=== PATIENT | female | born 1955 | race Caucasian/White ===

== ENCOUNTER 2022-06-07 23:48 | Inpatient (IN) | payer MEDICARE ==
[2022-06-07] MEDS ORDERED: SODIUM CHLORIDE 0.9% 1,000 ML IV STA ×2 (23:50)
[2022-06-07] MEDS ORDERED: METOPROLOL TARTRATE 5 MG/5 ML VIAL IVP STA (23:50)
--- NOTE | 2022-06-07 23:51 | ED ---
Recheck HPI - General Stated Complaint: AFib Time Seen by Provider: 06/07/22 23:50 Source: RN notes reviewed, old records reviewed Limitations: no limitations - History of Present Illness Initial Comments: This is a 66-year-old female DF for evaluation of chest pain palpitations physical heart racing. History of H a fibrillation did check her wristwatch which did show elevated heart rate. Patient has again known history of atrial fibrillation had no chest pain prior to arrival. Mild chest pain with elevated heart rate. Positive palpitations feels lightheaded and dizzy not near syncopal. No shortness of breath currently MD Complaint: medication refill request -: days(s) Returns Today for: Called Because of Abnormal Lab/Test, persistent/worsening pain related to initial visit Symptoms Since Prior Visit: worsening pain Associated Symptoms: none Treatments Prior to Arrival: Given Pain Meds on - Related Data Home Medications Medication Instructions Recorded Confirmed Albuterol Inhaler [Ventolin Hfa 1 - 2 puff INHALATION RT-Q4H PRN 06/08/22 06/08/22 Inhaler] Apixaban [Eliquis] 5 mg PO BID 06/08/22 06/08/22 Cholecalciferol [Vitamin D3 (125 125 mcg PO DAILY 06/08/22 06/08/22 Mcg = 5000 Iu)] Fluticasone Propionate 110 Mcg 1 puff INHALATION RT-BID 06/08/22 06/08/22 [Flovent 110 Mcg Inhaler] Ipratropium-Albuterol Nebulize 3 ml INHALATION RT-QID PRN 06/08/22 06/08/22 [Duoneb 0.5 mg-3 mg/3 ml Soln] Magnesium Oxide [Thao] 500 mg PO DAILY 06/08/22 06/08/22 Montelukast Sodium [Singulair] 10 mg PO HS 06/08/22 06/08/22 Multivit with Calcium,Iron,Min 1 tab PO DAILY 06/08/22 06/08/22 [Women's Multivitamin] Rosuvastatin [Crestor] 10 mg PO DAILY 06/08/22 06/08/22 Previous Rx's Medication Instructions Recorded Diltiazem Oral [Cardizem*] 30 mg PO TID #90 tab 06/09/22 Pantoprazole [Protonix] 40 mg PO AC-BRKFST #15 tab 06/09/22 Allergies Allergy/AdvReac Type Severity Reaction Status Date / Time banana Allergy Anaphylaxis Verified 06/08/22 18:33 cantaloupe Allergy Anaphylaxis Verified 06/08/22 18:33 latex Allergy Rash/Hives Verified 06/08/22 07:46 melon Allergy Anaphylaxis Verified 06/08/22 18:33 perflutren [From Definity] Allergy Unknown Verified 06/08/22 07:46 diclofenac [From Voltaren] AdvReac Chest Pain Verified 06/08/22 07:46 metoprolol [From Lopressor] AdvReac Chest Pain Verified 06/08/22 07:46 naproxen [From Naprosyn] AdvReac Chest Pain Verified 06/08/22 07:46 honeydew melon Allergy Anaphylaxis Uncoded 06/08/22 18:33 Review of Systems ROS Statement: Those systems with pertinent positive or pertinent negative responses have been documented in the HPI. ROS Other: All systems not noted in ROS Statement are negative. Past Medical History - Past Family History Mother History Unknown: Yes Additional Family Medical History / Comment(s): stroe, afib, pacemaker, DM, OA, Brother(s) History Unknown: Yes Additional Family Medical History / Comment(s): colon ca Father History Unknown: Yes Additional Family Medical History / Comment(s): cirrhosis, emphysema General Exam General appearance: alert, in no apparent distress Head exam: Present: atraumatic, normocephalic, normal inspection Eye exam: Present: normal appearance, PERRL, EOMI. Absent: scleral icterus, conjunctival injection, periorbital swelling ENT exam: Present: normal exam, mucous membranes moist Neck exam: Present: normal inspection. Absent: tenderness, meningismus, lymphadenopathy Respiratory exam: Present: normal lung sounds bilaterally. Absent: respiratory distress, wheezes, rales, rhonchi, stridor Cardiovascular Exam: Present: regular rate, normal rhythm, normal heart sounds. Absent: systolic murmur, diastolic murmur, rubs, gallop, clicks GI/Abdominal exam: Present: soft, normal bowel sounds. Absent: distended, tenderness, guarding, rebound, rigid Extremities exam: Present: normal inspection, full ROM, normal capillary refill. Absent: tenderness, pedal edema, joint swelling, calf tenderness Back exam: Present: normal inspection Neurological exam: Present: alert, oriented X3, CN II-XII intact Psychiatric exam: Present: normal affect, normal mood Skin exam: Present: warm, dry, intact, normal color. Absent: rash Course Vital Signs 06/07/22 06/07/22 06/08/22 23:50 23:56 00:14 Temperature 97.7 F 97.8 F Pulse Rate 128 H 120 H 120 H Respiratory 16 16 16 Rate Blood Pressure 136/100 136/110 128/73 O2 Sat by Pulse 99 98 99 Oximetry 06/08/22 06/08/22 06/08/22 00:25 00:33 01:25 Temperature Pulse Rate 100 98 92 Respiratory 16 16 16 Rate Blood Pressure 118/87 134/104 O2 Sat by Pulse 98 Oximetry 06/08/22 06/08/22 06/08/22 03:12 04:00 05:00 Temperature 98.6 F Pulse Rate 62 64 61 Respiratory 16 16 16 Rate Blood Pressure 110/64 O2 Sat by Pulse 99 98 Oximetry 06/08/22 06/08/22 06/08/22 06:30 07:30 10:35 Temperature Pulse Rate 62 63 67 Respiratory 16 18 18 Rate Blood Pressure 110/66 119/73 O2 Sat by Pulse 98 98 98 Oximetry 06/08/22 06/08/22 06/08/22 13:00 14:00 16:12 Temperature 98 F 98 F Pulse Rate 60 78 67 Respiratory 20 20 16 Rate Blood Pressure 127/85 146/86 135/66 O2 Sat by Pulse 95 98 98 Oximetry 06/08/22 06/08/22 17:00 19:00 Temperature Pulse Rate 70 75 Respiratory 16 20 Rate Blood Pressure 160/68 135/58 O2 Sat by Pulse 98 98 Oximetry - Reevaluation(s) Reevaluation #1: 06/07/22 Medical record is reviewed Patient symptoms improved here in the ER Patient informed of results and questions answered - Consultations Consultation #1: Spoke with admitting physician agrees to admit this patient Medical Decision Making - Medical Decision Making 66 female to be admitted for atrial fibrillation with RVR not feeling well palpitations and chest pain. - Lab Data Result diagrams: 06/07/22 23:56 06/09/22 10:02 Lab Results 06/07/22 06/07/22 06/07/22 Range/Units 23:56 23:56 23:56 WBC 8.2 (3.8-10.6) k/uL RBC 3.90 (3.80-5.40) m/uL Hgb 12.0 (11.4-16.0) gm/dL Hct 35.1 (34.0-46.0) % MCV 90.0 (80.0-100.0) fL MCH 30.7 (25.0-35.0) pg MCHC 34.1 (31.0-37.0) g/dL RDW 13.2 (11.5-15.5) % Plt Count 202 (150-450) k/uL MPV 8.8 Neutrophils % 59 % Lymphocytes % 27 % Monocytes % 7 % Eosinophils % 3 % Basophils % 1 % Neutrophils # 4.9 (1.3-7.7) k/uL Lymphocytes # 2.2 (1.0-4.8) k/uL Monocytes # 0.6 (0-1.0) k/uL Eosinophils # 0.3 (0-0.7) k/uL Basophils # 0.1 (0-0.2) k/uL PT 10.2 (9.0-12.0) sec INR 1.0 (<1.2) APTT 27.3 (22.0-30.0) sec Sodium 138 (137-145) mmol/L Potassium 3.8 (3.5-5.1) mmol/L Chloride 104 (98-107) mmol/L Carbon Dioxide 29 (22-30) mmol/L Anion Gap 5 mmol/L BUN 23 H (7-17) mg/dL Creatinine 1.60 H (0.52-1.04) mg/dL Est GFR (CKD-EPI)AfAm 39 (>60 ml/min/1.73 sqM) Est GFR (CKD-EPI)NonAf 34 (>60 ml/min/1.73 sqM) Glucose 110 H (74-99) mg/dL Calcium 9.6 (8.4-10.2) mg/dL Magnesium 1.8 (1.6-2.3) mg/dL Total Bilirubin 0.2 (0.2-1.3) mg/dL AST 27 (14-36) U/L ALT 19 (4-34) U/L Alkaline Phosphatase 114 (38-126) U/L Troponin I (0.000-0.034) ng/mL Total Protein 6.9 (6.3-8.2) g/dL Albumin 4.1 (3.5-5.0) g/dL TSH 2.240 (0.465-4.680) mIU/L Urine Color Urine Appearance (Clear) Urine pH (5.0-8.0) Ur Specific Iron (1.001-1.035) Urine Protein (Negative) Urine Glucose (UA) (Negative) Urine Ketones (Negative) Urine Blood (Negative) Urine Nitrite (Negative) Urine Bilirubin (Negative) Urine Urobilinogen (<2.0) mg/dL Ur Leukocyte Esterase (Negative) Urine RBC (0-5) /hpf Urine WBC (0-5) /hpf Ur Squamous Epith Cells (0-4) /hpf Ur Transition Epith Cell (0-1) /hpf Ur Renal Epithelial Cell (0) /hpf Urine Bacteria (None) /hpf Hyaline Casts (0-2) /lpf Urine Mucus (None) /hpf 06/07/22 06/08/22 06/08/22 Range/Units 23:56 02:17 03:28 WBC (3.8-10.6) k/uL RBC (3.80-5.40) m/uL Hgb (11.4-16.0) gm/dL Hct (34.0-46.0) % MCV (80.0-100.0) fL MCH (25.0-35.0) pg MCHC (31.0-37.0) g/dL RDW (11.5-15.5) % Plt Count (150-450) k/uL MPV Neutrophils % % Lymphocytes % % Monocytes % % Eosinophils % % Basophils % % Neutrophils # (1.3-7.7) k/uL Lymphocytes # (1.0-4.8) k/uL Monocytes # (0-1.0) k/uL Eosinophils # (0-0.7) k/uL Basophils # (0-0.2) k/uL PT (9.0-12.0) sec INR (<1.2) APTT (22.0-30.0) sec Sodium (137-145) mmol/L Potassium (3.5-5.1) mmol/L Chloride (98-107) mmol/L Carbon Dioxide (22-30) mmol/L Anion Gap mmol/L BUN (7-17) mg/dL Creatinine (0.52-1.04) mg/dL Est GFR (CKD-EPI)AfAm (>60 ml/min/1.73 sqM) Est GFR (CKD-EPI)NonAf (>60 ml/min/1.73 sqM) Glucose (74-99) mg/dL Calcium (8.4-10.2) mg/dL Magnesium (1.6-2.3) mg/dL Total Bilirubin (0.2-1.3) mg/dL AST (14-36) U/L ALT (4-34) U/L Alkaline Phosphatase (38-126) U/L Troponin I <0.012 0.025 (0.000-0.034) ng/mL Total Protein (6.3-8.2) g/dL Albumin (3.5-5.0) g/dL TSH (0.465-4.680) mIU/L Urine Color Light Yellow Urine Appearance Cloudy H (Clear) Urine pH 7.0 (5.0-8.0) Ur Specific Iron 1.009 (1.001-1.035) Urine Protein Negative (Negative) Urine Glucose (UA) Negative (Negative) Urine Ketones Negative (Negative) Urine Blood Trace H (Negative) Urine Nitrite Negative (Negative) Urine Bilirubin Negative (Negative) Urine Urobilinogen <2.0 (<2.0) mg/dL Ur Leukocyte Esterase Large H (Negative) Urine RBC 13 H (0-5) /hpf Urine WBC 84 H (0-5) /hpf Ur Squamous Epith Cells 1 (0-4) /hpf Ur Transition Epith Cell <1 (0-1) /hpf Ur Renal Epithelial Cell <1 (0) /hpf Urine Bacteria Rare H (None) /hpf Hyaline Casts 1 (0-2) /lpf Urine Mucus Rare H (None) /hpf 06/08/22 06/08/22 Range/Units 05:29 05:29 WBC (3.8-10.6) k/uL RBC (3.80-5.40) m/uL Hgb (11.4-16.0) gm/dL Hct (34.0-46.0) % MCV (80.0-100.0) fL MCH (25.0-35.0) pg MCHC (31.0-37.0) g/dL RDW (11.5-15.5) % Plt Count (150-450) k/uL MPV Neutrophils % % Lymphocytes % % Monocytes % % Eosinophils % % Basophils % % Neutrophils # (1.3-7.7) k/uL Lymphocytes # (1.0-4.8) k/uL Monocytes # (0-1.0) k/uL Eosinophils # (0-0.7) k/uL Basophils # (0-0.2) k/uL PT (9.0-12.0) sec INR (<1.2) APTT (22.0-30.0) sec Sodium 138 (137-145) mmol/L Potassium 3.9 (3.5-5.1) mmol/L Chloride 106 (98-107) mmol/L Carbon Dioxide 27 (22-30) mmol/L Anion Gap 5 mmol/L BUN 18 H (7-17) mg/dL Creatinine 1.35 H (0.52-1.04) mg/dL Est GFR (CKD-EPI)AfAm 48 (>60 ml/min/1.73 sqM) Est GFR (CKD-EPI)NonAf 41 (>60 ml/min/1.73 sqM) Glucose 101 H (74-99) mg/dL Calcium 8.5 (8.4-10.2) mg/dL Magnesium (1.6-2.3) mg/dL Total Bilirubin (0.2-1.3) mg/dL AST (14-36) U/L ALT (4-34) U/L Alkaline Phosphatase (38-126) U/L Troponin I 0.030 (0.000-0.034) ng/mL Total Protein (6.3-8.2) g/dL Albumin (3.5-5.0) g/dL TSH (0.465-4.680) mIU/L Urine Color Urine Appearance (Clear) Urine pH (5.0-8.0) Ur Specific Iron (1.001-1.035) Urine Protein (Negative) Urine Glucose (UA) (Negative) Urine Ketones (Negative) Urine Blood (Negative) Urine Nitrite (Negative) Urine Bilirubin (Negative) Urine Urobilinogen (<2.0) mg/dL Ur Leukocyte Esterase (Negative) Urine RBC (0-5) /hpf Urine WBC (0-5) /hpf Ur Squamous Epith Cells (0-4) /hpf Ur Transition Epith Cell (0-1) /hpf Ur Renal Epithelial Cell (0) /hpf Urine Bacteria (None) /hpf Hyaline Casts (0-2) /lpf Urine Mucus (None) /hpf - EKG Data -: EKG Interpreted by Me (EKG is A. fib 131 QRS 102 QTC 372) Disposition Clinical Impression: Tachycardia, Palpitations, Atrial fibrillation, Atrial fibrillation with rapid ventricular response Disposition: ADMITTED IP TO THIS HOSP Condition: Stable Is patient prescribed a controlled substance at d/c from ED?: No Time of Disposition: 01:25
[2022-06-08] MEDS ORDERED: DILTIAZEM DRIP BOLUS FROM BAG 1 MG SOLN IV ONE (00:09)
[2022-06-08] MEDS ORDERED: DILTIAZEM 125 MG in SODIUM CHLORIDE 0.9% 100 ML IV SCH (00:15)
[2022-06-08 00:24] LABS: Basophils # (A) 0.1 k/uL (0-0.2); Basophils % (A) 1 %; Eosinophils # (A) 0.3 k/uL (0-0.7); Eosinophils % (A) 3 %; HCT 35.1 % (34.0-46.0); Lymphocytes # (A) 2.2 k/uL (1.0-4.8); Lymphocytes % (A) 27 %; MCH 30.7 pg (25.0-35.0); MCHC 34.1 g/dL (31.0-37.0); Mean Platelet Volume 8.8; Monocytes # (A) 0.6 k/uL (0-1.0); Monocytes % (A) 7 %; Neutrophils # (A) 4.9 k/uL (1.3-7.7); Neutrophils % (A) 59 %; Platelet Count 202 k/uL (150-450); RDW 13.2 % (11.5-15.5); WBC 8.2 k/uL (3.8-10.6)
[2022-06-08 00:35] LABS: Albumin 4.1 g/dL (3.5-5.0); Calcium 9.6 mg/dL (8.4-10.2); Magnesium 1.8 mg/dL (1.6-2.3); Potassium 3.8 mmol/L (3.5-5.1); Total Bilirubin 0.2 mg/dL (0.2-1.3); Total Protein 6.9 g/dL (6.3-8.2)
[2022-06-08 00:37] LABS: Partial Thromboplastin Time 27.3 sec (22.0-30.0); Prothrombin Time 10.2 sec (9.0-12.0)
[2022-06-08] MEDS ORDERED: ONDANSETRON 4 MG/2 ML VIAL IVP PRN (01:24)
[2022-06-08] MEDS ORDERED: NALOXONE 0.4 MG/ML 1 ML VIAL IV PRN (01:24)
[2022-06-08] MEDS ORDERED: MORPHINE SULFATE 4 MG/ML SYRINGE IV PRN (01:24)
[2022-06-08] MEDS: SODIUM CHLORIDE 0.9% 1,000 ML IV SCH ×2 (01:57→20:42)
[2022-06-08 02:42] LABS: Appearance,Urine Cloudy (Clear); Bacteria,Urine Rare /hpf; Bilirubin,Urine Negative (Negative); Blood,Urine Trace (Negative); Color,Urine Light Yellow; Glucose,Urine (UA) Negative (Negative); Hyaline Casts,Urine 1 /lpf (0-2); Ketones,Urine Negative (Negative); Leukocyte Esterase,Urine Large (Negative); Mucus,Urine Rare /hpf; Nitrite,Urine Negative (Negative); Protein,Urine Negative (Negative); RBC,Urine 13 /hpf (0-5); Renal Epithelial Cells,Urine <1 /hpf (0); Specific Gravity,Urine 1.009 (1.001-1.035); Squamous Epithelial Cell,Urine 1 /hpf (0-4); Transitional Epi Cells,Urine <1 /hpf (0-1); Urobilinogen,Urine <2.0 mg/dL (<2.0); WBC,Urine 84 /hpf (0-5)
[2022-06-08] MEDS ORDERED: NON FORMULARY DRUG (Albuterol Inhaler 90 MCG Puff) INHALATION PRN (09:55)
[2022-06-08] MEDS ORDERED: IPRATROPIUM-ALBUTEROL 3 ML NEB INHALATION PRN (09:55)
[2022-06-08 10:31] LABS: Calcium 8.5 mg/dL (8.4-10.2); Potassium 3.9 mmol/L (3.5-5.1)
[2022-06-08] MEDS: APIXABAN 5 MG TAB PO SCH ×2 (10:35→20:07)
[2022-06-08] MEDS: PANTOPRAZOLE 40 MG/10 ML VIAL IV SCH (10:35)
--- NOTE | 2022-06-08 11:35 | P.CRDCN ---
History of Present Illness Consult date: 06/08/22 History of present illness: History of Present Illness: The patient is a 66-year-old female with a known history of paroxysmal atrial fibrillation, followed by Dr. Gomez who moved recently from [place]. She had atrial fibrillation for a while, underwent to cardioversion and subsequent ablation in November, she has been anticoagulated and has been doing well until when she noted a rapid irregular heartbeat on her Smart watch associated with dyspnea and dizziness. Came into the emergency room was noted to be in atrial fibrillation with rapid ventricular response, she subsequently converted back to sinus mechanism. She's feeling better today. She denies any chest discomfort, peripheral edema, PND or orthopnea. She is reasonably active physically without difficulty. She recently underwent an MPI, the results are not available to me. She has no other cardiac issue according to her. She denies any prior history of ischemic heart disease or heart failure. Medications: Crestor 10 mg daily, Flovent, Singulair, Eliquis 5 mg twice a day, at home it appears that she was on lisinopril and chlorthalidone. Apparently she had severe bronchospasm from metoprolol and some bradycardia from diltiazem Review of Systems: Respiratory: She has a history of bronchial asthma but no recent wheezing or significant cough. GI: No nausea or vomiting . No history of peptic ulcer disease. No recent GI bleed. : No hematuria or dysuria. Nervous System: No stroke or seizure. Physical Examination: 66-year-old female, alert and oriented no apparent distress,Blood pressure 119/70, Heart rate 67 Head: Normocephalic. Eyes: Sclerae nonicteric. Neck: Good carotid upstroke, no bruit, no jugular venous distention. Lungs: Clear to auscultation. Heart: Regular rate and rhythm, S1-S2, no S3, no rub. No murmur. Abdomen: Soft nontender, positive bowel sounds no organomegaly. Extremities: No edema, intact distal pulses. Labs: BUN 23, creatinine 1.6, this morning creatinine 1.35. Potassium 3.9. Hemoglobin 12. Troponin less than 0.012, 1025, 0.030. TSH 2.2 EKG: Initial EKG atrial fibrillation with rapid ventricular response and nonspecific ST-T wave changes, subsequently sinus mechanism with no significant ST changes Impression: 1. Paroxysmal atrial fibrillation, back in sinus mechanism, post cardioversion and partial ablation according to the patient done in [place] 2. History of hypertension 3. History of bronchial asthma 4. Hyperlipidemia 5. Abnormal renal functions, improving Plan: 1. Start low dose Cardizem and follow heart rate 2. Obtain an echocardiogram with Doppler 3. Follow her renal functions 4. The patient may benefit from repeat ablation 5. Depending on her progress and if she remains stable probable discharge home tomorrow and follow-up as an outpatient Past Medical History Past Medical History: Atrial Fibrillation, Asthma, Hypertension, Sleep Apnea/CPAP/BIPAP History of Any Multi-Drug Resistant Organisms: None Reported Past Surgical History: Ablation Past Psychological History: No Psychological Hx Reported Smoking Status: Former smoker Past Alcohol Use History: None Reported Past Drug Use History: None Reported Medications and Allergies Home Medications Medication Instructions Recorded Confirmed Type Albuterol Inhaler [Ventolin Hfa 1 - 2 puff INHALATION RT-Q4H PRN 06/08/22 06/08/22 History Inhaler] Apixaban [Eliquis] 5 mg PO BID 06/08/22 06/08/22 History Cholecalciferol [Vitamin D3 (125 125 mcg PO DAILY 06/08/22 06/08/22 History Mcg = 5000 Iu)] Fluticasone Propionate 110 Mcg 1 puff INHALATION RT-BID 06/08/22 06/08/22 History [Flovent 110 Mcg Inhaler] Ipratropium-Albuterol Nebulize 3 ml INHALATION RT-QID PRN 06/08/22 06/08/22 History [Duoneb 0.5 mg-3 mg/3 ml Soln] Magnesium Oxide [Thao] 500 mg PO DAILY 06/08/22 06/08/22 History Montelukast Sodium [Singulair] 10 mg PO HS 06/08/22 06/08/22 History Multivit with Calcium,Iron,Min 1 tab PO DAILY 06/08/22 06/08/22 History [Women's Multivitamin] Rosuvastatin [Crestor] 10 mg PO DAILY 06/08/22 06/08/22 History Allergies Allergy/AdvReac Type Severity Reaction Status Date / Time latex Allergy Rash/Hives Verified 06/08/22 07:46 perflutren [From Definity] Allergy Unknown Verified 06/08/22 07:46 diclofenac [From Voltaren] AdvReac Chest Pain Verified 06/08/22 07:46 metoprolol [From Lopressor] AdvReac Chest Pain Verified 06/08/22 07:46 naproxen [From Naprosyn] AdvReac Chest Pain Verified 06/08/22 07:46 Physical Exam Vitals: Vital Signs Temp Pulse Resp BP Pulse Ox 06/08/22 10:35 67 18 119/73 98 06/08/22 07:30 63 18 110/66 98 06/08/22 06:30 62 16 98 06/08/22 05:00 61 16 98 06/08/22 04:00 98.6 F 64 16 110/64 99 06/08/22 03:12 62 16 06/08/22 01:25 92 16 134/104 06/08/22 00:33 98 16 06/08/22 00:25 100 16 118/87 98 06/08/22 00:14 120 H 16 128/73 99 06/07/22 23:56 97.8 F 120 H 16 136/110 98 06/07/22 23:50 97.7 F 128 H 16 136/100 99 Intake and Output 06/07/22 06/08/22 06/08/22 22:59 06:59 14:59 Other: Weight 77.111 kg Results 06/07/22 23:56 06/08/22 05:29 Cardiac Enzymes 06/07/22 06/07/22 06/08/22 Range/Units 23:56 23:56 03:28 AST 27 (14-36) U/L Troponin I <0.012 0.025 (0.000-0.034) ng/mL 06/08/22 Range/Units 05:29 AST (14-36) U/L Troponin I 0.030 (0.000-0.034) ng/mL Coagulation 06/07/22 Range/Units 23:56 PT 10.2 (9.0-12.0) sec APTT 27.3 (22.0-30.0) sec CBC 06/07/22 Range/Units 23:56 WBC 8.2 (3.8-10.6) k/uL RBC 3.90 (3.80-5.40) m/uL Hgb 12.0 (11.4-16.0) gm/dL Hct 35.1 (34.0-46.0) % Plt Count 202 (150-450) k/uL Comprehensive Metabolic Panel 06/07/22 06/08/22 Range/Units 23:56 05:29 Sodium 138 138 (137-145) mmol/L Potassium 3.8 3.9 (3.5-5.1) mmol/L Chloride 104 106 (98-107) mmol/L Carbon Dioxide 29 27 (22-30) mmol/L BUN 23 H 18 H (7-17) mg/dL Creatinine 1.60 H 1.35 H (0.52-1.04) mg/dL Glucose 110 H 101 H (74-99) mg/dL Calcium 9.6 8.5 (8.4-10.2) mg/dL AST 27 (14-36) U/L ALT 19 (4-34) U/L Alkaline Phosphatase 114 (38-126) U/L Total Protein 6.9 (6.3-8.2) g/dL Albumin 4.1 (3.5-5.0) g/dL Current Medications Generic Name Dose Route Start Last Admin Trade Name Freq PRN Reason Stop Dose Admin Albuterol/Ipratropium 3 ml 06/08/22 09:55 Ipratropium-Albuterol 3 Ml Neb INHALATION RT-QID PRN Shortness Of Breath Apixaban 5 mg 06/08/22 10:30 06/08/22 10:35 Apixaban 5 Mg Tab PO 5 mg BID PATTIE Administration Protocol Atorvastatin Calcium 20 mg 06/09/22 09:00 Atorvastatin 20 Mg Tab PO DAILY PATTIE Cholecalciferol 125 mcg 06/09/22 09:00 Cholecalciferol 125 Mcg (5000 Iu) Tablet PO DAILY PATTIE Fluticasone Propionate 1 puff 06/08/22 20:00 Fluticasone 110 Mcg Inhaler INHALATION RT-BID PATTIE Sodium Chloride 1,000 mls @ 75 mls/hr 06/08/22 01:30 06/08/22 01:57 Saline 0.9% IV 75 mls/hr .[id number] PATTIE Administration Montelukast Sodium 10 mg 06/08/22 21:00 Montelukast 10 Mg Tab PO HS PATTIE Morphine Sulfate 4 mg 06/08/22 01:24 Morphine Sulfate 4 Mg/Ml Syringe IV Q4HR PRN Severe Pain (Scale 7 to 10) Multivitamins 1 each 06/09/22 09:00 Multivitamins, Thera 1 Each Tab PO DAILY PATTIE Naloxone HCl 0.2 mg 06/08/22 01:24 Naloxone 0.4 Mg/Ml 1 Ml Vial IV Q2M PRN Opioid Reversal Ondansetron HCl 4 mg 06/08/22 01:24 Ondansetron 4 Mg/2 Ml Vial IVP Q8HR PRN Nausea And Vomiting Pantoprazole Sodium 40 mg 06/08/22 09:00 06/08/22 10:35 Pantoprazole 40 Mg/10 Ml Vial IV 40 mg DAILY PATTIE Administration Intake and Output 06/07/22 06/08/22 06/08/22 22:59 06:59 14:59 Other: Weight 77.111 kg 06/07/22 23:56 06/08/22 05:29
[2022-06-08] MEDS: DILTIAZEM ORAL 30 MG TAB PO SCH ×3 (13:05→20:08)
--- NOTE | 2022-06-08 16:04 | P.HPIM ---
History of Present Illness H&P Date: 06/08/22 This is a 66 year old female who presents to the emergency room yesterday around 11 pm, she was found to be in atrial fibrillation with rapid ventricular rate. EKG on presentation shows atrial fibrillation with heart rate of 131. She was given a 1 liter normal saline fluid bolus and received a 15 mg IV fluid bolus which resulted in sinus bradycardia heart rate of 28 with a 4 second pause. She is currently maintaining heart rate of 61 normal sinus rhythm. She does have past medical history significant for atrial fibrillation, also asthma, hypertension, and sleep apnea. She has most of her cardiac care done in [place] and has undergone 2 previous cardioversions, 1 ablation. She has not tolerated cardizem in the past and states metoprolol illicits bronchospasm. She is anticoagulated with eliquis which will be resumed. Former tobacco use. She follows with Dr. Juve Gomez and recently underwent stress test outpatient. Unsure when her last echocardiogram was. Currently does not have family doctor. She has a CPAP which she is not currently using, would like to follow up with pulmonary here . She does report recent issues with incomplete bladder emptying and fullness. Hematology panel is unremarkable, kidney function is elevated BUN 23, creatinine 1.60. Troponin level is negative x 3 at <0.012, 0.025 and 0.030. Urine is cloudy, trace blood, large leukocyte esterase, 84 WBC, 13 RBC, rare bacteria. No white count. Her blood pressure on admission was 136/100 and has since improved down to 110/66. Patient does take chlorthalidone and also lisinopril outpatient which will be placed on hold secondary to renal dysfunction. Creatinine will be rechecked. REVIEW OF SYSTEMS: CONSTITUTIONAL: No fever, no malaise, no fatigue. HEENT: No recent visual problems or hearing problems. Denied any sore throat. CARDIOVASCULAR: No chest pain, orthopnea, PND, Reports palpitations no syncope. PULMONARY: No shortness of breath, no cough, no hemoptysis. GASTROINTESTINAL: No diarrhea, no nausea, no vomiting, no abdominal pain. NEUROLOGICAL: No headaches, no weakness, no numbness. HEMATOLOGICAL: Denies any bleeding or petechiae. GENITOURINARY: Denies any burning micturition, frequency, or urgency. Reports retention. MUSCULOSKELETAL/RHEUMATOLOGICAL: Denies any joint pain, swelling, or any muscle pain. ENDOCRINE: Denies any polyuria or polydipsia. The rest of the 14-point review of systems is negative. PHYSICAL EXAMINATION: GENERAL: The patient is alert and oriented x3, not in any acute distress. Well developed, well nourished. HEENT: Pupils are round and equally reacting to light. EOMI. No scleral icterus. No conjunctival pallor. Normocephalic, atraumatic. No pharyngeal erythema. No thyromegaly. CARDIOVASCULAR: S1 and S2 present. No murmurs, rubs, or gallops. PULMONARY: Chest is clear to auscultation, no wheezing or crackles. ABDOMEN: Soft, nontender, nondistended, normoactive bowel sounds. No palpable organomegaly. Suprapubic abdominal distention. MUSCULOSKELETAL: No joint swelling or deformity. EXTREMITIES: No cyanosis, clubbing, or pedal edema. NEUROLOGICAL: Gross neurological examination did not reveal any focal deficits. SKIN: No rashes. Assessment and Plan Assessment Atrial fibrillation with rapid ventricular rate currently converted to normal sinus rhythm Acute kidney injury, unsure what baseline creatinine is patient does have some urinary retention. Recent upper respiratory infection treated with amoxicillin about 3 weeks ago History atrial fibrillation anticoagulated with eliquis Hypertension History asthma maintained on flovent, singulair History sleep apnea wears CPAP History of cardiac ablation/cardioversion x 2 Former tobacco use GI Prophylaxis DVT Prophylaxis Full Code Plan Cardiology consultation Echocardiogram pending Check bladder scan and follow urinary retention protocol Outpatient follow up urology Outpatient follow up pulmonary Possible D/C in the next 24 hours The impression and plan of care has been dictated by Sarah Thao Nurse Practitioner as directed. Dr. Nicholas MD I have performed a history and physical examination and medical decision making of this patient, discussed the same with the dictator, and agree with the dictators assessment and plan as written, documented as a scribe. Based on total visit time, I have performed more than 50% of this visit. Past Medical History Past Medical History: Atrial Fibrillation, Asthma, Hypertension, Sleep Apnea/CPAP/BIPAP History of Any Multi-Drug Resistant Organisms: None Reported Past Surgical History: Ablation Past Psychological History: No Psychological Hx Reported Smoking Status: Former smoker Past Alcohol Use History: None Reported Past Drug Use History: None Reported Medications and Allergies Home Medications Medication Instructions Recorded Confirmed Type Albuterol Inhaler [Ventolin Hfa 1 - 2 puff INHALATION RT-Q4H PRN 06/08/22/12/13 History Inhaler] Apixaban [Eliquis] 5 mg PO BID 06/08/22 06/08/22 History Cholecalciferol [Vitamin D3 (125 125 mcg PO DAILY 06/08/22 06/08/22 History Mcg = 5000 Iu)] Fluticasone Propionate 110 Mcg 1 puff INHALATION RT-BID 06/08/22 06/08/22 History [Flovent 110 Mcg Inhaler] Ipratropium-Albuterol Nebulize 3 ml INHALATION RT-QID PRN 06/08/22 06/08/22 History [Duoneb 0.5 mg-3 mg/3 ml Soln] Magnesium Oxide [Thao] 500 mg PO DAILY 06/08/22 06/08/22 History Montelukast Sodium [Singulair] 10 mg PO HS 06/08/22 06/08/22 History Multivit with Calcium,Iron,Min 1 tab PO DAILY 06/08/22 06/08/22 History [Women's Multivitamin] Rosuvastatin [Crestor] 10 mg PO DAILY 06/08/22 06/08/22 History Allergies Allergy/AdvReac Type Severity Reaction Status Date / Time latex Allergy Rash/Hives Verified 06/08/22 07:46 perflutren [From Definity] Allergy Unknown Verified 06/08/22 07:46 diclofenac [From Voltaren] AdvReac Chest Pain Verified 06/08/22 07:46 metoprolol [From Lopressor] AdvReac Chest Pain Verified 06/08/22 07:46 naproxen [From Naprosyn] AdvReac Chest Pain Verified 06/08/22 07:46 Physical Exam Vitals: Vital Signs Temp Pulse Resp BP Pulse Ox 06/08/22 07:30 63 18 110/66 98 06/08/22 06:30 62 16 98 06/08/22 05:00 61 16 98 06/08/22 04:00 98.6 F 64 16 110/64 99 06/08/22 03:12 62 16 06/08/22 01:25 92 16 134/104 06/08/22 00:33 98 16 06/08/22 00:25 100 16 118/87 98 06/08/22 00:14 120 H 16 128/73 99 06/07/22 23:56 97.8 F 120 H 16 136/110 98 06/07/22 23:50 97.7 F 128 H 16 136/100 99 Intake and Output 06/07/22 06/08/22 06/08/22 22:59 06:59 14:59 Other: Weight 77.111 kg Results CBC & Chem 7: 06/07/22 23:56 06/08/22 05:29 Labs: Abnormal Lab Results - Last 24 Hours (Table) 06/07/22 06/08/22 Range/Units 23:56 02:17 BUN 23 H (7-17) mg/dL Creatinine 1.60 H (0.52-1.04) mg/dL Glucose 110 H (74-99) mg/dL Urine Appearance Cloudy H (Clear) Urine Blood Trace H (Negative) Ur Leukocyte Esterase Large H (Negative) Urine RBC 13 H (0-5) /hpf Urine WBC 84 H (0-5) /hpf Urine Bacteria Rare H (None) /hpf Urine Mucus Rare H (None) /hpf Assessment and Plan Time with Patient: Greater than 30
[2022-06-08] MEDS ORDERED: Acetaminophen-Codeine 300-30mg TAB PO PRN (20:05)
[2022-06-08] MEDS: ACETAMINOPHEN TAB 500 MG TAB PO PRN (20:07)
[2022-06-08] MEDS ORDERED: MONTELUKAST 10 MG TAB PO SCH (21:00)
[2022-06-08] MEDS: FLUTICASONE 110 MCG INHALER INHALATION SCH (21:47)
[2022-06-09] MEDS: SODIUM CHLORIDE 0.9% 1,000 ML IV SCH (06:20)
[2022-06-09] MEDS: FLUTICASONE 110 MCG INHALER INHALATION SCH (07:16)
[2022-06-09] MEDS: APIXABAN 5 MG TAB PO SCH ×2 (07:55→18:09)
[2022-06-09] MEDS: DILTIAZEM ORAL 30 MG TAB PO SCH ×2 (07:55→18:07)
[2022-06-09] MEDS: PANTOPRAZOLE 40 MG/10 ML VIAL IV SCH (07:56)
[2022-06-09] MEDS ORDERED: ATORVASTATIN 20 MG TAB PO SCH (09:00)
[2022-06-09] MEDS ORDERED: CHOLECALCIFEROL 125 MCG (5000 IU) TABLET PO SCH (09:00)
[2022-06-09] MEDS ORDERED: MULTIVITAMINS, THERA 1 EACH TAB PO SCH (09:00)
[2022-06-09 11:13] LABS: Calcium 8.7 mg/dL (8.4-10.2); Magnesium 1.8 mg/dL (1.6-2.3); Phosphorus 3.5 mg/dL (2.5-4.5); Potassium 3.8 mmol/L (3.5-5.1)
--- NOTE | 2022-06-09 14:12 | P.PN ---
Subjective Progress Note Date: 06/09/22 The patient is a 66-year-old female with a known history of paroxysmal atrial fibrillation, followed by Dr. Gomez who moved recently from [place]. She had atrial fibrillation for a while, underwent to cardioversion and subsequent ablation in November, she has been anticoagulated and has been doing well until yesterday when she noted a rapid irregular heartbeat on her Smart watch associated with dyspnea and dizziness. Came into the emergency room was noted to be in atrial fibrillation with rapid ventricular response, she subsequently converted back to sinus mechanism. She's feeling better today. She denies any chest discomfort, peripheral edema, PND or orthopnea. She is reasonably active physically without difficulty. She recently underwent an MPI, the results are not available to me. She has no other cardiac issue according to her. She denies any prior history of ischemic heart disease or heart failure. Medications: Crestor 10 mg daily, Flovent, Singulair, Eliquis 5 mg twice a day, at home it appears that she was on lisinopril and chlorthalidone. Apparently she had severe bronchospasm from metoprolol and some bradycardia from diltiazem 06/09/2022 The patient was seen and examined resting comfortably in bed. She is overall feeling better. She is maintaining sinus mechanism. Echocardiogram is pending. Objective - Vital Signs Vital signs: Vital Signs Temp 98 F 06/09/22 11:46 Pulse 62 06/09/22 11:46 Resp 16 06/09/22 11:46 BP 99/54 06/09/22 11:46 Pulse Ox 93 L 06/09/22 11:46 FiO2 Intake & Output 06/08/22 06/09/22 06/09/22 18:59 06:59 18:59 Intake Total 360 Output Total 687 Balance -687 360 Weight 77.111 kg Intake: Oral 360 Output: Post Void Residual 687 Other: Voiding Method Toilet # Voids 0 - Exam Head: Normocephalic. Eyes: Sclerae nonicteric. Neck: Good carotid upstroke, no bruit, no jugular venous distention. Lungs: Clear to auscultation. Heart: Regular rate and rhythm, S1-S2, no S3, no rub. No murmur. Abdomen: Soft nontender, positive bowel sounds no organomegaly. Extremities: No edema, intact distal pulses. - Labs CBC & Chem 7: 12/15/22 23:56 06/09/22 10:02 Labs: Abnormal Lab Results - Last 24 Hours (Table) 06/09/22 Range/Units 10:02 Creatinine 1.28 H (0.52-1.04) mg/dL Glucose 108 H (74-99) mg/dL Microbiology - Last 24 Hours (Table) 06/08/22 02:17 Urine Culture - Preliminary Urine,Voided Assessment and Plan Assessment: 1. Paroxysmal atrial fibrillation, back in sinus mechanism, post cardioversion and partial ablation according to the patient done in [place] 2. History of hypertension 3. History of bronchial asthma 4. Hyperlipidemia 5. Abnormal renal functions, improving Plan: From cardiology's perspective medications were reviewed and we will continue the same. From our standpoint if the echocardiogram does not show any significant abnormalities the patient may be discharged home. She'll follow-up with Dr. Gomez. She may benefit from repeat ablation in the future. CORPORATE ACCOUNTANT note has been reviewed, I agree with a documented findings and plan of care. Patient was seen and examined.
[2022-06-09] MEDS: ACETAMINOPHEN TAB 500 MG TAB PO PRN (14:39)
[2022-06-09 14:42] VITALS: RESP 18
--- NOTE | 2022-06-09 16:23 | CA ---
Transthoracic Echo Report Name: Chelsea Layne Age: 66 Gender: F : 1955 Exam Date: 06/09/2022 09:28 Exam Location: [facility] Ht (in): 52 Wt (lb): 170 Ordering Physician: Madina Pierce MD ([id number]) Attending/Referring Phys: Polisher Balance Screwhead Missy Snow RDCS Procedure CPT: Indications: afib Cardiac Hx: Technical Quality: Contrast 1: Total Dose (mL): Contrast 2: Total Dose (mL): MEASUREMENTS (Male / Female) Normal Values 2D ECHO LV Diastolic Diameter PLAX 4.4 cm 4.2 - 5.9 / 3.9 - 5.3 cm LV Systolic Diameter PLAX 3.0 cm IVS Diastolic Thickness 0.7 cm 0.6 - 1.0 / 0.6 - 0.9 cm LVPW Diastolic Thickness 0.9 cm 0.6 - 1.0 / 0.6 - 0.9 cm LV Relative Wall Thickness 0.4 LA Systolic Diameter LX 3.7 cm 3.0 - 4.0 / 2.7 - 3.8 cm M-MODE MV E Point Septal Separation 0.4 cm DOPPLER MV Area PHT 3.2 cm??? Mitral E Point Velocity 100.3 cm/s Mitral A Point Velocity 80.8 cm/s Mitral E to A Ratio 1.2 MV Deceleration Time 216.9 ms MV E' Velocity 6.0 cm/s Mitral E to MV E' Ratio 16.8 TR Peak Velocity 282.8 cm/s TR Peak Gradient 32.0 mmHg Right Ventricular Systolic Press 35.5 mmHg FINDINGS Left Ventricle Normal left ventricular size, wall thickness, systolic function with no obvious regional wall motion abnormalities. Left ventricular ejection fraction is estimated at 55-60%. Right Ventricle The right ventricle is normal in size and function. Mild pulmonary hypertension. Right Atrium The right atrium is normal in size. Left Atrium The left atrium is normal in size. Lipomatous hypertrophy of the intra-atrial septum Mitral Valve Structurally normal mitral valve without significant stenosis or prolapse. There is mild mitral regurgitation. Aortic Valve Structurally normal aortic valve without significant sclerosis or stenosis. There is no aortic regurgitation. Tricuspid Valve Structurally normal tricuspid valve without significant stenosis.mild tricuspid regurgitation. Pulmonic Valve Structurally normal pulmonic valve without significant stenosis. There is no pulmonic regurgitation. Pericardium Normal pericardium without effusion. Aorta Normal aortic root dimension. CONCLUSIONS 1. Normal size and systolic function 2. Mild mitral and tricuspid regurgitation Previewed by: Dr. Madina Pierce MD (Electronically Signed) Final Date: 09 June 2022 16:22
[2022-06-09 18:22] VITALS: BP 127/77; PULSE 61; TEMP 98.5
[2022-06-10] MEDS ORDERED: PANTOPRAZOLE 40 MG TABLET PO SCH (07:30)
--- NOTE | 2022-06-10 14:40 | P.DS ---
Providers Date of admission: 06/08/22 10:27 Attending physician: Matthew Cohen Consults: 06/08/22 10:37 Consult Physician Routine Consulting Provider: Juve Gomez Consult Reason/Comments: afib with RVR, converted with cardizem - had SB and 4 sec pause Do you want consulting provider notified?: Yes Primary care physician: Stated None Hospital Course: Final Diagnosis Atrial fibrillation with rapid ventricular rate currently converted to normal sinus rhythm Acute kidney injury, unsure what baseline creatinine is patient does have some urinary retention. Recent upper respiratory infection treated with amoxicillin about 3 weeks ago History atrial fibrillation anticoagulated with eliquis Hypertension History asthma maintained on flovent, singulair History sleep apnea wears CPAP History of cardiac ablation/cardioversion x 2 Former tobacco use Full Code Discharge Disposition Patient is stable for discharge home. She is started on oral cardizem 30 mg po three times a day and has tolerated well. She is currently maintaining sinus mechanism. Follow up closely with Dr Gomez. Lisinopril and chlorthalidone stopped on discharge. Follow up BMP in 2 to [address] Loyd, Dr. Dias on discharge. Hospital Course This is a 66 year old female who presents to the emergency room yesterday around 11 pm, she was found to be in atrial fibrillation with rapid ventricular rate. EKG on presentation shows atrial fibrillation with heart rate of 131. She was given a 1 liter normal saline fluid bolus and received a 15 mg IV fluid bolus which resulted in sinus bradycardia heart rate of 28 with a 4 second pause. She is currently maintaining heart rate of 61 normal sinus rhythm. She does have past medical history significant for atrial fibrillation, also asthma, hypertension, and sleep apnea. She has most of her cardiac care done in [place] and has undergone 2 previous cardioversions, 1 ablation. She has not tolerated cardizem in the past and states metoprolol illicits bronchospasm. She is anticoagulated with eliquis which will be resumed. Former tobacco use. She follows with Dr. Juve Gomez and recently underwent stress test outpatient. Unsure when her last echocardiogram was. Currently does not have family doctor. She has a CPAP which she is not currently using, would like to follow up with pulmonary here . She does report recent issues with incomplete bladder emptying and fullness. Hematology panel is unremarkable, kidney function is elevated BUN 23, creatinine 1.60. Troponin level is negative x 3 at <0.012, 0.025 and 0.030. Urine is cloudy, trace blood, large leukocyte esterase, 84 WBC, 13 RBC, rare bacteria. No white count. Her blood pressure on admission was 136/100 and has since improved down to 110/66. Patient does take chlorthalidone and also lisinopril outpatient which will be placed on hold secondary to renal dysfunction. Creatinine will be rechecked. Echocardiogram shows an EF of 55 to 60% mild mitral and tricuspid regurgitation. She has been evaluated by cardiology and started on low dose oral cardizem and has converted to normal sinus rhythm and tolerating cardizem overnight. She will be discharged today and to follow up with Dr. Gomez in 1 week. Referred to [facility] for primary care and also to urology as needed if symptoms of urinary retention return. She is referred to Dr. Dias for evaluation and local follow up for sleep apnea. 06/09/2022 Patient is evaluated today and medical floor, she is pending discharge today. Patient is urinating with a negative post void residual. She's been started on oral Cardizem is currently maintaining sinus mechanism. Heart rate between 50 and 71. She remains afebrile, blood pressure 127/77, she is on room air, heart rate 61. Urine culture is negative. Denies shortness of breath, denies chest pain. No dizziness or lightheadedness. Denies nausea vomiting or diarrhea. Lungs are clear, S1 S2 auscultated. Focal neurological exam is negative she is alert x 3. Creatinine has improved to 1.28 and patient will be given scripts for repeat labs on discharge. Please see medication reconciliation for a list of current medication. Thank you for allowing us to participate in the care of this patient. The impression and plan of care has been dictated by Sarah Thao Nurse Practitioner as directed. Dr. Nicholas MD I have performed a history and physical examination and medical decision making of this patient, discussed the same with the dictator, and agree with the dictators assessment and plan as written, documented as a scribe. Based on total visit time, I have performed more than 50% of this visit. Patient Condition at Discharge: Stable Plan - Discharge Summary Discharge Rx Participant: Yes New Discharge Prescriptions: New Diltiazem Oral [Cardizem*] 30 mg PO TID #90 tab Pantoprazole [Protonix] 40 mg PO AC-BRKFST #15 tab Continue Magnesium Oxide [Thao] 500 mg PO DAILY Cholecalciferol [Vitamin D3 (125 Mcg = 5000 Iu)] 125 mcg PO DAILY Albuterol Inhaler [Ventolin Hfa Inhaler] 1 - 2 puff INHALATION RT-Q4H PRN PRN Reason: Shortness Of Breath Multivit with Calcium,Iron,Min [Women's Multivitamin] 1 tab PO DAILY Rosuvastatin [Crestor] 10 mg PO DAILY Montelukast Sodium [Singulair] 10 mg PO HS Ipratropium-Albuterol Nebulize [Duoneb 0.5 mg-3 mg/3 ml Soln] 3 ml INHALATION RT-QID PRN PRN Reason: Shortness Of Breath Apixaban [Eliquis] 5 mg PO BID Fluticasone Propionate 110 Mcg [Flovent 110 Mcg Inhaler] 1 puff INHALATION RT-BID Discontinued lisinopriL [Prinivil] 20 mg PO BID Chlorthalidone [Hygroton] 25 mg PO DAILY Discharge Medication List Albuterol Inhaler [Ventolin Hfa Inhaler] 1 - 2 puff INHALATION RT-Q4H PRN 06/08/22 [History] Apixaban [Eliquis] 5 mg PO BID 06/08/22 [History] Cholecalciferol [Vitamin D3 (125 Mcg = 5000 Iu)] 125 mcg PO DAILY 06/08/22 [History] Fluticasone Propionate 110 Mcg [Flovent 110 Mcg Inhaler] 1 puff INHALATION RT- BID 06/08/22 [History] Ipratropium-Albuterol Nebulize [Duoneb 0.5 mg-3 mg/3 ml Soln] 3 ml INHALATION RT-QID PRN 06/08/22 [History] Magnesium Oxide [Thao] 500 mg PO DAILY 06/08/22 [History] Montelukast Sodium [Singulair] 10 mg PO HS 06/08/22 [History] Multivit with Calcium,Iron,Min [Women's Multivitamin] 1 tab PO DAILY 06/08/22 [History] Rosuvastatin [Crestor] 10 mg PO DAILY 06/08/22 [History] Diltiazem Oral [Cardizem*] 30 mg PO TID #90 tab 06/09/22 [Rx] Pantoprazole [Protonix] 40 mg PO AC-BRKFST #15 tab 06/09/22 [Rx] Follow up Appointment(s)/Referral(s): Nemo Loyd MD [STAFF PHYSICIAN] - 1-2 Days (Please call to schedule follow up appointment. ) Juve Gomez DO [STAFF PHYSICIAN] - 1 Week (Please call to schedule follow up appointment. ) None,Stated [Primary Care Provider] - 1-2 days Marck Dias MD [STAFF PHYSICIAN] - 2 Weeks (Please call to schedule follow up appointment. ) Patient Instructions/Handouts: A-fib (Atrial Fibrillation) (DC) Activity/Diet/Wound Care/Special Instructions: Recommend to hold lisinopril and chlorthalidone on DC secondary to low blood pressure Follow up with Dr. Gomez on discharge Establish care with primary care provider Follow up with Dr. Dias pulmonary services on discharge for further recommendations regarding sleep apnea and equipment Follow up with urology as needed if recurrent issues with urinary retention Discharge/Stand Alone Forms: Work/Release Restrictions Form Discharge Disposition: HOME SELF-CARE
== END 2022-06-09 18:23 | disposition home or self-care (01) | DRG 309 ==
LOC: EC 23:48 → 3SCARD 06-08 01:24 → OBSVTOIN 06-08 10:27 → 3SCARD 06-08 10:49
PROVIDERS: ADMIT Hospitalist; ATTEND Hospitalist
DX: I48.0 Paroxysmal atrial fibrillation (principal); N17.9 Acute kidney failure, unspecified; Z79.01 Long term (current) use of anticoagulants; I10 Essential (primary) hypertension; I08.1 Rheumatic disorders of both mitral and tricuspid valves; J45.909 Unspecified asthma, uncomplicated; E78.5 Hyperlipidemia, unspecified; G47.30 Sleep apnea, unspecified; Z79.899 Other long term (current) drug therapy; Z87.891 Personal history of nicotine dependence; Z91.040 Latex allergy status; Z91.018 Allergy to other foods; Z88.5 Allergy status to narcotic agent; Z88.8 Allergy status to other drugs, medicaments and biological substances
CPT/HCPCS: 36415; 51798; 80048; 80053; 81001; 83735; 84100; 84443; 84484; 85025; 85610; 85730; 87086; 93005; 93306; 94640; 94760; 96361; 96374; 96375; 99285

== ENCOUNTER 2022-07-02 08:22 | Inpatient (IN) | payer MEDICARE ==
[2022-07-02] MEDS ORDERED: IPRATROPIUM-ALBUTEROL 3 ML NEB INHALATION STA ×2 (08:29→12:55)
[2022-07-02] MEDS ORDERED: DEXAMETHASONE SOD PHOSPHATE 10 MG/ML 1 ML VIAL IVP STA (08:30)
--- NOTE | 2022-07-02 08:43 | ED ---
General Adult HPI - General Chief complaint: Shortness of Breath Stated complaint: JENNIFER Time Seen by Provider: 07/02/22 08:24 Source: patient, EMS Mode of arrival: EMS - History of Present Illness Initial comments: Dictation was produced using [employer] dictation software. please excuse any grammatical, word or spelling errors. Chief Complaint: 66-year-old female presents to the emergency department for shortness of breath, cough and chest foreign body sensation History of Present Illness: She 66-year-old female she has past medical history of asthma, H fibrillation hypertension. She presents to the emergency department from home. Patient brought in by EMS. Patient states that she didn't feeling short of breath since last night. This more she woke up with a foreign body sensation in her upper chest. States that she's been coughing vigorously. She states that her cough is nonproductive. She feels that asthma is acting up. Denies any fever. Denies any chest pain. EMS provided patient with breathing treatment which they felt like improved her symptoms. The ROS documented in this emergency department record has been reviewed and confirmed by me. Those systems with pertinent positive or negative responses have been documented in the HPI. All other systems are other negative and/or noncontributory. PHYSICAL EXAM: General Impression: Alert and oriented x3, dyspnea, coughing HEENT: Normocephalic atraumatic, extra-ocular movements intact, pupils equal and reactive to light bilaterally, mucous membranes moist. Cardiovascular: Heart regular rate and rhythm Chest: 4 word sentences, dyspneic, tachypneic, bilateral breath sounds Abdomen: abdomen soft, non-tender, non-distended, no organomegaly Musculoskeletal: Pulses present and equal in all extremities, no peripheral edema Motor: no focal deficits noted Neurological: CN II-XII grossly intact, no focal motor or sensory deficits noted Skin: Intact with no visualized rashes Psych: Anxious ED course: 66-year-old female presents emergency department for dyspnea since yesterday. Signs upon arrival shows respiratory rate of 26. Patient's neck for percent on 4 L nasal cannula. On arrival to the ER she was 91% on room air. Patient is coughing and appears to be dyspneic at bedside. Auscultation of the lungs is not obvious for any abnormalities Nursing notes and chart review was performed EKG interpreted by me: Ventricular rate 84, sinus rhythm,. Interval 132, QRS 90, QTC 41. No MN prolongation, no QTC prolongation, no ST or T-wave changes noted. Overall, this EKG is unremarkable Laboratory evaluation obtained. Leukocytosis of 15.0. Coag panel is un remarkable. Metabolic panel is negative. Patient is positive for COVID-19. Chest x-ray shows right lower lobe infiltrate. This infiltrates suspicious for bacterial pneumonia. Patient observed in emergency department for 2 hours and 30 minutes. Disposition options were discussed. It is recommended patient be admitted for further care. There is some concern for superimposed bacterial pneumonia. Patient treated with antibiotics. Will be admitted to Dr. casillas with consultation with pulmonology. Was pt. sent in by a medical professional or institution (, PA, DELICATESSEN CLERK, urgent care, hospital, or shelter...) When possible be specific @ -[No] Did you speak to anyone other than the patient for history (EMS, parent, family, police, friend...)? What history was obtained from this source @ -EMS Did you review nursing and triage notes (agree or disagree)? Why? @ -[I reviewed and agree with nursing and triage notes] Were old charts reviewed (outside hosp., previous admission, EMS record, old EKG, old radiological studies, urgent care reports/EKG's, shelter records)? Report findings @ -[No old charts were reviewed] Differential Diagnosis (chest pain, altered mental status, abdominal pain women, abdominal pain men, vaginal bleeding, weakness, fever, dyspnea, syncope, headache, dizziness, GI bleed, back pain, seizure, CVA, palpatations, mental health)? @ -Differential Dyspnea: Coronary syndrome, arrhythmia, tamponade, asthma, COPD, pulmonary embolism, pneumonia, pneumothorax, pulmonary effusion, anaphylaxis, diabetic ketoacidosis, flailed chest, pulmonary contusion, diaphragmatic rupture, anemia, neuromuscular, this is not meant to be an all-inclusive list. EKG interpreted by me (3pts min.). @ -[As above] X-rays interpreted by me (1pt min.). @ -See above CT interpreted by me (1pt min.). @ -[None done] U/S interpreted by me (1pt. min.). @ -[None done] What testing was considered but not performed or refused? (CT, X-rays, U/S, labs)? Why? @ -CT was considered however patient has likely reasons for shortness of breath What meds were considered but not given or refused? Why? @ -[None] Did you discuss the management of the patient with other professionals (professionals i.e. , PA, DELICATESSEN CLERK, lab, RT, psych nurse, social sciences professor, stock handler, teacher, staff readiness officer, case managers)? Give summary @ -DR. Casillas, hospitalist Was smoking cessation discussed for >3mins.? @ -[No] Was critical care preformed (if so, how long)? @ -[No] Were there social determinants of health that impacted care today? How? (Homelessness, low income, unemployed, alcoholism, drug addiction, transportation, low edu. Level, literacy, decrease access to med. care, intermediate, rehab)? @ -[No] Was there de-escalation of care discussed even if they declined (Discuss DNR or withdrawal of care, Hospice)? DNR status @ -[No] What co-morbidities impacted this encounter? (DM, HTN, Smoking, COPD, CAD, Cancer, CVA, ARF, Chemo, Hep., AIDS, mental health diagnosis, sleep apnea, m orbid obesity)? @ -History of asthma and frequent recurrences of pneumonia Was patient admitted / discharged? Hospital course, mention meds given and route, prescriptions, significant lab abnormalities, going to OR and other pertinent info. @ -Admitted, see above Undiagnosed new problem with uncertain prognosis? @ -[No] Drug Therapy requiring intensive monitoring for toxicity (Heparin, Nitro, Insulin, Cardizem)? @ -[No] Were any procedures done? @ -[No] Diagnosis/symptom? @ -[Respiratory failure secondary to COVID-19 and superimposed bacterial pneumonia Acute, or Chronic, or Acute on Chronic? @ -Acute Uncomplicated (without systemic symptoms) or Complicated (systemic symptoms)? @ -Complicated by respiratory failure Side effects of treatment? @ -[No] Exacerbation, Progression, or Severe Exacerbation? @ -[No] Poses a threat to life or bodily function? How? (Chest pain, [place], [place], pneumonia, PE, COPD, DKA, ARF, appy, cholecystitis, CVA, Diverticulitis, Homicidal, Suicidal, threat to staff... and all critical care pts) @ -Yes - Related Data Home Medications Medication Instructions Recorded Confirmed Albuterol Inhaler [Ventolin Hfa 1 - 2 puff INHALATION RT-Q4H PRN 06/08/22 06/08/22 Inhaler] Apixaban [Eliquis] 5 mg PO BID 06/08/22 06/08/22 Cholecalciferol [Vitamin D3 (125 125 mcg PO DAILY 06/08/22 06/08/22 Mcg = 5000 Iu)] Fluticasone Propionate 110 Mcg 1 puff INHALATION RT-BID 06/08/22 06/08/22 [Flovent 110 Mcg Inhaler] Ipratropium-Albuterol Nebulize 3 ml INHALATION RT-QID PRN 06/08/22 06/08/22 [Duoneb 0.5 mg-3 mg/3 ml Soln] Magnesium Oxide [Thao] 500 mg PO DAILY 06/08/22 06/08/22 Montelukast Sodium [Singulair] 10 mg PO HS 06/08/22 06/08/22 Multivit with Calcium,Iron,Min 1 tab PO DAILY 06/08/22 06/08/22 [Women's Multivitamin] Rosuvastatin [Crestor] 10 mg PO DAILY 06/08/22 06/08/22 Previous Rx's Medication Instructions Recorded Diltiazem Oral [Cardizem*] 30 mg PO TID #90 tab 06/09/22 Pantoprazole [Protonix] 40 mg PO AC-BRKFST #15 tab 06/09/22 Allergies Allergy/AdvReac Type Severity Reaction Status Date / Time banana Allergy Anaphylaxis Verified 07/02/22 08:34 cantaloupe Allergy Anaphylaxis Verified 07/02/22 08:34 latex Allergy Rash/Hives Verified 07/02/22 08:34 melon Allergy Anaphylaxis Verified 07/02/22 08:34 perflutren [From Definity] Allergy Unknown Verified 07/02/22 08:34 diclofenac [From Voltaren] AdvReac Chest Pain Verified 07/02/22 08:34 metoprolol [From Lopressor] AdvReac Chest Pain Verified 07/02/22 08:34 naproxen [From Naprosyn] AdvReac Chest Pain Verified 07/02/22 08:34 honeydew melon Allergy Anaphylaxis Uncoded 07/02/22 08:34 Review of Systems ROS Statement: Those systems with pertinent positive or pertinent negative responses have been documented in the HPI. ROS Other: All systems not noted in ROS Statement are negative. Past Medical History Past Medical History: Atrial Fibrillation, Asthma, Hypertension, Sleep Apnea/CPAP/BIPAP Additional Past Medical History / Comment(s): 2019 pneumonia and sepsis History of Any Multi-Drug Resistant Organisms: None Reported Past Surgical History: Ablation Additional Past Surgical History / Comment(s): cardioversion x2, 2011 left ankle plate and screws Past Anesthesia/Blood Transfusion Reactions: No Reported Reaction Past Psychological History: No Psychological Hx Reported Smoking Status: Former smoker Past Alcohol Use History: None Reported Past Drug Use History: None Reported - Past Family History Mother History Unknown: Yes Additional Family Medical History / Comment(s): stroe, afib, pacemaker, DM, OA, Brother(s) History Unknown: Yes Additional Family Medical History / Comment(s): colon ca Father History Unknown: Yes Additional Family Medical History / Comment(s): cirrhosis, emphysema Course Vital Signs 07/02/22 07/02/22 07/02/22 08:23 08:31 08:44 Temperature 97.1 F L Pulse Rate 100 Respiratory 26 H 26 H Rate Blood Pressure 177/98 O2 Sat by Pulse 91 L 94 L Oximetry 07/02/22 07/02/22 07/02/22 08:46 08:53 10:26 Temperature Pulse Rate 87 89 76 Respiratory 18 Rate Blood Pressure 135/79 O2 Sat by Pulse 97 Oximetry Medical Decision Making - Lab Data Result diagrams: 07/02/22 08:39 07/02/22 08:39 Lab Results 07/02/22 07/02/22 07/02/22 Range/Units 08:39 08:39 08:39 WBC 15.0 H (3.8-10.6) k/uL RBC 3.76 L (3.80-5.40) m/uL Hgb 10.8 L (11.4-16.0) gm/dL Hct 34.0 (34.0-46.0) % MCV 90.3 (80.0-100.0) fL MCH 28.8 (25.0-35.0) pg MCHC 31.9 (31.0-37.0) g/dL RDW 13.9 (11.5-15.5) % Plt Count 335 (150-450) k/uL MPV 7.9 Neutrophils % 76 % Lymphocytes % 16 % Monocytes % 5 % Eosinophils % 1 % Basophils % 1 % Neutrophils # 11.4 H (1.3-7.7) k/uL Lymphocytes # 2.3 (1.0-4.8) k/uL Monocytes # 0.8 (0-1.0) k/uL Eosinophils # 0.2 (0-0.7) k/uL Basophils # 0.1 (0-0.2) k/uL Hypochromasia Moderate PT 11.1 (9.0-12.0) sec INR 1.1 (<1.2) APTT 25.7 (22.0-30.0) sec Sodium 137 (137-145) mmol/L Potassium 3.8 (3.5-5.1) mmol/L Chloride 105 (98-107) mmol/L Carbon Dioxide 27 (22-30) mmol/L Anion Gap 5 mmol/L BUN 29 H (7-17) mg/dL Creatinine 1.10 H (0.52-1.04) mg/dL Est GFR (CKD-EPI)AfAm 61 (>60 ml/min/1.73 sqM) Est GFR (CKD-EPI)NonAf 53 (>60 ml/min/1.73 sqM) Glucose 96 (74-99) mg/dL Plasma Lactic Acid Payam (0.7-2.0) mmol/L Calcium 8.4 (8.4-10.2) mg/dL Magnesium 1.9 (1.6-2.3) mg/dL Total Bilirubin 0.5 (0.2-1.3) mg/dL AST 49 H (14-36) U/L ALT 70 H (4-34) U/L Alkaline Phosphatase 74 (38-126) U/L Troponin I (0.000-0.034) ng/mL Total Protein 6.1 L (6.3-8.2) g/dL Albumin 3.6 (3.5-5.0) g/dL Influenza Type A (PCR) (Not Detectd) Influenza Type B (PCR) (Not Detectd) RSV (PCR) (Not Detectd) SARS-CoV-2 (PCR) (Not Detectd) 07/02/22 07/02/22 07/02/22 Range/Units 08:39 08:39 08:39 WBC (3.8-10.6) k/uL RBC (3.80-5.40) m/uL Hgb (11.4-16.0) gm/dL Hct (34.0-46.0) % MCV (80.0-100.0) fL MCH (25.0-35.0) pg MCHC (31.0-37.0) g/dL RDW (11.5-15.5) % Plt Count (150-450) k/uL MPV Neutrophils % % Lymphocytes % % Monocytes % % Eosinophils % % Basophils % % Neutrophils # (1.3-7.7) k/uL Lymphocytes # (1.0-4.8) k/uL Monocytes # (0-1.0) k/uL Eosinophils # (0-0.7) k/uL Basophils # (0-0.2) k/uL Hypochromasia PT (9.0-12.0) sec INR (<1.2) APTT (22.0-30.0) sec Sodium (137-145) mmol/L Potassium (3.5-5.1) mmol/L Chloride (98-107) mmol/L Carbon Dioxide (22-30) mmol/L Anion Gap mmol/L BUN (7-17) mg/dL Creatinine (0.52-1.04) mg/dL Est GFR (CKD-EPI)AfAm (>60 ml/min/1.73 sqM) Est GFR (CKD-EPI)NonAf (>60 ml/min/1.73 sqM) Glucose (74-99) mg/dL Plasma Lactic Acid Payam 1.3 (0.7-2.0) mmol/L Calcium (8.4-10.2) mg/dL Magnesium (1.6-2.3) mg/dL Total Bilirubin (0.2-1.3) mg/dL AST (14-36) U/L ALT (4-34) U/L Alkaline Phosphatase (38-126) U/L Troponin I 0.017 (0.000-0.034) ng/mL Total Protein (6.3-8.2) g/dL Albumin (3.5-5.0) g/dL Influenza Type A (PCR) Not Detected (Not Detectd) Influenza Type B (PCR) Not Detected (Not Detectd) RSV (PCR) Not Detected (Not Detectd) SARS-CoV-2 (PCR) Detected A (Not Detectd) Disposition Clinical Impression: Respiratory failure Disposition: ADMITTED IP TO THIS [facility] Condition: Fair Referrals: None,Stated [Primary Care Provider] - 1-2 days Decision Time: 10:59
[2022-07-02 08:48] LABS: Basophils # (A) 0.1 k/uL (0-0.2); Basophils % (A) 1 %; Eosinophils # (A) 0.2 k/uL (0-0.7); Eosinophils % (A) 1 %; HGB 10.8 gm/dL (11.4-16.0); Hypochromasia Moderate; Lymphocytes # (A) 2.3 k/uL (1.0-4.8); Lymphocytes % (A) 16 %; MCH 28.8 pg (25.0-35.0); MCHC 31.9 g/dL (31.0-37.0); MCV 90.3 fL (80.0-100.0); Mean Platelet Volume 7.9; Monocytes # (A) 0.8 k/uL (0-1.0); Monocytes % (A) 5 %; Neutrophils # (A) 11.4 k/uL (1.3-7.7); Neutrophils % (A) 76 %; Platelet Count 335 k/uL (150-450); RBC 3.76 m/uL (3.80-5.40); RDW 13.9 % (11.5-15.5)
[2022-07-02 09:07] LABS: Albumin 3.6 g/dL (3.5-5.0); Calcium 8.4 mg/dL (8.4-10.2); Magnesium 1.9 mg/dL (1.6-2.3); Potassium 3.8 mmol/L (3.5-5.1); Total Bilirubin 0.5 mg/dL (0.2-1.3); Total Protein 6.1 g/dL (6.3-8.2)
--- NOTE | 2022-07-02 09:09 | XR ---
EXAMINATION TYPE: XR chest 1V portable DATE OF EXAM: 07/02/2022 COMPARISON: NONE HISTORY: Cough. TECHNIQUE: Single AP frontal upright view of the chest is obtained. FINDINGS: There are reticular increased markings with subtle increased bibasilar opacities. The car diac silhouette size is upper limits of normal. Slightly elevated left hemidiaphragm. Overlying EKG l manisha are present. The osseous structures are intact. IMPRESSION: Suspect chronic parenchymal changes. Patchy bibasilar atelectasis and/or acute infiltrat es are present.
[2022-07-02 09:14] LABS: INR 1.1 (<1.2); Partial Thromboplastin Time 25.7 sec (22.0-30.0); Prothrombin Time 11.1 sec (9.0-12.0)
[2022-07-02] MEDS ORDERED: AZITHROMYCIN 500 MG in SODIUM CHLORIDE 0.9% 250 ML IVPB STA (10:48)
[2022-07-02] MEDS ORDERED: cefTRIAXone IN SWFI 1,000 MG/10 ML SYRINGE IVP STA (10:48)
[2022-07-02] MEDS ORDERED: ACETAMINOPHEN TAB 325 MG TAB PO PRN (10:49)
[2022-07-02] MEDS ORDERED: NALOXONE 0.4 MG/ML 1 ML VIAL IV PRN (10:49)
[2022-07-02] MEDS: SODIUM CHLORIDE 0.9% 1,000 ML IV SCH (11:08)
[2022-07-02] MEDS ORDERED: IPRATROPIUM-ALBUTEROL 3 ML NEB INHALATION PRN (12:39)
[2022-07-02] MEDS: methylPREDNISolone SOD SUCCI 40 MG/ML 1 ML VIAL IV SCH ×2 (13:20→21:47)
[2022-07-02 13:21] LABS: C Reactive Protein <0.5 mg/dL (<1.0); LDH 607 U/L (313-618)
--- NOTE | 2022-07-02 14:58 | P.CNPUL ---
History of Present Illness Consult date: 07/02/22 Requesting physician: Ritesh Casillas Reason for consult: dyspnea Chief complaint: Shortness of breath, cough, congestion History of present illness: This is a very pleasant 66-year-old female patient with a history of atrial fibrillation and recently admitted for RVR subsequent converted to sinus rhythm, anticoagulated with Eliquis, ReVia slightly had undergone ablation and cardioversion 2, asthma, hypertension, former smoker, obstructive sleep apnea utilizing CPAP. She had also been treated for upper respiratory infection/bronchitis on 3 separate occasions twice with amoxicillin and once with erythromycin without much improvement. She presented here to the emergency room and ongoing symptoms of shortness of breath, cough and congestion. Chest x-ray revealed patchy bibasilar atelectasis. She did test positive for the coronavirus. She states she has been vaccinated 2 and booster 2. She had not been tested at her outpatient clinic visits. RSV screen negative. Influenza screen negative. White count 15.0. Hemoglobin 10.8. Platelets 335. Sodium 137. Potassium 3.8. Bicarb 27. BUN 29. Creatinine 1.10. AST 49. ALT 70. Troponin negative 1. LDH 607. C-reactive protein less than 0.5. She was initiated on Symbicort, DuoNeb inhalations, IV Solu-Medrol. Antibiotics in the form of ceftriaxone and azithromycin. Anticoagulated with Eliquis. Vitamin supplements. Review of Systems REVIEW OF SYSTEMS: CONSTITUTIONAL: Denies any recent significant weight loss or weight gain. EYES: Denies change in vision. EARS, NOSE, MOUTH, THROAT: Denies headaches, denies sore throat. CARDIOVASCULAR: Denies chest pain, palpitations or syncopal episodes. RESPIRATORY: Positive for shortness of breath, cough, congestion no hemoptysis. GASTROINTESTINAL: Denies change in appetite, denies abdominal pain GENITOURINARY: Denies hematuria, denies infections. MUSKULOSKELETAL: Denies pain, denies swelling. INTEGUMENTARY: Denies rash, denies eczema. NEUROLOGICAL: Denies recent memory loss, no recent seizure activity. PSYCHIATRIC: Denies anxiety, denies depression. HEMATOLOGIC/LYMPHATIC: Denies anemia, denies enlarged lymph nodes. Past Medical History Past Medical History: Atrial Fibrillation, Asthma, Hypertension, Sleep Apnea/CPAP/BIPAP Additional Past Medical History / Comment(s): 2019 pneumonia and sepsis History of Any Multi-Drug Resistant Organisms: None Reported Past Surgical History: Ablation Additional Past Surgical History / Comment(s): cardioversion x2, 2011 left ankle plate and screws Past Anesthesia/Blood Transfusion Reactions: No Reported Reaction Past Psychological History: No Psychological Hx Reported Smoking Status: Former smoker Past Alcohol Use History: None Reported Past Drug Use History: None Reported - Past Family History Mother History Unknown: Yes Additional Family Medical History / Comment(s): stroe, afib, pacemaker, DM, OA, Brother(s) History Unknown: Yes Additional Family Medical History / Comment(s): colon ca Father History Unknown: Yes Additional Family Medical History / Comment(s): cirrhosis, emphysema Medications and Allergies Home Medications Medication Instructions Recorded Confirmed Type Albuterol Inhaler [Ventolin Hfa 2 puff INHALATION RT-Q4H PRN 06/08/22 07/02/22 History Inhaler] Apixaban [Eliquis] 5 mg PO BID 06/08/22 07/02/22 History Cholecalciferol [Vitamin D3 (125 125 mcg PO DAILY 06/08/22 07/02/22 History Mcg = 5000 Iu)] Fluticasone Propionate 110 Mcg 1 puff INHALATION DIRECTED 06/08/22 07/02/22 History [Flovent 110 Mcg Inhaler] Ipratropium-Albuterol Nebulize 3 ml INHALATION RT-QID PRN 06/08/22 07/02/22 History [Duoneb 0.5 mg-3 mg/3 ml Soln] Magnesium Oxide [Thao] 500 mg PO DAILY 06/08/22 07/02/22 History Montelukast Sodium [Singulair] 10 mg PO HS 06/08/22 07/02/22 History Multivit with Calcium,Iron,Min 1 tab PO DAILY 06/08/22 07/02/22 History [Women's Multivitamin] Rosuvastatin [Crestor] 10 mg PO HS 06/08/22 07/02/22 History Diltiazem Oral [Cardizem*] 30 mg PO TID #90 tab 06/09/22 07/02/22 Rx Azithromycin [Zithromax] See Taper PO DIRECTED 07/02/22 07/02/22 History Budesonide/Formoterol Fumarate 2 puff INHALATION RT-BID 07/02/22 07/02/22 History [Symbicort 160-4.5 Mcg Inhaler] Allergies Allergy/AdvReac Type Severity Reaction Status Date / Time banana Allergy Anaphylaxis Verified 07/02/22 10:59 cantaloupe Allergy Anaphylaxis Verified 07/02/22 10:59 latex Allergy Rash/Hives Verified 07/02/22 10:59 melon Allergy Anaphylaxis Verified 07/02/22 10:59 perflutren [From Definity] Allergy Unknown Verified 07/02/22 10:59 diclofenac [From Voltaren] AdvReac Chest Pain Verified 07/02/22 10:59 metoprolol [From Lopressor] AdvReac Chest Pain Verified 07/02/22 10:59 naproxen [From Naprosyn] AdvReac Chest Pain Verified 07/02/22 10:59 honeydew melon Allergy Anaphylaxis Uncoded 07/02/22 10:59 Physical Exam Vitals: Vital Signs Temp Pulse Resp BP Pulse Ox 07/02/22 13:34 86 18 115/72 96 07/02/22 13:24 88 07/02/22 13:12 84 07/02/22 10:26 76 18 135/79 97 07/02/22 08:53 89 07/02/22 08:46 87 07/02/22 08:44 26 H 07/02/22 08:31 94 L 07/02/22 08:23 97.1 F L 100 26 H 177/98 91 L Intake and Output 07/01/22 07/02/22 07/02/22 22:59 06:59 14:59 Other: Weight 77.111 kg GENERAL EXAM: Alert, pleasant 66-year-old female, on 2 L nasal cannula, comfortable in no apparent distress. HEAD: Normocephalic. EYES: Normal reaction of pupils, equal size. NOSE: Clear with pink turbinates. THROAT: No erythema or exudates. NECK: No masses, no JVD. CHEST: No chest wall deformity. LUNGS: Equal air entry with few scattered crackles. CVS: S1 and S2 normal with no audible murmur, regular rhythm. ABDOMEN: No hepatosplenomegaly, normal bowel sounds, no guarding or rigidity. SPINE: No scoliosis or deformity SKIN: No rashes CENTRAL NERVOUS SYSTEM: No focal deficits, tone is normal in all 4 extremities. EXTREMITIES: There is no peripheral edema. No clubbing, no cyanosis. Peripheral pulses are intact. Results - Laboratory Findings CBC and BMP: 07/02/22 08:39 07/02/22 08:39 PT/INR, D-dimer PT 11.1 sec (9.0-12.0) 07/02/22 08:39 INR 1.1 (<1.2) 07/02/22 08:39 Abnormal lab findings: Abnormal Labs 07/02/22 07/02/22 07/02/22 08:39 08:39 08:39 WBC 15.0 H RBC 3.76 L Hgb 10.8 L Neutrophils # 11.4 H BUN 29 H Creatinine 1.10 H AST 49 H ALT 70 H Total Protein 6.1 L SARS-CoV-2 (PCR) Detected A - Diagnostic Findings Chest x-ray: image reviewed Assessment and Plan Assessment: Acute COVID-19 infection without evidence of acute COVID-19 pneumonia. Outside the window for Remdesivir. Vaccinated 2, boosted 2 Acute tracheobronchitis, treated with antibiotics on 3 separate occasions in the outpatient setting Former smoker History of atrial fibrillation with rapid ventricular response and admitted here in May 2022 and anticoagulated with Eliquis History of asthma Hyperlipidemia Plan: The patient was seen and evaluated Chest x-ray, labs and medications reviewed. Continue Solu-Medrol, Symbicort, albuterol HFA Anticoagulated with Eliquis Continue multivitamins Check a pro-calcitonin Continue antibiotics for now Titrate down the FiO2 as tolerated We'll continue to follow and make further recommendations based on her clinical status I have personally seen and examined the patient, performed the documentation and the assessment and plan as written. Number of minutes spent on the visit: 20.
[2022-07-02] MEDS: DILTIAZEM ORAL 30 MG TAB PO SCH ×2 (15:28→21:47)
[2022-07-02] MEDS: FAMOTIDINE 20 MG/2 ML VIAL IV SCH (15:34)
[2022-07-02] MEDS: ALBUTEROL HFA INHALER INHALATION PRN ×2 (15:52→19:30)
--- NOTE | 2022-07-02 19:25 | P.HPIM ---
History of Present Illness This is a pleasant 66 years old female with past medical history of asthma, sleep apnea, hypertension, atrial fibrillation status post ablation on Eliquis Patient states because she has difficulty breathing since Saturday for about 3-4 days, she went to urgent care who prescribed her oral antibiotics with no much help so she decided to come to emergency room. She has cough with creamy phlegm and central chest pain with coughing. 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 A febrile. The Around 26/m Patient has mild leukocytosis about 15,000, rest of labs are unremarkable. Creatinine elevated 1.1, baseline 1.2-1.3 AST mildly elevated 49 and ALT 70. Bilirubin is normal. Covid viruses detected, while influenza versus an RSV are undetected. Chest x-ray: Reviewed by myself:Patchy bilateral basal atelectasis versus early infiltrate EKG: Normal sinus rhythm at [address]-T changes Review of Systems Review of systems CONSTITUTIONAL: No fever, no malaise, no fatigue. HEENT: No recent visual problems or hearing problems. Denied any sore throat. CARDIOVASCULAR: No orthopnea, PND, no palpitations, no syncope. PULMONARY: No chest wall tenderness, no hemoptysis. GASTROINTESTINAL: No diarrhea, no nausea, no vomiting, no abdominal pain. Normoactive bowel sounds. NEUROLOGICAL: No headaches, no weakness, no numbness. HEMATOLOGICAL: Denies any bleeding or petechiae. GENITOURINARY: Denies any burning micturition, frequency, or urgency. MUSCULOSKELETAL/RHEUMATOLOGICAL: Denies any joint pain, swelling, or any muscle pain. ENDOCRINE: Denies any polyuria or polydipsia. Past Medical History Past Medical History: Atrial Fibrillation, Asthma, Hypertension, Sleep Apnea/CPAP/BIPAP Additional Past Medical History / Comment(s): 2019 pneumonia and sepsis History of Any Multi-Drug Resistant Organisms: None Reported Past Surgical History: Ablation Additional Past Surgical History / Comment(s): cardioversion x2, 2011 left ankle plate and screws Past Anesthesia/Blood Transfusion Reactions: No Reported Reaction Past Psychological History: No Psychological Hx Reported Smoking Status: Former smoker Past Alcohol Use History: None Reported Past Drug Use History: None Reported - Past Family History Mother History Unknown: Yes Additional Family Medical History / Comment(s): stroe, afib, pacemaker, DM, OA, Brother(s) History Unknown: Yes Additional Family Medical History / Comment(s): colon ca Father History Unknown: Yes Additional Family Medical History / Comment(s): cirrhosis, emphysema Medications and Allergies Home Medications Medication Instructions Recorded Confirmed Type Albuterol Inhaler [Ventolin Hfa 2 puff INHALATION RT-Q4H PRN 06/08/22 07/02/22 History Inhaler] Apixaban [Eliquis] 5 mg PO BID 06/08/22 07/02/22 History Cholecalciferol [Vitamin D3 (125 125 mcg PO DAILY 06/08/22 07/02/22 History Mcg = 5000 Iu)] Fluticasone Propionate 110 Mcg 1 puff INHALATION DIRECTED 06/08/22 07/02/22 History [Flovent 110 Mcg Inhaler] Ipratropium-Albuterol Nebulize 3 ml INHALATION RT-QID PRN 06/08/22 07/02/22 History [Duoneb 0.5 mg-3 mg/3 ml Soln] Magnesium Oxide [Thao] 500 mg PO DAILY 06/08/22 07/02/22 History Montelukast Sodium [Singulair] 10 mg PO HS 06/08/22 07/02/22 History Multivit with Calcium,Iron,Min 1 tab PO DAILY 06/08/22 07/02/22 History [Women's Multivitamin] Rosuvastatin [Crestor] 10 mg PO HS 06/08/22 07/02/22 History Diltiazem Oral [Cardizem*] 30 mg PO TID #90 tab 06/09/22 07/02/22 Rx Azithromycin [Zithromax] See Taper PO DIRECTED 07/02/22 07/02/22 History Budesonide/Formoterol Fumarate 2 puff INHALATION RT-BID 07/02/22 07/02/22 History [Symbicort 160-4.5 Mcg Inhaler] Allergies Allergy/AdvReac Type Severity Reaction Status Date / Time banana Allergy Anaphylaxis Verified 07/02/22 10:59 cantaloupe Allergy Anaphylaxis Verified 07/02/22 10:59 latex Allergy Rash/Hives Verified 07/02/22 10:59 melon Allergy Anaphylaxis Verified 07/02/22 10:59 perflutren [From Definity] Allergy Unknown Verified 07/02/22 10:59 diclofenac [From Voltaren] AdvReac Chest Pain Verified 07/02/22 10:59 metoprolol [From Lopressor] AdvReac Chest Pain Verified 07/02/22 10:59 naproxen [From Naprosyn] AdvReac Chest Pain Verified 07/02/22 10:59 honeydew melon Allergy Anaphylaxis Uncoded 07/02/22 10:59 Physical Exam Vitals: Vital Signs Temp Pulse Resp BP Pulse Ox 07/02/22 10:26 76 18 135/79 97 07/02/22 08:53 89 07/02/22 08:46 87 07/02/22 08:44 26 H 07/02/22 08:31 94 L 07/02/22 08:23 97.1 F L 100 26 H 177/98 91 L Intake and Output 07/01/22 07/02/22 07/02/22 22:59 06:59 14:59 Other: Weight 77.111 kg GENERAL: The patient is alert and oriented x3, not in any acute distress. Well developed, well nourished. HEENT: Pupils are round and equally reacting to light. EOMI. No scleral icterus. No conjunctival pallor. Normocephalic, atraumatic. No pharyngeal erythema. No thyromegaly. CARDIOVASCULAR: S1 and S2 present. No murmurs, rubs, or gallops. -PULMONARY: Chest is clear to auscultation,. Bilateral expiratory wheezing or crackles. ABDOMEN: Soft, nontender, nondistended, normoactive bowel sounds. No palpable organomegaly. MUSCULOSKELETAL: No joint swelling or deformity. EXTREMITIES: No cyanosis, clubbing, or pedal edema. NEUROLOGICAL: Gross neurological examination did not reveal any focal deficits. SKIN: No rashes. no petechiae. Results CBC & Chem 7: 07/02/22 08:39 07/02/22 08:39 Labs: Abnormal Lab Results - Last 24 Hours (Table) 07/02/22 07/02/2223 Range/Units 08:39 08:39 08:39 WBC 15.0 H (3.8-10.6) k/uL RBC 3.76 L (3.80-5.40) m/uL Hgb 10.8 L (11.4-16.0) gm/dL Neutrophils # 11.4 H (1.3-7.7) k/uL BUN 29 H (7-17) mg/dL Creatinine 1.10 H (0.52-1.04) mg/dL AST 49 H (14-36) U/L ALT 70 H (4-34) U/L Total Protein 6.1 L (6.3-8.2) g/dL SARS-CoV-2 (PCR) Detected A (Not Detectd) Assessment and Plan Assessment: Bilateral Covid pneumonia , rule out bacterial infection acute asthma/COPD exacerbation Acute hypoxic respiratory failure, Possible bacterial superinfection rule out Increased inflammatory markers mild transaminitis Paroxysmal atrial fibrillation status post ablation on Eliquis Chronic kidney disease, stage III History of obstructive sleep apnea on CPAP at home Plan: Continue with steroids, IV Solu-Medrol Continue with vitamin C, vitamin D and zinc Continue with ceftriaxone and Zithromax and follow-up procalcitonin Pulmonary consult Labs and medication were reviewed.. Continue same treatment. Continue with symptomatic treatment. Resume home medication. Monitor labs and vitals. DVT and GI prophylaxis. Further recommendations as per clinical course of the patient DVT prophylaxis: Eliquis GI Prophylaxis: Pepcid PT/OT: Pending Prognosis is guarded
[2022-07-02] MEDS: SYMBICORT 160-4.5 MCG INHALER INHALATION SCH (19:30)
[2022-07-02] MEDS ORDERED: DEXTROSE 50% SYRINGE 50 ML IVP PRN ×2 (21:20)
[2022-07-02] MEDS: ATORVASTATIN 10 MG TAB PO SCH (21:47)
[2022-07-02] MEDS: MONTELUKAST 10 MG TAB PO SCH (21:47)
[2022-07-02] MEDS: APIXABAN 5 MG TAB PO SCH (21:47)
[2022-07-03] MEDS: methylPREDNISolone SOD SUCCI 40 MG/ML 1 ML VIAL IV SCH ×3 (05:50→22:22)
[2022-07-03 06:33] LABS: Glucose,Whole Blood 164 mg/dL (70-110)
[2022-07-03] MEDS: INSULIN ASPART (NovoLOG) 100 UNIT/ML VIAL SQ SCH ×4 (06:52→22:17)
[2022-07-03] MEDS: APIXABAN 5 MG TAB PO SCH ×2 (08:38→22:22)
[2022-07-03] MEDS: ASCORBIC ACID 500 MG TAB PO SCH (08:38)
[2022-07-03] MEDS: ZINC SULFATE 220 MG CAP PO SCH (08:38)
[2022-07-03] MEDS: DILTIAZEM ORAL 30 MG TAB PO SCH ×3 (08:38→22:22)
[2022-07-03] MEDS: CHOLECALCIFEROL 125 MCG (5000 IU) TABLET PO SCH (08:38)
[2022-07-03] MEDS: FAMOTIDINE 20 MG/2 ML VIAL IV SCH (08:39)
[2022-07-03] MEDS: SYMBICORT 160-4.5 MCG INHALER INHALATION SCH ×2 (08:47→20:49)
[2022-07-03] MEDS: ALBUTEROL HFA INHALER INHALATION PRN ×4 (08:47→20:49)
[2022-07-03] MEDS ORDERED: DEXAMETHASONE SOD PHOSPHATE 10 MG/ML 1 ML VIAL IVP SCH (09:00)
[2022-07-03] MEDS ORDERED: AZITHROMYCIN 500 MG in SODIUM CHLORIDE 0.9% 250 ML IVPB SCH (09:00)
[2022-07-03 11:44] LABS: Glucose,Whole Blood 167 mg/dL (70-110)
--- NOTE | 2022-07-03 12:19 | P.PN ---
Subjective This is a pleasant 66 years old female with past medical history of asthma, sleep apnea, hypertension, atrial fibrillation status post ablation on Eliquis Patient states because she has difficulty breathing since Saturday for about 3-4 days, she went to urgent care who prescribed her oral antibiotics with no much help so she decided to come to emergency room. She has cough with creamy phlegm and central chest pain with coughing. 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 A febrile. The Around 26/m Patient has mild leukocytosis about 15,000, rest of labs are unremarkable. Creatinine elevated 1.1, baseline 1.2-1.3 AST mildly elevated 49 and ALT 70. Bilirubin is normal. Covid viruses detected, while influenza versus an RSV are undetected. Chest x-ray: Reviewed by myself:Patchy bilateral basal atelectasis versus early infiltrate EKG: Normal sinus rhythm at [address]-T changes 07/03/2022 Patient breathing easier and better, she is has better saturation 97% on 3 L of oxygen. Her professional stone and is negative and her antibiotics were stopped. She remains on Solu-Medrol 40 mg,, also she is on home dose of Eliquis 5 mg for her A. fib She is currently on vitamin c, D and zinc Objective - Vital Signs Vital signs: Vital Signs Temp 97.4 F L 07/03/22 07:33 Pulse 75 07/03/22 07:33 Resp 16 07/03/22 07:33 BP 112/71 07/03/22 07:33 Pulse Ox 97 07/03/22 08:49 FiO2 Intake & Output 07/02/22 07/03/22 07/03/22 18:59 06:59 18:59 Weight 77.111 kg Other: Voiding Method Toilet # Voids 1 1 - Exam GENERAL: The patient is alert and oriented x3, not in any acute distress. Well developed, well nourished. HEENT: Pupils are round and equally reacting to light. EOMI. No scleral icterus. No conjunctival pallor. Normocephalic, atraumatic. No pharyngeal erythema. No thyromegaly. CARDIOVASCULAR: S1 and S2 present. No murmurs, rubs, or gallops. -PULMONARY: Chest is clear to auscultation, no crackles. less wheezy ABDOMEN: Soft, nontender, nondistended, normoactive bowel sounds. No palpable organomegaly. MUSCULOSKELETAL: No joint swelling or deformity. EXTREMITIES: No cyanosis, clubbing, or pedal edema. NEUROLOGICAL: Gross neurological examination did not reveal any focal deficits. SKIN: No rashes. no petechiae. - Labs CBC & Chem 7: 07/02/22 08:39 07/02/22 08:39 Labs: Abnormal Lab Results - Last 24 Hours (Table) 07/03/22 07/03/22 Range/Units 06:31 11:42 POC Glucose (mg/dL) 164 H 167 H (70-110) mg/dL Assessment and Plan Assessment: Bilateral Covid pneumonia , rule out bacterial infection acute asthma/COPD exacerbation Acute hypoxic respiratory failure, Possible bacterial superinfection rule out Increased inflammatory markers mild transaminitis Paroxysmal atrial fibrillation status post ablation on Eliquis Chronic kidney disease, stage III History of obstructive sleep apnea on CPAP at home Plan: Continue with steroids, IV Solu-Medrol Continue with vitamin C, vitamin D and zinc Discontinue antibiotic Pulmonary consult Labs and medication were reviewed.. Continue same treatment. Continue with symptomatic treatment. Resume home medication. Monitor labs and vitals. DVT and GI prophylaxis. Further recommendations as per clinical course of the shanae ent DVT prophylaxis: Eliquis GI Prophylaxis: Pepcid PT/OT: Pending Prognosis is guarded
--- NOTE | 2022-07-03 13:27 | P.PN ---
Subjective Progress Note Date: 07/03/22 Principal diagnosis: Covid 19 infection This is a very pleasant 66-year-old female patient with a history of atrial fibrillation and recently admitted for RVR subsequent converted to sinus rhythm, anticoagulated with Eliquis, ReVia slightly had undergone ablation and cardioversion 2, asthma, hypertension, former smoker, obstructive sleep apnea utilizing CPAP. She had also been treated for upper respiratory infection/bronchitis on 3 separate occasions twice with amoxicillin and once with erythromycin without much improvement. She presented here to the emergency room and ongoing symptoms of shortness of breath, cough and congestion. Chest x-ray revealed patchy bibasilar atelectasis. She did test positive for the coronavirus. She states she has been vaccinated 2 and booster 2. She had not been tested at her outpatient clinic visits. RSV screen negative. Influenza screen negative. White count 15.0. Hemoglobin 10.8. Platelets 335. Sodium 137. Potassium 3.8. Bicarb 27. BUN 29. Creatinine 1.10. AST 49. ALT 70. Troponin negative 1. LDH 607. C-reactive protein less than 0.5. She was initiated on Symbicort, DuoNeb inhalations, IV Solu-Medrol. Antibiotics in the form of ceftriaxone and azithromycin. Anticoagulated with Eliquis. Vitamin supplements. Evaluating this patient today on 07/03/2022 on a general medical floor. Patient appears quite comfortable sitting up in bed, on 3 L nasal cannula, in no acute distress. Denies any severe shortness of breath, cough, hemoptysis, chest pain. Patient was afebrile overnight. No new chest x-ray or labs to review today. Her inflammatory markers on arrival were low. Her procalcitonin level is low at 0.06, and I doubt any superimposed bacterial infection. She is being managed on Ventolin inhaler, Symbicort inhaler, IV Solu-Medrol, and Singulair. Vital signs remain stable. Objective - Vital Signs Vital signs: Vital Signs Temp 97.4 F L 07/03/22 07:33 Pulse 75 07/03/22 07:33 Resp 16 07/03/22 07:33 BP 112/71 07/03/22 07:33 Pulse Ox 97 07/03/22 08:49 FiO2 Intake & Output 07/02/22 07/03/22 07/03/22 18:59 06:59 18:59 Weight 77.111 kg Other: Voiding Method Toilet # Voids 1 1 - Exam GENERAL EXAM: Alert, pleasant 66-year-old female, on 2 L nasal cannula, comfortable in no apparent distress. HEAD: Normocephalic. EYES: Normal reaction of pupils, equal size. NOSE: Clear with pink turbinates. THROAT: No erythema or exudates. NECK: No masses, no JVD. CHEST: No chest wall deformity. LUNGS: Equal air entry with clear lung sounds throughout. No rales, wheezes, rhonchi. On 2 L nasal cannula. No conversational dyspnea or accessory muscle use. CVS: S1 and S2 normal with no audible murmur, regular rhythm. ABDOMEN: No hepatosplenomegaly, normal bowel sounds, no guarding or rigidity. SPINE: No scoliosis or deformity SKIN: No rashes CENTRAL NERVOUS SYSTEM: No focal deficits, tone is normal in all 4 extremities. EXTREMITIES: There is no peripheral edema. No clubbing, no cyanosis. Peripheral pulses are intact. - Labs CBC & Chem 7: 07/02/22 08:39 07/02/22 08:39 Labs: Abnormal Lab Results - Last 24 Hours (Table) 07/03/22 07/03/22 Range/Units 06:31 11:42 POC Glucose (mg/dL) 164 H 167 H (70-110) mg/dL Assessment and Plan Assessment: Acute COVID-19 infection without evidence of acute COVID-19 pneumonia. Outside the window for Remdesivir. Vaccinated 2, boosted 2 Acute tracheobronchitis, treated with antibiotics on 3 separate occasions in the outpatient setting Former smoker History of atrial fibrillation with rapid ventricular response and admitted here in May 2022 and anticoagulated with Eliquis History of asthma Hyperlipidemia Plan: Patient's medications and labs reviewed Continue DuoNeb inhalation, Symbicort inhaler, Solu-Medrol [place] continue anticoagulation with Eliquis Procalcitonin was negative, and we can stop empiric antibiotics Continue supplemental oxygen to maintain oxygen saturation 92% or greater Anticipate discharge in the next 24-48 hours We will continue to follow I have personally seen and examined the patient, performed the documentation and the assessment and plan as written. Number of minutes spent on the visit: 10. Time with Patient: Less than 30
[2022-07-03] MEDS: SODIUM CHLORIDE 0.9% 1,000 ML IV SCH (14:23)
[2022-07-03 16:34] LABS: Glucose,Whole Blood 148 mg/dL (70-110)
[2022-07-03 20:50] LABS: Glucose,Whole Blood 138 mg/dL (70-110)
[2022-07-03] MEDS: ATORVASTATIN 10 MG TAB PO SCH (22:22)
[2022-07-03] MEDS: MONTELUKAST 10 MG TAB PO SCH (22:22)
[2022-07-04] MEDS: methylPREDNISolone SOD SUCCI 40 MG/ML 1 ML VIAL IV SCH (04:31)
[2022-07-04 06:36] LABS: Glucose,Whole Blood 136 mg/dL (70-110)
[2022-07-04] MEDS: INSULIN ASPART (NovoLOG) 100 UNIT/ML VIAL SQ SCH ×2 (06:43→12:34)
[2022-07-04 07:59] VITALS: BP 155/81; PULSE 61; RESP 17; TEMP 97.4
[2022-07-04] MEDS: SYMBICORT 160-4.5 MCG INHALER INHALATION SCH (08:55)
[2022-07-04] MEDS: ALBUTEROL HFA INHALER INHALATION PRN (08:55)
[2022-07-04] MEDS: APIXABAN 5 MG TAB PO SCH (09:21)
[2022-07-04] MEDS: ZINC SULFATE 220 MG CAP PO SCH (09:22)
[2022-07-04] MEDS: DILTIAZEM ORAL 30 MG TAB PO SCH ×2 (09:22→16:10)
[2022-07-04] MEDS: ASCORBIC ACID 500 MG TAB PO SCH (09:22)
[2022-07-04] MEDS: CHOLECALCIFEROL 125 MCG (5000 IU) TABLET PO SCH (09:22)
[2022-07-04] MEDS: SODIUM CHLORIDE 0.9% 1,000 ML IV SCH (11:00)
[2022-07-04] MEDS: FAMOTIDINE 20 MG/2 ML VIAL IV SCH (11:00)
[2022-07-04 11:16] LABS: Glucose,Whole Blood 181 mg/dL (70-110)
[2022-07-04] MEDS ORDERED: guaiFENesin-DM 100-10MG/5ML 10 ML CUP PO SCH (12:00)
--- NOTE | 2022-07-04 13:25 | P.PN ---
Subjective Progress Note Date: 07/04/22 Principal diagnosis: Covid 19 infection This is a very pleasant 66-year-old female patient with a history of atrial fibrillation and recently admitted for RVR subsequent converted to sinus rhythm, anticoagulated with Eliquis, ReVia slightly had undergone ablation and cardioversion 2, asthma, hypertension, former smoker, obstructive sleep apnea utilizing CPAP. She had also been treated for upper respiratory infection/bronchitis on 3 separate occasions twice with amoxicillin and once with erythromycin without much improvement. She presented here to the emergency room and ongoing symptoms of shortness of breath, cough and congestion. Chest x-ray revealed patchy bibasilar atelectasis. She did test positive for the coronavirus. She states she has been vaccinated 2 and booster 2. She had not been tested at her outpatient clinic visits. RSV screen negative. Influenza screen negative. White count 15.0. Hemoglobin 10.8. Platelets 335. Sodium 137. Potassium 3.8. Bicarb 27. BUN 29. Creatinine 1.10. AST 49. ALT 70. Troponin negative 1. LDH 607. C-reactive protein less than 0.5. She was initiated on Symbicort, DuoNeb inhalations, IV Solu-Medrol. Antibiotics in the form of ceftriaxone and azithromycin. Anticoagulated with Eliquis. Vitamin supplements. Evaluating this patient today on 07/03/2022 on a general medical floor. Patient appears quite comfortable sitting up in bed, on 3 L nasal cannula, in no acute distress. Denies any severe shortness of breath, cough, hemoptysis, chest pain. Patient was afebrile overnight. No new chest x-ray or labs to review today. Her inflammatory markers on arrival were low. Her procalcitonin level is low at 0.06, and I doubt any superimposed bacterial infection. She is being managed on Ventolin inhaler, Symbicort inhaler, IV Solu-Medrol, and Singulair. Vital signs remain stable. I'm reevaluating this patient today on 07/04/2022 on a general medical floor. Patient is sitting up in bed, on room air, in no acute distress. she denies any shortness breath, cough, chest pain, fevers, or chills overnight. no new chest x-ray to review today. no new labs to review today. patient continues to be maintained on Ventolin inhaler, Symbicort inhaler, IV Solu-Medrol, and Singulair. She is anticoagulated with Eliquis due to her history of A. fib. Vital signs remain stable. Objective - Vital Signs Vital signs: Vital Signs Temp 97.4 F L 07/04/22 07:21 Pulse 61 07/04/22 07:21 Resp 17 07/04/22 07:21 BP 155/81 07/04/22 07:21 Pulse Ox 97 07/04/22 08:56 FiO2 Intake & Output 07/03/22 07/04/22 07/04/22 18:59 06:59 18:59 Other: Voiding Method Toilet Toilet # Voids 4 0 - Exam GENERAL EXAM: Alert, pleasant 66-year-old female, comfortable in no apparent distress. HEAD: Normocephalic. EYES: Normal reaction of pupils, equal size. NOSE: Clear with pink turbinates. THROAT: No erythema or exudates. NECK: No masses, no JVD. CHEST: No chest wall deformity. LUNGS: Equal air entry with clear lung sounds throughout. No rales, wheezes, rhonchi. On room air. No conversational dyspnea or accessory muscle use. CVS: S1 and S2 normal with no audible murmur, regular rhythm. ABDOMEN: No hepatosplenomegaly, normal bowel sounds, no guarding or rigidity. SPINE: No scoliosis or deformity SKIN: No rashes CENTRAL NERVOUS SYSTEM: No focal deficits, tone is normal in all 4 extremities. EXTREMITIES: There is no peripheral edema. No clubbing, no cyanosis. Per ipheral pulses are intact. - Labs CBC & Chem 7: 07/02/22 08:39 07/02/22 08:39 Labs: Abnormal Lab Results - Last 24 Hours (Table) 07/03/22 07/03/22 07/04/22 Range/Units 16:33 20:49 06:34 POC Glucose (mg/dL) 148 H 138 H 136 H (70-110) mg/dL 07/04/22 Range/Units 11:14 POC Glucose (mg/dL) 181 H (70-110) mg/dL Assessment and Plan Assessment: Acute COVID-19 infection without evidence of acute COVID-19 pneumonia. Outside the window for Remdesivir. Vaccinated 2, boosted 2 Acute tracheobronchitis, treated with antibiotics on 3 separate occasions in the outpatient setting Former smoker History of atrial fibrillation with rapid ventricular response and admitted here in May 2022 and anticoagulated with Eliquis History of asthma Hyperlipidemia Plan: Patient's medications reviewed Continue DuoNeb inhalation, Symbicort inhaler start oral prednisone taper in preparation for discharge. continue anticoagulation with Eliquis on room air from a pulmonary standpoint, patient is cleared for discharge. I have personally seen and examined the patient, performed the documentation and the assessment and plan as written. Number of minutes spent on the visit: 10. Time with Patient: Less than 30
--- NOTE | 2022-07-04 20:36 | P.DS ---
Providers Date of admission: 07/02/22 10:52 Attending physician: Ritesh Casillas MD Consults: 07/02/22 10:48 Consult Physician Routine Consulting Provider: Prakash Farias Consult Reason/Comments: dyspnea Do you want consulting provider notified?: Yes Primary care physician: Stated None Hospital Course: Diagnoses Bilateral Covid pneumonia acute asthma/COPD exacerbation Acute hypoxic respiratory failure, Possible bacterial superinfection mild transaminitis Paroxysmal atrial fibrillation status post ablation on Eliquis Chronic kidney disease, stage III History of obstructive sleep apnea on CPAP at home Hospital course: This is a pleasant 66 years old female with past medical history of asthma, sleep apnea, hypertension, atrial fibrillation status post ablation on Eliquis Patient states because she has difficulty breathing since Saturday for about 3-4 days, she went to urgent care who prescribed her oral antibiotics with no much help so she decided to come to emergency room. Patient found to have bilateral Covid pneumonia with acute tracheal bronchitis and acute COPD/asthma exacerbation. Patient responded to treatment with IV Solu-Medrol, multiple vitamins. Today she was saturating 96% on room air, even with exertion she does not qualify for home oxygen. She denies chest pain, no significant dyspnea, however she still have coughing and Robitussin DM prescribed for her upon her request. No diarrhea or other GI symptoms, no abdominal pain or vomiting, no dysuria or urgency, no weakness or headache or dizziness. Patient was cleared for discharge by pulmonary service. Patient denies any other new symptoms. Problems and management plan were discussed with the patient and he verbalized understanding and acceptance Patient was found stable and can be discharged home in guarded prognosis however he needs follow-up as an outpatient. Patient was instructed to follow up with PCP within one week and patient agrees Patient was instructed to follow up with offshore diver Dr. Dyson in 1-2 weeks and she agrees to call and make her own appointment Patient was instructed to call her medical insurance provider to find nearby PCP and call to make appointment in 1 week and she agrees Physical exam Gen: patient is a AAOx3, no distress CVS: S1-S2, RRR, no murmur Lungs: B/L CTA, no wheezing Abdomen: soft, no distention, no tenderness, positive bowel sounds Extremity: no leg edema or induration Time spent more than 35 minutes Patient Condition at Discharge: Fair Plan - Discharge Summary Discharge Rx Participant: No New Discharge Prescriptions: New Zinc Sulfate [Orazinc] 220 mg PO DAILY #30 cap predniSONE 10 mg PO DIRECTED #40 tab guaiFENesin-DM 100-10MG/5ML [Robitussin DM] 10 ml PO Q6HR ml Acetaminophen Tab [Tylenol] 650 mg PO Q6HR PRN tab PRN Reason: Mild Pain Or Fever > 100.5 Ascorbic Acid [Vitamin C] 1,000 mg PO DAILY #60 tab Famotidine [Pepcid] 20 mg PO BID 20 Days #40 tablet Continue Magnesium Oxide [Thao] 500 mg PO DAILY Diltiazem Oral [Cardizem*] 30 mg PO TID #90 tab Budesonide/Formoterol Fumarate [Symbicort 160-4.5 Mcg Inhaler] 2 puff INHALATION RT-BID Albuterol Inhaler [Ventolin Hfa Inhaler] 2 puff INHALATION RT-Q4H PRN #2 gm PRN Reason: Shortness Of Breath Rosuvastatin [Crestor] 10 mg PO HS Montelukast Sodium [Singulair] 10 mg PO HS Ipratropium-Albuterol Nebulize [Duoneb 0.5 mg-3 mg/3 ml Soln] 3 ml INHALATION RT-QID PRN PRN Reason: Shortness Of Breath Apixaban [Eliquis] 5 mg PO BID Fluticasone Propionate 110 Mcg [Flovent 110 Mcg Inhaler] 1 puff INHALATION DIRECTED Cholecalciferol [Vitamin D3 (125 Mcg = 5000 Iu)] 125 mcg PO DAILY #20 tab Discontinued Multivit with Calcium,Iron,Min [Women's Multivitamin] 1 tab PO DAILY Azithromycin [Zithromax] See Taper PO DIRECTED Discharge Medication List Apixaban [Eliquis] 5 mg PO BID 06/08/22 [History] Fluticasone Propionate 110 Mcg [Flovent 110 Mcg Inhaler] 1 puff INHALATION DIRECTED 06/08/22 [History] Ipratropium-Albuterol Nebulize [Duoneb 0.5 mg-3 mg/3 ml Soln] 3 ml INHALATION RT-QID PRN 06/08/22 [History] Magnesium Oxide [Thao] 500 mg PO DAILY 06/08/22 [History] Montelukast Sodium [Singulair] 10 mg PO HS 06/08/22 [History] Rosuvastatin [Crestor] 10 mg PO HS 06/08/22 [History] Diltiazem Oral [Cardizem*] 30 mg PO TID #90 tab 06/09/22 [Rx] Budesonide/Formoterol Fumarate [Symbicort 160-4.5 Mcg Inhaler] 2 puff INHALATION RT-BID 07/02/22 [History] Acetaminophen Tab [Tylenol] 650 mg PO Q6HR PRN tab 07/04/22 [Rx] Albuterol Inhaler [Ventolin Hfa Inhaler] 2 puff INHALATION RT-Q4H PRN #2 gm 07/04/22 [Rx] Ascorbic Acid [Vitamin C] 1,000 mg PO DAILY #60 tab 07/04/22 [Rx] Cholecalciferol [Vitamin D3 (125 Mcg = 5000 Iu)] 125 mcg PO DAILY #20 tab 07/04/22 [Rx] Famotidine [Pepcid] 20 mg PO BID 20 Days #40 tablet 07/04/22 [Rx] Zinc Sulfate [Orazinc] 220 mg PO DAILY #30 cap 07/04/22 [Rx] guaiFENesin-DM 100-10MG/5ML [Robitussin DM] 10 ml PO Q6HR ml 07/04/22 [Rx] predniSONE 10 mg PO DIRECTED #40 tab 07/04/22 [Rx] Follow up Appointment(s)/Referral(s): Prakash Farias MD [STAFF PHYSICIAN] - 07/31/22 9:00 am None,Stated [Primary Care Provider] - 1-2 days (PLEASE ESTABLISH WITH A PRIMARY CARE PHYSICIAN.) Patient Instructions/Handouts: Famotidine (By mouth), Albuterol (By breathing), Prednisone (By mouth), Zinc Sulfate (By mouth), Ascorbic Acid (By mouth), Cholecalciferol (By mouth), COVID-19 (Coronavirus Disease 2019) (DC), COVID-19: Slow the Coronavirus Spread (DC), Safely Care for Someone Who Has COVID-19 (ED) Activity/Diet/Wound Care/Special Instructions: Heart healthy diet Activity is restricted till you see your doctor Discharge/Stand Alone Forms: Work/School Release, Work/Release Restrictions Form, Work/School Release / Restrict Discharge Disposition: HOME SELF-CARE
[2022-07-05] MEDS ORDERED: predniSONE 20 MG TAB PO SCH (09:00)
[2022-07-05] MEDS ORDERED: FAMOTIDINE 20 MG TAB PO SCH (09:00)
== END 2022-07-04 16:26 | disposition home or self-care (01) | DRG 177 ==
LOC: EC 08:22 → 4SSUR 10:52
PROVIDERS: ADMIT Internal Medicine; ATTEND Internal Medicine
DX: U07.1 COVID-19 (principal); J12.82 Pneumonia due to coronavirus disease 2019; J15.9 Unspecified bacterial pneumonia; J96.01 Acute respiratory failure with hypoxia; J44.0 Chronic obstructive pulmonary disease with (acute) lower respiratory infection; J98.11 Atelectasis; I12.9 Hypertensive chronic kidney disease with stage 1 through stage 4 chronic kidney disease, or unspecified chronic kidney disease; N18.30 Chronic kidney disease, stage 3 unspecified; J20.8 Acute bronchitis due to other specified organisms; Z88.8 Allergy status to other drugs, medicaments and biological substances; Z91.018 Allergy to other foods; Z79.899 Other long term (current) drug therapy; Z87.891 Personal history of nicotine dependence; Z87.01 Personal history of pneumonia (recurrent); Z83.3 Family history of diabetes mellitus; Z80.0 Family history of malignant neoplasm of digestive organs; Z82.5 Family history of asthma and other chronic lower respiratory diseases; E11.22 Type 2 diabetes mellitus with diabetic chronic kidney disease; I48.0 Paroxysmal atrial fibrillation; R74.01 Elevation of levels of liver transaminase levels; G47.33 Obstructive sleep apnea (adult) (pediatric); J41.1 Mucopurulent chronic bronchitis; Z91.040 Latex allergy status; Z88.5 Allergy status to narcotic agent
CPT/HCPCS: 36415; 71045; 80053; 83605; 83615; 83735; 84145; 84484; 85025; 85610; 85730; 86140; 87636; 93005; 94640; 94760; 96365; 96375; 99285

== ENCOUNTER 2022-09-22 23:17 | Inpatient (IN) | payer MEDICARE ==
[2022-09-22] MEDS ORDERED: IPRATROPIUM-ALBUTEROL 3 ML NEB INHALATION STA (23:34)
[2022-09-22] MEDS: DILTIAZEM 125 MG in SODIUM CHLORIDE 0.9% 100 ML IV SCH (23:46)
--- NOTE | 2022-09-22 23:52 | XR ---
EXAMINATION TYPE: XR chest 2V DATE OF EXAM: 09/22/2022 11:43 PM COMPARISON: Chest radiographs from 2222 TECHNIQUE: XR chest 2V Frontal and lateral views of the chest. CLINICAL INDICATION:Female, 66 years old with history of dysrhythmia; FINDINGS: Lungs/Pleura: There is no evidence of pleural effusion, focal consolidation, or pneumothorax. Pulmonary vascularity: Unremarkable. Heart/mediastinum: Cardiomediastinal silhouette is unremarkable. Musculoskeletal: No acute osseous pathology. IMPRESSION: No acute cardiopulmonary disease/process. No significant change from prior.
[2022-09-22] MEDS ORDERED: SODIUM CHLORIDE 0.9% 2,000 ML IV ONE (23:53)
[2022-09-23 00:18] LABS: Partial Thromboplastin Time 26.7 sec (22.0-30.0); Prothrombin Time 10.6 sec (9.0-12.0)
[2022-09-23 00:20] LABS: ALT 29 U/L (4-34); AST 37 U/L (14-36); African American GFR (CKD) 57 (>60 ml/min/1.73 sqM); Alkaline Phosphatase 112 U/L (38-126); Anion Gap 11 mmol/L; Blood Urea Nitrogen 28 mg/dL (7-17); Calcium 9.3 mg/dL (8.4-10.2); Carbon Dioxide 32 mmol/L (22-30); Chloride 94 mmol/L (98-107); Glucose 108 mg/dL (74-99); Magnesium 1.8 mg/dL (1.6-2.3); Non-African American GFR(CKD) 49 (>60 ml/min/1.73 sqM); Potassium 2.8 mmol/L (3.5-5.1); Sodium 137 mmol/L (137-145); Total Bilirubin 0.4 mg/dL (0.2-1.3); Total Protein 6.9 g/dL (6.3-8.2)
[2022-09-23] MEDS ORDERED: POTASSIUM CHLORIDE 20 MEQ in WATER FOR INJECTION 1 100ML.BAG IVPB STA (00:27)
[2022-09-23] MEDS ORDERED: POTASSIUM CHLORIDE ER 20 MEQ TAB.ER PO STA (00:27)
[2022-09-23] MEDS ORDERED: MAGNESIUM SULFATE-D5W PMX 1 GM in DEXTROSE/WATER 1 100ML.BAG IVPB ONE (00:27)
[2022-09-23 00:36] LABS: Basophils # (A) 0.1 k/uL (0-0.2); Basophils % (A) 0 %; Eosinophils # (A) 0.1 k/uL (0-0.7); Eosinophils % (A) 0 %; HCT 41.3 % (34.0-46.0); HGB 14.2 gm/dL (11.4-16.0); Lymphocytes % (A) 23 %; MCH 29.6 pg (25.0-35.0); MCHC 34.3 g/dL (31.0-37.0); MCV 86.2 fL (80.0-100.0); Mean Platelet Volume 9.3; Monocytes # (A) 0.9 k/uL (0-1.0); Monocytes % (A) 7 %; Neutrophils # (A) 8.8 k/uL (1.3-7.7); Neutrophils % (A) 67 %; Platelet Count 241 k/uL (150-450); RBC 4.79 m/uL (3.80-5.40); RDW 15.2 % (11.5-15.5); WBC 13.1 k/uL (3.8-10.6)
[2022-09-23] MEDS ORDERED: NALOXONE 0.4 MG/ML 1 ML VIAL IV PRN (00:53)
--- NOTE | 2022-09-23 00:53 | ED ---
Arrhythmia/Palpitations HPI - General Chief Complaint: Arrhythmia/Palpitations Stated Complaint: afib Time Seen by Provider: 09/22/22 23:30 Source: patient, EMS Mode of arrival: EMS - History of Present Illness Initial Comments: 66-year-old female presents emergency department reporting lightheadedness, palpitations. States that it started while she was watching TV last night. She does have a history of A. fib. Her watch alerted her that she had gone into A. fib. She called EMS who found her to be in A. fib with a rapid rate. She is on Cardizem and Eliquis. She believes she may have missed her afternoon dose of carvedilol. She has been cardioverted 3 times, the last of which was in July at our facility. She has an appointment with Dr. Mendez on the where he is supposed to do an ablation for her. She admits to chest pressure. No nausea or vomiting. She was placed on doxycycline on for an upper respiratory infection. Had viral panel performed which was negative. She is not currently on any antibiotics but did have pneumonia during her last hospitalization. She denies history of coronary disease. No fevers, chills but does admit to cough. No other alleviating, precipitating or modifying factors - Related Data Home Medications Medication Instructions Recorded Confirmed Apixaban [Eliquis] 5 mg PO BID 06/08/22 09/26/22 Magnesium Oxide [Thao] 500 mg PO DAILY 06/08/22 09/26/22 Montelukast Sodium [Singulair] 10 mg PO HS 06/08/22 09/26/22 Rosuvastatin [Crestor] 10 mg PO HS 06/08/22 09/26/22 [place]-3/Dha/Epa/Fish Oil [Fish Oil 1 cap PO DAILY 08/15/22 09/26/22 1,000 mg Softgel] Budesonide/Glycopyr/Formoterol 2 puff INHALATION RT-BID 09/26/22 09/26/22 [Breztri Aerosphere Inhaler] Previous Rx's Medication Instructions Recorded Acetaminophen Tab [Tylenol] 650 mg PO Q6HR PRN tab 07/04/22 Albuterol Inhaler [Ventolin Hfa 2 puff INHALATION RT-Q4H PRN #2 gm 07/04/22 Inhaler] Ascorbic Acid [Vitamin C] 1,000 mg PO DAILY #60 tab 07/04/22 Cholecalciferol [Vitamin D3 (125 125 mcg PO DAILY #20 tab 07/04/22 Mcg = 5000 Iu)] Zinc Sulfate [Orazinc] 220 mg PO DAILY #30 cap 07/04/22 Diltiazem Cd [Cardizem CD] 240 mg PO DAILY #30 cap 09/25/22 Spironolactone [Aldactone] 25 mg PO DAILY #30 tab 09/25/22 Chlorthalidone [Hygroton] 25 mg PO DAILY #30 tab 09/30/22 Doxycycline [Vibramycin] 100 mg PO BID 4 Days #8 cap 09/30/22 guaiFENesin [Mucinex] 1,200 mg PO Q12HR #10 tab 09/30/22 predniSONE [Deltasone] 40 mg PO DAILY 5 Days #10 tab 09/30/22 Allergies Allergy/AdvReac Type Severity Reaction Status Date / Time banana Allergy Anaphylaxis Verified 09/26/22 21:06 budesonide Allergy Anaphylaxis Verified 09/29/22 09:51 [From Planspot] cantaloupe Allergy Anaphylaxis Verified 09/26/22 21:06 formoterol Allergy Anaphylaxis Verified 09/29/22 09:51 [From [employer]pot] glycopyrrolate Allergy Anaphylaxis Verified 09/29/22 09:51 [From Planspot] latex Allergy Rash/Hives Verified 09/26/22 21:06 melon Allergy Anaphylaxis Verified 09/26/22 21:06 perflutren [From Definity] Allergy Unknown Verified 09/26/22 21:06 diclofenac [From Voltaren] AdvReac Chest Pain Verified 09/26/22 21:06 metoprolol [From Lopressor] AdvReac Chest Pain Verified 09/26/22 21:06 naproxen [From Naprosyn] AdvReac Chest Pain Verified 09/26/22 21:06 honeydew melon Allergy Anaphylaxis Uncoded 09/26/22 19:57 Review of Systems ROS Statement: Those systems with pertinent positive or pertinent negative responses have been documented in the HPI. ROS Other: All systems not noted in ROS Statement are negative. Past Medical History Past Medical History: Atrial Fibrillation, Asthma, Hypertension, Sleep Apnea/CPAP/BIPAP Additional Past Medical History / Comment(s): 2019 pneumonia and sepsis History of Any Multi-Drug Resistant Organisms: None Reported Past Surgical History: Ablation Additional Past Surgical History / Comment(s): cardioversion x2, 2011 left ankle plate and screws Past Anesthesia/Blood Transfusion Reactions: No Reported Reaction Past Psychological History: No Psychological Hx Reported Smoking Status: Former smoker Past Alcohol Use History: None Reported Past Drug Use History: None Reported - Past Family History Mother History Unknown: Yes Additional Family Medical History / Comment(s): stroe, afib, pacemaker, DM, OA, Brother(s) History Unknown: Yes Additional Family Medical History / Comment(s): colon ca Father History Unknown: Yes Additional Family Medical History / Comment(s): cirrhosis, emphysema General Exam General appearance: alert, in no apparent distress Head exam: Present: atraumatic, normocephalic, normal inspection Eye exam: Present: normal appearance, PERRL, EOMI. Absent: scleral icterus, conjunctival injection, periorbital swelling ENT exam: Present: normal exam, mucous membranes moist Neck exam: Present: normal inspection. Absent: tenderness, meningismus, lymphadenopathy Respiratory exam: Present: normal lung sounds bilaterally. Absent: respiratory distress, wheezes, rales, rhonchi, stridor Cardiovascular Exam: Present: tachycardia, irregular rhythm, normal heart sounds. Absent: systolic murmur, diastolic murmur, rubs, gallop, clicks GI/Abdominal exam: Present: soft, normal bowel sounds. Absent: distended, tenderness, guarding, rebound, rigid Extremities exam: Present: normal inspection, full ROM, normal capillary refill. Absent: tenderness, pedal edema, joint swelling, calf tenderness Back exam: Present: normal inspection Neurological exam: Present: alert, oriented X3, CN II-XII intact Psychiatric exam: Present: normal affect, normal mood Skin exam: Present: warm, dry, intact, normal color. Absent: rash Course Vital Signs 09/22/22 09/22/22 09/22/22 23:20 23:22 23:25 Temperature 97.7 F Pulse Rate 154 H 135 H Respiratory 18 13 Rate Blood Pressure 117/93 117/93 117/93 O2 Sat by Pulse 98 97 Oximetry 09/22/22 09/22/22 09/22/22 23:30 23:50 23:55 Temperature Pulse Rate 151 H 112 H 126 H Respiratory 19 24 22 Rate Blood Pressure 131/99 95/63 80/69 O2 Sat by Pulse 97 96 95 Oximetry 09/23/22 09/23/22 09/23/22 00:13 00:21 00:34 Temperature Pulse Rate 104 H 100 107 H Respiratory 20 Rate Blood Pressure 101/73 O2 Sat by Pulse 97 Oximetry 09/23/22 09/23/22 09/23/22 00:52 01:00 03:00 Temperature Pulse Rate 101 H 101 H 93 Respiratory 22 18 Rate Blood Pressure 119/91 106/82 O2 Sat by Pulse 98 Oximetry 09/23/22 09/23/22 09/23/22 06:00 06:03 06:20 Temperature Pulse Rate 113 H 110 H 121 H Respiratory 20 Rate Blood Pressure 101/68 O2 Sat by Pulse 96 Oximetry 09/23/22 06:41 Temperature Pulse Rate 98 Respiratory 20 Rate Blood Pressure 101/62 O2 Sat by Pulse 94 L Oximetry EKG Findings - EKG Comments: EKG Findings:: EKG demonstrates A. fib with a rate of 143. QRS 106. QTC is 334. No acute ST segment elevations. ST depression V3 through V6 as well as the inferior leads likely rate dependent Medical Decision Making - Medical Decision Making .Was pt. sent in by a medical professional or institution (, PA, CORRECTIONAL FOOD SERVICE SUPERVISOR, urgent care, hospital, or snf...) When possible be specific @ -No Did you speak to anyone other than the patient for history (EMS, parent, family, police, friend...)? What history was obtained from this source @ -EMS Did you review nursing and triage notes (agree or disagree)? Why? @ -I reviewed and agree with nursing and triage notes Were old charts reviewed (outside hosp., previous admission, EMS record, old EKG, old radiological studies, urgent care reports/EKG's, snf records)? Report findings @ - old charts were reviewed Differential Diagnosis (chest pain, altered mental status, abdominal pain women, abdominal pain men, vaginal bleeding, weakness, fever, dyspnea, syncope, headache, dizziness, GI bleed, back pain, seizure, CVA, palpatations, mental health, musculoskeletal)? @ -ACS, NSTEMI, STEMI, coronary vasospasm, afib EKG interpreted by me (3pts min.). @ -As above X-rays interpreted by me (1pt min.). @ -yes CT interpreted by me (1pt min.). @ -None done U/S interpreted by me (1pt. min.). @ -None done What testing was considered but not performed or refused? (CT, X-rays, U/S, labs)? Why? @ -None What meds were considered but not given or refused? Why? @ -None Did you discuss the management of the patient with other professionals (professionals i.e. DrAlexis, PA, CORRECTIONAL FOOD SERVICE SUPERVISOR, lab, RT, psych nurse, high school social studies tutor, first line supervisor, teacher, delinquency prevention officer, director of casework)? Give summary @ -Dr. Krueger Was smoking cessation discussed for >3mins.? @ -no Was critical care preformed (if so, how long)? @ yes, 35 minutes Were there social determinants of health that impacted care today? How? (Homelessness, low income, unemployed, alcoholism, drug addiction, transportation, low edu. Level, literacy, decrease access to med. care, halfway, rehab)? @ -No Was there de-escalation of care discussed even if they declined (Discuss DNR or withdrawal of care, Hospice)? DNR status @ -No What co-morbidities impacted this encounter? (DM, HTN, Smoking, COPD, CAD, Cancer, CVA, ARF, Chemo, Hep., AIDS, mental health diagnosis, sleep apnea, morbid obesity)? @ -afib Was patient admitted / discharged? Hospital course, mention meds given and route, prescriptions, significant lab abnormalities, going to OR and other pertinent info. @ -Upon arrival patient is placed in trauma 1. A thorough history and physical exam was performed. patient placed on continuous pulse ox and cardiac monitoring. 12-lead EKG which demonstrates A. fib with RVR. IV is established laboratory studies are conducted. Patient is mildly hypotensive and therefore is given 2 L bolus normal saline. Laboratory studies are reviewed. Potassium low at 2.8. Chest x-ray demonstrates no acute process. Patient was given a breathing treatment. She is started on Cardizem without a bolus due to previous issues with Cardizem bolusing. Patient will be admitted. Spoke with Dr. Krueger who agreed to admit the patient with cardiology on consult Undiagnosed new problem with uncertain prognosis? @ -yes Drug Therapy requiring intensive monitoring for toxicity (Heparin, Nitro, Insulin, Cardizem)? @ -Cardizem Were any procedures done? @ -No Diagnosis/symptom? @ -acute palpitations, afib with rvr, acute hypokalemia Acute, or Chronic, or Acute on Chronic? @ -acute Uncomplicated (without systemic symptoms) or Complicated (systemic symptoms)? @ -complicated Side effects of treatment? @ -no Exacerbation, Progression, or Severe Exacerbation? @ -no Poses a threat to life or bodily function? How? (Chest pain, [place], [place], pneumonia, PE, COPD, DKA, ARF, appy, cholecystitis, CVA, Diverticulitis, Homicidal, Suicidal, threat to staff... and all critical care pts) @ -yes - Lab Data Result diagrams: 09/25/22 08:06 09/25/22 08:06 Lab Results 09/22/22 09/22/22 09/22/22 Range/Units 23:32 23:32 23:32 WBC 13.1 H (3.8-10.6) k/uL RBC 4.79 (3.80-5.40) m/uL Hgb 14.2 (11.4-16.0) gm/dL Hct 41.3 (34.0-46.0) % MCV 86.2 (80.0-100.0) fL MCH 29.6 (25.0-35.0) pg MCHC 34.3 (31.0-37.0) g/dL RDW 15.2 (11.5-15.5) % Plt Count 241 (150-450) k/uL MPV 9.3 Neutrophils % 67 % Lymphocytes % 23 % Monocytes % 7 % Eosinophils % 0 % Basophils % 0 % Neutrophils # 8.8 H (1.3-7.7) k/uL Lymphocytes # 3.0 (1.0-4.8) k/uL Monocytes # 0.9 (0-1.0) k/uL Eosinophils # 0.1 (0-0.7) k/uL Basophils # 0.1 (0-0.2) k/uL PT 10.6 (9.0-12.0) sec INR 1.0 (<1.2) APTT 26.7 (22.0-30.0) sec Sodium 137 (137-145) mmol/L Potassium 2.8 L (3.5-5.1) mmol/L Chloride 94 L (98-107) mmol/L Carbon Dioxide 32 H (22-30) mmol/L Anion Gap 11 mmol/L BUN 28 H (7-17) mg/dL Creatinine 1.17 H (0.52-1.04) mg/dL Est GFR (CKD-EPI)AfAm 57 (>60 ml/min/1.73 sqM) Est GFR (CKD-EPI)NonAf 49 (>60 ml/min/1.73 sqM) Glucose 108 H (74-99) mg/dL Calcium 9.3 (8.4-10.2) mg/dL Magnesium 1.8 (1.6-2.3) mg/dL Total Bilirubin 0.4 (0.2-1.3) mg/dL AST 37 H (14-36) U/L ALT 29 (4-34) U/L Alkaline Phosphatase 112 (38-126) U/L Troponin I (0.000-0.034) ng/mL Total Protein 6.9 (6.3-8.2) g/dL Albumin 4.0 (3.5-5.0) g/dL TSH 3.260 (0.465-4.680) mIU/L Influenza Type A (PCR) (Not Detectd) Influenza Type B (PCR) (Not Detectd) RSV (PCR) (Not Detectd) SARS-CoV-2 (PCR) (Not Detectd) 09/22/22 09/22/22 Range/Units 23:32 23:35 WBC (3.8-10.6) k/uL RBC (3.80-5.40) m/uL Hgb (11.4-16.0) gm/dL Hct (34.0-46.0) % MCV (80.0-100.0) fL MCH (25.0-35.0) pg MCHC (31.0-37.0) g/dL RDW (11.5-15.5) % Plt Count (150-450) k/uL MPV Neutrophils % % Lymphocytes % % Monocytes % % Eosinophils % % Basophils % % Neutrophils # (1.3-7.7) k/uL Lymphocytes # (1.0-4.8) k/uL Monocytes # (0-1.0) k/uL Eosinophils # (0-0.7) k/uL Basophils # (0-0.2) k/uL PT (9.0-12.0) sec INR (<1.2) APTT (22.0-30.0) sec Sodium (137-145) mmol/L Potassium (3.5-5.1) mmol/L Chloride (98-107) mmol/L Carbon Dioxide (22-30) mmol/L Anion Gap mmol/L BUN (7-17) mg/dL Creatinine (0.52-1.04) mg/dL Est GFR (CKD-EPI)AfAm (>60 ml/min/1.73 sqM) Est GFR (CKD-EPI)NonAf (>60 ml/min/1.73 sqM) Glucose (74-99) mg/dL Calcium (8.4-10.2) mg/dL Magnesium (1.6-2.3) mg/dL Total Bilirubin (0.2-1.3) mg/dL AST (14-36) U/L ALT (4-34) U/L Alkaline Phosphatase (38-126) U/L Troponin I 0.029 (0.000-0.034) ng/mL Total Protein (6.3-8.2) g/dL Albumin (3.5-5.0) g/dL TSH (0.465-4.680) mIU/L Influenza Type A (PCR) Not Detected (Not Detectd) Influenza Type B (PCR) Not Detected (Not Detectd) RSV (PCR) Not Detected (Not Detectd) SARS-CoV-2 (PCR) Not Detected (Not Detectd) Critical Care Time Critical Care Time: Yes Critical Care Time: 35 minutes Disposition Clinical Impression: Tachycardia, Palpitations, Atrial fibrillation with rapid ventricular response, Acute respiratory insufficiency, Asthma exacerbation, Hypokalemia, Hypomagnesemia Disposition: ADMITTED IP TO THIS [facility] Condition: Serious Is patient prescribed a controlled substance at d/c from ED?: No Time of Disposition: 00:53 Decision to Admit Reason: Admit from EC Decision Date: 09/23/22 Decision Time: 00:53
[2022-09-23] MEDS ORDERED: SODIUM CHLORIDE 0.9% 1,000 ML IV SCH (01:00)
[2022-09-23] MEDS: DILTIAZEM 125 MG in SODIUM CHLORIDE 0.9% 100 ML IV SCH ×2 (01:49→18:41)
[2022-09-23] MEDS ORDERED: ACETAMINOPHEN TAB 325 MG TAB PO STA (05:23)
[2022-09-23] MEDS: ALBUTEROL NEBULIZED 2.5 MG/3 ML INHALATION SCH ×5 (06:02→20:49)
[2022-09-23] MEDS: IPRATROPIUM 0.5 MG/2.5 ML NEBU INHALATION SCH ×5 (06:03→20:49)
[2022-09-23] MEDS ORDERED: methylPREDNISolone SOD SUCCI 125 MG/2 ML VIAL IV STA (06:41)
[2022-09-23] MEDS: APIXABAN 5 MG TAB PO SCH ×2 (09:46→20:02)
[2022-09-23] MEDS: SPIRONOLACTONE 25 MG TAB PO SCH (10:28)
[2022-09-23] MEDS: DILTIAZEM CD 180 MG CAP.ER.24H PO SCH (10:28)
[2022-09-23] MEDS: POTASSIUM CHLORIDE ER 20 MEQ TAB.ER PO SCH ×4 (10:29→20:02)
--- NOTE | 2022-09-23 11:47 | P.CRDCN ---
History of Present Illness Consult date: 09/23/22 Consult reason: atrial fibrillation History of present illness: The patient is a 66-year-old female who follows the office with Dr. Gomez. The patient recently had an EP consult with Dr. Carey with pulmonary vein isolation pending for October 04. She presented to the emergency room with Zuly metcalf with RVR. The patient recently reported symptoms of an upper respiratory infection and presented to a local urgent care in an effort to get treatment prior to her procedure. The patient has a known history of atrial fibrillation with failed cardioversion. DIAGNOSTICS: EKG shows atrial fibrillation Chest x-ray shows no acute cardiopulmonary process WBC 13.1, hemoglobin 14.2, hematocrit 41.3, platelet 241, sodium 137, potassium 3.2, BUN 20, creatinine 1.17, magnesium 1.8, AST 37, ALT 29, troponins negative 3, BNP 2410, TSH 3.2 Vitals: Blood pressure 107/74, heart rate 114, respiratory rate 18, SpO2 95% on room air, afebrile REVIEW OF SYSTEMS: No fever or chills. No cough or expectoration. No diaphoresis. Patient denies headache, dizziness, blurred vision, double vision. Patient denies any stomach discomfort. No nausea, vomiting. No hematochezia. No hematemesis. Denies any black stools or blood in his stools. Denies dysuria or h ematuria. No muscle weakness or numbness. Positive for nonproductive cough. Positive for shortness of breath. PHYSICAL EXAMINATION: This is a 66-year-old female in no apparent distress at the time of my examination. HEENT: Head is atraumatic, normocephalic. Pupils are equal, round. Sclerae anicteric. Conjunctivae are clear. Mucous membranes of the mouth are moist. Neck is supple. There is no jugular venous distention. No carotid bruit is heard. CHEST EXAMINATION: Lungs are clear to auscultation. No chest wall tenderness is noted on palpation or with deep breathing. HEART EXAMINATION: Irregular rate and rhythm. S1, S2 heard. No murmurs, gallops or rub. ABDOMEN: Soft, nontender. Bowel sounds are heard. No organomegaly noted. EXTREMITIES: 2+ peripheral pulses with no evidence of peripheral edema and no calf tenderness noted. NEUROLOGIC EXAMINATION: Patient is awake, alert and oriented x3. 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 fib with RVR Recent upper respiratory infection, on antibiotics and steroids Hypertension Hypokalemia PLAN: Discontinue IV fluids Start spironolactone Transitioned to oral Cardizem Continue supportive treatment for upper respiratory infection Pulmonary vein isolation to be delayed at least 1 month until upper respiratory symptoms resolved Further recommendations to be the clinical course I am dictating on behalf of Dr Kan Carey's history/physical and as sessment/plan. Past Medical History Past Medical History: Atrial Fibrillation, Asthma, Hypertension, Sleep Apnea/CPAP/BIPAP Additional Past Medical History / Comment(s): 2019 pneumonia and sepsis History of Any Multi-Drug Resistant Organisms: None Reported Past Surgical History: Ablation Additional Past Surgical History / Comment(s): cardioversion x2, 2011 left ankle plate and screws Past Anesthesia/Blood Transfusion Reactions: No Reported Reaction Past Psychological History: No Psychological Hx Reported Smoking Status: Former smoker Past Alcohol Use History: None Reported Past Drug Use History: None Reported - Past Family History Mother History Unknown: Yes Additional Family Medical History / Comment(s): stroe, afib, pacemaker, DM, OA, Brother(s) History Unknown: Yes Additional Family Medical History / Comment(s): colon ca Father History Unknown: Yes Additional Family Medical History / Comment(s): cirrhosis, emphysema Medications and Allergies Home Medications Medication Instructions Recorded Confirmed Type Apixaban [Eliquis] 5 mg PO BID 06/08/22 09/23/22 History Fluticasone Propionate 110 Mcg 1 puff INHALATION DIRECTED 06/08/22 09/23/22 History [Flovent 110 Mcg Inhaler] Ipratropium-Albuterol Nebulize 3 ml INHALATION RT-QID PRN 06/08/22 09/23/22 History [Duoneb 0.5 mg-3 mg/3 ml Soln] Magnesium Oxide [Thao] 500 mg PO DAILY 06/08/22 09/23/22 History Montelukast Sodium [Singulair] 10 mg PO HS 06/08/22 09/23/22 History Rosuvastatin [Crestor] 10 mg PO HS 06/08/22 09/23/22 History Diltiazem Oral [Cardizem*] 30 mg PO TID #90 tab 06/09/22 09/23/22 Rx Budesonide/Formoterol Fumarate 2 puff INHALATION RT-BID 07/02/22 09/23/22 History [Symbicort 160-4.5 Mcg Inhaler] Acetaminophen Tab [Tylenol] 650 mg PO Q6HR PRN tab 07/04/22 09/23/22 Rx Albuterol Inhaler [Ventolin Hfa 2 puff INHALATION RT-Q4H PRN #2 gm 07/04/22 09/23/22 Rx Inhaler] Ascorbic Acid [Vitamin C] 1,000 mg PO DAILY #60 tab 07/04/22 09/23/22 Rx Cholecalciferol [Vitamin D3 (125 125 mcg PO DAILY #20 tab 07/04/22 09/23/22 Rx Mcg = 5000 Iu)] Zinc Sulfate [Orazinc] 220 mg PO DAILY #30 cap 07/04/22 09/23/22 Rx Chlorthalidone [Hygroton] 25 mg PO DAILY 08/15/22 09/23/22 History [place]-3/Dha/Epa/Fish Oil [Fish Oil 1 cap PO DAILY 08/15/22 09/23/22 History 1,000 mg Softgel] Doxycycline Hyclate 100 mg PO BID 09/23/22 09/23/22 History Allergies Allergy/AdvReac Type Severity Reaction Status Date / Time banana Allergy Anaphylaxis Verified 09/23/22 11:26 cantaloupe Allergy Anaphylaxis Verified 09/23/22 11:26 latex Allergy Rash/Hives Verified 09/23/22 11:26 melon Allergy Anaphylaxis Verified 09/23/22 11:26 perflutren [From Definity] Allergy Unknown Verified 09/23/22 11:26 diclofenac [From Voltaren] AdvReac Chest Pain Verified 09/23/22 11:26 metoprolol [From Lopressor] AdvReac Chest Pain Verified 09/23/22 11:26 naproxen [From Naprosyn] AdvReac Chest Pain Verified 09/23/22 11:26 honeydew melon Allergy Anaphylaxis Uncoded 07/02/22 10:59 Physical Exam Vitals: Vital Signs Temp Pulse Pulse Resp BP BP Pulse Ox 09/23/22 09:15 115 H 09/23/22 09:02 114 H 09/23/22 08:04 97.4 F L 73 18 107/74 95 09/23/22 06:41 98 20 101/62 94 L 09/23/22 06:20 121 H 09/23/22 06:03 110 H 09/23/22 06:00 113 H 20 101/68 96 09/23/22 03:00 93 18 106/82 09/23/22 01:00 101 H 09/23/22 00:52 101 H 22 119/91 98 09/23/22 00:34 107 H 09/23/22 00:21 100 09/23/22 00:13 104 H 20 101/73 97 09/22/22 23:55 126 H 22 80/69 95 09/22/22 23:50 112 H 24 95/63 96 09/22/22 23:30 151 H 19 131/99 97 09/22/22 23:25 135 H 13 117/93 97 09/22/22 23:22 97.7 F 154 H 18 117/93 98 09/22/22 23:20 117/93 Intake and Output 09/22/22 09/23/22 09/23/22 22:59 06:59 14:59 Intake Total 10.583 540 Balance 10.583 540 Intake: Intake, IV Titration 10.583 Amount Diltiazem 125 mg In 10.583 Sodium Chloride 0.9% 100 ml @ 5 MG/HR 5 mls/hr IV .Q24H [facility] Rx#:[id number] Oral 540 Other: Weight 77.111 kg Results 09/22/22 23:32 09/23/22 08:04 Cardiac Enzymes 09/22/22 09/22/22 09/23/22 Range/Units 23:32 23:32 03:08 AST 37 H (14-36) U/L Troponin I 0.029 0.031 (0.000-0.034) ng/mL 09/23/22 Range/Units 08:04 AST (14-36) U/L Troponin I 0.020 (0.000-0.034) ng/mL Coagulation 09/22/22 Range/Units 23:32 PT 10.6 (9.0-12.0) sec APTT 26.7 (22.0-30.0) sec CBC 09/22/22 Range/Units 23:32 WBC 13.1 H (3.8-10.6) k/uL RBC 4.79 (3.80-5.40) m/uL Hgb 14.2 (11.4-16.0) gm/dL Hct 41.3 (34.0-46.0) % Plt Count 241 (150-450) k/uL Comprehensive Metabolic Panel 09/22/22 09/23/22 Range/Units 23:32 08:04 Sodium 137 (137-145) mmol/L Potassium 2.8 L 3.2 L (3.5-5.1) mmol/L Chloride 94 L (98-107) mmol/L Carbon Dioxide 32 H (22-30) mmol/L BUN 28 H (7-17) mg/dL Creatinine 1.17 H (0.52-1.04) mg/dL Glucose 108 H (74-99) mg/dL Calcium 9.3 (8.4-10.2) mg/dL AST 37 H (14-36) U/L ALT 29 (4-34) U/L Alkaline Phosphatase 112 (38-126) U/L Total Protein 6.9 (6.3-8.2) g/dL Albumin 4.0 (3.5-5.0) g/dL Current Medications Generic Name Dose Route Start Last Admin Trade Name Freq PRN Reason Stop Dose Admin Albuterol Sulfate 2.5 mg 09/23/22 04:00 09/23/22 11:29 Albuterol Nebulized 2.5 Mg/3 Ml INHALATION 2.5 mg RT-Q4H PATTIE Administration Apixaban 5 mg 09/23/22 09:15 09/23/22 09:46 Apixaban 5 Mg Tab PO 5 mg BID PATTIE Administration Protocol Atorvastatin Calcium 20 mg 09/23/22 21:00 Atorvastatin 20 Mg Tab PO HS [facility] Diltiazem HCl 180 mg 09/23/22 10:00 09/23/22 10:28 Diltiazem Cd 180 Mg Cap.Er.24h PO 180 mg DAILY PATTIE Administration Diltiazem HCl 125 mg/ Sodium 125 mls @ 5 mls/hr 09/22/22 23:45 09/23/22 06:03 Chloride IV 5 mg/hr .Q24H PATTIE 5 mls/hr Infusion 5 MG/HR Ipratropium [place] 0.5 mg 09/23/22 04:00 09/23/22 11:29 Ipratropium 0.5 Mg/2.5 Ml Nebu INHALATION 0.5 mg RT-Q4H PATTIE Administration Naloxone HCl 0.2 mg 09/23/22 00:53 Naloxone 0.4 Mg/Ml 1 Ml Vial IV Q2M PRN Opioid Reversal Spironolactone 25 mg 09/23/22 10:00 09/23/22 10:28 Spironolactone 25 Mg Tab PO 25 mg DAILY PATTIE Administration Intake and Output 09/22/22 09/23/22 09/23/22 22:59 06:59 14:59 Intake Total 10.583 540 Balance 10.583 540 Intake: Intake, IV Titration 10.583 Amount Diltiazem 125 mg In 10.583 Sodium Chloride 0.9% 100 ml @ 5 MG/HR 5 mls/hr IV .Q24H [facility] Rx#:[id number] Oral 540 Other: Weight 77.111 kg 09/22/22 23:32 09/23/22 08:04
[2022-09-23] MEDS ORDERED: ACETAMINOPHEN TAB 325 MG TAB PO PRN (11:56)
--- NOTE | 2022-09-23 12:00 | P.HPIM ---
History of Present Illness H&P Date: 09/23/22 Chief Complaint: Atrial fibrillation with rapid ventricular response. 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 with a previous medical history significant for hypertension and hypertensive cardio vascular disease, hyperlipidemia, history of mild persistent asthma, obstructive sleep apnea, osteoporosis, patient stated that she developed to have atrial fib relation back when she was in [place] back in 2019 when she developed to have significant pneumonia with sepsis back in 06/12/2019, patient was recently hospitalized at [facility] on August 2022 after she was admitted for what appears to be a COVID-19 as well as atrial flutter ablation with rapid ventricular response at that time she underwent DC cardioversion was in August 2022 and she was sent home on Apixaban 5 mg po bid along with Cardizem 30 mg orally 3 times every day Patient was supposed to have atrial fibrillation ablation to be done by Dr. Persaud that was scheduled for September of this year however he was moved back up due to her recurrent nature of atrial fibrillation , patient apparently had a cold and she went to urgent care and she was given time off from work up till tomorrow, however she presented to the emergency permanent at [facility] today in the morning with increased soreness breath and increased palpitation she was in atrial fibrillation with rapid ventricular response, she was started on Cardizem drip at 5 mg per hour currently increased to 7.5 mg an hour, her heart rate is around 1 25 bpm, she appears to be a bit short of breath, she was started on her current medication, she was admitted to the hospital for cardiology evaluation REVIEW OF SYSTEMS: Constitutional: No documented fever, no chills, no night sweats. No weight change. No weakness, fatigue or lethargy. No daytime sleepiness. HEENT: No headache. No blurred vision or double vision, no loss of vision. No loss of Hearing, no ringing in the ears, no dizziness. No nasal drainage or congestion. No epistaxis. No sore throat. Lungs: positive for shortness of breath, minimal cough, no sputum production. minimal wheezing. Reports dyspnea with activity. Cardiovascular: No chest pain, no lower extremity edema. No palpitations. No paroxysmal nocturnal dyspnea. No orthopnea. No lightheadedness or dizziness. No syncopal episodes. Abdominal: Reports no abdominal pain. No nausea, vomiting. No diarrhea. No constipation. No bloody or tarry stools reports loss of appetite. Genitourinary: No dysuria, increased frequency, urgency. No urinary retention. Musculoskeletal: No myalgias. No muscle weakness, no gait dysfunction, no frequent falls. No back pain. No neck pain. Integumentary: No wounds, no lesions. No rash or pruritus. No unusual bruising. No change in hair or nails. Neurologic: No aphasia. No facial droop. No change in mentation. No head injury. No headache. No paralysis. No paresthesia. Psychiatric: No depression. No anxiety. No mood swings. Endocrine: No abnormal blood sugars. No weight change. PAST MEDICAL HISTORY: Hypertension and hypertensive cardiovascular disease Hyperlipidemia Paroxysmal atrial Fibrillation. Mild persistent asthma. Obesity with obstructive sleep apnea. Osteoporosis. PAST SURGICAL HISTORY: Tonsillectomy and adenoidectomy. . Tubal ligation. Left ankle ORIF. 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 FAMILY HISTORY: Mother at age of 83 from diabetes competition and also had end-stage renal disease on hemodialysis. Father at age 69 from cirrhosis of the liver due to alcoholism and he also had history of COPD peptic ulcer disease ended up with perforated gastric stomach ulcer, patient had 4 brothers one is alive and doing well one at age of 36 from colon cancer one at the age of 26 because of a murder he was in the [place] and one at the age of 62 from diabetes complications patient has no sisters and she has 2 daughters one of them work at [employer]. PHYSICAL EXAMINATION: General: 66-year-old female laying down in bed in minimal respiratory distress HEENT: Head is atraumatic, normocephalic, pupils were equal round reactive to light and recommendation, extraocular muscle movement were intact, sclera nonicteric, conjunctivae were pale, mucous membranes of the mouth are somewhat dry. Neck: Supple, no JVP, normal carotid upstroke bilaterally, no lymphadenopathy. Chest: Decreased breath sounds at the bases, few rhonchi, minimal expiratory wheezes, no chest wall tenderness, no intercostal retractions. Heart: First heart sound is normal, second heart sound is normal tachycardic irregularly irregular due to atrial fibrillation. Abdomen: Soft, nontender, nondistended, positive bowel sounds, there is no hepatosplenomegaly per Extremities: There is no edema no calf tenderness DP +2 bilaterally. Neurologic examination: Patient is awake alert and oriented X 3, cranial nerves II-12 appear grossly intact, muscle power were 5 out of 5 in upper extremities and 5 out of 5 in bilateral lower extremities, deep tendon reflexes normal bilaterally. ASSESSMENT AND PLAN: 1. Atrial fibrillation with rapid ventricular response. Continue Cardizem drip at 7.5 mg at hour, may increase to 10 mg an hour to control her rate, continue Apixaban 5 mg orally twice every day, cariology consultation, patient will likely require atrial ablation Dr. Carey is on consultation. 2. Hypertension and hypertensive cardiovascular disease. Continue patient on spironolactone 25 mg orally once every day, continue patient on Cardizem CD 180 mg once every day, monitor the patient blood pressure very closely. 3. Mixed hyperlipidemia. Continue patient on atorvastatin 20 mg orally once every day, monitor the patient lipid panel, keep LDL 55-70 per 5. Mild persistent asthma with mild exacerbation with acute bronchitis . Continue patient on DuoNeb nebulization 4 times every day, continue patient on singular 10 mg at bedtime, also restart the patient on Symbicort 160/4.5 g 2 puffs inhalation twice every day, start Zithromax 500 mg orally once every day, start Mucinex 600 mg orally twice every day, Solu-Medrol 40 mg IV push every 8 hours 6. Obesity with obstructive sleep apnea. Patient is to continue calorie count and weight loss, continue CPAP. 7. ALLERGIC rhinitis. Continue patient on singular 10 mg at bedtime. 8. DVT prophylaxis. Continue patient on Apixaban 5 mg po bid 9. GI prophylaxis. Continue patient on Protonix 40 mg once every day . 10. Admit to inpatient. Estimate a length of stay 2 midnights . 11. Patient is full code Past Medical History Past Medical History: Atrial Fibrillation, Asthma, Hypertension, Sleep Apnea/CPAP/BIPAP Additional Past Medical History / Comment(s): 2019 pneumonia and sepsis History of Any Multi-Drug Resistant Organisms: None Reported Past Surgical History: Ablation Additional Past Surgical History / Comment(s): cardioversion x2, 2011 left ankle plate and screws Past Anesthesia/Blood Transfusion Reactions: No Reported Reaction Past Psychological History: No Psychological Hx Reported Smoking Status: Former smoker Past Alcohol Use History: None Reported Past Drug Use History: None Reported - Past Family History Mother History Unknown: Yes Additional Family Medical History / Comment(s): stroe, afib, pacemaker, DM, OA, Brother(s) History Unknown: Yes Additional Family Medical History / Comment(s): colon ca Father History Unknown: Yes Additional Family Medical History / Comment(s): cirrhosis, emphysema Medications and Allergies Home Medications Medication Instructions Recorded Confirmed Type Apixaban [Eliquis] 5 mg PO BID 06/08/22 09/23/22 History Fluticasone Propionate 110 Mcg 1 puff INHALATION DIRECTED 06/08/22 09/23/22 History [Flovent 110 Mcg Inhaler] Ipratropium-Albuterol Nebulize 3 ml INHALATION RT-QID PRN 06/08/22 09/23/22 History [Duoneb 0.5 mg-3 mg/3 ml Soln] Magnesium Oxide [Thao] 500 mg PO DAILY 06/08/22 09/23/22 History Montelukast Sodium [Singulair] 10 mg PO HS 06/08/22 09/23/22 History Rosuvastatin [Crestor] 10 mg PO HS 06/08/22 09/23/22 History Diltiazem Oral [Cardizem*] 30 mg PO TID #90 tab 06/09/22 09/23/22 Rx Budesonide/Formoterol Fumarate 2 puff INHALATION RT-BID 07/02/22 09/23/22 History [Symbicort 160-4.5 Mcg Inhaler] Acetaminophen Tab [Tylenol] 650 mg PO Q6HR PRN tab 07/04/22 09/23/22 Rx Albuterol Inhaler [Ventolin Hfa 2 puff INHALATION RT-Q4H PRN #2 gm 07/04/22 09/23/22 Rx Inhaler] Ascorbic Acid [Vitamin C] 1,000 mg PO DAILY #60 tab 07/04/22 09/23/22 Rx Cholecalciferol [Vitamin D3 (125 125 mcg PO DAILY #20 tab 07/04/22 09/23/22 Rx Mcg = 5000 Iu)] Zinc Sulfate [Orazinc] 220 mg PO DAILY #30 cap 07/04/22 09/23/22 Rx Chlorthalidone [Hygroton] 25 mg PO DAILY 08/15/22 09/23/22 History [place]-3/Dha/Epa/Fish Oil [Fish Oil 1 cap PO DAILY 08/15/22 09/23/22 History 1,000 mg Softgel] Doxycycline Hyclate 100 mg PO BID 09/23/22 09/23/22 History Allergies Allergy/AdvReac Type Severity Reaction Status Date / Time banana Allergy Anaphylaxis Verified 09/23/22 11:26 cantaloupe Allergy Anaphylaxis Verified 09/23/22 11:26 latex Allergy Rash/Hives Verified 09/23/22 11:26 melon Allergy Anaphylaxis Verified 09/23/22 11:26 perflutren [From Definity] Allergy Unknown Verified 09/23/22 11:26 diclofenac [From Voltaren] AdvReac Chest Pain Verified 09/23/22 11:26 metoprolol [From Lopressor] AdvReac Chest Pain Verified 09/23/22 11:26 naproxen [From Naprosyn] AdvReac Chest Pain Verified 09/23/22 11:26 honeydew melon Allergy Anaphylaxis Uncoded 07/02/22 10:59 Physical Exam Vitals: Vital Signs Temp Pulse Pulse Resp BP BP Pulse Ox 09/23/22 09:15 115 H 09/23/22 09:02 114 H 09/23/22 08:04 97.4 F L 73 18 107/74 95 09/23/22 06:41 98 20 101/62 94 L 09/23/22 06:20 121 H 09/23/22 06:03 110 H 09/23/22 06:00 113 H 20 101/68 96 09/23/22 03:00 93 18 106/82 09/23/22 01:00 101 H 09/23/22 00:52 101 H 22 119/91 98 09/23/22 00:34 107 H 09/23/22 00:21 100 09/23/22 00:13 104 H 20 101/73 97 09/22/22 23:55 126 H 22 80/69 95 09/22/22 23:50 112 H 24 95/63 96 09/22/22 23:30 151 H 19 131/99 97 09/22/22 23:25 135 H 13 117/93 97 09/22/22 23:22 97.7 F 154 H 18 117/93 98 09/22/22 23:20 117/93 Intake and Output 09/22/22 09/23/22 09/23/22 22:59 06:59 14:59 Intake Total 10.583 540 Balance 10.583 540 Intake: Intake, IV Titration 10.583 Amount Diltiazem 125 mg In 10.583 Sodium Chloride 0.9% 100 ml @ 5 MG/HR 5 mls/hr IV .Q24H [facility] Rx#:[id number] Oral 540 Other: Weight 77.111 kg Results CBC & Chem 7: 09/22/22 23:32 09/23/22 08:04 Labs: Abnormal Lab Results - Last 24 Hours (Table) 09/22/22 09/22/22 09/23/22 Range/Units 23:32 23:32 08:04 WBC 13.1 H (3.8-10.6) k/uL Neutrophils # 8.8 H (1.3-7.7) k/uL Potassium 2.8 L 3.2 L (3.5-5.1) mmol/L Chloride 94 L (98-107) mmol/L Carbon Dioxide 32 H (22-30) mmol/L BUN 28 H (7-17) mg/dL Creatinine 1.17 H (0.52-1.04) mg/dL Glucose 108 H (74-99) mg/dL AST 37 H (14-36) U/L
[2022-09-23] MEDS ORDERED: DEXTROSE 50% SYRINGE 50 ML IVP PRN ×2 (12:28)
[2022-09-23] MEDS: INSULIN ASPART (NovoLOG) 100 UNIT/ML VIAL SQ SCH ×3 (12:33→21:05)
[2022-09-23] MEDS: AZITHROMYCIN 500 MG TAB PO SCH (12:57)
[2022-09-23 16:57] LABS: Glucose,Whole Blood 169 mg/dL (70-110)
[2022-09-23] MEDS: methylPREDNISolone SOD SUCCI 40 MG/ML 1 ML VIAL IV SCH ×2 (16:58→23:02)
[2022-09-23] MEDS: MONTELUKAST 10 MG TAB PO SCH (20:02)
[2022-09-23] MEDS: guaiFENesin 600 MG TABLET.ER PO SCH (20:02)
[2022-09-23] MEDS: ATORVASTATIN 20 MG TAB PO SCH (20:02)
[2022-09-23 20:08] LABS: Glucose,Whole Blood 223 mg/dL (70-110)
[2022-09-23] MEDS: SYMBICORT 160-4.5 MCG INHALER INHALATION SCH (20:49)
[2022-09-24 05:58] LABS: Glucose,Whole Blood 164 mg/dL (70-110)
[2022-09-24] MEDS: PANTOPRAZOLE 40 MG TABLET PO SCH (06:13)
[2022-09-24] MEDS: DILTIAZEM 125 MG in SODIUM CHLORIDE 0.9% 100 ML IV SCH (06:13)
[2022-09-24] MEDS: INSULIN ASPART (NovoLOG) 100 UNIT/ML VIAL SQ SCH ×4 (06:13→20:17)
[2022-09-24] MEDS: ASCORBIC ACID 500 MG TAB PO SCH (08:14)
[2022-09-24] MEDS: APIXABAN 5 MG TAB PO SCH ×2 (08:14→20:16)
[2022-09-24] MEDS: CHOLECALCIFEROL 125 MCG (5000 IU) TABLET PO SCH (08:14)
[2022-09-24] MEDS: methylPREDNISolone SOD SUCCI 40 MG/ML 1 ML VIAL IV SCH ×3 (08:15→23:47)
[2022-09-24] MEDS: SPIRONOLACTONE 25 MG TAB PO SCH (08:15)
[2022-09-24] MEDS: DILTIAZEM CD 180 MG CAP.ER.24H PO SCH (08:15)
[2022-09-24] MEDS: AZITHROMYCIN 500 MG TAB PO SCH (08:15)
[2022-09-24] MEDS: ZINC SULFATE 220 MG CAP PO SCH (08:15)
[2022-09-24] MEDS: guaiFENesin 600 MG TABLET.ER PO SCH ×2 (08:15→20:16)
[2022-09-24 08:20] LABS: Basophils % (A) 0 %; Eosinophils # (A) 0.1 k/uL (0-0.7); Eosinophils % (A) 0 %; HCT 37.3 % (34.0-46.0); Lymphocytes # (A) 0.8 k/uL (1.0-4.8); Lymphocytes % (A) 6 %; MCH 28.3 pg (25.0-35.0); MCHC 32.3 g/dL (31.0-37.0); MCV 87.7 fL (80.0-100.0); Mean Platelet Volume 8.6; Monocytes # (A) 0.4 k/uL (0-1.0); Monocytes % (A) 3 %; Neutrophils # (A) 12.9 k/uL (1.3-7.7); Neutrophils % (A) 90 %; Platelet Count 223 k/uL (150-450); RBC 4.25 m/uL (3.80-5.40); RDW 15.1 % (11.5-15.5); WBC 14.4 k/uL (3.8-10.6)
[2022-09-24 08:50] LABS: Albumin 3.5 g/dL (3.5-5.0); Calcium 9.4 mg/dL (8.4-10.2); Magnesium 1.9 mg/dL (1.6-2.3); Potassium 3.8 mmol/L (3.5-5.1); Total Bilirubin 0.3 mg/dL (0.2-1.3); Total Protein 6.2 g/dL (6.3-8.2)
[2022-09-24] MEDS ORDERED: NON FORMULARY DRUG (Omega-3/Dha/Epa/Fish Oil [Fish Oil 1,000 Mg Softgel] 1 EACH Capsule) PO SCH (09:00)
[2022-09-24] MEDS: IPRATROPIUM-ALBUTEROL 3 ML NEB INHALATION SCH ×4 (09:19→20:25)
[2022-09-24] MEDS: SYMBICORT 160-4.5 MCG INHALER INHALATION SCH ×2 (09:19→20:25)
--- NOTE | 2022-09-24 11:06 | P.PN ---
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 with a previous medical history significant for hypertension and hypertensive cardio vascular disease, hyperlipidemia, history of mild persistent asthma, obstructive sleep apnea, osteoporosis, patient stated that she developed to have atrial fib relation back when she was in [place] back in 2019 when she developed to have significant pneumonia with sepsis back in 06/12/2019, patient was recently hospitalized at [facility] on August 2022 after she was admitted for what appears to be a COVID-19 as well as atrial flutter ablation with rapid ventricular response at that time she underwent DC cardioversion was in August 2022 and she was sent home on Apixaban 5 mg po bid along with Cardizem 30 mg orally 3 times every day Patient was supposed to have atrial fibrillation ablation to be done by Dr. Persaud that was scheduled for September of this year however he was moved back up due to her recurrent nature of atrial fibrillation , patient apparently had a cold and she went to urgent care and she was given time off from work up till tomorrow, however she presented to the emergency permanent at [facility] today in the morning with increased soreness breath and increased palpitation she was in atrial fibrillation with rapid ventricular response, she was started on Cardizem drip at 5 mg per hour currently increased to 7.5 mg an hour, her heart rate is around 1 25 bpm, she appears to be a bit short of breath, she was started on her current medication, she was admitted to the hospital for cardiology evaluation 09/24: Patient has been seen and followed by cardiology with recommendations to transition to oral Cardizem, and started spironolactone. compliance monitor is atrial fibrillation heart rate about 100. Blood pressure 109/70, pulse ox 96% on room air. Repeat blood work reveals WBC 14.4, hemoglobin 12. Potassium 3.8, BUN 18 and creatinine 0.8. Capillary blood glucose running between 164 and 223. TSH was normal at 3.260. REVIEW OF SYSTEMS: Constitutional: No documented fever, no chills, no night sweats. No weight change. No weakness, fatigue or lethargy. No daytime sleepiness. HEENT: No headache. No blurred vision or double vision, no loss of vision. No loss of Hearing, no ringing in the ears, no dizziness. No nasal drainage or congestion. No epistaxis. No sore throat. Lungs: positive for shortness of breath with exertion, minimal cough, no sputum production. minimal wheezing. Reports dyspnea with activity. Cardiovascular: No chest pain, no lower extremity edema. No palpitations. No paroxysmal nocturnal dyspnea. No orthopnea. No lightheadedness or dizziness. No syncopal episodes. Abdominal: Reports no abdominal pain. No nausea, vomiting. No diarrhea. No constipation. No bloody or tarry stools reports loss of appetite. Genitourinary: No dysuria, increased frequency, urgency. No urinary retention. Musculoskeletal: No myalgias. No muscle weakness, no gait dysfunction, no frequent falls. No back pain. No neck pain. Integumentary: No wounds, no lesions. No rash or pruritus. No unusual bruising. No change in hair or nails. Neurologic: No aphasia. No facial droop. No change in mentation. No head injury. No headache. No paralysis. No paresthesia. Psychiatric: No depression. No anxiety. No mood swings. Endocrine: No abnormal blood sugars. No weight change. PHYSICAL EXAMINATION: General: 66-year-old female laying down in bed in no respiratory distress HEENT: Head is atraumatic, normocephalic, pupils were equal round reactive to light and recommendation, extraocular muscle movement were intact, sclera nonicteric, conjunctivae were pale, mucous membranes of the mouth are somewhat dry. Neck: Supple, no JVP, normal carotid upstroke bilaterally, no lymphadenopathy. Chest: Decreased breath sounds at the bases, few rhonchi, minimal expiratory wheezes, no chest wall tenderness, no intercostal retractions. Heart: First heart sound is normal, second heart sound is normal tachycardic irregularly irregular due to atrial fibrillation. Abdomen: Soft, nontender, nondistended, positive bowel sounds, there is no hepatosplenomegaly per Extremities: There is no edema no calf tenderness DP +2 bilaterally. Neurologic examination: Patient is awake alert and oriented X 3, cranial nerves II-12 appear grossly intact, muscle power were 5 out of 5 in upper extremities and 5 out of 5 in bilateral lower extremities, deep tendon reflexes normal bilaterally. ASSESSMENT AND PLAN: 1. Atrial fibrillation with rapid ventricular response. Cardizem drip has been discontinued and patient started on Cardizem CD 180 mg daily, continue patient Apixaban 5 mg orally twice every day, cardiology consult appreciated, patient will likely require atrial ablation. 2. Hypertension and hypertensive cardiovascular disease. Continue patient on spironolactone 25 mg orally once every day, continue patient on Cardizem CD 180 mg once every day, monitor the patient blood pressure very closely. 3. Mixed hyperlipidemia. Continue patient on atorvastatin 20 mg orally once every day, monitor the patient lipid panel, keep LDL 55-70 per 5. Mild persistent asthma with mild exacerbation with acute bronchitis . Continue patient on DuoNeb nebulization 4 times every day, continue patient on singular 10 mg at bedtime, also restart the patient on Symbicort 160/4.5 g 2 puffs inhalation twice every day, start Zithromax 500 mg orally once every day, start Mucinex 600 mg orally twice every day, Solu-Medrol 40 mg IV push every 8 hours 6. Obesity with obstructive sleep apnea. Patient is to continue calorie count and weight loss, continue CPAP. 7. ALLERGIC rhinitis. Continue patient on singular 10 mg at bedtime. 8. DVT prophylaxis. Continue patient on Apixaban 5 mg po bid 9. GI prophylaxis. Continue patient on Protonix 40 mg once every day . Patient is full code Impression and plan of care have been directed as dictated by the signing physician. Najma Holley nurse practitioner acting as scribe for signing physician. Objective - Vital Signs Vital signs: Vital Signs Temp 97.7 F 09/24/22 08:20 Pulse 100 09/24/22 09:40 Resp 18 09/24/22 08:20 BP 109/70 09/24/22 08:20 Pulse Ox 96 09/24/22 08:20 FiO2 Intake & Output 09/23/22 09/24/22 09/24/22 18:59 06:59 18:59 Intake Total 1099.875 404.5 24.625 Balance 1099.875 404.5 24.625 Weight 77.111 kg Intake: Intake, IV Titration 79.875 86.5 24.625 Amount Diltiazem 125 mg In 79.875 86.5 24.625 Sodium Chloride 0.9% 100 ml @ 5 MG/HR 5 mls/hr IV .Q24H [facility] Rx#:[id number] Oral [id number] Other: Voiding Method Toilet Toilet Toilet # Voids 2 1 # Bowel Movements 0 - Labs CBC & Chem 7: 09/24/22 08:01 09/24/22 08:01 Labs: Abnormal Lab Results - Last 24 Hours (Table) 09/23/22 09/23/22 09/23/22 Range/Units 14:15 16:54 20:07 WBC (3.8-10.6) k/uL Neutrophils # (1.3-7.7) k/uL Lymphocytes # (1.0-4.8) k/uL Potassium 3.4 L (3.5-5.1) mmol/L Carbon Dioxide (22-30) mmol/L BUN (7-17) mg/dL Glucose (74-99) mg/dL POC Glucose (mg/dL) 169 H 223 H (70-110) mg/dL ALT (4-34) U/L Total Protein (6.3-8.2) g/dL 09/24/22 09/24/22 09/24/22 Range/Units 05:56 08:01 08:01 WBC 14.4 H (3.8-10.6) k/uL Neutrophils # 12.9 H (1.3-7.7) k/uL Lymphocytes # 0.8 L (1.0-4.8) k/uL Potassium (3.5-5.1) mmol/L Carbon Dioxide 21 L (22-30) mmol/L BUN 18 H (7-17) mg/dL Glucose 187 H (74-99) mg/dL POC Glucose (mg/dL) 164 H (70-110) mg/dL ALT 37 H (4-34) U/L Total Protein 6.2 L (6.3-8.2) g/dL
[2022-09-24 11:50] LABS: Glucose,Whole Blood 135 mg/dL (70-110)
--- NOTE | 2022-09-24 12:34 | P.PN ---
Subjective Progress Note Date: 09/24/22 HISTORY OF PRESENT ILLNESS: 09/23/2022 The patient is a 66-year-old female who follows the office with Dr. Gomez. The patient recently had an EP consult with Dr. Carey with pulmonary vein isolation pending for October 04. She presented to the emergency room with Zuly metcalf with RVR. The patient recently reported symptoms of an upper respiratory infection and presented to a local urgent care in an effort to get treatment prior to her procedure. The patient has a known history of atrial fibrillation with failed cardioversion. DIAGNOSTICS: EKG shows atrial fibrillation Chest x-ray shows no acute cardiopulmonary process WBC 13.1, hemoglobin 14.2, hematocrit 41.3, platelet 241, sodium 137, potassium 3.2, BUN 20, creatinine 1.17, magnesium 1.8, AST 37, ALT 29, troponins negative 3, BNP 2410, TSH 3.2 Vitals: Blood pressure 107/74, heart rate 114, respiratory rate 18, SpO2 95% on room air, afebrile 09/24/2022 Patient examined this morning at the bedside. Patient denies chest pain or pressure. She continues to report an occasional cough. She currently denies any shortness of breath. Telemetry reveals atrial fibrillation with controlled ventricular rate. She remains on IV Cardizem infusion at the time of examination. PHYSICAL EXAM: VITAL SIGNS: Reviewed. GENERAL: Well-developed in no acute distress. NECK: Supple. No JVD or thyromegaly LUNGS: Respirations even and unlabored. Lungs coarse to auscultation bilaterally . HEART: Irregular rate and rhythm. S1 and S2 heard. EXTREMITIES: Normal range of motion. No clubbing or cyanosis. Peripheral pulses intact. No lower extremity edema ASSESSMENT: Persistent atrial fibrillation with RVR, currently rate controlled History of failed cardioversion Upper respiratory infection Hypertension Hypokalemia PLAN: Continue current cardiac medications Discontinue IV Cardizem Continue telemetry monitoring Pulmonary vein isolation with Dr. Carey to be delayed at least one month until upper respiratory symptoms are resolved Patient may follow-up post discharge with her primary antique refinisher, Dr. Gomez. Nurse practitioner note has been reviewed by physician. Signing provider agrees with the documented findings, assessment, and plan of care. Objective - Vital Signs Vital signs: Vital Signs Temp 97.7 F 09/24/22 08:20 Pulse 100 09/24/22 09:40 Resp 18 09/24/22 08:20 BP 109/70 09/24/22 08:20 Pulse Ox 96 09/24/22 08:20 FiO2 Intake & Output 09/23/22 09/24/22 09/24/22 18:59 06:59 18:59 Intake Total 1099.875 404.5 24.625 Balance 1099.875 404.5 24.625 Weight 77.111 kg Intake: Intake, IV Titration 79.875 86.5 24.625 Amount Diltiazem 125 mg In 79.875 86.5 24.625 Sodium Chloride 0.9% 100 ml @ 5 MG/HR 5 mls/hr IV .Q24H [facility] Rx#:[id number] Oral [id number] Other: Voiding Method Toilet Toilet Toilet # Voids 2 1 # Bowel Movements 0 - Labs CBC & Chem 7: 09/24/22 08:01 09/24/22 08:01 Labs: Abnormal Lab Results - Last 24 Hours (Table) 09/23/22 09/23/22 09/23/22 Range/Units 14:15 16:54 20:07 WBC (3.8-10.6) k/uL Neutrophils # (1.3-7.7) k/uL Lymphocytes # (1.0-4.8) k/uL Potassium 3.4 L (3.5-5.1) mmol/L Carbon Dioxide (22-30) mmol/L BUN (7-17) mg/dL Glucose (74-99) mg/dL POC Glucose (mg/dL) 169 H 223 H (70-110) mg/dL ALT (4-34) U/L Total Protein (6.3-8.2) g/dL 09/24/22 09/24/22 09/24/22 Range/Units 05:56 08:01 08:01 WBC 14.4 H (3.8-10.6) k/uL Neutrophils # 12.9 H (1.3-7.7) k/uL Lymphocytes # 0.8 L (1.0-4.8) k/uL Potassium (3.5-5.1) mmol/L Carbon Dioxide 21 L (22-30) mmol/L BUN 18 H (7-17) mg/dL Glucose 187 H (74-99) mg/dL POC Glucose (mg/dL) 164 H (70-110) mg/dL ALT 37 H (4-34) U/L Total Protein 6.2 L (6.3-8.2) g/dL 09/24/22 Range/Units 11:49 WBC (3.8-10.6) k/uL Neutrophils # (1.3-7.7) k/uL Lymphocytes # (1.0-4.8) k/uL Potassium (3.5-5.1) mmol/L Carbon Dioxide (22-30) mmol/L BUN (7-17) mg/dL Glucose (74-99) mg/dL POC Glucose (mg/dL) 135 H (70-110) mg/dL ALT (4-34) U/L Total Protein (6.3-8.2) g/dL
[2022-09-24 16:42] LABS: Glucose,Whole Blood 219 mg/dL (70-110)
[2022-09-24 20:11] LABS: Glucose,Whole Blood 194 mg/dL (70-110)
[2022-09-24] MEDS: MONTELUKAST 10 MG TAB PO SCH (20:16)
[2022-09-24] MEDS: ATORVASTATIN 20 MG TAB PO SCH (20:17)
[2022-09-25] MEDS: IPRATROPIUM-ALBUTEROL 3 ML NEB INHALATION PRN ×2 (00:24→06:12)
[2022-09-25 06:02] LABS: Glucose,Whole Blood 138 mg/dL (70-110)
[2022-09-25] MEDS: INSULIN ASPART (NovoLOG) 100 UNIT/ML VIAL SQ SCH ×2 (06:08→11:44)
[2022-09-25] MEDS: methylPREDNISolone SOD SUCCI 40 MG/ML 1 ML VIAL IV SCH (07:53)
[2022-09-25] MEDS: PANTOPRAZOLE 40 MG TABLET PO SCH (07:53)
[2022-09-25] MEDS: SPIRONOLACTONE 25 MG TAB PO SCH (07:53)
[2022-09-25] MEDS: ASCORBIC ACID 500 MG TAB PO SCH (07:53)
[2022-09-25] MEDS: DILTIAZEM CD 180 MG CAP.ER.24H PO SCH (07:53)
[2022-09-25] MEDS: CHOLECALCIFEROL 125 MCG (5000 IU) TABLET PO SCH (07:53)
[2022-09-25] MEDS: AZITHROMYCIN 500 MG TAB PO SCH (07:53)
[2022-09-25] MEDS: guaiFENesin 600 MG TABLET.ER PO SCH (07:53)
[2022-09-25] MEDS: ZINC SULFATE 220 MG CAP PO SCH (07:53)
[2022-09-25] MEDS: APIXABAN 5 MG TAB PO SCH (07:53)
[2022-09-25] MEDS: IPRATROPIUM-ALBUTEROL 3 ML NEB INHALATION SCH ×3 (08:15→15:26)
[2022-09-25] MEDS: SYMBICORT 160-4.5 MCG INHALER INHALATION SCH (08:16)
[2022-09-25 08:43] LABS: HCT 37.1 % (34.0-46.0); HGB 12.3 gm/dL (11.4-16.0); MCH 28.9 pg (25.0-35.0); MCHC 33.2 g/dL (31.0-37.0); MCV 87.1 fL (80.0-100.0); Mean Platelet Volume 8.8; Platelet Count 270 k/uL (150-450); RBC 4.26 m/uL (3.80-5.40); RDW 15.4 % (11.5-15.5)
[2022-09-25 08:48] LABS: Calcium 9.7 mg/dL (8.4-10.2); Potassium 3.6 mmol/L (3.5-5.1)
--- NOTE | 2022-09-25 11:32 | P.PN ---
Subjective Progress Note Date: 09/25/22 HISTORY OF PRESENT ILLNESS: 09/23/2022 The patient is a 66-year-old female who follows the office with Dr. Gomez. The patient recently had an EP consult with Dr. Carey with pulmonary vein isolation pending for October 04. She presented to the emergency room with Zuyl metcalf with RVR. The patient recently reported symptoms of an upper respiratory infection and presented to a local urgent care in an effort to get treatment prior to her procedure. The patient has a known history of atrial fibrillation with failed cardioversion. DIAGNOSTICS: EKG shows atrial fibrillation Chest x-ray shows no acute cardiopulmonary process WBC 13.1, hemoglobin 14.2, hematocrit 41.3, platelet 241, sodium 137, potassium 3.2, BUN 20, creatinine 1.17, magnesium 1.8, AST 37, ALT 29, troponins negative 3, BNP 2410, TSH 3.2 Vitals: Blood pressure 107/74, heart rate 114, respiratory rate 18, SpO2 95% on room air, afebrile 09/24/2022 Patient examined this morning at the bedside. Patient denies chest pain or pressure. She continues to report an occasional cough. She currently denies any shortness of breath. Telemetry reveals atrial fibrillation with controlled ventricular rate. She remains on IV Cardizem infusion at the time of examination. 09/25/2022 Patient examined this morning at the bedside. Patient denies chest pain or pressure. She denies shortness of breath. Patient remains in atrial fibrillation with heart rates ranging between 100-110. She does report feeling palpitations when she is up ambulating to the bathroom. Blood pressures are stable. PHYSICAL EXAM: VITAL SIGNS: Reviewed. GENERAL: Well-developed in no acute distress. NECK: Supple. No JVD or thyromegaly LUNGS: Respirations even and unlabored. Lungs coarse to auscultation bilaterally. HEART: Irregular rate and rhythm. S1 and S2 heard. EXTREMITIES: Normal range of motion. No clubbing or cyanosis. Peripheral pulses intact. No lower extremity edema ASSESSMENT: Persistent atrial fibrillation with RVR, currently rate controlled History of failed cardioversion Upper respiratory infection Hypertension Hypokalemia PLAN: Continue current cardiac medications Increase Cardizem CD to 240 mg daily Pulmonary vein isolation with Dr. Carey to be delayed at least one month until upper respiratory symptoms are resolved Patient may follow-up post discharge with her primary ladle handler, Dr. Gomez. Patient is stable for discharge home today from a cardiac standpoint Nurse practitioner note has been reviewed by physician. Signing provider agrees with the documented findings, assessment, and plan of care. Objective - Vital Signs Vital signs: Vital Signs Temp 98.3 F 09/25/22 07:55 Pulse 121 H 09/25/22 11:24 Resp 18 09/25/22 11:24 BP 144/74 09/25/22 07:55 Pulse Ox 96 09/25/22 07:55 FiO2 Intake & Output 09/24/22 09/25/22 09/25/22 18:59 06:59 18:59 Intake Total 24.625 118 Balance 24.625 118 Intake: Intake, IV Titration 24.625 Amount Diltiazem 125 mg In 24.625 Sodium Chloride 0.9% 100 ml @ 5 MG/HR 5 mls/hr IV .Q24H [facility] Rx#:[id number] Oral 118 Other: Voiding Method Toilet Toilet Toilet # Voids 1 1 - Labs CBC & Chem 7: 09/25/22 08:06 09/25/22 08:06 Labs: Abnormal Lab Results - Last 24 Hours (Table) 09/24/22 09/24/22 09/24/22 Range/Units 11:49 16:39 20:05 WBC (3.8-10.6) k/uL Sodium (137-145) mmol/L BUN (7-17) mg/dL Glucose (74-99) mg/dL POC Glucose (mg/dL) 135 H 219 H 194 H (70-110) mg/dL 09/25/22 09/25/22 09/25/22 Range/Units 06:00 08:06 08:06 WBC 24.0 H (3.8-10.6) k/uL Sodium 134 L (137-145) mmol/L BUN 21 H (7-17) mg/dL Glucose 164 H (74-99) mg/dL POC Glucose (mg/dL) 138 H (70-110) mg/dL
[2022-09-25 11:41] LABS: Glucose,Whole Blood 191 mg/dL (70-110)
[2022-09-25 12:06] VITALS: BP 126/82; TEMP 97.3
[2022-09-25 15:28] VITALS: RESP 18
[2022-09-25 15:36] VITALS: PULSE 111
[2022-09-25] MEDS ORDERED: methylPREDNISolone SOD SUCCI 40 MG/ML 1 ML VIAL IV SCH (21:00)
[2022-09-26] MEDS ORDERED: DILTIAZEM CD 240 MG CAP.ER.24H PO SCH (09:00)
--- NOTE | 2022-09-26 10:26 | P.DS ---
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[employer] with a previous medical history significant for hypertension and hypertensive cardio vascular disease, hyperlipidemia, history of mild persistent asthma, obstructive sleep apnea, osteoporosis, patient stated that she developed to have atrial fib relation back when she was in [place] back in 2019 when she developed to have significant pneumonia with sepsis back in 06/12/2019, patient was recently hospitalized at [facility] on August 2022 after she was admitted for what appears to be a COVID-19 as well as atrial flutter ablation with rapid ventricular response at that time she underwent DC cardioversion was in August 2022 and she was sent home on Apixaban 5 mg po bid along with Cardizem 30 mg orally 3 times every day Patient was supposed to have atrial fibrillation ablation to be done by Dr. Persaud that was scheduled for September of this year however he was moved back up due to her recurrent nature of atrial fibrillation , patient apparently had a cold and she went to urgent care and she was given time off from work up till tomorrow, however [facility] today in the morning with increased soreness breath and increased palpitation she was in atrial fibrillation with rapid ventricular response, she was started on Cardizem drip at 5 mg per hour currently increased to 7.5 mg an hour, her heart rate is around 1 25 bpm, she appears to be a bit short of breath, she was started on her current medication, she was admitted to the hospital for cardiology evaluation 09/24: Patient has been seen and followed by cardiology with recommendations to transition to oral Cardizem, and started spironolactone. teletypesetter monitor is a trial fibrillation heart rate about 100. Blood pressure 109/70, pulse ox 96% on room air. Repeat blood work reveals WBC 14.4, hemoglobin 12. Potassium 3.8, BUN 18 and creatinine 0.8. Capillary blood glucose running between 164 and 223. TSH was normal at 3.260. 09/25: Heart rate is running 100 to 120s. Patient is off the Cardizem drip and currently on Cardizem CD 80 mg daily and eliquis. Subsequently, Cardizem has been increased to 240 mg daily. Patient is complaining of dry throat and Mucinex will be discontinued. Patient is anxious to be discharged home today and would like to be transitioned for home. Repeat blood work reveals WBC of 24, hemoglobin 12.3, platelet count 270. Sodium 134, potassium 3.6, BUN 21 creatinine 1. Blood sugar 164. Capillary blood glucose running between 138 and 219. Plan is for cardiac ablation to be done in about one month with Dr. Carey. DISCHARGE DIAGOSES: 1. Atrial fibrillation with rapid ventricular response, paroxysmal. 2. Hypertension and hypertensive cardiovascular disease. 3. Mixed hyperlipidemia. 5. Mild persistent asthma with mild exacerbation with acute bronchitis . 6. Obesity with obstructive sleep apnea. 7. ALLERGIC rhinitis. Greater than 35 minutes was utilized and coordinating patient's discharge. Impression and plan of care have been directed as dictated by the signing physician. Najma Holley nurse practitioner acting as scribe for signing physician. Patient Condition at Discharge: Serious Plan - Discharge Summary Discharge Rx Participant: Yes New Discharge Prescriptions: New Diltiazem Cd [Cardizem CD] 240 mg PO DAILY #30 cap predniSONE 0 mg PO DIRECTED #30 tab Azithromycin [Zithromax Tri-David (3 tabs)] 500 mg PO DAILY 3 Days #3 tab Spironolactone [Aldactone] 25 mg PO DAILY #30 tab Budesonide/Glycopyr/Formoterol [Breztri Aerosphere Inhaler] 2 puff INHALATION BID #10.7 gm Continue Magnesium Oxide [Thao] 500 mg PO DAILY Zinc Sulfate [Orazinc] 220 mg PO DAILY #30 cap Acetaminophen Tab [Tylenol] 650 mg PO Q6HR PRN tab PRN Reason: Mild Pain Or Fever > 100.5 Ascorbic Acid [Vitamin C] 1,000 mg PO DAILY #60 tab Albuterol Inhaler [Ventolin Hfa Inhaler] 2 puff INHALATION RT-Q4H PRN #2 gm PRN Reason: Shortness Of Breath [place]-3/Dha/Epa/Fish Oil [Fish Oil 1,000 mg Softgel] 1 cap PO DAILY Rosuvastatin [Crestor] 10 mg PO HS Montelukast Sodium [Singulair] 10 mg PO HS Ipratropium-Albuterol Nebulize [Duoneb 0.5 mg-3 mg/3 ml Soln] 3 ml INHALATION RT-QID PRN PRN Reason: Shortness Of Breath Apixaban [Eliquis] 5 mg PO BID Cholecalciferol [Vitamin D3 (125 Mcg = 5000 Iu)] 125 mcg PO DAILY #20 tab Discontinued Diltiazem Oral [Cardizem*] 30 mg PO TID #90 tab Budesonide/Formoterol Fumarate [Symbicort 160-4.5 Mcg Inhaler] 2 puff INHALATION RT-BID Chlorthalidone [Hygroton] 25 mg PO DAILY Doxycycline Hyclate 100 mg PO BID Fluticasone Propionate 110 Mcg [Flovent 110 Mcg Inhaler] 1 puff INHALATION DIRECTED Discharge Medication List Apixaban [Eliquis] 5 mg PO BID 06/08/22 [History] Ipratropium-Albuterol Nebulize [Duoneb 0.5 mg-3 mg/3 ml Soln] 3 ml INHALATION RT-QID PRN 06/08/22 [History] Magnesium Oxide [Thao] 500 mg PO DAILY 06/08/22 [History] Montelukast Sodium [Singulair] 10 mg PO HS 06/08/22 [History] Rosuvastatin [Crestor] 10 mg PO HS 06/08/22 [History] Acetaminophen Tab [Tylenol] 650 mg PO Q6HR PRN tab 07/04/22 [Rx] Albuterol Inhaler [Ventolin Hfa Inhaler] 2 puff INHALATION RT-Q4H PRN #2 gm 07/04/22 [Rx] Ascorbic Acid [Vitamin C] 1,000 mg PO DAILY #60 tab 07/04/22 [Rx] Cholecalciferol [Vitamin D3 (125 Mcg = 5000 Iu)] 125 mcg PO DAILY #20 tab 07/04/22 [Rx] Zinc Sulfate [Orazinc] 220 mg PO DAILY #30 cap 07/04/22 [Rx] [place]-3/Dha/Epa/Fish Oil [Fish Oil 1,000 mg Softgel] 1 cap PO DAILY 08/15/22 [History] Azithromycin [Zithromax Tri-David (3 tabs)] 500 mg PO DAILY 3 Days #3 tab 09/25/22 [Rx] Budesonide/Glycopyr/Formoterol [Breztri Aerosphere Inhaler] 2 puff INHALATION BID #10.7 gm 09/25/22 [Rx] Diltiazem Cd [Cardizem CD] 240 mg PO DAILY #30 cap 09/25/22 [Rx] Spironolactone [Aldactone] 25 mg PO DAILY #30 tab 09/25/22 [Rx] predniSONE 0 mg PO DIRECTED #30 tab 09/25/22 [Rx] Follow up Appointment(s)/Referral(s): Kan Carey MD [STAFF PHYSICIAN] - 10/05/22 3:15 pm (with Dr Gomez) Lc Krueger MD [Primary Care Provider] - 1-2 days (please call to schedule. tell them you were discharged from [facility] 09/25 for afib RVR.. ) Patient Instructions/Handouts: A-fib (Atrial Fibrillation) (DC), Upper Respiratory Infection (DC) Discharge Disposition: HOME SELF-CARE
== END 2022-09-25 16:19 | disposition home or self-care (01) | DRG 309 ==
LOC: EC 23:17 → 3SCARD 09-23 00:53
PROVIDERS: ADMIT Internal Medicine; ATTEND Internal Medicine
DX: I48.19 Other persistent atrial fibrillation (principal); J45.31 Mild persistent asthma with (acute) exacerbation; T44.7X6A Underdosing of beta-adrenoreceptor antagonists, initial encounter; M81.0 Age-related osteoporosis without current pathological fracture; I11.9 Hypertensive heart disease without heart failure; E87.6 Hypokalemia; G47.33 Obstructive sleep apnea (adult) (pediatric); J06.9 Acute upper respiratory infection, unspecified; E83.42 Hypomagnesemia; R79.89 Other specified abnormal findings of blood chemistry; J20.9 Acute bronchitis, unspecified; E78.2 Mixed hyperlipidemia; E66.9 Obesity, unspecified; Z20.822 Contact with and (suspected) exposure to COVID-19; Z68.34 Body mass index [BMI] 34.0-34.9, adult; Z71.3 Dietary counseling and surveillance; Z91.138 Patient's unintentional underdosing of medication regimen for other reason; Z79.01 Long term (current) use of anticoagulants; Z87.01 Personal history of pneumonia (recurrent); Z87.891 Personal history of nicotine dependence; Z79.899 Other long term (current) drug therapy; Z79.51 Long term (current) use of inhaled steroids; Z88.8 Allergy status to other drugs, medicaments and biological substances; Z91.040 Latex allergy status; Z88.6 Allergy status to analgesic agent; Z86.16 Personal history of COVID-19
CPT/HCPCS: 36415; 71046; 80048; 80053; 83735; 83880; 84132; 84443; 84484; 85025; 85027; 85610; 85730; 87636; 93005; 94640; 96361; 96365; 96366; 96368; 96375; 99291

== ENCOUNTER 2022-09-26 19:31 | Inpatient (IN) | payer MEDICARE ==
[2022-09-26] MEDS ORDERED: ALBUTEROL NEBULIZED 2.5 MG/3 ML INHALATION STA (19:33)
[2022-09-26] MEDS ORDERED: methylPREDNISolone SOD SUCCI 125 MG/2 ML VIAL IV STA (19:33)
[2022-09-26] MEDS ORDERED: IPRATROPIUM 0.5 MG/2.5 ML NEBU INHALATION STA (19:33)
[2022-09-26] MEDS ORDERED: DILTIAZEM DRIP BOLUS FROM BAG 1 MG SOLN IV ONE (19:44)
[2022-09-26] MEDS: MAGNESIUM SULFATE-D5W PMX 1 GM in DEXTROSE/WATER 1 100ML.BAG IVPB SCH ×2 (19:45→19:51)
[2022-09-26 19:54] LABS: HCT 39.9 % (34.0-46.0); HGB 12.8 gm/dL (11.4-16.0); MCH 28.4 pg (25.0-35.0); MCHC 32.1 g/dL (31.0-37.0); MCV 88.5 fL (80.0-100.0); Mean Platelet Volume 8.2; Platelet Count 362 k/uL (150-450); RBC 4.51 m/uL (3.80-5.40); RDW 15.3 % (11.5-15.5); WBC 25.2 k/uL (3.8-10.6)
--- NOTE | 2022-09-26 19:56 | XR ---
EXAMINATION TYPE: XR chest 1V portable DATE OF EXAM: 09/26/2022 7:53 PM COMPARISON: Chest radiographs from 09/22/2022 TECHNIQUE: XR chest 1V portable Frontal view of the chest. CLINICAL INDICATION:Female, 66 years old with history of cookie; FINDINGS: Lungs/Pleura: There is no evidence of pleural effusion, focal consolidation, or pneumothorax. Pulmonary vascularity: Unremarkable. Heart/mediastinum: Cardiomediastinal silhouette is unremarkable. Musculoskeletal: No acute osseous pathology. IMPRESSION: No acute cardiopulmonary disease/process.
[2022-09-26 20:04] LABS: Partial Thromboplastin Time 22.2 sec (22.0-30.0); Prothrombin Time 10.6 sec (9.0-12.0)
[2022-09-26] MEDS ORDERED: SODIUM CHLORIDE 0.9% 1,000 ML IV ONE (20:05)
[2022-09-26] MEDS: DILTIAZEM 125 MG in SODIUM CHLORIDE 0.9% 100 ML IV SCH (20:09)
[2022-09-26] MEDS ORDERED: LORazepam 2 MG/ML INJ IV STA (20:10)
--- NOTE | 2022-09-26 20:23 | ED ---
General Adult HPI - General Chief complaint: Shortness of Breath Stated complaint: Afib/sob Time Seen by Provider: 09/26/22 19:33 Source: patient, RN notes reviewed, old records reviewed Mode of arrival: EMS Limitations: physical limitation - History of Present Illness Initial comments: 66-year-old female presenting in severe respiratory distress. Patient had called paramedics for difficulty breathing. She was found to be hypoxic in the 80s and was found to be in A. fib with RVR. She does have a history of severe asthma and atrial fibrillation. She has been compliant with medications. She is experiencing some mild central chest pain. She denies fever. She states that this has progressed over the past several hours. She was started on new asthma inhaler within the past several days. She was admitted 2 days prior for atrial fibrillation. History is limited secondary to severe respiratory distress. - Related Data Home Medications Medication Instructions Recorded Confirmed Apixaban [Eliquis] 5 mg PO BID 06/08/22 09/23/22 Ipratropium-Albuterol Nebulize 3 ml INHALATION RT-QID PRN 06/08/22 09/23/22 [Duoneb 0.5 mg-3 mg/3 ml Soln] Magnesium Oxide [Thao] 500 mg PO DAILY 06/08/22 09/23/22 Montelukast Sodium [Singulair] 10 mg PO HS 06/08/22 09/23/22 Rosuvastatin [Crestor] 10 mg PO HS 06/08/22 09/23/22 [place]-3/Dha/Epa/Fish Oil [Fish Oil 1 cap PO DAILY 08/15/22 09/23/22 1,000 mg Softgel] Previous Rx's Medication Instructions Recorded Acetaminophen Tab [Tylenol] 650 mg PO Q6HR PRN tab 07/04/22 Albuterol Inhaler [Ventolin Hfa 2 puff INHALATION RT-Q4H PRN #2 gm 07/04/22 Inhaler] Ascorbic Acid [Vitamin C] 1,000 mg PO DAILY #60 tab 07/04/22 Cholecalciferol [Vitamin D3 (125 125 mcg PO DAILY #20 tab 07/04/22 Mcg = 5000 Iu)] Zinc Sulfate [Orazinc] 220 mg PO DAILY #30 cap 07/04/22 Azithromycin [Zithromax Tri-David (3 500 mg PO DAILY 3 Days #3 tab 09/25/22 tabs)] Budesonide/Glycopyr/Formoterol 2 puff INHALATION BID #10.7 gm 09/25/22 [Breztri Aerosphere Inhaler] Diltiazem Cd [Cardizem CD] 240 mg PO DAILY #30 cap 09/25/22 Spironolactone [Aldactone] 25 mg PO DAILY #30 tab 09/25/22 predniSONE 0 mg PO DIRECTED #30 tab 09/25/22 Allergies Allergy/AdvReac Type Severity Reaction Status Date / Time banana Allergy Anaphylaxis Verified 09/26/22 19:57 cantaloupe Allergy Anaphylaxis Verified 09/26/22 19:57 latex Allergy Rash/Hives Verified 09/26/22 19:57 melon Allergy Anaphylaxis Verified 09/26/22 19:57 perflutren [From Definity] Allergy Unknown Verified 09/26/22 19:57 diclofenac [From Voltaren] AdvReac Chest Pain Verified 09/26/22 19:57 metoprolol [From Lopressor] AdvReac Chest Pain Verified 09/26/22 19:57 naproxen [From Naprosyn] AdvReac Chest Pain Verified 09/26/22 19:57 honeydew melon Allergy Anaphylaxis Uncoded 09/26/22 19:57 Review of Systems ROS Statement: Those systems with pertinent positive or pertinent negative responses have been documented in the HPI. ROS Other: All systems not noted in ROS Statement are negative. Past Medical History Past Medical History: Atrial Fibrillation, Asthma, Hypertension, Sleep Apnea/CPAP/BIPAP Additional Past Medical History / Comment(s): 2019 pneumonia and sepsis History of Any Multi-Drug Resistant Organisms: None Reported Past Surgical History: Ablation Additional Past Surgical History / Comment(s): cardioversion x3, 2011 left ankle plate and screws Past Anesthesia/Blood Transfusion Reactions: No Reported Reaction Past Psychological History: No Psychological Hx Reported Smoking Status: Former smoker Past Alcohol Use History: None Reported Past Drug Use History: None Reported - Past Family History Mother History Unknown: Yes Family Medical History: AFIB, Hyperlipidemia, Hypertension, Thyroid Disorder Additional Family Medical History / Comment(s): stroke, pacemaker, DM, OA Brother(s) History Unknown: Yes Additional Family Medical History / Comment(s): colon ca Father History Unknown: Yes Additional Family Medical History / Comment(s): cirrhosis, emphysema General Exam General appearance: alert, in distress Head exam: Present: atraumatic, normocephalic Eye exam: Present: normal appearance, PERRL ENT exam: Present: mucous membranes dry Respiratory exam: Present: respiratory distress, wheezes, accessory muscle use, decreased breath sounds Cardiovascular Exam: Present: tachycardia, irregular rhythm GI/Abdominal exam: Present: soft. Absent: distended, tenderness, guarding, rebound Extremities exam: Present: normal inspection, normal capillary refill. Absent: pedal edema, calf tenderness Neurological exam: Present: alert, oriented X3, CN II-XII intact. Absent: motor sensory deficit Psychiatric exam: Present: anxious Skin exam: Present: warm, normal color Course Vital Signs 09/26/22 09/26/22 09/26/22 19:35 19:48 19:52 Temperature 98.4 F Pulse Rate 146 H 156 H Respiratory 28 H Rate Blood Pressure 126/107 O2 Sat by Pulse 98 Oximetry Fraction of 50 Inspired Oxygen (FIO2) 09/26/22 09/26/22 09/26/22 20:00 20:09 20:16 Temperature Pulse Rate 147 H 150 H 121 H Respiratory 12 20 Rate Blood Pressure 132/113 115/75 O2 Sat by Pulse 99 99 Oximetry Fraction of Inspired Oxygen (FIO2) 09/26/22 09/26/22 09/26/22 20:20 20:27 20:39 Temperature Pulse Rate 123 H 124 H 144 H Respiratory 16 Rate Blood Pressure 106/69 O2 Sat by Pulse 99 Oximetry Fraction of Inspired Oxygen (FIO2) EKG Findings - EKG Comments: EKG Findings:: EKG: Atrial fibrillation with RVR no ST segment elevation although the baseline is very poor quality. Ventricular rate of 165, QRS duration 100, QTC 327. Procedures - [place] Protocol (Time Out) Nurse: Rosanna Ruff Medical Decision Making - Medical Decision Making Was pt. sent in by a medical professional or institution (, PA, SINGE MACHINE OPERATOR, urgent care, hospital, or usp...) When possible be specific @ -No Did you speak to anyone other than the patient for history (EMS, parent, family, police, friend...)? What history was obtained from this source @ -No Did you review nursing and triage notes (agree or disagree)? Why? @ -I reviewed and agree with nursing and triage notes Were old charts reviewed (outside hosp., previous admission, EMS record, old EKG, old radiological studies, urgent care reports/EKG's, usp records)? Report findings @ -Previous admission, previous EKG, previous laboratory testing Differential Diagnosis (chest pain, altered mental status, abdominal pain women, abdominal pain men, vaginal bleeding, weakness, fever, dyspnea, syncope, headache, dizziness, GI bleed, back pain, seizure, CVA, palpatations, mental health, musculoskeletal)? @ -Differential Dyspnea: Coronary syndrome, arrhythmia, tamponade, asthma, COPD, pulmonary embolism, pneumonia, pneumothorax, pulmonary effusion, anaphylaxis, diabetic ketoacidosis, flailed chest, pulmonary contusion, diaphragmatic rupture, anemia, neuromuscular, this is not meant to be an all-inclusive list. EKG interpreted by me (3pts min.). @ -As above X-rays interpreted by me (1pt min.). @ -[Negative for acute findings CT interpreted by me (1pt min.). @ -None done U/S interpreted by me (1pt. min.). @ -none What testing was considered but not performed or refused? (CT, X-rays, U/S, labs)? Why? @ -None What meds were considered but not given or refused? Why? @ -None Did you discuss the management of the patient with other professionals (professionals i.e. , PA, SINGE MACHINE OPERATOR, lab, RT, psych nurse, hospital social worker, agricultural loan officer, teacher, aoc airspace control officer, special education case manager)? Give summary @ -Dr. Krueger Was smoking cessation discussed for >3mins.? @ -No Was critical care preformed (if so, how long)? @ -yes Were there social determinants of health that impacted care today? How? (Homelessness, low income, unemployed, alcoholism, drug addiction, transportation, low edu. Level, literacy, decrease access to med. care, [facility], rehab)? @ -No Was there de-escalation of care discussed even if they declined (Discuss DNR or withdrawal of care, Hospice)? DNR status @ -No What co-morbidities impacted this encounter? (DM, HTN, Smoking, COPD, CAD, Cancer, CVA, ARF, Chemo, Hep., AIDS, mental health diagnosis, sleep apnea, morbid obesity)? @ -Asthma, a-fib Was patient admitted / discharged? Hospital course, mention meds given and route, prescriptions, significant lab abnormalities, going to OR and other p ertinent info. @ -66-year-old female presenting for evaluation of blister distress and elevated heart rate. Patient found to be in atrial fibrillation with RVR. She is evaluated for severe dyspnea likely secondary to asthma exacerbation. She's placed on BiPAP, given albuterol, Atrovent, steroids, and magnesium. While in the emergency department she has significant improvement in respiratory status but will require admission for asthma exacerbation. Undiagnosed new problem with uncertain prognosis? @ -No Drug Therapy requiring intensive monitoring for toxicity (Heparin, Nitro, Insulin, Cardizem)? @ -No Were any procedures done? @ -No Diagnosis/symptom? @ -asthma, A. fib with RVR Acute, or Chronic, or Acute on Chronic? @ -acute Uncomplicated (without systemic symptoms) or Complicated (systemic symptoms)? @ -complicated Side effects of treatment? @ -No Exacerbation, Progression, or Severe Exacerbation? @ -[severe Poses a threat to life or bodily function? How? (Chest pain, USA, IA, pneumonia, PE, COPD, DKA, ARF, appy, cholecystitis, CVA, Diverticulitis, Homicidal, Suicidal, threat to staff... and all critical care pts) @ -yes, respiratory failure, hypoxia - Lab Data Result diagrams: 09/26/22 19:39 Lab Results 09/26/22 09/26/22 09/26/22 Range/Units 19:39 19:39 19:39 WBC 25.2 H (3.8-10.6) k/uL RBC 4.51 (3.80-5.40) m/uL Hgb 12.8 (11.4-16.0) gm/dL Hct 39.9 (34.0-46.0) % MCV 88.5 (80.0-100.0) fL MCH 28.4 (25.0-35.0) pg MCHC 32.1 (31.0-37.0) g/dL RDW 15.3 (11.5-15.5) % Plt Count 362 (150-450) k/uL MPV 8.2 PT 10.6 (9.0-12.0) sec INR 1.0 (<1.2) APTT 22.2 (22.0-30.0) sec VBG pH (7.31-7.41) VBG pCO2 (37-51) mmHg VBG HCO3 (24-28) mmol/L Plasma Lactic Acid Payam 6.5 H* (0.7-2.0) mmol/L Troponin I (0.000-0.034) ng/mL NT-Pro-B Natriuret Pep pg/mL 09/26/22 09/26/22 09/26/22 Range/Units 19:39 19:39 19:45 WBC (3.8-10.6) k/uL RBC (3.80-5.40) m/uL Hgb (11.4-16.0) gm/dL Hct (34.0-46.0) % MCV (80.0-100.0) fL MCH (25.0-35.0) pg MCHC (31.0-37.0) g/dL RDW (11.5-15.5) % Plt Count (150-450) k/uL MPV PT (9.0-12.0) sec INR (<1.2) APTT (22.0-30.0) sec VBG pH 7.36 (7.31-7.41) VBG pCO2 38 (37-51) mmHg VBG HCO3 21 L (24-28) mmol/L Plasma Lactic Acid Payam (0.7-2.0) mmol/L Troponin I 0.014 (0.000-0.034) ng/mL NT-Pro-B Natriuret Pep 2300 pg/mL Critical Care Time Critical Care Time: Yes Total Critical Care Time: 35 Disposition Clinical Impression: Atrial fibrillation with rapid ventricular response, Acute respiratory insufficiency, Asthma exacerbation Disposition: ADMITTED IP TO THIS [facility] Condition: Serious Is patient prescribed a controlled substance at d/c from ED?: No Referrals: None,Stated [REFERRING] - 1-2 days Time of Disposition: 21:09
[2022-09-26 20:32] LABS: VBG PH 7.36 (7.31-7.41)
[2022-09-26 20:35] LABS: Calcium 9.8 mg/dL (8.4-10.2); Total Bilirubin 0.4 mg/dL (0.2-1.3); Total Protein 6.6 g/dL (6.3-8.2)
[2022-09-26] MEDS ORDERED: IPRATROPIUM-ALBUTEROL 3 ML NEB INHALATION PRN (20:47)
[2022-09-26] MEDS ORDERED: NALOXONE 0.4 MG/ML 1 ML VIAL IVP PRN (20:47)
[2022-09-26 21:05] LABS: Band Neutrophils % 1 %; Lymphocytes # (M) 2.52 k/uL (1.0-4.8); Metamyelocytes # (M) 0.25 k/uL (0); Metamyelocytes % 1 %; Monocytes # (M) 2.02 k/uL (0-1.0); Myelocytes # (M) 1.01 k/uL (0); Myelocytes % 4 %; Neutrophils % (M) 78 %; Nucleated Red Blood Cells 0 /100 WBC (0-0); Total Cells Counted 200
[2022-09-26 21:10] LABS: Magnesium 1.9 mg/dL (1.6-2.3)
[2022-09-26] MEDS: SODIUM CHLORIDE 0.9% 1,000 ML IV SCH (22:36)
[2022-09-26] MEDS: APIXABAN 5 MG TAB PO SCH (22:37)
[2022-09-26] MEDS: MONTELUKAST 10 MG TAB PO SCH (22:37)
[2022-09-26] MEDS: methylPREDNISolone SOD SUCCI 125 MG/2 ML VIAL IV SCH (23:07)
[2022-09-27] MEDS: ALBUTEROL NEBULIZED 2.5 MG/3 ML INHALATION PRN (02:36)
[2022-09-27] MEDS ORDERED: SODIUM CHLORIDE 0.9% 500 ML 500 ML IV ONE ×2 (03:22→15:39)
[2022-09-27] MEDS: methylPREDNISolone SOD SUCCI 125 MG/2 ML VIAL IV SCH ×4 (05:14→23:24)
--- NOTE | 2022-09-27 07:35 | P.CNPUL ---
History of Present Illness Consult date: 09/27/22 Requesting physician: Tyson Brambila Reason for consult: asthma Chief complaint: Shortness of breath History of present illness: I'm seeing this patient in new consultation today 09/27/2022 for acute asthma exacerbation. Patient is a 66-year-old white female with past medical history significant for bronchial asthma, obstructive sleep apnea with an AHI of 67 and CPAP, paroxysmal atrial fibrillation anticoagulated on Eliquis, previous cardioversions and ablations, hypertension, ex-smoker. Patient has been experiencing upper respiratory tract infection like symptoms of sore throat, n josephine congestion, nonproductive cough, and shortness of breath over the last week. She did try to go to her primary care provider, and was given doxycycline on . There wass no improvement in her symptoms, and she had to call EMS yesterday for difficulty breathing. On arrival, patient was found to be hypoxic with an SpO2 of around 80 percent. Patient was also reporting some substernal chest pain, and was found to be in atrial fibrillation with rapid ventricular rate. Patient was still in A. fib RVR on arrival to the emergency room, and was initiated on a Cardizem infusion at 5 mg per hour. She is anticoagulated on Eliquis. Chest x-ray on arrival showed no acute cardiopulmonary process. She was initially placed on BiPAP settings 14/5 and 50%. Patient's CBC on arrival shows a WBC count of 25.2, hemoglobin 12.8, hematocrit 39.9, platelets 362,000. Patient's BMP on arrival shows sodium 136, potassium 4, chloride 11, serum CO2 19, BUN 33, creatinine 1.19, glucose 265. Patient's lactic was elevated on arrival at 6.5, and is down to 4.6 after 1 L normal saline bolus. I did give an additional 500 ML normal saline bolus. Patient currently has no antibiotic coverage. He is receiving bronchodilators and IV Solu-Medrol. Patient is currently sitting up in bed, on room air, fairly comfortable. There are signs of fluid overload, patient's lower extremities have pitting edema and NT proBNP is 2300. Most recent echocardiogram done on 06/09/2022 shows a preserved ejection fraction of 55-60% with mild mitral and tricuspid regurgitation. Troponins negative 1. Vital signs are stable. Review of Systems REVIEW OF SYSTEMS: CONSTITUTIONAL: Denies any recent significant weight loss or weight gain. EYES: Denies change in vision. EARS, NOSE, MOUTH, THROAT: Denies headaches. Admit sore throat and postnasal drip. CARDIOVASCULAR: Denies chest pain, palpitations or syncopal episodes. RESPIRATORY: See HPI GASTROINTESTINAL: Denies change in appetite, abdominal pain, nausea and vomiting, or diarrhea GENITOURINARY: Denies hematuria, denies infections. MUSKULOSKELETAL: Denies pain, admits bilateral lower extremity swelling INTEGUMENTARY: Denies rash, denies eczema. NEUROLOGICAL: Denies recent memory loss, no recent seizure activity. PSYCHIATRIC: Denies anxiety, denies depression. HEMATOLOGIC/LYMPHATIC: Denies anemia, denies enlarged lymph node Past Medical History Past Medical History: Atrial Fibrillation, Asthma, Hypertension, Sleep Apnea/CPAP/BIPAP Additional Past Medical History / Comment(s): 2019 pneumonia and sepsis History of Any Multi-Drug Resistant Organisms: None Reported Past Surgical History: Ablation Additional Past Surgical History / Comment(s): cardioversion x3, 2011 left ankle plate and screws Past Anesthesia/Blood Transfusion Reactions: No Reported Reaction Past Psychological History: No Psychological Hx Reported Smoking Status: Former smoker Past Alcohol Use History: None Reported Past Drug Use History: None Reported - Past Family History Mother History Unknown: Yes Family Medical History: AFIB, Hyperlipidemia, Hypertension, Thyroid Disorder Additional Family Medical History / Comment(s): stroke, pacemaker, DM, OA Brother(s) History Unknown: Yes Additional Family Medical History / Comment(s): colon ca Father History Unknown: Yes Additional Family Medical History / Comment(s): cirrhosis, emphysema Medications and Allergies Home Medications Medication Instructions Recorded Confirmed Type Apixaban [Eliquis] 5 mg PO BID 06/08/22 09/26/22 History Ipratropium-Albuterol Nebulize 3 ml INHALATION RT-QID PRN 06/08/22 09/26/22 History [Duoneb 0.5 mg-3 mg/3 ml Soln] Magnesium Oxide [Thao] 500 mg PO DAILY 06/08/22 09/26/22 History Montelukast Sodium [Singulair] 10 mg PO HS 06/08/22 09/26/22 History Rosuvastatin [Crestor] 10 mg PO HS 06/08/22 09/26/22 History Acetaminophen Tab [Tylenol] 650 mg PO Q6HR PRN tab 07/04/22 09/26/22 Rx Albuterol Inhaler [Ventolin Hfa 2 puff INHALATION RT-Q4H PRN #2 gm 07/04/22 09/26/22 Rx Inhaler] Ascorbic Acid [Vitamin C] 1,000 mg PO DAILY #60 tab 07/04/22 09/26/22 Rx Cholecalciferol [Vitamin D3 (125 125 mcg PO DAILY #20 tab 07/04/22 09/26/22 Rx Mcg = 5000 Iu)] Zinc Sulfate [Orazinc] 220 mg PO DAILY #30 cap 07/04/22 09/26/22 Rx [place]-3/Dha/Epa/Fish Oil [Fish Oil 1 cap PO DAILY 08/15/22 09/26/22 History 1,000 mg Softgel] Azithromycin [Zithromax Tri-David (3 500 mg PO DAILY 3 Days #3 tab 09/25/22 09/26/22 Rx tabs)] Diltiazem Cd [Cardizem CD] 240 mg PO DAILY #30 cap 09/25/22 09/26/22 Rx Spironolactone [Aldactone] 25 mg PO DAILY #30 tab 09/25/22 09/26/22 Rx Budesonide/Glycopyr/Formoterol 2 puff INHALATION RT-BID 09/26/22 09/26/22 History [Breztri Aerosphere Inhaler] predniSONE See Taper PO DIRECTED 09/26/22 09/26/22 History Allergies Allergy/AdvReac Type Severity Reaction Status Date / Time banana Allergy Anaphylaxis Verified 09/26/22 21:06 cantaloupe Allergy Anaphylaxis Verified 09/26/22 21:06 latex Allergy Rash/Hives Verified 09/26/22 21:06 melon Allergy Anaphylaxis Verified 09/26/22 21:06 perflutren [From Definity] Allergy Unknown Verified 09/26/22 21:06 diclofenac [From Voltaren] AdvReac Chest Pain Verified 09/26/22 21:06 metoprolol [From Lopressor] AdvReac Chest Pain Verified 09/26/22 21:06 naproxen [From Naprosyn] AdvReac Chest Pain Verified 09/26/22 21:06 honeydew melon Allergy Anaphylaxis Uncoded 09/26/22 19:57 Physical Exam Vitals: Vital Signs Temp Pulse Resp BP Pulse Ox FiO2 09/27/22 06:00 87 16 120/64 96 09/27/22 05:00 88 16 104/65 92 L 09/27/22 03:16 90 16 106/56 93 L 09/27/22 02:47 87 09/27/22 02:36 87 97 09/27/22 02:00 99 16 98/70 96 09/27/22 00:44 96 97 09/26/22 22:41 99 09/26/22 22:40 99 09/26/22 22:18 105 H 18 121/80 100 09/26/22 22:10 92 16 105/78 96 09/26/22 22:00 103 H 12 112/73 99 09/26/22 21:50 124 H 11 L 110/72 99 09/26/22 21:40 121 H 20 121/75 99 09/26/22 21:30 128 H 13 121/72 99 09/26/22 21:20 121 H 13 121/72 99 09/26/22 21:10 142 H 13 120/69 99 09/26/22 21:00 135 H 15 108/61 99 09/26/22 20:50 112 H 10 L 108/61 99 09/26/22 20:40 156 H 10 L 106/69 99 09/26/22 20:39 144 H 16 106/69 99 09/26/22 20:30 124 H 18 115/75 99 09/26/22 20:27 124 H 09/26/22 20:20 146 H 18 115/75 99 09/26/22 20:18 125 H 23 115/75 99 09/26/22 20:16 121 H 20 115/75 99 09/26/22 20:09 150 H 12 132/113 99 09/26/22 20:00 147 H 09/26/22 19:52 50 09/26/22 19:48 156 H 09/26/22 19:40 26 H 09/26/22 19:35 98.4 F 146 H 28 H 126/107 98 Intake and Output 09/26/22 09/26/22 09/27/22 14:59 22:59 06:59 Intake Total 18.75 Balance 18.75 Intake: Intake, IV Titration 18.75 Amount Diltiazem 125 mg In 18.75 Sodium Chloride 0.9% 100 ml @ 5 MG/HR 5 mls/hr IV .Q24H [facility] Rx#:[id number] Other: Weight 78.018 kg GENERAL EXAM: Alert, 66-year-old morbidly obese white female, comfortable in no apparent distress. HEAD: Normocephalic and atraumatic EYES: Normal reaction of pupils, equal size. NOSE: Clear with pink turbinates. THROAT: No erythema or exudates. NECK: No masses, no JVD. CHEST: No chest wall deformity. LUNGS: Equal air entry with rhonchi and scattered crackles heard throughout. No focal dullness. On room air. No conversational dyspnea or accessory muscle use.. CVS: S1 and S2 normal with no audible murmur, regular rhythm. No extra heart sounds ABDOMEN: No hepatosplenomegaly, active bowel sounds, no guarding or rigidity. SPINE: No scoliosis or deformity SKIN: No rashes CENTRAL NERVOUS SYSTEM: No focal deficits, tone is normal in all 4 extremities. EXTREMITIES: There is 3+ bilateral peripheral edema. No clubbing, or cyanosis. Peripheral pulses are intact. Results - Laboratory Findings CBC and BMP: 09/26/22 19:39 09/26/22 19:39 PT/INR, D-dimer PT 10.6 sec (9.0-12.0) 09/26/22 19:39 INR 1.0 (<1.2) 09/26/22 19:39 Abnormal lab findings: Abnormal Labs 09/26/22 09/26/22 09/26/22 19:39 19:39 19:39 WBC 25.2 H Neutrophils # (Manual) 19.90 H Monocytes # (Manual) 2.02 H Metamyelocytes # (Man) 0.25 H Myelocytes # (Manual) 1.01 H VBG HCO3 Sodium 136 L Carbon Dioxide 19 L BUN 33 H Creatinine 1.19 H Glucose 265 H Plasma Lactic Acid Payam 6.5 H* ALT 41 H 09/26/22 09/26/22 09/27/22 19:45 22:56 02:30 WBC Neutrophils # (Manual) Monocytes # (Manual) Metamyelocytes # (Man) Myelocytes # (Manual) VBG HCO3 21 L Sodium Carbon Dioxide BUN Creatinine Glucose Plasma Lactic Acid Payam 4.9 H* 4.6 H* ALT - Diagnostic Findings Chest x-ray: image reviewed Assessment and Plan Assessment: Acute asthma exacerbation related to suspected acute tracheobronchitis and fluid overload. Patient's asthma normally controlled with Breztri inhaler and when nec essary Ventolin HFA inhaler Acute hypoxic respiratory failure secondary to above Leukocytosis Obstructive sleep apnea with an AHI of 67. She's not been using her home CPAP unit since she's been feeling sick Acute paroxysmal atrial fibrillation. Currently in atrial fibrillation with rapid ventricular rate on Cardizem infusion at 5 mg per hour. Anticoagulated on Eliquis High anion gap metabolic acidosis secondary to lactic acidosis, improving Chronic kidney disease stage III Plan: Patient's medications, labs, chest x-ray reviewed Continue bronchodilators and IV Solu-Medrol Start Symbicort inhaler Continue supplemental oxygen to maintain oxygen saturation 92% or greater Start patient on azithromycin Trend lactic acid Give 500 normal saline bolus Normal saline infusing at 75 L per hour. Check pro calcitonin level Repeat chest x-ray order blood and sputum culture Continue Cardizem 5 mg per hour Anticoagulated on Eliquis We will continue to follow I have personally seen and examined the patient, performed the documentation and the assessment and plan as written. Number of minutes spent on the visit:20 Time with Patient: Greater than 30
[2022-09-27 07:49] LABS: Basophils # (A) 0.1 k/uL (0-0.2); Basophils % (A) 0 %; Eosinophils # (A) 0.1 k/uL (0-0.7); Eosinophils % (A) 1 %; HCT 35.1 % (34.0-46.0); HGB 11.4 gm/dL (11.4-16.0); Lymphocytes # (A) 1.2 k/uL (1.0-4.8); Lymphocytes % (A) 8 %; MCH 28.7 pg (25.0-35.0); MCHC 32.4 g/dL (31.0-37.0); MCV 88.4 fL (80.0-100.0); Mean Platelet Volume 7.7; Monocytes # (A) 0.4 k/uL (0-1.0); Monocytes % (A) 3 %; Neutrophils # (A) 13.4 k/uL (1.3-7.7); Neutrophils % (A) 88 %; Platelet Count 261 k/uL (150-450); RBC 3.97 m/uL (3.80-5.40); RDW 15.3 % (11.5-15.5); WBC 15.2 k/uL (3.8-10.6)
[2022-09-27] MEDS ORDERED: IPRATROPIUM-ALBUTEROL 3 ML NEB INHALATION SCH (08:00)
[2022-09-27 08:17] LABS: Calcium 8.8 mg/dL (8.4-10.2); Potassium 3.8 mmol/L (3.5-5.1)
--- NOTE | 2022-09-27 08:18 | XR ---
EXAMINATION TYPE: XR chest 1V portable DATE OF EXAM: 09/27/2022 HISTORY: Shortness of breath. COMPARISON: 09/26/2022 TECHNIQUE: Single view of the chest is submitted. FINDINGS: Demonstrated are scattered senescent parenchymal change. There is no evidence for focal infiltrate. The heart is stable. Hilar and mediastinal structures are within normal limits. Degenerative changes are seen of the dorsal spine. IMPRESSION: 1. Chronic changes without evidence for acute pulmonary disease.
[2022-09-27] MEDS: ALBUTEROL NEBULIZED 2.5 MG/3 ML INHALATION SCH ×4 (08:25→21:32)
[2022-09-27] MEDS: SYMBICORT 160-4.5 MCG INHALER INHALATION SCH ×2 (08:25→21:32)
[2022-09-27] MEDS: IPRATROPIUM 0.5 MG/2.5 ML NEBU INHALATION SCH ×4 (08:25→21:33)
[2022-09-27] MEDS: SPIRONOLACTONE 25 MG TAB PO SCH (08:41)
[2022-09-27] MEDS: APIXABAN 5 MG TAB PO SCH ×2 (08:41→20:47)
[2022-09-27] MEDS: AZITHROMYCIN 500 MG in SODIUM CHLORIDE 0.9% 250 ML IVPB SCH (08:42)
[2022-09-27 11:40] LABS: Glucose,Whole Blood 153 mg/dL (70-110)
[2022-09-27] MEDS: SODIUM CHLORIDE 0.9% 1,000 ML IV SCH ×2 (11:51→22:41)
[2022-09-27] MEDS: DILTIAZEM 125 MG in SODIUM CHLORIDE 0.9% 100 ML IV SCH (12:01)
[2022-09-27] MEDS ORDERED: DEXTROSE 50% SYRINGE 50 ML IVP PRN ×2 (13:31)
--- NOTE | 2022-09-27 13:35 | P.HPIM ---
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 Patient was recently hospitalized and discharged on 09/25. She was admitted for atrial fibrillation with RVR, seen by cardiology and Cardizem was increased to 240 mg daily CD. Patient was also treated for asthma exacerbation and had been started on Brextri inhaler, discharged on prednisone taper, antibiotics and also Aldactone. Patient return to the emergency center late that evening with severe respiratory distress with pulse ox in the 80s in A. fib with RVR. Dyspnea had progressed quickly over the past several hours. EKG atrial fibrillation with ventricular rate of 165 bpm. Initial blood pressure was 126/107. WBC was 15.2, hemoglobin 11.4. Potassium 3.8, BUN 25 creatinine 1.01. Lactic acid 2.5. Pro- calcitonin 0.06. Chest x-ray shows no acute process. Repeat chest x-ray this morning reveals chronic changes without evidence of acute pulmonary disease. Patient was resumed on her home medications except for Brextri inhaler. Patient has been started on a Cardizem drip for rate control. She has been started on IV Solu-Medrol 60 mg every 6 hours for asthma exacerbation. Consult in place with pulmonary medicine and cardiology. REVIEW OF SYSTEMS: Constitutional: No documented fever, no chills, no night sweats. No weight change. No weakness, fatigue or lethargy. No daytime sleepiness. HEENT: No headache. No blurred vision or double vision, no loss of vision. No loss of Hearing, no ringing in the ears, no dizziness. No nasal drainage or congestion. No epistaxis. No sore throat. Lungs: positive for shortness of breath, minimal cough, no sputum production. minimal wheezing. Reports dyspnea with activity. Cardiovascular: No chest pain, no lower extremity edema. No palpitations. No paroxysmal nocturnal dyspnea. No orthopnea. No lightheadedness or dizziness. No syncopal episodes. Abdominal: Reports no abdominal pain. No nausea, vomiting. No diarrhea. No constipation. No bloody or tarry stools reports loss of appetite. Genitourinary: No dysuria, increased frequency, urgency. No urinary retention. Musculoskeletal: No myalgias. No muscle weakness, no gait dysfunction, no frequent falls. No back pain. No neck pain. Integumentary: No wounds, no lesions. No rash or pruritus. No unusual bruisin g. No change in hair or nails. Neurologic: No aphasia. No facial droop. No change in mentation. No head injury. No headache. No paralysis. No paresthesia. Psychiatric: No depression. No anxiety. No mood swings. Endocrine: No abnormal blood sugars. No weight change. PAST MEDICAL HISTORY: Hypertension and hypertensive cardiovascular disease Hyperlipidemia Paroxysmal atrial Fibrillation. Mild persistent asthma. Obesity with obstructive sleep apnea. Osteoporosis. PAST SURGICAL HISTORY: Tonsillectomy and adenoidectomy. . Tubal ligation. Left ankle ORIF. 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 FAMILY HISTORY: Mother at age of 83 from diabetes competition and also had end-stage renal disease on hemodialysis. Father at age 69 from cirrhosis of the liver due to alcoholism and he also had history of COPD peptic ulcer disease ended up with perforated gastric stomach ulcer, patient had 4 brothers one is alive and doing well one at age of 36 from colon cancer one at the age of 26 because of a murder he was in the [place] and one at the age of 62 from diabetes complications patient has no sisters and she has 2 daughters one of them work at [employer]. PHYSICAL EXAMINATION: General: 66-year-old female laying down in bed in minimal respiratory distress HEENT: Head is atraumatic, normocephalic, pupils were equal round reactive to light and recommendation, extraocular muscle movement were intact, sclera nonicteric, conjunctivae were pale, mucous membranes of the mouth are somewhat dry. Neck: Supple, no JVP, normal carotid upstroke bilaterally, no lymphadenopathy. Chest: Decreased breath sounds at the bases, few rhonchi, minimal expiratory wheezes, no chest wall tenderness, no intercostal retractions. Heart: First heart sound is normal, second heart sound is normal tachycardic irregularly irregular due to atrial fibrillation. Abdomen: Soft, nontender, nondistended, positive bowel sounds, there is no hepa tosplenomegaly per Extremities: There is no edema no calf tenderness DP +2 bilaterally. Neurologic examination: Patient is awake alert and oriented X 3, cranial nerves II-12 appear grossly intact, muscle power were 5 out of 5 in upper extremities and 5 out of 5 in bilateral lower extremities, deep tendon reflexes normal bilaterally. ASSESSMENT AND PLAN: 1. Acute hypoxic respiratory failure secondary to acute asthma exacerbation. 2. Acute asthma exacerbation with acute tracheobronchitis. Continue patient on albuterol 4 times daily and every 2 hours as needed, Symbicort 2 puffs twice maddie ly, IV Solu-Medrol 60 mg every 6 hours, consult with pulmonary medicine appreciated. 3. Paroxysmal Atrial fibrillation with rapid ventricular response. Continue Cardizem drip at 5 mg at hour, continue Apixaban 5 mg orally twice every day, cardiology consultation, patient tentatively scheduled for atrial ablation with Dr. Carey in one month. 4. Hypertension and hypertensive cardiovascular disease. Continue patient on spironolactone 25 mg orally once every day, continue patient on Cardizem, monitor the patient blood pressure very closely. 5. Mixed hyperlipidemia. Continue patient on atorvastatin 20 mg orally once every day, monitor the patient lipid panel, keep LDL 55-70 per 6. Mild persistent asthma with exacerbation with acute bronchitis. Continue as in #2. 7. Obesity with obstructive sleep apnea. Patient is to continue calorie count and weight loss, continue CPAP. 8. ALLERGIC rhinitis. Continue patient on singular 10 mg at bedtime. 9. DVT prophylaxis. Continue patient on Apixaban 5 mg po bid 10. GI prophylaxis. Continue patient on Protonix 40 mg once every day . Admit to inpatient. Estimate a length of stay 2 midnights . Patient is full code Impression and plan of care have been directed as dictated by the signing physician. Najma Holley nurse practitioner acting as scribe for signing physician. Past Medical History Past Medical History: Atrial Fibrillation, Asthma, Hypertension, Sleep Apnea/CPAP/BIPAP Additional Past Medical History / Comment(s): 2019 pneumonia and sepsis History of Any Multi-Drug Resistant Organisms: None Reported Past Surgical History: Ablation Additional Past Surgical History / Comment(s): cardioversion x3, 2011 left ankle plate and screws Past Anesthesia/Blood Transfusion Reactions: No Reported Reaction Past Psychological History: No Psychological Hx Reported Smoking Status: Former smoker Past Alcohol Use History: None Reported Past Drug Use History: None Reported - Past Family History Mother History Unknown: Yes Family Medical History: AFIB, Hyperlipidemia, Hypertension, Thyroid Disorder Additional Family Medical History / Comment(s): stroke, pacemaker, DM, OA Brother(s) History Unknown: Yes Additional Family Medical History / Comment(s): colon ca Father History Unknown: Yes Additional Family Medical History / Comment(s): cirrhosis, emphysema Medications and Allergies Home Medications Medication Instructions Recorded Confirmed Type Apixaban [Eliquis] 5 mg PO BID 06/08/22 09/26/22 History Ipratropium-Albuterol Nebulize 3 ml INHALATION RT-QID PRN 06/08/22 09/26/22 History [Duoneb 0.5 mg-3 mg/3 ml Soln] Magnesium Oxide [Thao] 500 mg PO DAILY 06/08/22 09/26/22 History Montelukast Sodium [Singulair] 10 mg PO HS 06/08/22 09/26/22 History Rosuvastatin [Crestor] 10 mg PO HS 06/08/22 09/26/22 History Acetaminophen Tab [Tylenol] 650 mg PO Q6HR PRN tab 07/04/22 09/26/22 Rx Albuterol Inhaler [Ventolin Hfa 2 puff INHALATION RT-Q4H PRN #2 gm 07/04/22 09/26/22 Rx Inhaler] Ascorbic Acid [Vitamin C] 1,000 mg PO DAILY #60 tab 07/04/22 09/26/22 Rx Cholecalciferol [Vitamin D3 (125 125 mcg PO DAILY #20 tab 07/04/22 09/26/22 Rx Mcg = 5000 Iu)] Zinc Sulfate [Orazinc] 220 mg PO DAILY #30 cap 07/04/22 09/26/22 Rx [place]-3/Dha/Epa/Fish Oil [Fish Oil 1 cap PO DAILY 08/15/22 09/26/22 History 1,000 mg Softgel] Azithromycin [Zithromax Tri-David (3 500 mg PO DAILY 3 Days #3 tab 09/25/22 09/26/22 Rx tabs)] Diltiazem Cd [Cardizem CD] 240 mg PO DAILY #30 cap 09/25/22 09/26/22 Rx Spironolactone [Aldactone] 25 mg PO DAILY #30 tab 09/25/22 09/26/22 Rx Budesonide/Glycopyr/Formoterol 2 puff INHALATION RT-BID 09/26/22 09/26/22 History [Breztri Aerosphere Inhaler] predniSONE See Taper PO DIRECTED 09/26/22 09/26/22 History Allergies Allergy/AdvReac Type Severity Reaction Status Date / Time banana Allergy Anaphylaxis Verified 09/26/22 21:06 cantaloupe Allergy Anaphylaxis Verified 09/26/22 21:06 latex Allergy Rash/Hives Verified 09/26/22 21:06 melon Allergy Anaphylaxis Verified 09/26/22 21:06 perflutren [From Definity] Allergy Unknown Verified 09/26/22 21:06 diclofenac [From Voltaren] AdvReac Chest Pain Verified 09/26/22 21:06 metoprolol [From Lopressor] AdvReac Chest Pain Verified 09/26/22 21:06 naproxen [From Naprosyn] AdvReac Chest Pain Verified 09/26/22 21:06 honeydew melon Allergy Anaphylaxis Uncoded 09/26/22 19:57 Physical Exam Vitals: Vital Signs Temp Pulse Resp BP Pulse Ox FiO2 09/27/22 11:00 111 H 09/27/22 10:49 108 H 09/27/22 08:45 98.5 F 102 H 20 112/74 98 09/27/22 08:37 112 H 09/27/22 08:29 110 H 98 09/27/22 06:53 87 14 120/64 96 09/27/22 06:00 87 16 120/64 96 09/27/22 05:00 88 16 104/65 92 L 09/27/22 03:16 90 16 106/56 93 L 09/27/22 02:47 87 09/27/22 02:36 87 97 09/27/22 02:00 99 16 98/70 96 09/27/22 00:44 96 97 09/26/22 22:41 99 09/26/22 22:40 99 09/26/22 22:18 105 H 18 121/80 100 09/26/22 22:10 92 16 105/78 96 09/26/22 22:00 103 H 12 112/73 99 09/26/22 21:50 124 H 11 L 110/72 99 09/26/22 21:40 121 H 20 121/75 99 09/26/22 21:30 128 H 13 121/72 99 09/26/22 21:20 121 H 13 121/72 99 09/26/22 21:10 142 H 13 120/69 99 09/26/22 21:00 135 H 15 108/61 99 09/26/22 20:50 112 H 10 L 108/61 99 09/26/22 20:40 156 H 10 L 106/69 99 09/26/22 20:39 144 H 16 106/69 99 09/26/22 20:30 124 H 18 115/75 99 09/26/22 20:27 124 H 09/26/22 20:20 146 H 18 115/75 99 09/26/22 20:18 125 H 23 115/75 99 09/26/22 20:16 121 H 20 115/75 99 09/26/22 20:09 150 H 12 132/113 99 09/26/22 20:00 147 H 09/26/22 19:52 50 09/26/22 19:48 156 H 09/26/22 19:40 26 H 09/26/22 19:35 98.4 F 146 H 28 H 126/107 98 Intake and Output 09/26/22 09/27/22 09/27/22 22:59 06:59 14:59 Intake Total 18.75 Balance 18.75 Intake: Intake, IV Titration 18.75 Amount Diltiazem 125 mg In 18.75 Sodium Chloride 0.9% 100 ml @ 5 MG/HR 5 mls/hr IV .Q24H [facility] Rx#:[id number] Other: Weight 78.018 kg Results CBC & Chem 7: 09/27/22 07:36 09/27/22 07:36 Labs: Abnormal Lab Results - Last 24 Hours (Table) 09/26/22 09/26/22 09/26/22 Range/Units 19:39 19:39 19:39 WBC 25.2 H (3.8-10.6) k/uL Neutrophils # (1.3-7.7) k/uL Neutrophils # (Manual) 19.90 H (1.3-7.7) k/uL Monocytes # (Manual) 2.02 H (0-1.0) k/uL Metamyelocytes # (Man) 0.25 H (0) k/uL Myelocytes # (Manual) 1.01 H (0) k/uL VBG HCO3 (24-28) mmol/L Sodium 136 L (137-145) mmol/L Carbon Dioxide 19 L (22-30) mmol/L BUN 33 H (7-17) mg/dL Creatinine 1.19 H (0.52-1.04) mg/dL Glucose 265 H (74-99) mg/dL Plasma Lactic Acid Payam 6.5 H* (0.7-2.0) mmol/L ALT 41 H (4-34) U/L 09/26/22 09/26/22 09/27/22 Range/Units 19:45 22:56 02:30 WBC (3.8-10.6) k/uL Neutrophils # (1.3-7.7) k/uL Neutrophils # (Manual) (1.3-7.7) k/uL Monocytes # (Manual) (0-1.0) k/uL Metamyelocytes # (Man) (0) k/uL Myelocytes # (Manual) (0) k/uL VBG HCO3 21 L (24-28) mmol/L Sodium (137-145) mmol/L Carbon Dioxide (22-30) mmol/L BUN (7-17) mg/dL Creatinine (0.52-1.04) mg/dL Glucose (74-99) mg/dL Plasma Lactic Acid Payam 4.9 H* 4.6 H* (0.7-2.0) mmol/L ALT (4-34) U/L 09/27/22 09/27/22 09/27/22 Range/Units 07:36 07:36 07:36 WBC 15.2 H (3.8-10.6) k/uL Neutrophils # 13.4 H (1.3-7.7) k/uL Neutrophils # (Manual) (1.3-7.7) k/uL Monocytes # (Manual) (0-1.0) k/uL Metamyelocytes # (Man) (0) k/uL Myelocytes # (Manual) (0) k/uL VBG HCO3 (24-28) mmol/L Sodium 136 L (137-145) mmol/L Carbon Dioxide (22-30) mmol/L BUN 25 H (7-17) mg/dL Creatinine (0.52-1.04) mg/dL Glucose 164 H (74-99) mg/dL Plasma Lactic Acid Payam 2.5 H* (0.7-2.0) mmol/L ALT (4-34) U/L
[2022-09-27 16:31] LABS: Glucose,Whole Blood 164 mg/dL (70-110)
[2022-09-27] MEDS: INSULIN ASPART (NovoLOG) 100 UNIT/ML VIAL SQ SCH ×2 (17:43→20:47)
--- NOTE | 2022-09-27 20:16 | CONS ---
CONSULTATION CHIEF COMPLAINT: Shortness of breath. HISTORY OF PRESENT ILLNESS: Chelsea is a 66-year-old lady with COPD, paroxysmal atrial fibrillation, and hypertension, who was discharged home on Saturday following her admission with COPD exacerbation and atrial fibrillation, comes back in with sudden-onset shortness of breath. She has recently been started on a new inhaler nebulizer, and after she used it the first time, she had acute bronchospasm, comes back in, and she is in atrial fibrillation with rapid ventricular rate, for which Cardiology had been consulted. The patient was in atrial fibrillation with rapid ventricular rate at her previous admission, but heart rate was well controlled by the time she was discharged home. At the time of my evaluation, the patient appears in respiratory distress, in atrial fibrillation with well-controlled ventricular rate on intravenous Cardizem, and she is on Eliquis for anticoagulation. I anticipate the heart rate to be better controlled once the COPD exacerbation improves. PAST MEDICAL HISTORY: Significant for atrial fibrillation, COPD, dyslipidemia. MEDICATIONS: At home included: 1. Tapering prednisone. 2. Aldactone. 3. Fish oil. 4. Cardizem CD 240 daily. 5. Zithromax. 6. Vitamin C. 7. Eliquis 5 b.i.d. 8. Crestor. 9. Singulair. 10.DuoNeb. 11.Tylenol. ALLERGIES: The patient is allergic to Lopressor, Voltaren, Definity, latex. FAMILY HISTORY: Negative for premature coronary artery disease. SOCIAL HISTORY: Negative for current smoking, EtOH abuse, or drug abuse. REVIEW OF SYSTEMS: 14 out of 14 review of systems has been performed. Pertinents are as documented. PHYSICAL EXAMINATION: GENERAL: She appears in mild respiratory distress. VITAL SIGNS: Afebrile. Heart rate is 98 to 105 beats per minute, irregular. Blood pressure is 112/74, respiratory rate is 18, O2 saturation is 98%. NECK: There is no jugular venous distention. CHEST: Reveals diminished air entry with diffuse wheezing. HEART: Reveals first and second heart sounds, irregular rhythm. No murmur. ABDOMEN: Soft. EXTREMITIES: Do not reveal any edema. Peripheral pulses are felt. LABORATORY DATA: Show that the hemoglobin is 11.4, white cell count is 15, platelet count is 260. Potassium is 3.8 and creatinine is 1. ASSESSMENT: 1. Persistent atrial fibrillation with poorly controlled ventricular rate. 2. Chronic obstructive pulmonary disease exacerbation. PLAN: I will continue the Eliquis, intravenous Cardizem, and once the heart rate is better controlled, we can switch her to oral Cardizem. MMODL / IJN: [id number] /
[2022-09-27 20:20] LABS: Glucose,Whole Blood 261 mg/dL (70-110)
[2022-09-27] MEDS: ATORVASTATIN 20 MG TAB PO SCH (20:47)
[2022-09-27] MEDS: MONTELUKAST 10 MG TAB PO SCH (20:47)
[2022-09-28] MEDS: ALBUTEROL NEBULIZED 2.5 MG/3 ML INHALATION PRN ×2 (00:28→03:43)
[2022-09-28] MEDS: IPRATROPIUM 0.5 MG/2.5 ML NEBU INHALATION PRN ×2 (00:28→03:43)
[2022-09-28 06:20] LABS: Glucose,Whole Blood 167 mg/dL (70-110)
[2022-09-28] MEDS: methylPREDNISolone SOD SUCCI 125 MG/2 ML VIAL IV SCH ×3 (06:35→17:05)
[2022-09-28] MEDS: INSULIN ASPART (NovoLOG) 100 UNIT/ML VIAL SQ SCH ×4 (06:36→21:24)
[2022-09-28] MEDS: PANTOPRAZOLE 40 MG TABLET PO SCH (06:36)
[2022-09-28] MEDS: ALBUTEROL NEBULIZED 2.5 MG/3 ML INHALATION SCH ×4 (08:11→21:10)
[2022-09-28] MEDS: SYMBICORT 160-4.5 MCG INHALER INHALATION SCH ×2 (08:12→21:10)
[2022-09-28] MEDS: IPRATROPIUM 0.5 MG/2.5 ML NEBU INHALATION SCH ×4 (08:12→21:10)
[2022-09-28] MEDS: SPIRONOLACTONE 25 MG TAB PO SCH (08:51)
[2022-09-28] MEDS: AZITHROMYCIN 500 MG in SODIUM CHLORIDE 0.9% 250 ML IVPB SCH (08:51)
[2022-09-28] MEDS: MAGNESIUM OXIDE 400 MG TAB PO SCH (08:51)
[2022-09-28] MEDS: APIXABAN 5 MG TAB PO SCH ×2 (08:51→21:23)
[2022-09-28] MEDS: DILTIAZEM CD 240 MG CAP.ER.24H PO SCH (08:58)
[2022-09-28 12:14] LABS: Glucose,Whole Blood 183 mg/dL (70-110)
--- NOTE | 2022-09-28 12:28 | P.PN ---
Subjective Progress Note Date: 09/28/22 HISTORY OF PRESENT ILLNESS: Patient examined this morning at the bedside. Patient denies chest pain or pressure. Patient continues to report shortness of breath although is improved from yesterday. Telemetry reveals atrial fibrillation with controlled ventricular rate. She remains on IV Cardizem. Vital signs are stable. PHYSICAL EXAM: VITAL SIGNS: Reviewed. GENERAL: Well-developed in no acute distress. NECK: Supple. No JVD or thyromegaly LUNGS: Respirations even and unlabored. Lungs diminished to auscultation bilaterally. HEART: Irregular rate and rhythm. S1 and S2 heard. EXTREMITIES: Normal range of motion. No clubbing or cyanosis. Peripheral pulses intact. No lower extremity edema ASSESSMENT: Acute asthma exacerbation Acute hypoxic respiratory failure, secondary to above Persistent atrial fibrillation with RVR, currently rate controlled History of failed cardioversion Recent upper respiratory infection History of hypertension PLAN: Continue telemetry monitoring Discontinue IV Cardizem Resume home dose of Cardizem CD Plan for pulmonary vein isolation in approximately one month with Dr. 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 Gomez Nurse practitioner note has been reviewed by physician. Signing provider agrees with the documented findings, assessment, and plan of care. Objective - Vital Signs Vital signs: Vital Signs Temp 97.8 F 09/28/22 11:27 Pulse 92 09/28/22 11:47 Resp 18 09/28/22 11:27 BP 128/84 09/28/22 11:27 Pulse Ox 95 09/28/22 11:27 FiO2 50 09/27/22 16:37 Intake & Output 09/27/22 09/28/22 09/28/22 18:59 06:59 18:59 Intake Total 544.583 227.75 Balance 544.583 227.75 Weight 78.018 kg Intake: IV 5 Invasive Line 1 5 Intake, IV Titration 68.583 104.75 Amount Diltiazem 125 mg In 68.583 104.75 Sodium Chloride 0.9% 100 ml @ 5 MG/HR 5 mls/hr IV .Q24H [facility] Rx#:[id number] Oral [id number] Other: Voiding Method Toilet Toilet Toilet # Voids 1 1 - Labs CBC & Chem 7: 09/27/22 07:36 09/27/22 07:36 Labs: Abnormal Lab Results - Last 24 Hours (Table) 09/27/22 09/27/22 09/27/22 Range/Units 07:36 14:35 16:27 POC Glucose (mg/dL) 164 H (70-110) mg/dL Hemoglobin A1c 6.1 H (0.0-6.0) % Plasma Lactic Acid Payam 4.8 H* (0.7-2.0) mmol/L 09/27/22 09/27/22 09/28/22 Range/Units 20:19 21:42 06:19 POC Glucose (mg/dL) 261 H 167 H (70-110) mg/dL Hemoglobin A1c (0.0-6.0) % Plasma Lactic Acid Payam 2.9 H* (0.7-2.0) mmol/L 09/28/22 09/28/22 Range/Units 06:31 12:10 POC Glucose (mg/dL) 183 H (70-110) mg/dL Hemoglobin A1c (0.0-6.0) % Plasma Lactic Acid Payam 2.1 H* (0.7-2.0) mmol/L Microbiology - Last 24 Hours (Table) 09/26/22 19:52 Blood Culture - Preliminary Blood No Growth after 24 hours 09/26/22 19:32 Blood Culture - Preliminary Blood No Growth after 24 hours
[2022-09-28] MEDS: SODIUM CHLORIDE 0.9% 1,000 ML IV SCH (12:35)
--- NOTE | 2022-09-28 12:58 | P.PN ---
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 Patient was recently hospitalized and discharged on 09/25. She was admitted for atrial fibrillation with RVR, seen by cardiology and Cardizem was increased to 240 mg daily CD. Patient was also treated for asthma exacerbation and had been started on Brextri inhaler, discharged on prednisone taper, antibiotics and also Aldactone. Patient return to the emergency center late that evening with severe respiratory distress with pulse ox in the 80s in A. fib with RVR. Dyspnea had progressed quickly over the past several hours. EKG atrial fibrillation with ventricular rate of 165 bpm. Initial blood pressure was 126/107. WBC was 15.2, hemoglobin 11.4. Potassium 3.8, BUN 25 creatinine 1.01. Lactic acid 2.5. Pro- calcitonin 0.06. Chest x-ray shows no acute process. Repeat chest x-ray this morning reveals chronic changes without evidence of acute pulmonary disease. Patient was resumed on her home medications except for Brextri inhaler. Patient has been started on a Cardizem drip for rate control. She has been started on IV Solu-Medrol 60 mg every 6 hours for asthma exacerbation. Consult in place with pulmonary medicine and cardiology. 09/28: Patient remains afebrile, heart rate running in the 80s to 1:15. Pulse ox 90% on 2 L. Blood pressure 129/79. Repeat lactic acid this morning was 2.1. Labile glucoses run between 167 and 261. Blood culture showing no growth at 24 hours. Patient has been seen by cardiology for persistent atrial fibrillation poorly controlled ventricular rate with plan to continue IV Cardizem and eventually switch over to oral once heart rate is controlled. Patient has been started on Cardizem CD 240 mg daily this morning. She remains on IV Solu-Medrol at 60 mg IV every 6 hours REVIEW OF SYSTEMS: Constitutional: No documented fever, no chills, no night sweats. No weight change. No weakness, fatigue or lethargy. No daytime sleepiness. HEENT: No headache. No blurred vision or double vision, no loss of vision. No loss of Hearing, no ringing in the ears, no dizziness. No nasal drainage or congestion. No epistaxis. No sore throat. Lungs: positive for shortness of breath, minimal cough, no sputum production. minimal wheezing. Reports dyspnea with activity. Cardiovascular: No chest pain, no lower extremity edema. No palpitations. No paroxysmal nocturnal dyspnea. No orthopnea. No lightheadedness or dizziness. No syncopal episodes. Abdominal: Reports no abdominal pain. No nausea, vomiting. No diarrhea. No constipation. No bloody or tarry stools reports loss of appetite. Genitourinary: No dysuria, increased frequency, urgency. No urinary retention. Musculoskeletal: No myalgias. No muscle weakness, no gait dysfunction, no frequent falls. No back pain. No neck pain. Integumentary: No wounds, no lesions. No rash or pruritus. No unusual bruising. No change in hair or nails. Neurologic: No aphasia. No facial droop. No change in mentation. No head injury. No headache. No paralysis. No paresthesia. Psychiatric: No depression. No anxiety. No mood swings. Endocrine: No abnormal blood sugars. No weight change. PHYSICAL EXAMINATION: General: 66-year-old female laying down in bed in minimal respiratory distress HEENT: Head is atraumatic, normocephalic, pupils were equal round reactive to light and recommendation, extraocular muscle movement were intact, sclera nonicteric, conjunctivae were pale, mucous membranes of the mouth are somewhat dry. Neck: Supple, no JVP, normal carotid upstroke bilaterally, no lymphadenopathy. Chest: Decreased breath sounds at the bases, few rhonchi, minimal expiratory wheezes, no chest wall tenderness, no intercostal retractions. Heart: First heart sound is normal, second heart sound is normal tachycardic irregularly irregular due to atrial fibrillation. Abdomen: Soft, nontender, nondistended, positive bowel sounds, there is no hepatosplenomegaly per Extremities: There is no edema no calf tenderness DP +2 bilaterally. Neurologic examination: Patient is awake alert and oriented X 3, cranial nerves II-12 appear grossly intact, muscle power were 5 out of 5 in upper extremities and 5 out of 5 in bilateral lower extremities, deep tendon reflexes normal bilaterally. ASSESSMENT AND PLAN: 1. Acute hypoxic respiratory failure secondary to acute asthma exacerbation. 2. Acute asthma exacerbation with acute tracheobronchitis. Continue patient on albuterol 4 times daily and every 2 hours as needed, Symbicort 2 puffs twice daily, IV Solu-Medrol 60 mg every 6 hours, consult with pulmonary medicine appclotilde rodarte. 3. Paroxysmal Atrial fibrillation with rapid ventricular response. Cardizem drip has been discontinued and patient started on oral Cardizem 240 mg daily, continue Apixaban 5 mg orally twice every day, cardiology consultation appreciated, patient tentatively scheduled for atrial ablation with Dr. Carey in one month. 4. Hypertension and hypertensive cardiovascular disease. Continue patient on spironolactone 25 mg orally once every day, continue patient on Cardizem, monitor the patient blood pressure very closely. 5. Mixed hyperlipidemia. Continue patient on atorvastatin 20 mg orally once every day, monitor the patient lipid panel, keep LDL 55-70 per 6. Mild persistent asthma with exacerbation with acute bronchitis. Continue as in #2. 7. Obesity with obstructive sleep apnea. Patient is to continue calorie count and weight loss, continue CPAP. 8. ALLERGIC rhinitis. Continue patient on singular 10 mg at bedtime. 9. DVT prophylaxis. Continue patient on Apixaban 5 mg po bid 10. GI prophylaxis. Continue patient on Protonix 40 mg once every day . Patient is full code Impression and plan of care have been directed as dictated by the signing physician. Najma Holley nurse practitioner acting as scribe for signing physician. Objective - Vital Signs Vital signs: Vital Signs Temp 97.4 F L 09/28/22 08:44 Pulse 115 H 09/28/22 08:44 Resp 22 09/28/22 08:44 BP 129/79 09/28/22 08:44 Pulse Ox 98 09/28/22 08:44 FiO2 50 09/27/22 16:37 Intake & Output 09/27/22 09/28/22 09/28/22 18:59 06:59 18:59 Intake Total 544.583 227.75 Balance 544.583 227.75 Weight 78.018 kg Intake: IV 5 Invasive Line 1 5 Intake, IV Titration .583 104.75 Amount Diltiazem 125 mg In .583 104.75 Sodium Chloride 0.9% 100 ml @ 5 MG/HR 5 mls/hr IV .Q24H [facility] Rx#:[id number] Oral 476 [id number] Other: Voiding Method Toilet Toilet Toilet # Voids 1 1 - Labs CBC & Chem 7: 09/27/22 07:36 09/27/22 07:36 Labs: Abnormal Lab Results - Last 24 Hours (Table) 09/27/22 09/27/22 09/27/22 Range/Units 07:36 11:16 11:38 POC Glucose (mg/dL) 153 H (70-110) mg/dL Hemoglobin A1c 6.1 H (0.0-6.0) % Plasma Lactic Acid Payam 2.7 H* (0.7-2.0) mmol/L 09/27/22 09/27/22 09/27/22 Range/Units 14:35 16:27 20:19 POC Glucose (mg/dL) 164 H 261 H (70-110) mg/dL Hemoglobin A1c (0.0-6.0) % Plasma Lactic Acid Payam 4.8 H* (0.7-2.0) mmol/L 09/27/22 09/28/22 09/28/22 Range/Units 21:42 06:19 06:31 POC Glucose (mg/dL) 167 H (70-110) mg/dL Hemoglobin A1c (0.0-6.0) % Plasma Lactic Acid Payam 2.9 H* 2.1 H* (0.7-2.0) mmol/L Microbiology - Last 24 Hours (Table) 09/26/22 19:52 Blood Culture - Preliminary Blood No Growth after 24 hours 09/26/22 19:32 Blood Culture - Preliminary Blood No Growth after 24 hours
--- NOTE | 2022-09-28 14:06 | P.PN ---
Subjective Progress Note Date: 09/28/22 Principal diagnosis: Acute asthma exacerbation and acute tracheobronchitis I'm seeing this patient in new consultation today 09/27/2022 for acute asthma exacerbation. Patient is a 66-year-old white female with past medical history significant for bronchial asthma, obstructive sleep apnea with an AHI of 67 and CPAP, paroxysmal atrial fibrillation anticoagulated on Eliquis, previous cardioversions and ablations, hypertension, ex-smoker. Patient has been experiencing upper respiratory tract infection like symptoms of sore throat, nasal congestion, nonproductive cough, and shortness of breath over the last week. She did try to go to her primary care provider, and was given doxycycline on . There wass no improvement in her symptoms, and she had to call EMS yesterday for difficulty breathing. On arrival, patient was found to be hypoxic with an SpO2 of around 80 percent. Patient was also reporting some substernal chest pain, and was found to be in atrial fibrillation with rapid ventricular rate. Patient was still in A. fib RVR on arrival to the emergency room, and was initiated on a Cardizem infusion at 5 mg per hour. She is anticoagulated on Eliquis. Chest x-ray on arrival showed no acute cardiopulmonary process. She was initially placed on BiPAP settings 14/5 and 50%. Patient's CBC on arrival shows a WBC count of 25.2, hemoglobin 12.8, hematocrit 39.9, platelets 362,000. Patient's BMP on arrival shows sodium 136, potassium 4, chloride 11, serum CO2 19, BUN 33, creatinine 1.19, glucose 265. Patient's lactic was elevated on arrival at 6.5, and is down to 4.6 after 1 L normal saline bolus. I did give an additional 500 ML normal saline bolus. Patient currently has no antibiotic coverage. He is receiving bronchodilators and IV Solu-Medrol. Patient is currently sitting up in bed, on room air, fairly comfortable. There are signs of fluid overload, patient's lower extremities have pitting edema and NT proBNP is 2300. Most recent echocardiogram done on 06/09/2022 shows a preserved ejection fraction of 55-60% with mild mitral and tricuspid regurgitation. Troponins negative 1. Vital signs are stable. Reevaluated today on 09/28/2022, patient is feeling better today, breathing easier, less shortness of breath, less cough, less wheezing. Remains on oxygen, antibiotics, DuoNeb, Solu-Medrol, and Symbicort. WBC count is down to 15.2 hemoglobin is 11.4. Basic metabolic profile is normal renal profile is normal, pro-calcitonin is normal, BNP is a bit elevated at 2300 Objective - Vital Signs Vital signs: Vital Signs Temp 97.8 F 09/28/22 11:27 Pulse 92 09/28/22 11:47 Resp 18 09/28/22 11:27 BP 128/84 09/28/22 11:27 Pulse Ox 95 09/28/22 11:27 FiO2 50 09/27/22 16:37 Intake & Output 09/27/22 09/28/22 09/28/22 18:59 06:59 18:59 Intake Total 544.583 227.75 Balance 544.583 227.75 Weight 78.018 kg Intake: IV 5 Invasive Line 1 5 Intake, IV Titration 68.583 104.75 Amount Diltiazem 125 mg In 68.583 104.75 Sodium Chloride 0.9% 100 ml @ 5 MG/HR 5 mls/hr IV .Q24H [facility] Rx#:[id number] Oral 476 [id number] Other: Voiding Method Toilet Toilet Toilet # Voids 1 1 - Exam Physical Exam: Revealed 66-year-old female in no distress slightly anxious. Head: Atraumatic, normocephalic. HEENT:[Neck is supple.] [No neck masses.] [No thyromegaly.] [No JVD.] Chest: Wheezing on forced expiratory maneuver bilaterally. Cardiac Exam: [Normal S1 and S2, no S3 gallop, no murmur.] Abdomen: [Soft, nontender, no megaly, no rebound, no guarding, normal bowel sounds.] Extremities: [No clubbing, 2+ bipedal edema, no cyanosis.] Neurological Exam: [No focal neurologic deficit.] Alert oriented 3. Psychiatric: Normal mood affect and normal mental status exam. Skin: No rashes. - Labs CBC & Chem 7: 09/27/22 07:36 09/27/22 07:36 Labs: Abnormal Lab Results - Last 24 Hours (Table) 09/27/22 09/27/22 09/27/22 Range/Units 07:36 14:35 16:27 POC Glucose (mg/dL) 164 H (70-110) mg/dL Hemoglobin A1c 6.1 H (0.0-6.0) % Plasma Lactic Acid Payam 4.8 H* (0.7-2.0) mmol/L 09/27/22 09/27/22 09/28/22 Range/Units 20:19 21:42 06:19 POC Glucose (mg/dL) 261 H 167 H (70-110) mg/dL Hemoglobin A1c (0.0-6.0) % Plasma Lactic Acid Payam 2.9 H* (0.7-2.0) mmol/L 09/28/22 09/28/22 Range/Units 06:31 12:10 POC Glucose (mg/dL) 183 H (70-110) mg/dL Hemoglobin A1c (0.0-6.0) % Plasma Lactic Acid Payam 2.1 H* (0.7-2.0) mmol/L Microbiology - Last 24 Hours (Table) 09/26/22 19:52 Blood Culture - Preliminary Blood No Growth after 24 hours 09/26/22 19:32 Blood Culture - Preliminary Blood No Growth after 24 hours Assessment and Plan Assessment: Impression: Acute hypoxic respiratory failure secondary to acute asthma exacerbation History of mild persistent asthma Obstructive sleep apnea syndrome apnea hypoxia index of 67 patient is not compliant with her CPAP machine at home Leukocytosis, improving Acute tracheobronchitis, no clear-cut evidence of pneumonia Paroxysmal atrial fibrillation, rate controlled, patient is on eliquis Chronic kidney disease stage III. History of failed cardioversion Benign essential hypertension Recommendation: Chest x-ray reviewed from09/27 no evidence of acute process. Medications were all reviewed and no changes made Recommend keeping the patient on her present course of bronchodilators Continue oral Cardizem Continue updrafts Continue Symbicort Continue methylprednisolone Consider discharge planning in the next 24 hours Time with Patient: Less than 30
[2022-09-28 16:53] LABS: Glucose,Whole Blood 162 mg/dL (70-110)
[2022-09-28 20:05] LABS: Glucose,Whole Blood 217 mg/dL (70-110)
[2022-09-28] MEDS: guaiFENesin 600 MG TABLET.ER PO SCH (21:23)
[2022-09-28] MEDS: MONTELUKAST 10 MG TAB PO SCH (21:24)
[2022-09-28] MEDS: ATORVASTATIN 20 MG TAB PO SCH (21:24)
[2022-09-29] MEDS: ALBUTEROL NEBULIZED 2.5 MG/3 ML INHALATION PRN ×2 (00:01→03:47)
[2022-09-29] MEDS: methylPREDNISolone SOD SUCCI 125 MG/2 ML VIAL IV SCH ×5 (00:06→23:33)
[2022-09-29] MEDS: guaiFENesin-DM 100-10MG/5ML 10 ML CUP PO PRN ×4 (00:48→20:58)
[2022-09-29 06:14] LABS: Glucose,Whole Blood 185 mg/dL (70-110)
[2022-09-29] MEDS: INSULIN ASPART (NovoLOG) 100 UNIT/ML VIAL SQ SCH ×4 (06:47→20:58)
[2022-09-29] MEDS: PANTOPRAZOLE 40 MG TABLET PO SCH (06:48)
[2022-09-29] MEDS: SPIRONOLACTONE 25 MG TAB PO SCH (07:30)
[2022-09-29] MEDS: guaiFENesin 600 MG TABLET.ER PO SCH ×2 (07:30→20:57)
[2022-09-29] MEDS: MAGNESIUM OXIDE 400 MG TAB PO SCH (07:30)
[2022-09-29] MEDS: APIXABAN 5 MG TAB PO SCH ×2 (07:30→20:57)
[2022-09-29] MEDS: DILTIAZEM CD 240 MG CAP.ER.24H PO SCH (07:30)
[2022-09-29] MEDS: AZITHROMYCIN 500 MG in SODIUM CHLORIDE 0.9% 250 ML IVPB SCH (07:39)
[2022-09-29 08:32] LABS: Basophils # (A) 0.1 k/uL (0-0.2); Basophils % (A) 0 %; Eosinophils % (A) 0 %; HCT 35.5 % (34.0-46.0); HGB 11.3 gm/dL (11.4-16.0); Lymphocytes # (A) 0.8 k/uL (1.0-4.8); Lymphocytes % (A) 3 %; MCH 28.6 pg (25.0-35.0); MCHC 31.9 g/dL (31.0-37.0); MCV 89.7 fL (80.0-100.0); Mean Platelet Volume 7.9; Monocytes # (A) 0.6 k/uL (0-1.0); Monocytes % (A) 2 %; Neutrophils # (A) 21.9 k/uL (1.3-7.7); Neutrophils % (A) 94 %; Platelet Count 276 k/uL (150-450); RBC 3.96 m/uL (3.80-5.40); RDW 15.2 % (11.5-15.5); WBC 23.4 k/uL (3.8-10.6)
[2022-09-29 08:45] LABS: Albumin 3.2 g/dL (3.5-5.0); Calcium 8.9 mg/dL (8.4-10.2); Potassium 3.6 mmol/L (3.5-5.1); Total Bilirubin 0.5 mg/dL (0.2-1.3); Total Protein 5.5 g/dL (6.3-8.2)
[2022-09-29] MEDS: SYMBICORT 160-4.5 MCG INHALER INHALATION SCH ×2 (09:33→21:05)
[2022-09-29] MEDS: ALBUTEROL NEBULIZED 2.5 MG/3 ML INHALATION SCH ×4 (09:33→21:05)
[2022-09-29] MEDS: IPRATROPIUM 0.5 MG/2.5 ML NEBU INHALATION SCH ×4 (09:33→21:05)
--- NOTE | 2022-09-29 09:47 | P.PN ---
Subjective Progress Note Date: 09/29/22 HISTORY OF PRESENT ILLNESS: Patient examined this morning at the bedside. Patient denies chest pain or pressure. Patient continues to report shortness of breath although is improved from yesterday. Telemetry reveals atrial fibrillation with controlled ventricular rate. She remains on IV Cardizem. Vital signs are stable. 09/29/2022 Patient examined this morning. She is sitting up in the chair. Patient continues to report some shortness of breath. She states that she had to get out of bed this morning and set the chair secondary to shortness of breath. Patient continues to report a frequent cough. She was started on cough medication and Mucinex yesterday per internal medicine. She denies any chest pain or pressure. Telemetry reveals atrial fibrillation with controlled ventricular rates between 60 and 80. Vital signs are stable. PHYSICAL EXAM: VITAL SIGNS: Reviewed. GENERAL: Well-developed in no acute distress. NECK: Supple. No JVD or thyromegaly LUNGS: Respirations even and unlabored. Lungs diminished to auscultation bilaterally. HEART: Irregular rate and rhythm. S1 and S2 heard. EXTREMITIES: Normal range of motion. No clubbing or cyanosis. Peripheral pulses intact. No lower extremity edema ASSESSMENT: Acute asthma exacerbation Acute hypoxic respiratory failure, secondary to above Persistent atrial fibrillation with RVR, currently rate controlled History of failed cardioversion Recent upper respiratory infection History of hypertension PLAN: Continue telemetry monitoring Continue current dose of Cardizem CD Pulmonary following Plan for pulmonary vein isolation in approximately one month with Dr. 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 Gomez Nurse practitioner note has been reviewed by physician. Signing provider agrees with the documented findings, assessment, and plan of care. Objective - Vital Signs Vital signs: Vital Signs Temp 97.9 F 09/29/22 07:33 Pulse 103 H 09/29/22 09:35 Resp 18 09/29/22 07:33 BP 134/82 09/29/22 07:33 Pulse Ox 96 09/29/22 09:40 FiO2 50 09/27/22 16:37 Intake & Output 09/28/22 09/29/22 09/29/22 18:59 06:59 18:59 Intake Total 1745.75 128 Balance 1745.75 128 Intake: IV 15 10 Invasive Line 1 10 5 Invasive Line 2 5 5 Intake, IV Titration 1254.75 Amount Azithromycin 500 mg In 250 Sodium Chloride 0.9% 250 ml @ 250 mls/hr IVPB DAILY [facility] Rx#:[id number] Diltiazem 125 mg In 104.75 Sodium Chloride 0.9% 100 ml @ 5 MG/HR 5 mls/hr IV .Q24H [facility] Rx#:[id number] Sodium Chloride 0.9% 1, 900 000 ml @ 75 mls/hr IV . [id number] [facility] Rx#:[id number] Oral 476 [id number] Other: Voiding Method Toilet Toilet Toilet # Voids 3 1 - Labs CBC & Chem 7: 09/29/22 07:42 09/29/22 07:42 Labs: Abnormal Lab Results - Last 24 Hours (Table) 09/28/22 09/28/22 09/28/22 Range/Units 12:10 16:41 20:03 WBC (3.8-10.6) k/uL Hgb (11.4-16.0) gm/dL Neutrophils # (1.3-7.7) k/uL Lymphocytes # (1.0-4.8) k/uL Sodium (137-145) mmol/L BUN (7-17) mg/dL Creatinine (0.52-1.04) mg/dL Glucose (74-99) mg/dL POC Glucose (mg/dL) 183 H 162 H 217 H (70-110) mg/dL Total Protein (6.3-8.2) g/dL Albumin (3.5-5.0) g/dL 09/29/22 09/29/22 09/29/22 Range/Units 06:12 07:42 07:42 WBC 23.4 H (3.8-10.6) k/uL Hgb 11.3 L (11.4-16.0) gm/dL Neutrophils # 21.9 H (1.3-7.7) k/uL Lymphocytes # 0.8 L (1.0-4.8) k/uL Sodium 135 L (137-145) mmol/L BUN 32 H (7-17) mg/dL Creatinine 1.13 H (0.52-1.04) mg/dL Glucose 186 H (74-99) mg/dL POC Glucose (mg/dL) 185 H (70-110) mg/dL Total Protein 5.5 L (6.3-8.2) g/dL Albumin 3.2 L (3.5-5.0) g/dL Microbiology - Last 24 Hours (Table) 09/26/22 19:52 Blood Culture - Preliminary Blood No Growth after 48 hours 09/26/22 19:32 Blood Culture - Preliminary Blood No Growth after 48 hours
[2022-09-29 11:21] LABS: Glucose,Whole Blood 212 mg/dL (70-110)
[2022-09-29] MEDS ORDERED: FUROSEMIDE 10 MG/ML 4 ML VIAL IV STA (11:44)
--- NOTE | 2022-09-29 12:33 | P.PN ---
Progress Note - Text Progress Note Date: 09/29/22 Subjective: Patient seen and evaluated bedside, continues to have difficulty breathing, shortness of breath with minimal exertion today heart rate continues to be controlled. The patient does have productive cough Review of systems Complains of cough, shortness of breath, sputum production, fatigue, denies fever Physical exam VITAL SIGNS: Reviewed. GENERAL: Well-developed in no acute distress. NECK: Supple. No JVD or thyromegaly LUNGS: Decreased breath sounds bilaterally, no wheezing audible, HEART: Irregular rate and rhythm. S1 and S2 heard. Rate controlled EXTREMITIES: Normal range of motion. No clubbing or cyanosis. Peripheral pulses intact. No lower extremity edema ASSESSMENT: * Acute asthma exacerbation * Acute hypoxic respiratory failure, secondary to above * Persistent atrial fibrillation with RVR, currently rate controlled History of failed cardioversion * Recent upper respiratory infection * History of hypertension PLAN: For tracheal bronchitis and asthma exacerbation continue patient on breathing treatments, bronchodilator protocol. Initiated doxycycline to complete 5 day course due to persistent sputum production In regards to atrial fibrillation heart rate controlled continue Joe Plan for pulmonary vein isolation in approximately one month with Dr. Carey Patient to follow up outpatient with her primary sccm administrator, Dr. Gomez
--- NOTE | 2022-09-29 12:47 | P.PN ---
Subjective Progress Note Date: 09/29/22 Principal diagnosis: Acute asthma exacerbation and acute tracheobronchitis I'm seeing this patient in new consultation today 09/27/2022 for acute asthma exacerbation. Patient is a 66-year-old white female with past medical history significant for bronchial asthma, obstructive sleep apnea with an AHI of 67 and CPAP, paroxysmal atrial fibrillation anticoagulated on Eliquis, previous cardioversions and ablations, hypertension, ex-smoker. Patient has been experiencing upper respiratory tract infection like symptoms of sore throat, nasal congestion, nonproductive cough, and shortness of breath over the last week. She did try to go to her primary care provider, and was given doxycycline on . There wass no improvement in her symptoms, and she had to call EMS yesterday for difficulty breathing. On arrival, patient was found to be hypoxic with an SpO2 of around 80 percent. Patient was also reporting some substernal chest pain, and was found to be in atrial fibrillation with rapid ventricular rate. Patient was still in A. fib RVR on arrival to the emergency room, and was initiated on a Cardizem infusion at 5 mg per hour. She is anticoagulated on Eliquis. Chest x-ray on arrival showed no acute cardiopulmonary process. She was initially placed on BiPAP settings 14/5 and 50%. Patient's CBC on arrival shows a WBC count of 25.2, hemoglobin 12.8, hematocrit 39.9, platelets 362,000. Patient's BMP on arrival shows sodium 136, potassium 4, chloride 11, serum CO2 19, BUN 33, creatinine 1.19, glucose 265. Patient's lactic was elevated on arrival at 6.5, and is down to 4.6 after 1 L normal saline bolus. I did give an additional 500 ML normal saline bolus. Patient currently has no antibiotic coverage. He is receiving bronchodilators and IV Solu-Medrol. Patient is currently sitting up in bed, on room air, fairly comfortable. There are signs of fluid overload, patient's lower extremities have pitting edema and NT proBNP is 2300. Most recent echocardiogram done on 06/09/2022 shows a preserved ejection fraction of 55-60% with mild mitral and tricuspid regurgitation. Troponins negative 1. Vital signs are stable. Reevaluated today on 09/28/2022, patient is feeling better today, breathing easier, less shortness of breath, less cough, less wheezing. Remains on oxygen, antibiotics, DuoNeb, Solu-Medrol, and Symbicort. WBC count is down to 15.2 hemoglobin is 11.4. Basic metabolic profile is normal renal profile is normal, pro-calcitonin is normal, BNP is a bit elevated at 2300 Reevaluated today on 09/29/2022, patient is steadily improving, but not back to her baseline. Less cough and less wheezing less shortness of breath, on physica l examination she has some diminished breath sounds at the bases with slight wheezing on the right side on forced expiratory maneuver. CBC today showed leukocytosis with WBC of 23.4 hemoglobin is 11.3 and a class are normal renal profile is normal. Considering the significant rise in her WBC count, I'm recommending a repeat chest x-ray to be done in a.m. Objective - Vital Signs Vital signs: Vital Signs Temp 97.8 F 09/29/22 11:37 Pulse 86 09/29/22 12:38 Resp 18 09/29/22 11:37 BP 135/76 09/29/22 11:37 Pulse Ox 95 09/29/22 11:37 FiO2 50 09/27/22 16:37 Intake & Output 09/28/22 09/29/22 09/29/22 18:59 06:59 18:59 Intake Total 1745.75 133 Balance 1745.75 133 Intake: IV 15 15 Invasive Line 1 10 10 Invasive Line 2 5 5 Intake, IV Titration 1254.75 Amount Azithromycin 500 mg In 250 Sodium Chloride 0.9% 250 ml @ 250 mls/hr IVPB DAILY [facility] Rx#:[id number] Diltiazem 125 mg In 104.75 Sodium Chloride 0.9% 100 ml @ 5 MG/HR 5 mls/hr IV .Q24H [facility] Rx#:[id number] Sodium Chloride 0.9% 1, 900 000 ml @ 75 mls/hr IV . [id number] [facility] Rx#:[id number] Oral 476 [id number] Other: Voiding Method Toilet Toilet Toilet # Voids 3 1 - Exam Physical Exam: Revealed 66-year-old female in no distress slightly anxious. Head: Atraumatic, normocephalic. HEENT:[Neck is supple.] [No neck masses.] [No thyromegaly.] [No JVD.] Chest: Crackles and wheezing at the right base more so on forced expiratory maneuver Cardiac Exam: [Normal S1 and S2, no S3 gallop, no murmur.] Abdomen: [Soft, nontender, no megaly, no rebound, no guarding, normal bowel so unds.] Extremities: [No clubbing, 2+ bipedal edema, no cyanosis.] Neurological Exam: [No focal neurologic deficit.] Alert oriented 3. Psychiatric: Normal mood affect and normal mental status exam. Skin: No rashes. - Labs CBC & Chem 7: 09/29/22 07:42 09/29/22 07:42 Labs: Abnormal Lab Results - Last 24 Hours (Table) 09/28/22 09/28/22 09/29/22 Range/Units 16:41 20:03 06:12 WBC (3.8-10.6) k/uL Hgb (11.4-16.0) gm/dL Neutrophils # (1.3-7.7) k/uL Lymphocytes # (1.0-4.8) k/uL Sodium (137-145) mmol/L BUN (7-17) mg/dL Creatinine (0.52-1.04) mg/dL Glucose (74-99) mg/dL POC Glucose (mg/dL) 162 H 217 H 185 H (70-110) mg/dL Total Protein (6.3-8.2) g/dL Albumin (3.5-5.0) g/dL 09/29/22 09/29/22 09/29/22 Range/Units 07:42 07:42 11:20 WBC 23.4 H (3.8-10.6) k/uL Hgb 11.3 L (11.4-16.0) gm/dL Neutrophils # 21.9 H (1.3-7.7) k/uL Lymphocytes # 0.8 L (1.0-4.8) k/uL Sodium 135 L (137-145) mmol/L BUN 32 H (7-17) mg/dL Creatinine 1.13 H (0.52-1.04) mg/dL Glucose 186 H (74-99) mg/dL POC Glucose (mg/dL) 212 H (70-110) mg/dL Total Protein 5.5 L (6.3-8.2) g/dL Albumin 3.2 L (3.5-5.0) g/dL Microbiology - Last 24 Hours (Table) 09/26/22 19:52 Blood Culture - Preliminary Blood No Growth after 48 hours 09/26/22 19:32 Blood Culture - Preliminary Blood No Growth after 48 hours Assessment and Plan Assessment: Impression: Acute hypoxic respiratory failure secondary to acute asthma exacerbation History of mild persistent asthma Obstructive sleep apnea syndrome apnea hypoxia index of 67 patient is not compliant with her CPAP machine at home Leukocytosis, improving Acute tracheobronchitis, no clear-cut evidence of pneumonia Paroxysmal atrial fibrillation, rate controlled, patient is on eliquis Chronic kidney disease stage III. History of failed cardioversion Benign essential hypertension Recommendation: Follow-up chest x-ray in a.m. Continue present course of bronchodilators Possible discharge planning in the next 24 hours. Medications were all reviewed and no changes made Continue updrafts Continue Symbicort Continue methylprednisolone Time with Patient: Less than 30
[2022-09-29] MEDS: CHLORTHALIDONE 25 MG TAB PO SCH (13:25)
[2022-09-29] MEDS: DOXYCYCLINE 100 MG CAP PO SCH ×2 (13:27→20:58)
[2022-09-29 16:16] LABS: Glucose,Whole Blood 168 mg/dL (70-110)
[2022-09-29 20:04] LABS: Glucose,Whole Blood 163 mg/dL (70-110)
[2022-09-29] MEDS: MONTELUKAST 10 MG TAB PO SCH (20:57)
[2022-09-29] MEDS: ATORVASTATIN 20 MG TAB PO SCH (20:57)
[2022-09-30 00:55] VITALS: RESP 18
[2022-09-30] MEDS: ALBUTEROL NEBULIZED 2.5 MG/3 ML INHALATION PRN (01:55)
[2022-09-30] MEDS: guaiFENesin-DM 100-10MG/5ML 10 ML CUP PO PRN ×2 (02:30→09:30)
[2022-09-30 05:59] LABS: Glucose,Whole Blood 167 mg/dL (70-110)
[2022-09-30] MEDS: INSULIN ASPART (NovoLOG) 100 UNIT/ML VIAL SQ SCH ×2 (06:44→11:59)
[2022-09-30] MEDS: PANTOPRAZOLE 40 MG TABLET PO SCH (06:44)
[2022-09-30] MEDS: methylPREDNISolone SOD SUCCI 125 MG/2 ML VIAL IV SCH ×2 (06:44→11:59)
--- NOTE | 2022-09-30 07:36 | XR ---
EXAMINATION TYPE: XR chest 1V portable DATE OF EXAM: 09/30/2022 COMPARISON: 09/27/2022 HISTORY: Shortness of breath TECHNIQUE: Single frontal view of the chest is obtained. FINDINGS: There is no focal air space opacity, pleural effusion, or pneumothorax seen. The cardiac silhouette size is within normal limits. The osseous structures are intact. IMPRESSION: No acute process.
[2022-09-30 08:44] VITALS: BP 144/77; TEMP 97.6
[2022-09-30] MEDS: DILTIAZEM CD 240 MG CAP.ER.24H PO SCH (08:46)
[2022-09-30] MEDS: MAGNESIUM OXIDE 400 MG TAB PO SCH (08:46)
[2022-09-30] MEDS: guaiFENesin 600 MG TABLET.ER PO SCH (08:46)
[2022-09-30] MEDS: APIXABAN 5 MG TAB PO SCH (08:46)
[2022-09-30] MEDS: SPIRONOLACTONE 25 MG TAB PO SCH (08:47)
[2022-09-30] MEDS: DOXYCYCLINE 100 MG CAP PO SCH (08:47)
[2022-09-30] MEDS: CHLORTHALIDONE 25 MG TAB PO SCH (08:47)
[2022-09-30 08:56] LABS: HCT 33.6 % (34.0-46.0); HGB 10.9 gm/dL (11.4-16.0); MCH 28.7 pg (25.0-35.0); MCHC 32.6 g/dL (31.0-37.0); MCV 87.9 fL (80.0-100.0); Mean Platelet Volume 7.8; Platelet Count 252 k/uL (150-450); RBC 3.82 m/uL (3.80-5.40); RDW 15.3 % (11.5-15.5); WBC 22.9 k/uL (3.8-10.6)
[2022-09-30 09:07] LABS: African American GFR (CKD) 57 (>60 ml/min/1.73 sqM); Anion Gap 6 mmol/L; Blood Urea Nitrogen 35 mg/dL (7-17); Carbon Dioxide 28 mmol/L (22-30); Chloride 99 mmol/L (98-107); Glucose 156 mg/dL (74-99); Non-African American GFR(CKD) 49 (>60 ml/min/1.73 sqM); Potassium 3.6 mmol/L (3.5-5.1); Sodium 133 mmol/L (137-145)
[2022-09-30] MEDS: SYMBICORT 160-4.5 MCG INHALER INHALATION SCH (09:07)
[2022-09-30] MEDS: ALBUTEROL NEBULIZED 2.5 MG/3 ML INHALATION SCH ×2 (09:07→12:34)
[2022-09-30] MEDS: IPRATROPIUM 0.5 MG/2.5 ML NEBU INHALATION SCH ×2 (09:08→12:34)
[2022-09-30 09:11] VITALS: PULSE 92
[2022-09-30 09:22] LABS: C Reactive Protein <0.5 mg/dL (<1.0)
--- NOTE | 2022-09-30 11:15 | P.PN ---
Subjective Progress Note Date: 09/30/22 HISTORY OF PRESENT ILLNESS: Patient examined this morning at the bedside. Patient denies chest pain or pressure. Patient continues to report shortness of breath although is improved from yesterday. Telemetry reveals atrial fibrillation with controlled ventricular rate. She remains on IV Cardizem. Vital signs are stable. 09/29/2022 Patient examined this morning. She is sitting up in the chair. Patient continues to report some shortness of breath. She states that she had to get out of bed this morning and set the chair secondary to shortness of breath. Patient continues to report a frequent cough. She was started on cough medication and Mucinex yesterday per internal medicine. She denies any chest pain or pressure. Telemetry reveals atrial fibrillation with controlled ventricular rates between 60 and 80. Vital signs are stable. 09/30/2022 Patient examined this morning at the bedside. Patient denies chest pain or pressure. She denies shortness of breath which she states she is feeling much better in comparison to yesterday. Telemetry reveals atrial fibrillation with controlled ventricular rate. Patient is hoping to be discharged home today. PHYSICAL EXAM: VITAL SIGNS: Reviewed. GENERAL: Well-developed in no acute distress. NECK: Supple. No JVD or thyromegaly LUNGS: Respirations even and unlabored. Lungs diminished to auscultation bilaterally. HEART: Irregular rate and rhythm. S1 and S2 heard. EXTREMITIES: Normal range of motion. No clubbing or cyanosis. Peripheral pulses intact. No lower extremity edema ASSESSMENT: Acute asthma exacerbation Acute hypoxic respiratory failure, secondary to above Persistent atrial fibrillation with RVR, currently rate controlled History of failed cardioversion Recent upper respiratory infection History of hypertension PLAN: Continue telemetry monitoring Continue current dose of Cardizem CD Pulmonary following Plan for pulmonary vein isolation in approximately one month with Dr. 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 Gomez Stable for discharge home today from a cardiac standpoint Nurse practitioner note has been reviewed by physician. Signing provider agrees with the documented findings, assessment, and plan of care. Objective - Vital Signs Vital signs: Vital Signs Temp 97.6 F 09/30/22 08:39 Pulse 92 09/30/22 09:29 Resp 18 09/30/22 08:39 BP 144/77 09/30/22 08:39 Pulse Ox 97 09/30/22 08:39 FiO2 50 09/27/22 16:37 Intake & Output 09/29/22 09/30/22 09/30/22 18:59 06:59 18:59 Intake Total 1041 318 Balance 1041 318 Intake: IV 15 Invasive Line 1 10 Invasive Line 2 5 Intake, IV Titration 250 Amount Azithromycin 500 mg In 250 Sodium Chloride 0.9% 250 ml @ 250 mls/hr IVPB DAILY [facility] Rx#:[id number] Oral 776 [id number] Other: Voiding Method Toilet Toilet Toilet # Voids 2 1 1 - Labs CBC & Chem 7: 09/30/22 08:40 09/30/22 08:40 Labs: Abnormal Lab Results - Last 24 Hours (Table) 09/29/22 09/29/22 09/29/22 Range/Units 11:20 16:15 20:03 WBC (3.8-10.6) k/uL Hgb (11.4-16.0) gm/dL Hct (34.0-46.0) % Sodium (137-145) mmol/L BUN (7-17) mg/dL Creatinine (0.52-1.04) mg/dL Glucose (74-99) mg/dL POC Glucose (mg/dL) 212 H 168 H 163 H (70-110) mg/dL 09/30/22 09/30/22 09/30/22 Range/Units 05:57 08:40 08:40 WBC 22.9 H (3.8-10.6) k/uL Hgb 10.9 L (11.4-16.0) gm/dL Hct 33.6 L (34.0-46.0) % Sodium 133 L (137-145) mmol/L BUN 35 H (7-17) mg/dL Creatinine 1.17 H (0.52-1.04) mg/dL Glucose 156 H (74-99) mg/dL POC Glucose (mg/dL) 167 H (70-110) mg/dL Microbiology - Last 24 Hours (Table) 09/26/22 19:52 Blood Culture - Preliminary Blood No Growth after 72 hours 09/26/22 19:32 Blood Culture - Preliminary Blood No Growth after 72 hours
--- NOTE | 2022-09-30 11:17 | P.DS ---
Providers Date of admission: 09/26/22 20:49 Attending physician: Rajeev Gonzales MD Consults: 09/26/22 20:47 Consult Physician Routine Consulting Provider: Prakash Farias Consult Reason/Comments: Severe asthma exacerbation Do you want consulting provider notified?: Yes Consult Physician Routine Consulting Provider: Akshat Espinosa Consult Reason/Comments: A. fib with RVR Do you want consulting provider notified?: Yes Primary care physician: Lc Krueger [facility] Course: 66-year-old white female with past medical history significant for bronchial asthma, obstructive sleep apnea with an AHI of 67 and CPAP, paroxysmal atrial fibrillation anticoagulated on Eliquis, previous cardioversions and ablations, hypertension, ex-smoker. Patient has been experiencing upper respiratory tract infection like symptoms of sore throat, nasal congestion, nonproductive cough, and shortness of breath over the last week. She did try to go to her primary care provider, and was given doxycycline on . There wass no improvement in her symptoms, and she had to call EMS yesterday for difficulty breathing. On arrival, patient was found to be hypoxic with an SpO2 of around 80 percent. Patient was also reporting some substernal chest pain, and was found to be in atrial fibrillation with rapid ventricular rate. Patient was still in A. fib RVR on arrival to the emergency room, and was initiated on a Cardizem infusion at 5 mg per hour. She is anticoagulated on Eliquis. Chest x-ray on arrival showed no acute cardiopulmonary process. She was initially placed on BiPAP settings 14/5 and 50%. Patient's CBC on arrival shows a WBC count of 25.2, hemoglobin 12.8, hematocrit 39.9, platelets 362,000. Patient's BMP on arrival shows sodium 136, potassium 4, chloride 11, serum CO2 19, BUN 33, creatinine 1.19, glucose 265. Patient's lactic was elevated on arrival at 6.5, and is down to 4.6 after 1 L normal saline bolus. I did give an additional 500 ML normal saline bolus. Patient currently has no antibiotic coverage. He is receiving bronchodilators and IV Solu-Medrol. Patient was treated with azithromycin, during the hospital stay patient was seen by cardiology and pulmonary medicine Patient was given prescription for doxycycline upon discharge, patient was given prescription for Symbicort, chlorthalidone Patient was treated with IV Solu-Medrol and transitioned to oral prednisone prescription provided Assessment: ASSESSMENT: * Acute asthma exacerbation * Acute hypoxic respiratory failure, secondary to above * Persistent atrial fibrillation with RVR, currently rate controlled History of failed cardioversion * Recent upper respiratory infection * History of hypertension Home medications continued, patient given prescription for Symbicort, patient given prescription for prednisone, was treated with azithromycin while inpatient as well Patient was weaned to room air For atrial fibrillation currently under treatment with Cardizem and and ELIQUIS Prescription for chlorthalidone provided Elevated white cell count noted secondary to steroid use Patient Condition at Discharge: Fair Plan - Discharge Summary Discharge Rx Participant: No New Discharge Prescriptions: New Chlorthalidone [Hygroton] 25 mg PO DAILY #30 tab predniSONE [Deltasone] 40 mg PO DAILY 5 Days #10 tab guaiFENesin [Mucinex] 1,200 mg PO Q12HR #10 tab Doxycycline [Vibramycin] 100 mg PO BID 4 Days #8 cap Continue Magnesium Oxide [Thao] 500 mg PO DAILY Zinc Sulfate [Orazinc] 220 mg PO DAILY #30 cap Acetaminophen Tab [Tylenol] 650 mg PO Q6HR PRN tab PRN Reason: Mild Pain Or Fever > 100.5 Ascorbic Acid [Vitamin C] 1,000 mg PO DAILY #60 tab Albuterol Inhaler [Ventolin Hfa Inhaler] 2 puff INHALATION RT-Q4H PRN #2 gm PRN Reason: Shortness Of Breath [place]-3/Dha/Epa/Fish Oil [Fish Oil 1,000 mg Softgel] 1 cap PO DAILY Diltiazem Cd [Cardizem CD] 240 mg PO DAILY #30 cap Budesonide/Glycopyr/Formoterol [Breztri Aerosphere Inhaler] 2 puff INHALATION RT-BID Rosuvastatin [Crestor] 10 mg PO HS Montelukast Sodium [Singulair] 10 mg PO HS Apixaban [Eliquis] 5 mg PO BID Cholecalciferol [Vitamin D3 (125 Mcg = 5000 Iu)] 125 mcg PO DAILY #20 tab Spironolactone [Aldactone] 25 mg PO DAILY #30 tab Discontinued Azithromycin [Zithromax Tri-David (3 tabs)] 500 mg PO DAILY 3 Days #3 tab predniSONE See Taper PO DIRECTED Ipratropium-Albuterol Nebulize [Duoneb 0.5 mg-3 mg/3 ml Soln] 3 ml INHALATION RT-QID PRN PRN Reason: Shortness Of Breath Discharge Medication List Apixaban [Eliquis] 5 mg PO BID 06/08/22 [History] Magnesium Oxide [Thao] 500 mg PO DAILY 06/08/22 [History] Montelukast Sodium [Singulair] 10 mg PO HS 06/08/22 [History] Rosuvastatin [Crestor] 10 mg PO HS 06/08/22 [History] Acetaminophen Tab [Tylenol] 650 mg PO Q6HR PRN tab 07/04/22 [Rx] Albuterol Inhaler [Ventolin Hfa Inhaler] 2 puff INHALATION RT-Q4H PRN #2 gm 07/04/22 [Rx] Ascorbic Acid [Vitamin C] 1,000 mg PO DAILY #60 tab 07/04/22 [Rx] Cholecalciferol [Vitamin D3 (125 Mcg = 5000 Iu)] 125 mcg PO DAILY #20 tab 07/04/22 [Rx] Zinc Sulfate [Orazinc] 220 mg PO DAILY #30 cap 07/04/22 [Rx] [place]-3/Dha/Epa/Fish Oil [Fish Oil 1,000 mg Softgel] 1 cap PO DAILY 08/15/22 [History] Diltiazem Cd [Cardizem CD] 240 mg PO DAILY #30 cap 09/25/22 [Rx] Spironolactone [Aldactone] 25 mg PO DAILY #30 tab 09/25/22 [Rx] Budesonide/Glycopyr/Formoterol [Breztri Aerosphere Inhaler] 2 puff INHALATION RT-BID 09/26/22 [History] Chlorthalidone [Hygroton] 25 mg PO DAILY #30 tab 09/30/22 [Rx] Doxycycline [Vibramycin] 100 mg PO BID 4 Days #8 cap 09/30/22 [Rx] guaiFENesin [Mucinex] 1,200 mg PO Q12HR #10 tab 09/30/22 [Rx] predniSONE [Deltasone] 40 mg PO DAILY 5 Days #10 tab 09/30/22 [Rx] Follow up Appointment(s)/Referral(s): Lc Krueger MD [Primary Care Provider] - 1 Week None,Stated [REFERRING] - 1-2 days Activity/Diet/Wound Care/Special Instructions: Continue cardiac diet, Finish course of antibiotic Follow-up with primary care physician
[2022-09-30 11:27] LABS: Glucose,Whole Blood 152 mg/dL (70-110)
--- NOTE | 2022-09-30 11:39 | P.PN ---
Subjective Progress Note Date: 09/30/22 Principal diagnosis: Acute asthma exacerbation and acute tracheobronchitis I'm seeing this patient in new consultation today 09/27/2022 for acute asthma exacerbation. Patient is a 66-year-old white female with past medical history significant for bronchial asthma, obstructive sleep apnea with an AHI of 67 and CPAP, paroxysmal atrial fibrillation anticoagulated on Eliquis, previous cardioversions and ablations, hypertension, ex-smoker. Patient has been experiencing upper respiratory tract infection like symptoms of sore throat, nasal congestion, nonproductive cough, and shortness of breath over the last week. She did try to go to her primary care provider, and was given doxycycline on . There wass no improvement in her symptoms, and she had to call EMS yesterday for difficulty breathing. On arrival, patient was found to be hypoxic with an SpO2 of around 80 percent. Patient was also reporting some substernal chest pain, and was found to be in atrial fibrillation with rapid ventricular rate. Patient was still in A. fib RVR on arrival to the emergency room, and was initiated on a Cardizem infusion at 5 mg per hour. She is anticoagulated on Eliquis. Chest x-ray on arrival showed no acute cardiopulmonary process. She was initially placed on BiPAP settings 14/5 and 50%. Patient's CBC on arrival shows a WBC count of 25.2, hemoglobin 12.8, hematocrit 39.9, platelets 362,000. Patient's BMP on arrival shows sodium 136, potassium 4, chloride 11, serum CO2 19, BUN 33, creatinine 1.19, glucose 265. Patient's lactic was elevated on arrival at 6.5, and is down to 4.6 after 1 L normal saline bolus. I did give an additional 500 ML normal saline bolus. Patient currently has no antibiotic coverage. He is receiving bronchodilators and IV Solu-Medrol. Patient is currently sitting up in bed, on room air, fairly comfortable. There are signs of fluid overload, patient's lower extremities have pitting edema and NT proBNP is 2300. Most recent echocardiogram done on 06/09/2022 shows a preserved ejection fraction of 55-60% with mild mitral and tricuspid regurgitation. Troponins negative 1. Vital signs are stable. Reevaluated today on 09/28/2022, patient is feeling better today, breathing easier, less shortness of breath, less cough, less wheezing. Remains on oxygen, antibiotics, DuoNeb, Solu-Medrol, and Symbicort. WBC count is down to 15.2 hemoglobin is 11.4. Basic metabolic profile is normal renal profile is normal, pro-calcitonin is normal, BNP is a bit elevated at 2300 Reevaluated today on 09/29/2022, patient is steadily improving, but not back to her baseline. Less cough and less wheezing less shortness of breath, on physica l examination she has some diminished breath sounds at the bases with slight wheezing on the right side on forced expiratory maneuver. CBC today showed leukocytosis with WBC of 23.4 hemoglobin is 11.3 and a class are normal renal profile is normal. Considering the significant rise in her WBC count, I'm recommending a repeat chest x-ray to be done in a.m. Reevaluated today on 10/10/2022 patient is doing well, occasional cough no wheezing no shortness of breath no chest pain. No hemoptysis. At this point considering her clinical findings and symptoms I will clear the patient to be discharged home in follow-up on outpatient basis Objective - Vital Signs Vital signs: Vital Signs Temp 97.6 F 09/30/22 08:39 Pulse 92 09/30/22 09:29 Resp 18 09/30/22 08:39 BP 144/77 09/30/22 08:39 Pulse Ox 97 09/30/22 08:39 FiO2 50 09/27/22 16:37 Intake & Output 09/29/22 09/30/22 09/30/22 18:59 06:59 18:59 Intake Total 1041 318 Balance 1041 318 Intake: IV 15 Invasive Line 1 10 Invasive Line 2 5 Intake, IV Titration 250 Amount Azithromycin 500 mg In 250 Sodium Chloride 0.9% 250 ml @ 250 mls/hr IVPB DAILY [facility] Rx#:[id number] Oral [id number] Other: Voiding Method Toilet Toilet Toilet # Voids 2 1 1 - Exam Physical Exam: Revealed 66-year-old female in no distress slightly anxious. Head: Atraumatic, normocephalic. HEENT:[Neck is supple.] [No neck masses.] [No thyromegaly.] [No JVD.] Chest: No crackles or rhonchi or wheezes Cardiac Exam: [Normal S1 and S2, no S3 gallop, no murmur.] Abdomen: [Soft, nontender, no megaly, no rebound, no guarding, normal bowel sounds.] Extremities: [No clubbing, 2+ bipedal edema, no cyanosis.] Neurological Exam: [No focal neurologic deficit.] Alert oriented 3. Psychiatric: Normal mood affect and normal mental status exam. Skin: No rashes. - Labs CBC & Chem 7: 09/30/22 08:40 09/30/22 08:40 Labs: Abnormal Lab Results - Last 24 Hours (Table) 09/29/22 09/29/22 09/30/22 Range/Units 16:15 20:03 05:57 WBC (3.8-10.6) k/uL Hgb (11.4-16.0) gm/dL Hct (34.0-46.0) % Sodium (137-145) mmol/L BUN (7-17) mg/dL Creatinine (0.52-1.04) mg/dL Glucose (74-99) mg/dL POC Glucose (mg/dL) 168 H 163 H 167 H (70-110) mg/dL 09/30/22 09/30/22 09/30/22 Range/Units 08:40 08:40 11:24 WBC 22.9 H (3.8-10.6) k/uL Hgb 10.9 L (11.4-16.0) gm/dL Hct 33.6 L (34.0-46.0) % Sodium 133 L (137-145) mmol/L BUN 35 H (7-17) mg/dL Creatinine 1.17 H (0.52-1.04) mg/dL Glucose 156 H (74-99) mg/dL POC Glucose (mg/dL) 152 H (70-110) mg/dL Microbiology - Last 24 Hours (Table) 09/26/22 19:52 Blood Culture - Preliminary Blood No Growth after 72 hours 09/26/22 19:32 Blood Culture - Preliminary Blood No Growth after 72 hours Assessment and Plan Assessment: Impression: Acute hypoxic respiratory failure secondary to acute asthma exacerbation History of mild persistent asthma Obstructive sleep apnea syndrome apnea hypoxia index of 67 patient is not compliant with her CPAP machine at home Leukocytosis, improving Acute tracheobronchitis, no clear-cut evidence of pneumonia Paroxysmal atrial fibrillation, rate controlled, patient is on eliquis Chronic kidney disease stage III. History of failed cardioversion Benign essential hypertension Recommendation: Reviewed chest x-ray in a.m., basically unremarkable. Continue present course of bronchodilators Therefore discharged home today.. Medications were all reviewed and no changes made Continue updrafts Continue Symbicort Prednisone burst taper on outpatient basis. Follow-up in the office in the next one week. Time with Patient: Less than 30
== END 2022-09-30 12:56 | disposition home health service (06) | DRG 202 ==
LOC: EC 19:31 → 3SCARD 20:49
PROVIDERS: ADMIT Internal Medicine; ATTEND Internal Medicine
DX: J45.31 Mild persistent asthma with (acute) exacerbation (principal); J96.01 Acute respiratory failure with hypoxia; I48.19 Other persistent atrial fibrillation; J44.0 Chronic obstructive pulmonary disease with (acute) lower respiratory infection; J44.1 Chronic obstructive pulmonary disease with (acute) exacerbation; E66.9 Obesity, unspecified; N18.30 Chronic kidney disease, stage 3 unspecified; J20.9 Acute bronchitis, unspecified; E11.22 Type 2 diabetes mellitus with diabetic chronic kidney disease; E78.2 Mixed hyperlipidemia; G47.33 Obstructive sleep apnea (adult) (pediatric); M81.0 Age-related osteoporosis without current pathological fracture; T38.0X5A Adverse effect of glucocorticoids and synthetic analogues, initial encounter; Z79.51 Long term (current) use of inhaled steroids; Z79.01 Long term (current) use of anticoagulants; Z79.899 Other long term (current) drug therapy; I10 Essential (primary) hypertension; J06.9 Acute upper respiratory infection, unspecified; Z91.199 Patient's noncompliance with other medical treatment and regimen due to unspecified reason; Z91.018 Allergy to other foods; Z88.8 Allergy status to other drugs, medicaments and biological substances; Z98.51 Tubal ligation status; Z91.040 Latex allergy status
CPT/HCPCS: 36415; 71045; 80048; 80053; 82803; 83036; 83605; 83735; 83880; 84145; 84484; 85025; 85027; 85610; 85730; 86140; 87040; 93005; 94640; 94644; 94660; 94760; 96361; 96365; 96366; 96375; 96376; 99291

== ENCOUNTER → 2022-11-14 | Outpatient (CLI) | payer MEDICARE ==
[2022-11-14 15:21] LABS: HCT 40.5 % (37.2-46.3); HGB 12.6 g/dL (12.0-15.0); MCHC 31.1 g/dL (32.0-37.0); MCV 93.3 fL (80.0-97.0); Mean Platelet Volume 10.9 fL (9.5-12.2); NRBC Per 100 WBC 0 /100 WBCS (0.0-0.0); Platelet Count 226 X 10*3/uL (140-440); RBC 4.34 X 10*6/uL (4.10-5.20); RDW 15.8 % (11.5-14.5); WBC 7.29 X 10*3/uL (4.50-10.00)
[2022-11-14 16:02] LABS: African American GFR (CKD) 49.5 (60.0-200.0); Anion Gap 10.4 mmol/L (10.00-18.00); Blood Urea Nitrogen 16.4 mg/dL (9.0-27.0); Carbon Dioxide 29.6 mmol/L (20.0-27.5); Non-African American GFR(CKD) 42.7 (60.0-200.0); Potassium 4.3 mmol/L (3.5-5.5)
== END ==
LOC: LABPAT 10:16
PROVIDERS: ATTEND Internal Medicine Clinical Cardiac Electrophysiology
DX: I48.19 Other persistent atrial fibrillation (principal); Z01.818 Encounter for other preprocedural examination
CPT/HCPCS: 80051; 82565; 84520; 85027

== ENCOUNTER 2022-12-06 11:13 | Day surgery (SDC) | payer MEDICARE ==
[~2022-12-06 11:13] MED LIST: LACTATED RINGERS 1,000 ML IV SCH; SODIUM CHLORIDE 0.9% 1,000 ML IV SCH
[2022-12-06] MEDS ORDERED: PROPOFOL 10 MG/ML 20 ML VIAL IV ONE (14:25)
[2022-12-06] MEDS ORDERED: MIDAZOLAM 2 MG/2 ML VIAL ONE (14:25)
[2022-12-06] MEDS ORDERED: SUCCINYLCHOLINE CHLORIDE 200 MG/10 ML VIAL IV ONE (14:25)
[2022-12-06] MEDS ORDERED: PROTAMINE SULFATE 10 MG/ML 5 ML VIAL IV ONE (14:25)
[2022-12-06] MEDS ORDERED: ALBUTEROL HFA INHALER INHALATION ONE (14:25)
[2022-12-06] MEDS ORDERED: fentaNYL (PF) 50 MCG/ML 2 ML AMP ONE (14:25)
[2022-12-06] MEDS ORDERED: ROCURONIUM 10 MG/ML (5 ML VIAL) IV ONE (14:25)
[2022-12-06] MEDS ORDERED: LIDOCAINE 2% INJ 20 MG/ML (2 ML VIAL) ONE (14:25)
[2022-12-06] MEDS ORDERED: HEPARIN SODIUM,PORCINE 10,000 UNIT/ML 1 ML VIAL ONE (14:25)
[2022-12-06] MEDS ORDERED: LIDOCAINE 1% INJ 10MG/ML (30 ML VIAL-PF) SQ ONE (15:04)
[2022-12-06] MEDS ORDERED: HEPARIN SOD,PORK IN 0.45% NACL 25,000 UNIT in 0.45% NACL 1 250ML.BAG IV ONE (15:06)
[2022-12-06] MEDS ORDERED: IOPAMIDOL-250 100ML BTL IV ONE (17:08)
[2022-12-06] MEDS ORDERED: HEPARIN SODIUM (1,000 UNIT/ML) 1,000 UNIT in SODIUM CHLORIDE 0.9% 1,000 ML IRRIGATION ONE (17:57)
--- NOTE | 2022-12-06 19:55 | P.HPCAR ---
History of Present Illness This is Dr. Carey dictating an H/P on this patient The patient was interviewed and examined IMPRESSION / ASSESSMENT: Persistent atrial fibrillation, failed treatment Status post successful atrial flutter ablation at [place] A. fib ablation was not performed at [place]: Thick lipomatous septum, inability to to performed transseptal access at [place] Very symptomatic Multiple ALLERGIES including metoprolol History of hypertension Normal stress test PLAN: Proceed with it intracardiac echo, assessment of the fossa ovalis transseptal catheterization and if successful then proceed with A. fib ablation Patient is stable from a cardiovascular standpoint today HPI Patient complains of being short of breath tiredness and fatigue No dizziness no loss of consciousness no orthopnea No chest pain ROS: No fever chills or rigors, no cough, phlegm or expectoration, no nausea, vomiting or diarrhea, no hematuria, dysuria, no musculoskeletal complaints, no strokes or seizures, no skin lesions. EXAMINATION: Pulse rate 134 beats a minute afebrile 97.9F, lungs are clear no rhonchi no crackles Heart sounds irregular but no murmurs No lower extremity edema REVIEW OF LABS, ECG & MEDICAL DATA home medications included Aldactone rosuvastatin magnesium diltiazem ELIQUIS omega-3, Lasix Physical Exam Vitals: Vital Signs Temp Pulse Resp BP Pulse Ox 12/06/22 11:49 97.9 F 134 H 18 131/88 98 Intake and Output 12/06/22 12/06/22 12/06/22 06:59 14:59 22:59 Intake Total 700 583.4 Balance 700 583.4 Intake: IV 700 583.4 Other: Weight 77.5 kg Past Medical History Past Medical History: Atrial Fibrillation, Asthma, Hypertension, Osteoarthritis (OA), Pneumonia, Renal Disease, Sleep Apnea/CPAP/BIPAP Additional Past Medical History / Comment(s): 2019 pneumonia and sepsis when living in [place], had pneumonia in Jun, decreased kidney function, uses CPAP, see Dr. Carey H & P History of Any Multi-Drug Resistant Organisms: None Reported Past Surgical History: Adenoidectomy, Cardiac Ablation, Section, Orthopedic Surgery, Tonsillectomy, Tubal Ligation Additional Past Surgical History / Comment(s): cardioversion x3, 2011 left ankle plate and screws Past Anesthesia/Blood Transfusion Reactions: No Reported Reaction Smoking Status: Former smoker - Past Family History Mother History Unknown: Yes Family Medical History: AFIB, Hyperlipidemia, Hypertension, Thyroid Disorder Additional Family Medical History / Comment(s): stroe, afib, pacemaker, DM, OA, Brother(s) History Unknown: Yes Family Medical History: Cancer Additional Family Medical History / Comment(s): colon ca Father History Unknown: Yes Family Medical History: GI Bleed Additional Family Medical History / Comment(s): cirrhosis, emphysema Physical Examination Vital Signs Temp Pulse Resp BP Pulse Ox 12/06/22 11:49 97.9 F 134 H 18 131/88 98 Intake and Output 12/06/22 12/06/22 12/06/22 06:59 14:59 22:59 Intake Total 700 583.4 Balance 700 583.4 Intake: IV 700 583.4 Other: Weight 77.5 kg Results Current Medications Generic Name Dose Route Start Last Admin Trade Name Freq PRN Reason Stop Dose Admin Sodium Chloride 1,000 mls @ 50 mls/hr 12/06/22 06:04 12/06/22 11:50 Saline 0.9% IV 01/05/23 06:05 700 mls .Q20H PATTIE Administration Lactated Ringer's 1,000 mls @ 20 mls/hr 12/06/22 06:04 Lactated Ringers IV 01/05/23 06:05 .Q24H PATTIE Lactated Ringer's 1,000 mls @ 20 mls/hr 12/06/22 06:04 Lactated Ringers IV 01/05/23 06:05 .Q24H PATTIE Intake and Output 12/06/22 12/06/22 12/06/22 06:59 14:59 22:59 Intake Total 700 583.4 Balance 700 583.4 Intake: IV 700 583.4 Other: Weight 77.5 kg Patient Weight 12/07/22 06:59 Weight 77.5 kg
--- NOTE | 2022-12-06 20:05 | P.EPPROC ---
- EP Procedure Note Electrophysiology Procedure Note: PROCEDURE A. fib ablation with successful isolation of all pulmonary veins, urinary ablation left atrial roof and linear ablation in the left atrial ridge between the appendage and the left-sided pulmonary veins DIAGNOSIS Persistent Atrial fibrillation, symptomatic, refractory to therapy RESULT No left atrial appendage mass seen on intracardiac echo Very large coronary sinus Very thick lipomatous interatrial septum, extremely diminutive fossa ovalis posteriorly Anteriorly the fossa ovalis was more accessible Successful transseptal catheterization, but extremely difficult on account of the intra-atrial septal anatomy and cardiac rotation and size of the coronary sinus Successful A. fib ablation/pulmonary vein isolation of all veins using cryo- ablation Complete entrance block in all 4 veins confirmed Phrenic nerve paresis during our IPV cryoablation Switched to RF ablation for the right-sided veins with successful isolation Successful ablation of the roof with cryoablation Successful ablation of the left atrial ridge with RF ablation Esophageal deflection YES Electrical cardioversion with a synchronized shock across the chest YES PROCEDURE DETAILS Written informed consent prior to procedure. Patient brought to the EP lab. General anesthesia given. Heparin administered. A city maintained above 300 seconds Both groins prepped and draped per protocol and venous sheaths placed. Esophagus intubated, circa catheter for temperature monitoring an endoscope for possible esophageal deflection. Phrenic nerve monitoring performed. Esophageal temperature monitoring performed. Esophageal deflection performed if circa catheter overlapping with the balloon or circa temperature less than 27.5C Intracardiac echocardiography performed. Pericardium evaluated. Left atrial appendage evaluated. Left atrium evaluated along with pulmonary veins Transseptal catheterization performed under fluoroscopic guidance and intracardiac echo guidance Cryoablation sheath exchanged, balloon catheter along with achieve catheter placed in the left atrium. Pulmonary veins isolated in the following sequence: Left superior pulmonary vein followed by left inferior pulmonary vein, followed by right inferior pulmonary vein Phrenic nerve paresis noted at 94 seconds with prior ablation of the upper branch of the our IPV Rapid complete recovery Phrenic nerve paresis during ablation of the lower branch of the our IPV, full recovery in 30 minutes RF ablation employed to isolate the right-sided pulmonary veins at an antral level Successful electrical cardioversion performed prior to RF ablation. RF ablation performed in sinus rhythm Phrenic nerve mapping in detail with CARTO mapping Phrenic nerve along the anterior os/antrum of the right-sided veins and of the roverto. Phrenic nerve stimulation along with capture thresholds within the SVC and right superior pulmonary vein to identify the phrenic nerve proximity to the cryo- balloon. Pulmonary veins isolated and confirmed with entrance and exit block. Phrenic nerve integrity confirmed at the end of the procedure Ablation of the left atrial roof performed with sequential lesions from the left superior to the right superior pulmonary veins. Ablation of the electrograms confirmed Ablation of the left atrial ridge performed successfully, between the left atrial appendage and the left-sided veins Diagnostic catheters for the high right atrium, His bundle, coronary sinus placed. LA and RA pressures recorded RA pressure: 07/04/13 LA pressure: Diagnostic EP study with coronary sinus pacing and recording Baseline measurements: Sinus cycle length 707 13 ms, MT interval 143 ms, QRS 101 ms and QT interval 370 ms AH 61, HV 37 Venous sheaths were removed and hemostasis assured with a closure device. Patient extubated and transferred to recovery Increase procedural time During ablation multiple attempts had to be made to move the esophagus a safe distance of the from the pulmonary vein draining cryoablation, to avoid excessive thermal cooling of the esophagus This took extra time and effort to keep the esophagus a safe distance away from the cryoablation balloon. Phrenic nerve paresis noted during RIPV cryoablation. Complete recovery within 30 minutes Therefore we switched to RF ablation at an antral level Prior to this the phrenic nerve was mapped in detail and was coursing along the anterior os/antrum of the right-sided veins and roverto We had to wait at least 30 minutes for complete recovery before proceeding Transseptal access was extremely difficult on account of a very thick lipomatous interatrial septum with a very diminutive fossa ovalis It took 90 minutes to perform successful transseptal access of the left atrium due to cardiac rotation, very large size of the coronary sinus and a very thick lipomatous interatrial septum with a very small fossa ovalis A more anterior access was obtained successfully, avoiding the aortic root The patient tolerated the procedure well without any acute complications No pericardial effusion the end of the procedure Complete recovery of the phrenic nerve confirmed once again at the end of the procedure PROCEDURES PERFORMED Diagnostic EP study CS pacing and recording Left and right transseptal catheterization Catheter the mapping of the tachycardia Intracardiac echocardiography Pulmonary vein isolation with transseptal and comprehensive EPS, [id number] Extended procedure duration Left atrial roof line, +[id number] Linear ablation, left atrium ridge, +[id number] Electrical cardioversion with a synchronized shock across the chest [id number]
--- NOTE | 2022-12-06 20:08 | P.PRLE ---
RE: Chelsea Layne Dear Lc Tran underwent successful ablation for atrial fibrillation. She had an attempted AF ablation performed in [place] but on account of severe cardiac rotation, a very large coronary sinus and a very thick into atrial septum with lipomatous hypertrophy and a very diminutive fossa ovalis, the physicians in [place] were unable to perform the transseptal access Since she was asymptomatic we brought her back to the EP lab here. However her anatomy was extremely challenging and it took us almost 90 minutes to cross the fossa ovalis. We did so successfully and then performed successful ablation of the pulmonary veins left atrial roof and the left atrial ridge She should continue anticoagulation I would recommend stopping fish oil since this is so severe with increased risk of atrial fibrillation as well as increased bleeding risk Thank you for entrusting me with the care of the patient Warm regards Sincerely Kan Carey
[2022-12-06] MEDS ORDERED: ALBUTEROL NEBULIZED 2.5 MG/3 ML INHALATION PRN (20:09)
[2022-12-06] MEDS ORDERED: KETOROLAC 15 MG/ML 1 ML VIAL IVP ONE (20:50)
[2022-12-06] MEDS ORDERED: ACETAMINOPHEN IV (For NPO) 1,000 MG/100 ML VIAL IVPB ONE (20:56)
[2022-12-06] MEDS ORDERED: MONTELUKAST 10 MG TAB PO SCH (21:00)
[2022-12-06] MEDS ORDERED: ATORVASTATIN 20 MG TAB PO SCH (21:00)
[2022-12-06] MEDS ORDERED: HYDROmorphone 0.5 MG/0.5 ML SYRINGE IVP ONE (21:23)
[2022-12-06] MEDS: SYMBICORT 160-4.5 MCG INHALER INHALATION SCH (22:01)
[2022-12-06] MEDS: APIXABAN 5 MG TAB PO SCH (22:21)
--- NOTE | 2022-12-07 07:54 | P.DS ---
Providers Attending physician: Kan Carey Primary care physician: Lc Krueger [place] [facility] Course: Patient is doing well. No chest discomfort minimal sore throat No dizziness lightheadedness Groins of healed well mild tenderness but no hematoma On examination, blood pressure 117/76 milligrams his mercury afebrile Normal heart sounds normal S1 normal S2 Clear lungs equal air entry bilaterally Abdomen soft Impression Persistent atrial fibrillation, failed attempted ablation in and out of [facility] on account of an extremely thick, lipomatous intra-atrial septum with a very small fossa ovalis, a very large coronary sinus and cardiac rotation Difficult but Successful transseptal followed by pulmonary vein isolation, linear ablation in the left atrial roof and left atrial ridge followed by electrical cardioversion Transient phrenic nerve paresis with RIPV cryoablation with full recovery requiring switching over the RF ablation from cryoablation Complete recovery of phrenic nerve function before the end of the procedure Plan Incentive spirometry, one dose of IV Lasix today, patient instructed to perform deep breathing inhalation exercises Ambulate around in the room up in a chair Stop fish oil, increase risk of atrial fibrillation and increased bleeding risk Hold diltiazem until seen in the office Continue anticoagulation Discharge home in the evening today if hemodynamically stable Plan - Discharge Summary Discharge Rx Participant: No New Discharge Prescriptions: Discontinued [place]-3/Dha/Epa/Fish Oil [Fish Oil 1,000 mg Softgel] 1 cap PO DAILY Diltiazem Cd [Cardizem CD] 240 mg PO DAILY #30 cap No Action Magnesium Oxide [Thao] 500 mg PO DAILY Zinc Sulfate [Orazinc] 220 mg PO DAILY #30 cap Acetaminophen Tab [Tylenol] 650 mg PO Q6HR PRN tab PRN Reason: Mild Pain Or Fever > 100.5 Ascorbic Acid [Vitamin C] 1,000 mg PO DAILY #60 tab Albuterol Inhaler [Ventolin Hfa Inhaler] 2 puff INHALATION RT-Q4H PRN #2 gm PRN Reason: Shortness Of Breath Budesonide-Formot 160-4.5 Mcg [Symbicort 160-4.5 Mcg Inhaler] 2 puff INHALATION BID Rosuvastatin [Crestor] 10 mg PO HS Montelukast Sodium [Singulair] 10 mg PO HS Apixaban [Eliquis] 5 mg PO BID Cholecalciferol [Vitamin D3 (125 Mcg = 5000 Iu)] 125 mcg PO DAILY #20 tab Spironolactone [Aldactone] 25 mg PO DAILY #30 tab Furosemide [Lasix] 40 mg PO DAILY Tizanidine(Unknown Dose) 1 tab PO HS PRN PRN Reason: Muscle Spasm Discharge Medication List Apixaban [Eliquis] 5 mg PO BID 06/08/22 [History] Magnesium Oxide [Thao] 500 mg PO DAILY 06/08/22 [History] Montelukast Sodium [Singulair] 10 mg PO HS 06/08/22 [History] Rosuvastatin [Crestor] 10 mg PO HS 06/08/22 [History] Acetaminophen Tab [Tylenol] 650 mg PO Q6HR PRN tab 07/04/22 [Rx] Albuterol Inhaler [Ventolin Hfa Inhaler] 2 puff INHALATION RT-Q4H PRN #2 gm 07/04/22 [Rx] Ascorbic Acid [Vitamin C] 1,000 mg PO DAILY #60 tab 07/04/22 [Rx] Cholecalciferol [Vitamin D3 (125 Mcg = 5000 Iu)] 125 mcg PO DAILY #20 tab 07/04/22 [Rx] Zinc Sulfate [Orazinc] 220 mg PO DAILY #30 cap 07/04/22 [Rx] Spironolactone [Aldactone] 25 mg PO DAILY #30 tab 09/25/22 [Rx] Budesonide-Formot 160-4.5 Mcg [Symbicort 160-4.5 Mcg Inhaler] 2 puff INHALATION BID 12/04/22 [History] Furosemide [Lasix] 40 mg PO DAILY 12/04/22 [History] Tizanidine(Unknown Dose) 1 tab PO HS PRN 12/04/22 [History] Follow up Appointment(s)/Referral(s): Juve Gomez DO [STAFF PHYSICIAN] - 1 Week Activity/Diet/Wound Care/Special Instructions: Post EP study - Ablation instructions 1. Keep access sites dry for 2 days. 2. No heavy lifting or straining for 2 days. 3. Avoid bending the hips repeatedly for 2 days. 4. You may go up and down stairs slowly Call if the following is noted 1. Bleeding, increasing swelling or pain at the access sites. 2. Increasing chest discomfort, especially upon taking a deep breath. 3. Increasing shortness of breath, at rest or with exertion. 4. Undue cough / phlegm 5. Difficulty or pain while swallowing. 6. Pain or change in color in the extremities. 7. Fever, chills, rigors. 8. Increasing headache or neurologic symptoms. 9. Dizziness, fainting, palpitations Stop fish oil Continue ELIQUIS Hold diltiazem until one-week follow-up Discharge Disposition: HOME SELF-CARE
[2022-12-07] MEDS ORDERED: FUROSEMIDE 10 MG/ML 4 ML VIAL IV STA (07:57)
[2022-12-07 08:16] VITALS: RESP 18; TEMP 97.9
[2022-12-07] MEDS: APIXABAN 5 MG TAB PO SCH (08:27)
[2022-12-07] MEDS: SYMBICORT 160-4.5 MCG INHALER INHALATION SCH (08:33)
[2022-12-07] MEDS ORDERED: SPIRONOLACTONE 25 MG TAB PO SCH (09:00)
[2022-12-07] MEDS ORDERED: FUROSEMIDE 10 MG/ML 4 ML VIAL IV SCH (09:00)
[2022-12-07] MEDS ORDERED: FUROSEMIDE 40 MG TAB PO SCH (09:00)
[2022-12-07] MEDS ORDERED: MAGNESIUM OXIDE 400 MG TAB PO SCH (09:00)
[2022-12-07 11:27] VITALS: BP 105/71; PULSE 82
== END 2022-12-07 15:21 | disposition home or self-care (01) ==
LOC: CATHEP 11:13 → 6NMEDSUR 19:36 → CATHEP 12-07 15:21
PROVIDERS: ATTEND Internal Medicine Clinical Cardiac Electrophysiology
DX: I48.19 Other persistent atrial fibrillation (principal); J45.909 Unspecified asthma, uncomplicated; I10 Essential (primary) hypertension; E78.5 Hyperlipidemia, unspecified; E07.9 Disorder of thyroid, unspecified; Z82.61 Family history of arthritis; M19.90 Unspecified osteoarthritis, unspecified site; Z82.49 Family history of ischemic heart disease and other diseases of the circulatory system; Z90.49 Acquired absence of other specified parts of digestive tract; Z98.51 Tubal ligation status; Z87.891 Personal history of nicotine dependence; Z83.49 Family history of other endocrine, nutritional and metabolic diseases; Z80.0 Family history of malignant neoplasm of digestive organs; Z83.79 Family history of other diseases of the digestive system
CPT/HCPCS: 94640 ×2; 94760; 93656; 93657; 86900; 86901; 86850; C1759; C1894 ×2; C1769 ×3; C1760; C1730 ×2; C1893; C1733; C1766; C1732; J2250; J0330; J2720; J1644 ×3; J1940; J2001 ×2; J3010; J0131; J1885; J2704; J1170; Q9966

== ENCOUNTER → 2023-01-30 | Outpatient (CLI) | payer MEDICARE ==
--- NOTE | 2023-01-30 17:47 | US ---
EXAMINATION TYPE: US kidneys/renal and bladder DATE OF EXAM: 01/30/2023 COMPARISON: NONE CLINICAL INDICATION: Female, 67 years old with history of N18.2 CHRONIC KIDNEY DISEASE, STAGE 2, M47. 16; Chronic kidney disease, stage 2. EXAM MEASUREMENTS: Right Kidney: 9.6 x 4.8 x 4.6 cm Left Kidney: 10.4 x 4.1 x 4.6 cm Right Kidney: No hydronephrosis or masses seen Left Kidney: Anechoic area seen lower pole: 1.4 x 1.5 x 1.3 cm. Bladder: Appears anechoic. Bilateral Jets seen: Only left jet seen during exam. No hydronephrosis, solid masses, or nephrolithiasis involving both kidneys. Cortical medullary differ entiation is maintained bilaterally. Simple cyst demonstrated within the lower pole of the left kidne y. There is bladder appears unremarkable and anechoic. The left ureteral jet is only visualized. IMPRESSION: 1. No hydronephrosis or nephrolithiasis. 2. Left renal simple cyst.
== END | disposition home or self-care (01) ==
LOC: RADUSWWP 16:27
PROVIDERS: ATTEND Internal Medicine
DX: N18.2 Chronic kidney disease, stage 2 (mild) (principal); N28.1 Cyst of kidney, acquired; M47.16 Other spondylosis with myelopathy, lumbar region
CPT/HCPCS: 76770

== ENCOUNTER → 2023-02-20 | Outpatient (CLI) | payer MEDICARE ==
--- NOTE | 2023-02-20 12:48 | BD ---
EXAMINATION TYPE: Axial Bone Density DATE OF EXAM: 02/20/2023 CLINICAL HISTORY: 67 years old Female. ICD-10 CODE: M85.851 osteopenia Height: 58.5 in Weight: 170 lbs FRAX RISK QUESTIONS: History of Fracture in Adulthood: lt ankle fx age 55, lt wrist fx age 63 RISK FACTORS HISTORY OF: History of Wrist Fracture: lt wrist fx age 63 Family History of Osteoporosis: yes mother Active: yes Postmenopausal woman: age 45 Frequent falls: yes weakness in legs MEDICATIONS: Additional Medications: vit d, asthma meds, blood pressure meds, a fib meds, diuretic meds, cholester ol meds, blood thinner, EXAM MEASUREMENTS: Bone mineral densitometry was performed using the [employer] System. Bone mineral density as measured about the Lumbar spine is: ----- L1-L4(G/cm2): 1.172 T Score Values are as follows: ----- L1: -0.7 ----- L2: -0.4 ----- L3: 0.6 ----- L4: 0.0 ----- L1-L4: -0.1 Z Score Values are as follows: ----- L1: 0.5 ----- L2: 0.8 ----- L3: 1.8 ----- L4: 1.2 ----- L1-L4: 1.1 Bone mineral density baseline Bone mineral density about the R hip (g/cm2): 0.986 Bone mineral density about the L hip (g/cm2): 0.884 T Score values are as follows: -----R Neck: -1.1 -----L Neck: -1.3 -----R Total: -0.2 -----L Total: -1.0 Z Score values are as follows: -----R Neck: 0.1 -----L Neck: 0.0 -----R Total: 0.8 -----L Total: 0.0 Bone mineral density baseline FRAX%s: The graph provided illustrates a 13.3% chance for a major osteoporotic fx and a 1.2% chance f or the hips probability for fx in 10 years time. IMPRESSION: Osteopenia (T Score between -2.5 and -1). There is slightly increased risk of fracture and the patient may be considered for treatment. Re-Screen 2-5 years. NOTE: T-SCORE=SD OF THE YOUNG ADULT MEAN.
--- NOTE | 2023-02-21 08:41 | MM ---
Reason for Exam: Screening (asymptomatic). Last mammogram was performed 1 year(s) and 5 month(s) ago. Patient History: Menarche at age 13. First Full-Term at age 22. Postmenopausal. Risk Values: [place] 5 year model risk: 1.5%. NCI Lifetime model risk: 5.4%. Prior Study Comparison: 02/17/2009 Bilateral Screening Mammogram, [facility]. 04/26/2020 Bilateral Screening Mammogram, [facility]. 09/08/2021 Bilateral Screening Mammogram, [facility]. Tissue Density: There are scattered fibroglandular densities. Findings: Analyzed By CAD. There is no suspicious group of microcalcifications or new suspicious mass in either breast. Stable chronic nodularity within the left breast. Overall Assessment: Benign, BI-RAD 2 Management: Screening Mammogram of both breasts in 1 year. A clinical breast exam by your physician is recommended on an annual basis and results should be correlated with mammographic findings. Note on Brooklyn scores and lifetime risk: 1. A [place] score greater than 3% is considered moderate risk. If this is the case, consider specialist referral to assess eligibility for a risk reducing agent. If overall lifetime risk for the development of breast cancer is 20% or higher, the patient may qualify for future screening with alternating mammogram and breast MRI. Electronically signed and approved by: Obi Cook D.O.
== END | disposition home or self-care (01) ==
LOC: RADMAMWWP 10:22
PROVIDERS: ATTEND Internal Medicine
DX: Z12.31 Encounter for screening mammogram for malignant neoplasm of breast (principal); Z78.0 Asymptomatic menopausal state; M85.89 Other specified disorders of bone density and structure, multiple sites
CPT/HCPCS: 77063; 77067; 77080

== ENCOUNTER → 2023-09-02 | Outpatient (CLI) | payer MEDICARE | END | disposition home or self-care (01) | LOC: LABWHC1 11:33 | PROVIDERS: ATTEND Internal Medicine Critical Care Medicine | DX: J45.50 Severe persistent asthma, uncomplicated (principal) | CPT/HCPCS: 36415; 82785; 85008; 86003 ==

== ENCOUNTER → 2023-09-16 | Outpatient (CLI) | payer MEDICARE ==
--- NOTE | 2023-09-17 22:58 | P.PCN ---
Date of Procedure: 09/16/23 Operative Findings: Home sleep study testing Date of services 09/16/2023 Pertinent history This is a 67-year-old female patient who carries a body mass in the of 34.1. The patient was referred to undergo a home sleep study to rule out underlying obstructive sleep apnea. The patient has history of severe obstructive sleep apnea with an AHI of 67 and the patient was being treated with CPAP pressure of 11 cm of water. She presented to the office and she wanted a reevaluation done. She has a history of paroxysmal atrial fibrillation and the patient has undergone cardiac ablation and the cardiac rhythm is sinus. She also has history of severe persistent bronchial asthma which has been under adequate control for now with a combination of Singulair and Symbicort. Pertinent physical findings The patient's height is 4 feet and 11 inches, weight is 169 pounds with a body mass index of 34.1 Technical description The [employer] system was used: Complete this type III home sleep study. The total recording duration was 8 hours and 27 minutes. The study started at 10:44 PM and ended at 7:11 AM. There was more than 8 hours of flow and oxygen saturation monitoring throughout the sleep study and as such this was an adequate study Results The respiratory analysis showed a total of 0 obstructive apneas and 9 obstructive hypopneas and the patient's AHI was 1.0. No significant oxygen saturations were encountered throughout the sleep study and the patient's baseline pulse ox was 98% and average pulse ox during sleep was 95% and lowest pulse ox was 91% Cardiac summary The average heart rate was 58 minimum heart rate of 52 and a maximum heart rate of 92 Assessment No evidence of any significant sleep breathing disorder. The patient's AHI is 1. No significant nocturnal oxygen desaturations. Noted the patient carries diagnosis of severe RENE and she was being treated with a CPAP at a pressure of 11 cm of water. This was done for reevaluation. Severe persistent bronchial asthma History of paroxysmal atrial fibrillation post ablation the patient's cardiac rhythm is sinus Plan No need for CPAP therapy and CPAP therapy can be discontinued based on the current home sleep study, there is no evidence of any significant sleep breathing disorder and this will be discussed with the patient. Maintain good sleep hygiene measures. Continue efforts to lose weight. Optimize asthma control and follow-up with Dr. Farias
== END ==
LOC: 3 N SLEEP 13:06
PROVIDERS: ATTEND Internal Medicine Critical Care Medicine
DX: G47.33 Obstructive sleep apnea (adult) (pediatric) (principal); J45.909 Unspecified asthma, uncomplicated; I48.91 Unspecified atrial fibrillation; I49.9 Cardiac arrhythmia, unspecified; Z91.018 Allergy to other foods; Z88.3 Allergy status to other anti-infective agents; Z88.8 Allergy status to other drugs, medicaments and biological substances; Z91.040 Latex allergy status; Z88.1 Allergy status to other antibiotic agents; Z88.6 Allergy status to analgesic agent; Z88.5 Allergy status to narcotic agent; Z91.030 Bee allergy status

== ENCOUNTER 2023-11-08 12:03 | Observation (INO) | payer MEDICARE ==
--- NOTE | 2023-11-08 12:21 | ED ---
General Adult HPI - General Chief complaint: Shortness of Breath Stated complaint: JENNIFER-sent by PCP Time Seen by Provider: 11/08/23 12:08 Source: patient, RN notes reviewed Mode of arrival: ambulatory Limitations: no limitations - History of Present Illness Initial comments: Patient is a 68-year-old female presenting to the emergency department with diff iculty breathing. Symptoms have been present for a couple of weeks. Patient does have occasional dry cough. Patient does have history of similar symptoms previously associated with asthma. Patient has been on outpatient therapy including steroids without improvement of symptoms. No fevers. No calf pain or swelling. Patient did see Dr. Garcia again today and was advised to come to the hospital for admission. - Related Data Home Medications Medication Instructions Recorded Confirmed Apixaban [Eliquis] 5 mg PO BID 06/08/22 11/08/23 Magnesium Oxide [Thao] 500 mg PO DAILY 06/08/22 11/08/23 Montelukast Sodium [Singulair] 10 mg PO HS 06/08/22 11/08/23 Rosuvastatin [Crestor] 10 mg PO HS 06/08/22 11/08/23 Budesonide-Formot 160-4.5 Mcg 2 puff INHALATION RT-BID 12/04/22 11/08/23 [Symbicort 160-4.5 Mcg Inhaler] Furosemide [Lasix] 40 mg PO DAILY 12/04/22 11/08/23 Calcium Carbonate [Calcium] 1,200 mg PO DAILY 03/15/23 11/08/23 Omeprazole 40 mg PO DAILY 03/15/23 11/08/23 Azithromycin [Zithromax Z Pack] See Taper PO DIRECTED 11/08/23 11/08/23 Cholecalciferol [Vitamin D3 (125 125 mcg PO MOWEFR 11/08/23 11/08/23 Mcg = 5000 Iu)] Dapagliflozin Propanediol [Farxiga] 5 mg PO DAILY 11/08/23 11/08/23 dilTIAZem HCL [Cardizem CD] 120 mg PO DAILY 11/08/23 11/08/23 predniSONE 50 mg PO DAILY 11/08/23 11/08/23 tiZANidine [Zanaflex] 4 mg PO HS PRN 11/08/23 11/08/23 Previous Rx's Medication Instructions Recorded Acetaminophen Tab [Tylenol] 650 mg PO Q6HR PRN tab 07/04/22 Albuterol Inhaler [Ventolin Hfa 2 puff INHALATION RT-Q4H PRN #2 gm 07/04/22 Inhaler] Ascorbic Acid [Vitamin C] 1,000 mg PO DAILY #60 tab 07/04/22 Zinc Sulfate [Orazinc] 220 mg PO DAILY #30 cap 07/04/22 Spironolactone [Aldactone] 25 mg PO DAILY #30 tab 09/25/22 Allergies Allergy/AdvReac Type Severity Reaction Status Date / Time banana Allergy Anaphylaxis Verified 11/08/23 13:17 budesonide Allergy Anaphylaxis Verified 11/08/23 13:17 [From [employer] (ok with Budesonide/Formoterol in Symbicort) cantaloupe Allergy Anaphylaxis Verified 11/08/23 13:17 formoterol Allergy Anaphylaxis, Verified 11/08/23 13:17 [From [employer] (ok with Budesonide/Formoterol in Symbicort) glycopyrrolate Allergy Anaphylaxis Verified 11/08/23 13:17 [From [employer] [facility] [place] [employer]] latex Allergy Rash/Hives Verified 11/08/23 13:17 melon Allergy Anaphylaxis Verified 11/08/23 13:17 perflutren [From Definity] Allergy Anaphylaxis Verified 11/08/23 13:17 diclofenac [From Voltaren] AdvReac Chest Pain Verified 11/08/23 13:17 metoprolol [From Lopressor] AdvReac Chest Pain Verified 11/08/23 13:17 naproxen [From Naprosyn] AdvReac Chest Pain Verified 11/08/23 13:17 honeydew melon Allergy Anaphylaxis Uncoded 11/08/23 12:06 Review of Systems ROS Statement: Those systems with pertinent positive or pertinent negative responses have been documented in the HPI. ROS Other: All systems not noted in ROS Statement are negative. Constitutional: Denies: fever Eyes: Denies: eye pain ENT: Denies: ear pain Respiratory: Reports: as per HPI, cough, dyspnea Endocrine: Reports: fatigue Gastrointestinal: Denies: abdominal pain Musculoskeletal: Denies: back pain Past Medical History Past Medical History: Atrial Fibrillation, Asthma, Hypertension, Osteoarthritis (OA), Pneumonia, Renal Disease, Sleep Apnea/CPAP/BIPAP Additional Past Medical History / Comment(s): 2019 pneumonia and sepsis when [place] ing in [place], had pneumonia in Jun, decreased kidney function, uses CPAP, see Dr. Carey H & P History of Any Multi-Drug Resistant Organisms: None Reported Past Surgical History: Adenoidectomy, Cardiac Ablation, Section, Orthopedic Surgery, Tonsillectomy, Tubal Ligation Additional Past Surgical History / Comment(s): cardioversion x3, 2011 left ankle plate and screws Past Anesthesia/Blood Transfusion Reactions: No Reported Reaction Past Psychological History: No Psychological Hx Reported Smoking Status: Former smoker - Past Family History Mother History Unknown: Yes Family Medical History: AFIB, Hyperlipidemia, Hypertension, Thyroid Disorder Additional Family Medical History / Comment(s): stroe, afib, pacemaker, DM, OA, Brother(s) History Unknown: Yes Family Medical History: Cancer Additional Family Medical History / Comment(s): colon ca Father History Unknown: Yes Family Medical History: GI Bleed Additional Family Medical History / Comment(s): cirrhosis, emphysema General Exam Limitations: no limitations General appearance: alert, in no apparent distress Head exam: Present: normocephalic Eye exam: Present: normal appearance Respiratory exam: Present: respiratory distress, wheezes, accessory muscle use Cardiovascular Exam: Present: regular rate, normal rhythm GI/Abdominal exam: Present: soft. Absent: tenderness Extremities exam: Present: normal inspection. Absent: pedal edema, calf tenderness Neurological exam: Present: alert Psychiatric exam: Present: normal affect, normal mood Skin exam: Present: normal color Course Vital Signs 11/08/23 11/08/23 11/08/23 12:03 12:28 12:42 Temperature 98.0 F Pulse Rate 88 73 76 Respiratory 24 Rate Blood Pressure 160/84 O2 Sat by Pulse 90 L Oximetry EKG Findings - EKG Results: EKG: interpreted by ERMD (PVC present.), sinus rhythm, normal axis, normal QRS, normal ST/T Medical Decision Making - Medical Decision Making Was pt. sent in by a medical professional or institution (, PA, QUALITY CONTROL TECH [employer], urgent care, hospital, or jail...) When possible be specific @ -Patient was sent in by Dr. Santoro our office Did you speak to anyone other than the patient for history (EMS, parent, family, police, friend...)? What history was obtained from this source @ -Case was discussed with Dr. Dyson prior to patient arrival who recommends admission Did you review nursing and triage notes (agree or disagree)? Why? @ -I reviewed and agree with nursing and triage notes Were old charts reviewed (outside hosp., previous admission, EMS record, old EKG, old radiological studies, urgent care reports/EKG's, jail records)? Report findings @ -No old charts were reviewed Differential Diagnosis (chest pain, altered mental status, abdominal pain women, abdominal pain men, vaginal bleeding, weakness, fever, dyspnea, syncope, headache, dizziness, GI bleed, back pain, seizure, CVA, palpatations, mental health, musculoskeletal)? @ -Differential Dyspnea: Coronary syndrome, arrhythmia, tamponade, asthma, COPD, pulmonary embolism, pneumonia, pneumothorax, pulmonary effusion, anaphylaxis, diabetic ketoacidosis, flailed chest, pulmonary contusion, diaphragmatic rupture, anemia, neuromuscular, this is not meant to be an all-inclusive list. EKG interpreted by me (3pts min.). @ -As above X-rays interpreted by me (1pt min.). @ -Chest x-ray shows no acute process CT interpreted by me (1pt min.). @ -None done U/S interpreted by me (1pt. min.). @ -None done What testing was considered but not performed or refused? (CT, X-rays, U/S, labs)? Why? @ -None What meds were considered but not given or refused? Why? @ -None Did you discuss the management of the patient with other professionals (professionals i.e. , PA, QUALITY CONTROL TECH [employer], lab, RT, psych nurse, social services coordinator, operations scheduler, teacher, customer service security officer, upper caser)? Give summary @ -Case also discussed with Dr. Krueger who will admit his patient Was smoking cessation discussed for >3mins.? @ -No Was critical care preformed (if so, how long)? @ -No Were there social determinants of health that impacted care today? How? (Homelessness, low income, unemployed, alcoholism, drug addiction, transportation, low edu. Level, literacy, decrease access to med. care, longterm, rehab)? @ -No Was there de-escalation of care discussed even if they declined (Discuss DNR or withdrawal of care, Hospice)? DNR status @ -No What co-morbidities impacted this encounter? (DM, HTN, Smoking, COPD, CAD, Cancer, CVA, ARF, Chemo, Hep., AIDS, mental health diagnosis, sleep apnea, morbi d obesity)? @ -None Was patient admitted / discharged? Hospital course, mention meds given and rout e, prescriptions, significant lab abnormalities, going to OR and other pertinent info. @ -Patient made aware of plan. Patient will be admitted with pulmonary consult. Admission orders written. Undiagnosed new problem with uncertain prognosis? @ -No Drug Therapy requiring intensive monitoring for toxicity (Heparin, Nitro, Insulin, Cardizem)? @ -No Were any procedures done? @ -No Diagnosis/symptom? @ -Asthma exacerbation Acute, or Chronic, or Acute on Chronic? @ -Acute Uncomplicated (without systemic symptoms) or Complicated (systemic symptoms)? @ -Default Side effects of treatment? @ -No Exacerbation, Progression, or Severe Exacerbation? @ -Exacerbation Poses a threat to life or bodily function? How? (Chest pain, [place], [place], pneumonia, PE, COPD, DKA, ARF, appy, cholecystitis, CVA, Diverticulitis, Homicidal, Suicidal, threat to staff... and all critical care pts) @ -Threat to pulmonary function - Lab Data Result diagrams: 11/08/23 12:47 11/08/23 12:47 Lab Results 11/08/23 11/08/23 11/08/23 Range/Units 12:47 12:47 12:47 WBC 11.8 H (3.8-10.6) k/uL RBC 4.32 (3.80-5.40) m/uL Hgb 11.8 (11.4-16.0) gm/dL Hct 37.2 (34.0-46.0) % MCV 86.2 (80.0-100.0) fL MCH 27.3 (25.0-35.0) pg MCHC 31.6 (31.0-37.0) g/dL RDW 15.1 (11.5-15.5) % Plt Count 242 (150-450) k/uL MPV 8.4 Neutrophils % 80 % Lymphocytes % 10 % Monocytes % 7 % Eosinophils % 1 % Basophils % 0 % Neutrophils # 9.5 H (1.3-7.7) k/uL Lymphocytes # 1.2 (1.0-4.8) k/uL Monocytes # 0.9 (0-1.0) k/uL Eosinophils # 0.1 (0-0.7) k/uL Basophils # 0.0 (0-0.2) k/uL Hypochromasia Slight PT 10.7 (10.0-12.5) sec INR 1.0 (<1.2) APTT 24.8 (22.0-30.0) sec D-Dimer <0.17 (<0.60) mg/L FEU Sodium 137 (137-145) mmol/L Potassium 4.0 (3.5-5.1) mmol/L Chloride 107 (98-107) mmol/L Carbon Dioxide 21 L (22-30) mmol/L Anion Gap 9 mmol/L BUN 36 H (7-17) mg/dL Creatinine 1.30 H (0.52-1.04) mg/dL Est GFR (CKD-EPI)AfAm 49 (>60 ml/min/1.73 sqM) Est GFR (CKD-EPI)NonAf 43 (>60 ml/min/1.73 sqM) Glucose 104 H (74-99) mg/dL Plasma Lactic Acid Payam (0.7-2.0) mmol/L Calcium 9.3 (8.4-10.2) mg/dL Magnesium 2.2 (1.6-2.3) mg/dL Total Bilirubin 0.5 (0.2-1.3) mg/dL AST 28 (14-36) U/L ALT 22 (4-34) U/L Alkaline Phosphatase 102 (38-126) U/L Troponin I (0.000-0.034) ng/mL NT-Pro-B Natriuret Pep 472 pg/mL Total Protein 7.0 (6.3-8.2) g/dL Albumin 4.1 (3.5-5.0) g/dL 11/08/23 11/08/23 Range/Units 12:47 12:47 WBC (3.8-10.6) k/uL RBC (3.80-5.40) m/uL Hgb (11.4-16.0) gm/dL Hct (34.0-46.0) % MCV (80.0-100.0) fL MCH (25.0-35.0) pg MCHC (31.0-37.0) g/dL RDW (11.5-15.5) % Plt Count (150-450) k/uL MPV Neutrophils % % Lymphocytes % % Monocytes % % Eosinophils % % Basophils % % Neutrophils # (1.3-7.7) k/uL Lymphocytes # (1.0-4.8) k/uL Monocytes # (0-1.0) k/uL Eosinophils # (0-0.7) k/uL Basophils # (0-0.2) k/uL Hypochromasia PT (10.0-12.5) sec INR (<1.2) APTT (22.0-30.0) sec D-Dimer (<0.60) mg/L FEU Sodium (137-145) mmol/L Potassium (3.5-5.1) mmol/L Chloride (98-107) mmol/L Carbon Dioxide (22-30) mmol/L Anion Gap mmol/L BUN (7-17) mg/dL Creatinine (0.52-1.04) mg/dL Est GFR (CKD-EPI)AfAm (>60 ml/min/1.73 sqM) Est GFR (CKD-EPI)NonAf (>60 ml/min/1.73 sqM) Glucose (74-99) mg/dL Plasma Lactic Acid Payam 1.8 (0.7-2.0) mmol/L Calcium (8.4-10.2) mg/dL Magnesium (1.6-2.3) mg/dL Total Bilirubin (0.2-1.3) mg/dL AST (14-36) U/L ALT (4-34) U/L Alkaline Phosphatase (38-126) U/L Troponin I <0.012 (0.000-0.034) ng/mL NT-Pro-B Natriuret Pep pg/mL Total Protein (6.3-8.2) g/dL Albumin (3.5-5.0) g/dL Disposition Clinical Impression: Asthma exacerbation Disposition: ADMITTED IP TO THIS [facility] Condition: Serious Is patient prescribed a controlled substance at d/c from ED?: No Referrals: Lc Krueger MD [Primary Care Provider] - 1-2 days Time of Disposition: 13:44
[2023-11-08] MEDS: IPRATROPIUM-ALBUTEROL 3 ML NEB INHALATION STA (12:28)
[2023-11-08 13:08] LABS: Basophils % (A) 0 %; Eosinophils # (A) 0.1 k/uL (0-0.7); Eosinophils % (A) 1 %; HCT 37.2 % (34.0-46.0); HGB 11.8 gm/dL (11.4-16.0); Hypochromasia Slight; Lymphocytes # (A) 1.2 k/uL (1.0-4.8); Lymphocytes % (A) 10 %; MCH 27.3 pg (25.0-35.0); MCHC 31.6 g/dL (31.0-37.0); MCV 86.2 fL (80.0-100.0); Mean Platelet Volume 8.4; Monocytes # (A) 0.9 k/uL (0-1.0); Monocytes % (A) 7 %; Neutrophils # (A) 9.5 k/uL (1.3-7.7); Neutrophils % (A) 80 %; Platelet Count 242 k/uL (150-450); RBC 4.32 m/uL (3.80-5.40); RDW 15.1 % (11.5-15.5); WBC 11.8 k/uL (3.8-10.6)
--- NOTE | 2023-11-08 13:09 | XR ---
EXAMINATION TYPE: XR chest 2V DATE OF EXAM: 11/08/2023 COMPARISON: 10/10/2022 HISTORY: Shortness of breath TECHNIQUE: Frontal and lateral views of the chest are obtained. FINDINGS: Scattered senescent parenchymal changes noted. No evidence for infiltrate. No evidence for atelectasis. Heart size is stable. Mediastinal structures are stable and grossly unremarkable. No evidence for hilar prominence. Degenerative changes dorsal spine. IMPRESSION: 1. No evidence for acute pulmonary disease.
[2023-11-08 13:10] LABS: Partial Thromboplastin Time 24.8 sec (22.0-30.0); Prothrombin Time 10.7 sec (10.0-12.5)
[2023-11-08 13:17] LABS: ALT 22 U/L (4-34); AST 28 U/L (14-36); African American GFR (CKD) 49 (>60 ml/min/1.73 sqM); Albumin 4.1 g/dL (3.5-5.0); Alkaline Phosphatase 102 U/L (38-126); Anion Gap 9 mmol/L; Blood Urea Nitrogen 36 mg/dL (7-17); Calcium 9.3 mg/dL (8.4-10.2); Carbon Dioxide 21 mmol/L (22-30); Chloride 107 mmol/L (98-107); Glucose 104 mg/dL (74-99); Magnesium 2.2 mg/dL (1.6-2.3); Non-African American GFR(CKD) 43 (>60 ml/min/1.73 sqM); Sodium 137 mmol/L (137-145); Total Bilirubin 0.5 mg/dL (0.2-1.3)
[2023-11-08] MEDS: methylPREDNISolone SOD SUCCI 125 MG/2 ML VIAL IV STA (13:20)
[2023-11-08 13:24] LABS: NT-Pro-B-Type Natriuretic Pept 472 pg/mL
[2023-11-08] MEDS ORDERED: tiZANidine 4 MG TAB PO PRN (13:41)
[2023-11-08] MEDS ORDERED: ACETAMINOPHEN TAB 325 MG TAB PO PRN (13:41)
[2023-11-08] MEDS ORDERED: NALOXONE 0.4 MG/ML 1 ML VIAL IVP PRN (13:45)
[2023-11-08] MEDS: CHOLECALCIFEROL 125 MCG (5000 IU) TABLET PO SCH (15:51)
[2023-11-08] MEDS: IPRATROPIUM-ALBUTEROL 3 ML NEB INHALATION SCH (15:58)
[2023-11-08] MEDS: methylPREDNISolone SOD SUCCI 125 MG/2 ML VIAL IV SCH (18:08)
--- NOTE | 2023-11-08 19:43 | P.HPIM ---
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 Patient states she has been more short of breath for the last few weeks. She follows with pulmonology and had been seen recently with failed outpatient treatment. Patient was also seen in urgent care within the past few days and was given 1 g Rocephin, a Z-David, and prednisone 50 mg daily. Patient returned to her regulatory product manager this morning, who then instructed her to report to the emergency department due to persistent shortness of breath and low oxygen saturation. Patient was 90% on room air upon arrival to the emergency department. She was given 125 of Solu-Medrol IV push and DuoNeb nebulizer. Chest x-ray was negative. Continue Symbicort 2 puffs twice daily, DuoNeb every 2 hours as needed, and Solu-Medrol 60 mg every 6 hours. Patient denies chest pain. She is sitting up in bed at this time and is considerably short of breath. Current oxygen saturation is 92% on room air. Pulmonology has been consulted. She was started on her home meds and she will be admitted to the hospital. REVIEW OF SYSTEMS: Constitutional: No documented fever, no chills, no night sweats. No weight change. No weakness, fatigue or lethargy. No daytime sleepiness. HEENT: No headache. No blurred vision or double vision, no loss of vision. No loss of Hearing, no ringing in the ears, no dizziness. No nasal drainage or congestion. No epistaxis. No sore throat. Lungs: positive for shortness of breath, minimal cough, no sputum production. minimal wheezing. Reports dyspnea with activity and at rest. Cardiovascular: No chest pain, no lower extremity edema. No palpitations. No paroxysmal nocturnal dyspnea. No orthopnea. No lightheadedness or dizziness. No syncopal episodes. Abdominal: Reports no abdominal pain. No nausea, vomiting. No diarrhea. No constipation. No bloody or tarry stools reports loss of appetite. Genitourinary: No dysuria, increased frequency, urgency. No urinary retention. Musculoskeletal: No myalgias. No muscle weakness, no gait dysfunction, no frequent falls. No back pain. No neck pain. Integumentary: No wounds, no lesions. No rash or pruritus. No unusual bruising. No change in hair or nails. Neurologic: No aphasia. No facial droop. No change in mentation. No head injury. No headache. No paralysis. No paresthesia. Psychiatric: No depression. No anxiety. No mood swings. Endocrine: No abnormal blood sugars. No weight change. PAST MEDICAL HISTORY: Hypertension and hypertensive cardiovascular disease Hyperlipidemia Paroxysmal atrial Fibrillation. Mild persistent asthma. Obesity with obstructive sleep apnea. Osteoporosis. PAST SURGICAL HISTORY: Tonsillectomy and adenoidectomy. . Tubal ligation. Left ankle ORIF. 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 FAMILY HISTORY: Mother at age of 83 from diabetes competition and also had end-stage renal disease on hemodialysis. Father at age 69 from cirrhosis of the liver due to alcoholism and he also had history of COPD peptic ulcer disease ended up with perforated gastric stomach ulcer, patient had 4 brothers one is alive and doing well one at age of 36 from colon cancer one at the age of 26 because of a murder he was in the [place] and one at the age of 62 from diabetes complications patient has no sisters and she has 2 daughters one of them work at [employer]. PHYSICAL EXAMINATION: General: 66-year-old female laying down in bed in minimal respiratory distress HEENT: Head is atraumatic, normocephalic, pupils were equal round reactive to light and recommendation, extraocular muscle movement were intact, sclera nonicteric, conjunctivae were pale, mucous membranes of the mouth are somewhat dry. Neck: Supple, no JVP, normal carotid upstroke bilaterally, no lymphadenopathy. Chest: Decreased breath sounds at the bases, few rhonchi, minimal expiratory wheezes, no chest wall tenderness, no intercostal retractions. Heart: First heart sound is normal, second heart sound is normal tachycardic irregularly irregular due to atrial fibrillation. Abdomen: Soft, nontender, nondistended, positive bowel sounds, there is no hepatosplenomegaly per Extremities: There is no edema no calf tenderness DP +2 bilaterally. Neurologic examination: Patient is awake alert and oriented X 3, cranial nerves II-12 appear grossly intact, muscle power were 5 out of 5 in upper extremities and 5 out of 5 in bilateral lower extremities, deep tendon reflexes normal bilaterally. ASSESSMENT AND PLAN: 1. Acute asthma exacerbation. Continue Symbicort 2 puffs twice daily, DuoNeb every 2 hours as needed, and Solu-Medrol 60 mg every 6. Continue Singulair 10 mg at bedtime. Pulmonology has been consulted. 2. Paroxysmal atrial fibrillation. Continue Cardizem 120 mg once daily and Eliquis 5 mg twice daily. 3. Hypertension and hypertensive cardiovascular disease. Continue patient on spironolactone 25 mg orally once every day, continue patient on Cardizem CD 180 mg once every day, monitor the patient blood pressure very closely. 4. Mixed hyperlipidemia. Continue patient on atorvastatin 20 mg orally once every day, monitor the patient lipid panel, keep LDL 55-70. 5. Obesity with obstructive sleep apnea. Continue CPAP. 6. ALLERGIC rhinitis. Continue patient on singular 10 mg at bedtime. 7. DVT prophylaxis. Continue patient on Apixaban 5 mg po bid. 8. GI prophylaxis. Start patient on Protonix 40 mg once every day . 9. Admit to inpatient. Estimate a length of stay 2 midnights . 10. Patient is full code. Impression and plan of care have been directed as dictated by the signing physician. Sonya Palomo, nurse practitioner acting as scribe for signing physician. Past Medical History Past Medical History: Atrial Fibrillation, Asthma, Hypertension, Osteoarthritis (OA), Pneumonia, Renal Disease, Sleep Apnea/CPAP/BIPAP Additional Past Medical History / Comment(s): 2019 pneumonia and sepsis when living in [place], had pneumonia in Jun, decreased kidney function, uses CPAP, see Dr. Carey H & P History of Any Multi-Drug Resistant Organisms: None Reported Past Surgical History: Adenoidectomy, Cardiac Ablation, Section, Orthopedic Surgery, Tonsillectomy, Tubal Ligation Additional Past Surgical History / Comment(s): cardioversion x3, 2010 left ankle plate and screws Past Anesthesia/Blood Transfusion Reactions: No Reported Reaction Past Psychological History: No Psychological Hx Reported Smoking Status: Former smoker Past Alcohol Use History: None Reported Additional Past Alcohol Use History / Comment(s): quit smoking 2005, smoked a few years, not heavy Past Drug Use History: None Reported - Past Family History Mother History Unknown: Yes Family Medical History: AFIB, Hyperlipidemia, Hypertension, Thyroid Disorder Additional Family Medical History / Comment(s): stroe, afib, pacemaker, DM, OA, Brother(s) History Unknown: Yes Family Medical History: Cancer Additional Family Medical History / Comment(s): colon ca Father History Unknown: Yes Family Medical History: GI Bleed Additional Family Medical History / Comment(s): cirrhosis, emphysema Medications and Allergies Home Medications Medication Instructions Recorded Confirmed Type Apixaban [Eliquis] 5 mg PO BID 06/08/22 11/08/23 History Magnesium Oxide [Thao] 500 mg PO DAILY 06/08/22 11/08/23 History Montelukast Sodium [Singulair] 10 mg PO HS 06/08/22 11/08/23 History Rosuvastatin [Crestor] 10 mg PO HS 06/08/22 11/08/23 History Acetaminophen Tab [Tylenol] 650 mg PO Q6HR PRN tab 07/04/22 11/08/23 Rx Albuterol Inhaler [Ventolin Hfa 2 puff INHALATION RT-Q4H PRN #2 gm 07/04/22 11/08/23 Rx Inhaler] Ascorbic Acid [Vitamin C] 1,000 mg PO DAILY #60 tab 07/04/22 11/08/23 Rx Zinc Sulfate [Orazinc] 220 mg PO DAILY #30 cap 07/04/22 11/08/23 Rx Spironolactone [Aldactone] 25 mg PO DAILY #30 tab 09/25/22 11/08/23 Rx Budesonide-Formot 160-4.5 Mcg 2 puff INHALATION RT-BID 12/04/22 11/08/23 History [Symbicort 160-4.5 Mcg Inhaler] Furosemide [Lasix] 40 mg PO DAILY 12/04/22 11/08/23 History Calcium Carbonate [Calcium] 1,200 mg PO DAILY 03/15/23 11/08/23 History Omeprazole 40 mg PO DAILY 03/15/23 11/08/23 History Azithromycin [Zithromax Z Pack] See Taper PO DIRECTED 11/08/23 11/08/23 History Cholecalciferol [Vitamin D3 (125 125 mcg PO MOWEFR 11/08/23 11/08/23 History Mcg = 5000 Iu)] Dapagliflozin Propanediol [Farxiga] 5 mg PO DAILY 11/08/23 11/08/23 History dilTIAZem HCL [Cardizem CD] 120 mg PO DAILY 11/08/23 11/08/23 History predniSONE 50 mg PO DAILY 11/08/23 11/08/23 History tiZANidine [Zanaflex] 4 mg PO HS PRN 11/08/23 11/08/23 History Allergies Allergy/AdvReac Type Severity Reaction Status Date / Time banana Allergy Anaphylaxis Verified 11/08/23 13:17 budesonide Allergy Anaphylaxis Verified 11/08/23 13:17 [From [employer]] (ok with Budesonide/Formoterol in Symbicort) cantaloupe Allergy Anaphylaxis Verified 11/08/23 13:17 formoterol Allergy Anaphylaxis, Verified 11/08/23 13:17 [From [employer]] (ok with Budesonide/Formoterol in Symbicort) glycopyrrolate Allergy Anaphylaxis Verified 11/08/23 13:17 [From [employer]] latex Allergy Rash/Hives Verified 11/08/23 13:17 melon Allergy Anaphylaxis Verified 11/08/23 13:17 perflutren [From [employer]] Allergy Anaphylaxis Verified 11/08/23 13:17 diclofenac [From Voltaren] AdvReac Chest Pain Verified 11/08/23 13:17 metoprolol [From Lopressor] AdvReac Chest Pain Verified 11/08/23 13:17 naproxen [From Naprosyn] AdvReac Chest Pain Verified 11/08/23 13:17 honeydew melon Allergy Anaphylaxis Uncoded 11/08/23 12:06 Physical Exam Vitals: Vital Signs Temp Pulse Pulse Resp BP BP Pulse Ox 11/08/23 17:20 97.5 F L 89 19 143/84 96 11/08/23 16:20 75 18 108/74 95 11/08/23 16:09 84 11/08/23 15:58 80 11/08/23 13:45 72 18 120/85 92 L 11/08/23 12:42 76 11/08/23 12:28 73 11/08/23 12:03 98.0 F 88 24 160/84 90 L Intake and Output 11/08/23 11/08/23 11/08/23 06:59 14:59 22:59 Other: Weight 79.832 kg Results CBC & Chem 7: 11/08/23 12:47 11/08/23 12:47 Labs: Abnormal Lab Results - Last 24 Hours (Table) 11/08/23 11/08/23 Range/Units 12:47 12:47 WBC 11.8 H (3.8-10.6) k/uL Neutrophils # 9.5 H (1.3-7.7) k/uL Carbon Dioxide 21 L (22-30) mmol/L BUN 36 H (7-17) mg/dL Creatinine 1.30 H (0.52-1.04) mg/dL Glucose 104 H (74-99) mg/dL Thrombosis Risk Factor Assmnt - Choose All That Apply Any of the Below Risk Factors Present?: Yes Each Factor Represents 1 point: Obesity (BMI >25) Other Risk Factors: Yes Each Risk Factor Represents 2 Points: Age 61-74 years Thrombosis Risk Factor Assessment Total Risk Factor Score: 3 Thrombosis Risk Factor Assessment Level: Moderate Risk
[2023-11-08] MEDS: SYMBICORT 160-4.5 MCG INHALER INHALATION SCH (21:29)
[2023-11-08] MEDS: MONTELUKAST 10 MG TAB PO SCH (22:05)
[2023-11-08] MEDS: APIXABAN 5 MG TAB PO SCH (22:05)
[2023-11-08] MEDS: ATORVASTATIN 20 MG TAB PO SCH (22:05)
[2023-11-08] MEDS: guaiFENesin-Coden 100-10MG/5ML 10 ML CUP PO PRN (23:12)
[2023-11-09] MEDS: IPRATROPIUM-ALBUTEROL 3 ML NEB INHALATION PRN (01:25)
[2023-11-09] MEDS: PANTOPRAZOLE 40 MG TABLET PO SCH (06:36)
[2023-11-09] MEDS: ASCORBIC ACID 500 MG TAB PO SCH (08:44)
[2023-11-09] MEDS: FUROSEMIDE 40 MG TAB PO SCH (08:44)
[2023-11-09] MEDS: MAGNESIUM OXIDE 400 MG TAB PO SCH (08:44)
[2023-11-09] MEDS: ZINC SULFATE 220 MG CAP PO SCH (08:44)
[2023-11-09] MEDS: CALCIUM CARBONATE 500 MG CHEWABLE PO SCH (08:44)
[2023-11-09] MEDS: SPIRONOLACTONE 25 MG TAB PO SCH (08:44)
[2023-11-09] MEDS: DAPAGLIFLOZIN PROPANEDIOL 5 MG TABLET PO SCH (08:44)
[2023-11-09 09:35] LABS: Basophils # (A) 0.02 X 10*3/uL (0.00-0.10); Basophils % (A) 0.2 %; Eosinophils # (A) 0 X 10*3/uL (0.04-0.35); Eosinophils % (A) 0 %; HCT 37.5 % (37.2-46.3); HGB 11.7 g/dL (12.0-15.0); Lymphocytes # (A) 0.98 X 10*3/uL (0.90-5.00); Lymphocytes % (A) 7.5 %; MCHC 31.2 g/dL (32.0-37.0); MCV 86.4 FL (80.0-97.0); Mean Platelet Volume 11.1 FL (9.5-12.2); Monocytes # (A) 0.23 X 10*3/uL (0.20-1.00); Monocytes % (A) 1.8 %; NRBC Per 100 WBC 0 X 10*3/uL (0.00-0.01); Neutrophils # (A) 11.62 X 10*3/uL (1.80-7.70); Neutrophils % (A) 89.1 %; Platelet Count 290 X 10*3/uL (140-440); RBC 4.34 X 10*6/uL (4.10-5.20); RDW 15.2 % (11.5-14.5); WBC 13.03 X 10*3/uL (4.50-10.00)
[2023-11-09] MEDS: DILTIAZEM CD 120 MG CAP.ER.24H PO SCH (10:22)
--- NOTE | 2023-11-09 12:02 | P.CNPUL ---
History of Present Illness Consult date: 11/09/23 Requesting physician: Lc Krueger Reason for consult: dyspnea, asthma Chief complaint: Shortness of breath, cough, congestion History of present illness: This is a pleasant 68-year-old female patient with a known history of atrial fibrillation, hypertension, hyperlipidemia, osteoarthritis, obstructive sleep apnea, former smoker, mild intermittent chronic bronchial asthma. She had failed outpatient treatment for her asthma symptoms shortness of breath, cough and congestion. She presented to the emergency room yesterday and admitted. Chest x-ray revealed no acute pulmonary process. White count 13.0. Hemoglobin 11.7. Platelets 290. Sodium 137. Potassium 4.0. Bicarb 21. BUN 36. Cr eatinine 1.30. Glucose 104. Troponin negative x 1. proBNP 472. Viral screen negative. She is seen today in consultation on the regular medical floor. She is currently sitting up in bed. Awake and alert in no acute distress. Feeling better today compared to yesterday. She is maintaining good O2 saturations in the 90s on room air. She is afebrile. Hemodynamically stable. Review of Systems REVIEW OF SYSTEMS: CONSTITUTIONAL: Denies any recent significant weight loss or weight gain. EYES: Denies change in vision. EARS, NOSE, MOUTH, THROAT: Denies headaches, denies sore throat. CARDIOVASCULAR: Denies chest pain, palpitations or syncopal episodes. RESPIRATORY: Positive for shortness of breath, cough, congestion no hemoptysis. GASTROINTESTINAL: Denies change in appetite, denies abdominal pain GENITOURINARY: Denies hematuria, denies infections. MUSKULOSKELETAL: Denies pain, denies swelling. INTEGUMENTARY: Denies rash, denies eczema. NEUROLOGICAL: Denies recent memory loss, no recent seizure activity. PSYCHIATRIC: Denies anxiety, denies depression. HEMATOLOGIC/LYMPHATIC: Denies anemia, denies enlarged lymph nodes. Past Medical History Past Medical History: Atrial Fibrillation, Asthma, Hypertension, Osteoarthritis (OA), Pneumonia, Renal Disease, Sleep Apnea/CPAP/BIPAP Additional Past Medical History / Comment(s): 2019 pneumonia and sepsis when living in [place], had pneumonia in Jun, decreased kidney function, uses CPAP, see Dr. Carey H & P History of Any Multi-Drug Resistant Organisms: None Reported Past Surgical History: Adenoidectomy, Cardiac Ablation, Section, Orthopedic Surgery, Tonsillectomy, Tubal Ligation Additional Past Surgical History / Comment(s): cardioversion x3, 2011 left ankle plate and screws Past Anesthesia/Blood Transfusion Reactions: No Reported Reaction Past Psychological History: No Psychological Hx Reported Smoking Status: Former smoker Past Alcohol Use History: None Reported Additional Past Alcohol Use History / Comment(s): quit smoking 2005, smoked a few years, not heavy Past Drug Use History: None Reported - Past Family History Mother History Unknown: Yes Family Medical History: AFIB, Hyperlipidemia, Hypertension, Thyroid Disorder Additional Family Medical History / Comment(s): stroe, afib, pacemaker, DM, OA, Brother(s) History Unknown: Yes Family Medical History: Cancer Additional Family Medical History / Comment(s): colon ca Father History Unknown: Yes Family Medical History: GI Bleed Additional Family Medical History / Comment(s): cirrhosis, emphysema Medications and Allergies Home Medications Medication Instructions Recorded Confirmed Type Apixaban [Eliquis] 5 mg PO BID 06/08/22 11/08/23 History Magnesium Oxide [Thao] 500 mg PO DAILY 06/08/22 11/08/23 History Montelukast Sodium [Singulair] 10 mg PO HS 06/08/22 11/08/23 History Rosuvastatin [Crestor] 10 mg PO HS 06/08/22 11/08/23 History Acetaminophen Tab [Tylenol] 650 mg PO Q6HR PRN tab 07/04/22 11/08/23 Rx Albuterol Inhaler [Ventolin Hfa 2 puff INHALATION RT-Q4H PRN #2 gm 07/04/22 11/08/23 Rx Inhaler] Ascorbic Acid [Vitamin C] 1,000 mg PO DAILY #60 tab 07/04/22 11/08/23 Rx Zinc Sulfate [Orazinc] 220 mg PO DAILY #30 cap 07/04/22 11/08/23 Rx Spironolactone [Aldactone] 25 mg PO DAILY #30 tab 09/25/22 11/08/23 Rx Budesonide-Formot 160-4.5 Mcg 2 puff INHALATION RT-BID 12/04/22 11/08/23 History [Symbicort 160-4.5 Mcg Inhaler] Furosemide [Lasix] 40 mg PO DAILY 12/04/22 11/08/23 History Calcium Carbonate [Calcium] 1,200 mg PO DAILY 03/15/23 11/08/23 History Omeprazole 40 mg PO DAILY 03/15/23 11/08/23 History Azithromycin [Zithromax Z Pack] See Taper PO DIRECTED 11/08/23 11/08/23 History Cholecalciferol [Vitamin D3 (125 125 mcg PO MOWEFR 11/08/23 11/08/23 History Mcg = 5000 Iu)] Dapagliflozin Propanediol [Farxiga] 5 mg PO DAILY 11/08/23 11/08/23 History dilTIAZem HCL [Cardizem CD] 120 mg PO DAILY 11/08/23 11/08/23 History predniSONE 50 mg PO DAILY 11/08/23 11/08/23 History tiZANidine [Zanaflex] 4 mg PO HS PRN 11/08/23 11/08/23 History Allergies Allergy/AdvReac Type Severity Reaction Status Date / Time banana Allergy Anaphylaxis Verified 11/08/23 13:17 budesonide Allergy Anaphylaxis Verified 11/08/23 13:17 [From [employer]obi [employer]] (ok with Budesonide/Formoterol in Symbicort) cantaloupe Allergy Anaphylaxis Verified 11/08/23 13:17 formoterol Allergy Anaphylaxis, Verified 11/08/23 13:17 [From Avingeri Aerosphere] (ok with Budesonide/Formoterol in Symbicort) glycopyrrolate Allergy Anaphylaxis Verified 11/08/23 13:17 [From Traveephere] latex Allergy Rash/Hives Verified 11/08/23 13:17 melon Allergy Anaphylaxis Verified 11/08/23 13:17 perflutren [From Definity] Allergy Anaphylaxis Verified 11/08/23 13:17 diclofenac [From Voltaren] AdvReac Chest Pain Verified 11/08/23 13:17 metoprolol [From Lopressor] AdvReac Chest Pain Verified 11/08/23 13:17 naproxen [From Naprosyn] AdvReac Chest Pain Verified 11/08/23 13:17 honeydew melon Allergy Anaphylaxis Uncoded 11/08/23 12:06 Physical Exam Vitals: Vital Signs Temp Pulse Pulse Resp BP BP Pulse Ox 11/09/23 08:40 18 11/09/23 08:26 82 11/09/23 08:16 84 96 11/09/23 07:40 97.4 F L 74 18 122/74 95 11/09/23 05:30 80 11/09/23 05:17 80 11/09/23 02:00 97.8 F 72 16 115/66 96 11/09/23 01:35 84 11/09/23 01:25 88 11/08/23 21:45 80 11/08/23 21:30 80 11/08/23 20:00 97.8 F 69 17 117/76 95 11/08/23 17:20 97.5 F L 89 19 143/84 96 11/08/23 16:20 75 18 108/74 95 11/08/23 16:09 84 11/08/23 15:58 80 11/08/23 13:45 72 18 120/85 92 L 11/08/23 12:42 76 11/08/23 12:28 73 11/08/23 12:03 98.0 F 88 24 160/84 90 L Intake and Output 11/08/23 11/09/23 11/09/23 22:59 06:59 14:59 Other: Voiding Method Toilet GENERAL EXAM: Alert, pleasant 68-year-old female, on room air, comfortable in no apparent distress. HEAD: Normocephalic. EYES: Normal reaction of pupils, equal size. NOSE: Clear with pink turbinates. THROAT: No erythema or exudates. NECK: No masses, no JVD. CHEST: No chest wall deformity. LUNGS: Equal air entry with few mild expiratory rhonchi, wheeze. CVS: S1 and S2 normal with no audible murmur, regular rhythm. ABDOMEN: No hepatosplenomegaly, normal bowel sounds, no guarding or rigidity. SPINE: No scoliosis or deformity SKIN: No rashes CENTRAL NERVOUS SYSTEM: No focal deficits, tone is normal in all 4 extremities. EXTREMITIES: There is no peripheral edema. No clubbing, no cyanosis. Peripheral pulses are intact. Results - Laboratory Findings CBC and BMP: 11/09/23 05:44 11/08/23 12:47 PT/INR, D-dimer PT 10.7 sec (10.0-12.5) 11/08/23 12:47 INR 1.0 (<1.2) 11/08/23 12:47 D-Dimer <0.17 mg/L FEU (<0.60) 11/08/23 12:47 Abnormal lab findings: Abnormal Labs 11/08/23 11/08/23 11/09/23 12:47 12:47 05:44 WBC 11.8 H 13.03 H Hgb 11.7 L MCHC 31.2 L RDW 15.2 H Immature Gran # 0.18 H Neutrophils # 9.5 H 11.62 H Eosinophils # 0 L Carbon Dioxide 21 L BUN 36 H Creatinine 1.30 H Glucose 104 H - Diagnostic Findings Chest x-ray: image reviewed Assessment and Plan Assessment: Acute exacerbation of mild intermittent chronic bronchial asthma Atrial fibrillation with previous ablations and cardioversions, anticoagulated with Eliquis Hypertension Hyperlipidemia Obstructive sleep apnea Former smoker Plan: The patient was seen and evaluated Chest x-ray, labs and medications reviewed Continue Symbicort, Solu-Medrol Continue DuoNeb inhalations, Singulair Anticoagulated with Eliquis We will continue to follow and make further recommendations based on her clinical status I have personally seen and examined the patient, performed the documentation and the assessment and plan as written. Number of minutes spent on the visit: 20.
[2023-11-09 13:35] LABS: ALT 19 U/L (8-44); AST 17 U/L (13-35); Albumin 4.3 g/dL (3.8-4.9); Albumin/Globulin Ratio 1.79 Ratio (1.60-3.17); Alkaline Phosphatase 104 U/L (41-126); BUN/Creat Ratio 24.79 Ratio (12.00-20.00); Blood Urea Nitrogen 34.7 mg/dL (9.0-27.0); Calcium 9.6 mg/dL (8.7-10.3); Chloride 100 mmol/L (96-109); Globulin 2.4 g/dL (1.6-3.3); Glucose 185 mg/dL (70-110); Potassium 4.4 mmol/L (3.5-5.5); Sodium 136 mmol/L (135-145); Total Bilirubin 0.3 mg/dL (0.3-1.2); Total Protein 6.7 g/dL (6.2-8.2)
--- NOTE | 2023-11-09 20:15 | P.PN ---
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 Patient states she has been more short of breath for the last few weeks. She follows with pulmonology and had been seen recently with failed outpatient treatment. Patient was also seen in urgent care within the past few days and was given 1 g Rocephin, a Z-Daivd, and prednisone 50 mg daily. 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 Patient was 90% on room air upon arrival to the emergency department. She was given 125 of Solu-Medrol IV push and DuoNeb nebulizer. Chest x-ray was negative. Continue Symbicort 2 puffs twice daily, DuoNeb every 2 hours as needed, and Solu-Medrol 60 mg every 6 hours. Patient denies chest pain. She is sitting up in bed at this time and is considerably short of breath. Current oxygen saturation is 92% on room air. Pulmonology has been consulted. She was started on her home meds and she will be admitted to the hospital. 11/08: Patient sitting up on the edge of the bed. She states she is more comfortable today with less shortness of breath. Continue Symbicort 2 puffs twice daily, DuoNeb every 2 hours as needed, and will decrease Solu-Medrol to 40 mg every 8 hours. She is 97% on room air. Plan for discharge in the next 24 to 48 hours. REVIEW OF SYSTEMS: Constitutional: No documented fever, no chills, no night sweats. No weight change. No weakness, fatigue or lethargy. No daytime sleepiness. HEENT: No headache. No blurred vision or double vision, no loss of vision. No loss of Hearing, no ringing in the ears, no dizziness. No nasal drainage or congestion. No epistaxis. No sore throat. Lungs: positive for shortness of breath, minimal cough, no sputum production. minimal wheezing. Reports dyspnea with activity and at rest. Cardiovascular: No chest pain, no lower extremity edema. No palpitations. No paroxysmal nocturnal dyspnea. No orthopnea. No lightheadedness or dizziness. No syncopal episodes. Abdominal: Reports no abdominal pain. No nausea, vomiting. No diarrhea. No constipation. No bloody or tarry stools reports loss of appetite. Genitourinary: No dysuria, increased frequency, urgency. No urinary retention. Musculoskeletal: No myalgias. No muscle weakness, no gait dysfunction, no frequent falls. No back pain. No neck pain. Integumentary: No wounds, no lesions. No rash or pruritus. No unusual bruising. No change in hair or nails. Neurologic: No aphasia. No facial droop. No change in mentation. No head injury. No headache. No paralysis. No paresthesia. Psychiatric: No depression. No anxiety. No mood swings. Endocrine: No abnormal blood sugars. No weight change. PHYSICAL EXAMINATION: General: 66-year-old female laying down in bed in minimal respiratory distress HEENT: Head is atraumatic, normocephalic, pupils were equal round reactive to light and recommendation, extraocular muscle movement were intact, sclera nonicteric, conjunctivae were pale, mucous membranes of the mouth are somewhat dry. Neck: Supple, no JVP, normal carotid upstroke bilaterally, no lymphadenopathy. Chest: Decreased breath sounds at the bases, few rhonchi, minimal expiratory wheezes, no chest wall tenderness, no intercostal retractions. Heart: First heart sound is normal, second heart sound is normal tachycardic irregularly irregular due to atrial fibrillation. Abdomen: Soft, nontender, nondistended, positive bowel sounds, there is no hep atosplenomegaly per Extremities: There is no edema no calf tenderness DP +2 bilaterally. Neurologic examination: Patient is awake alert and oriented X 3, cranial nerves II-12 appear grossly intact, muscle power were 5 out of 5 in upper extremities and 5 out of 5 in bilateral lower extremities, deep tendon reflexes normal bilaterally. ASSESSMENT AND PLAN: 1. Acute asthma exacerbation. Continue Symbicort 2 puffs twice daily, DuoNeb every 2 hours as needed, and Solu-Medrol 40 mg every 8 hours. Continue Singulair 10 mg at bedtime. 2. Paroxysmal atrial fibrillation. Continue Cardizem 120 mg once daily and Eliquis 5 mg twice daily. 3. Hypertension and hypertensive cardiovascular disease. Continue patient on spironolactone 25 mg orally once every day, continue patient on Cardizem CD 180 mg once every day, monitor the patient blood pressure very closely. 4. Mixed hyperlipidemia. Continue patient on atorvastatin 20 mg orally once every day, monitor the patient lipid panel, keep LDL 55-70. 5. Obesity with obstructive sleep apnea. Continue CPAP. 6. ALLERGIC rhinitis. Continue patient on singular 10 mg at bedtime. 7. DVT prophylaxis. Continue patient on Apixaban 5 mg po bid. 8. GI prophylaxis. Start patient on Protonix 40 mg once every day . 9. Admit to inpatient. Estimate a length of stay 2 midnights . 10. Patient is full code. Objective - Vital Signs Vital signs: Vital Signs Temp 97.7 F 11/09/23 18:35 Pulse 77 11/09/23 18:35 Resp 18 11/09/23 18:35 BP 126/79 11/09/23 18:35 Pulse Ox 97 11/09/23 18:35 FiO2 Intake & Output 11/09/23 11/09/23 11/10/23 06:59 18:59 06:59 Other: Voiding Method Toilet # Voids 1 - Labs CBC & Chem 7: 11/09/23 05:44 11/09/23 05:44 Labs: Abnormal Lab Results - Last 24 Hours (Table) 11/09/23 11/09/23 Range/Units 05:44 05:44 WBC 13.03 H (4.50-10.00) X 10*3/uL Hgb 11.7 L (12.0-15.0) g/dL MCHC 31.2 L (32.0-37.0) g/dL RDW 15.2 H (11.5-14.5) % Immature Gran # 0.18 H (0.00-0.04) X 10*3/uL Neutrophils # 11.62 H (1.80-7.70) X 10*3/uL Eosinophils # 0 L (0.04-0.35) X 10*3/uL Carbon Dioxide 21.0 L (21.6-31.8) mmol/L Anion Gap 15.00 H (4.00-12.00) mmol/L BUN 34.7 H (9.0-27.0) mg/dL Est GFR (CKD-EPI) 41 L (>=60) BUN/Creatinine Ratio 24.79 H (12.00-20.00) Ratio Glucose 185 H (70-110) mg/dL
[2023-11-10] MEDS: methylPREDNISolone SOD SUCCI 40 MG/ML 1 ML VIAL IV SCH (00:09)
--- NOTE | 2023-11-10 08:02 | P.PN ---
Subjective Progress Note Date: 11/10/23 Principal diagnosis: Shortness of breath. This is a pleasant 68-year-old female patient with a known history of atrial fibrillation, hypertension, hyperlipidemia, osteoarthritis, obstructive sleep apnea, former smoker, mild intermittent chronic bronchial asthma. She had failed outpatient treatment for her asthma symptoms shortness of breath, cough and congestion. She presented to the emergency room yesterday and admitted. Chest x-ray revealed no acute pulmonary process. White count 13.0. Hemoglobin 11.7. Platelets 290. Sodium 137. Potassium 4.0. Bicarb 21. BUN 36. Creatinine 1.30. Glucose 104. Troponin negative x 1. proBNP 472. Viral screen negative. She is seen today in consultation on the regular medical floor. She is currently sitting up in bed. Awake and alert in no acute distress. Feeling better today compared to yesterday. She is maintaining good O2 saturations in the 90s on room air. She is afebrile. Hemodynamically stable. Progress note dated November 10, 2023. 68-year-old female with a history of atrial fibrillation, hypertension, hype rlipidemia, osteoarthritis, sleep apnea, and mild asthma. The patient was admitted with an asthma exacerbation. She is currently on room air. She is not receiving any IV fluids. The patient states that she is feeling much better, with the treatments that we have been giving her. She denies any worsening or more unusual shortness of breath, cough, wheezing, chest tightness, or phlegm production. No new labs today. Objective - Vital Signs Vital signs: Vital Signs Temp 98.0 F 11/10/23 07:06 Pulse 75 11/10/23 07:06 Resp 19 11/10/23 07:06 BP 117/77 11/10/23 07:06 Pulse Ox 96 11/10/23 07:06 FiO2 Intake & Output 11/09/23 11/10/23 11/10/23 18:59 06:59 18:59 Other: Voiding Method Toilet # Voids 1 3 - Exam No acute distress, oriented 3. Currently on room air. No respiratory distress. HEENT examination is grossly unremarkable. Mucous membranes are moist. No oral lesions. Neck supple. Full range of motion. No adenopathy thyromegaly or neck vein distention. Cardiovascular examination reveals regular rhythm rate. S1-S2 normal. No S3 or S4. No discernible murmur noted. Heart rate 79 bpm. Lungs reveal clear breath sounds. Breath sounds are equal bilaterally. No adventitious lung sounds including wheezes rhonchi or crackles. Abdomen soft bowel sounds are heard. No masses or tenderness. Extremities are intact. No cyanosis clubbing or edema. Skin is without rash or lesion. Neurologic examination is brief but nonfocal. - Labs CBC & Chem 7: 11/09/23 05:44 11/09/23 05:44 Labs: Abnormal Lab Results - Last 24 Hours (Table) 11/09/23 11/09/23 Range/Units 05:44 05:44 WBC 13.03 H (4.50-10.00) X 10*3/uL Hgb 11.7 L (12.0-15.0) g/dL MCHC 31.2 L (32.0-37.0) g/dL RDW 15.2 H (11.5-14.5) % Immature Gran # 0.18 H (0.00-0.04) X 10*3/uL Neutrophils # 11.62 H (1.80-7.70) X 10*3/uL Eosinophils # 0 L (0.04-0.35) X 10*3/uL Carbon Dioxide 21.0 L (21.6-31.8) mmol/L Anion Gap 15.00 H (4.00-12.00) mmol/L BUN 34.7 H (9.0-27.0) mg/dL Est GFR (CKD-EPI) 41 L (>=60) BUN/Creatinine Ratio 24.79 H (12.00-20.00) Ratio Glucose 185 H (70-110) mg/dL Assessment and Plan Assessment: Acute exacerbation of mild intermittent chronic bronchial asthma. Atrial fibrillation with previous ablations and cardioversions, anticoagulated with Eliquis. Hypertension. Hyperlipidemia. Obstructive sleep apnea. Former smoker. Plan: Plan dated November 10, 2023. In my opinion, the patient could be discharged home. 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 The patient should be sent home with a prednisone taper over 12 days. I would probably start with 30 mg a day for 4 days, reducing the dose by 10 mg every fifth day. Labs, x-rays, and medications are reviewed. The patient's overall prognosis remains good. We will continue to follow the patient, should she not be discharged. Time with Patient: Less than 30
[2023-11-10 08:16] VITALS: BP 117/77; RESP 19; TEMP 98
[2023-11-10 12:21] VITALS: PULSE 80
--- NOTE | 2023-11-10 14:05 | P.DS ---
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 Patient states she has been more short of breath for the last few weeks. She follows with pulmonology and had been seen recently with failed outpatient treatment. Patient was also seen in urgent care within the past few days and was given 1 g Rocephin, a Z-David, and prednisone 50 mg daily. 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 Patient was 90% on room air upon arrival to the emergency department. She was given 125 of Solu-Medrol IV push and DuoNeb nebulizer. Chest x-ray was negative. Continue Symbicort 2 puffs twice daily, DuoNeb every 2 hours as needed, and Solu-Medrol 60 mg every 6 hours. Patient denies chest pain. She is sitting up in bed at this time and is considerably short of breath. Current oxygen saturation is 92% on room air. Pulmonology has been consulted. She was started on her home meds and she will be admitted to the hospital. 11/08: Patient sitting up on the edge of the bed. She states she is more comfortable today with less shortness of breath. Continue Symbicort 2 puffs twice daily, DuoNeb every 2 hours as needed, and will decrease Solu-Medrol to 40 mg every 8 hours. She is 97% on room air. Plan for discharge in the next 24 to 48 hours. 11/09: Patient was much better today, sitting on the edge of the bed and able to ambulate without shortness of breath. Oxygen saturation is in the 90s on room air. We will transition to a prednisone taper and plan for discharge this afternoon. Patient to follow-up in the office this upcoming week. Discharge diagnoses: 1. Acute asthma exacerbation. 2. Paroxysmal atrial fibrillation. 3. Hypertension and hypertensive cardiovascular disease. 4. Mixed hyperlipidemia. 5. Obesity with obstructive sleep apnea. 6. ALLERGIC rhinitis. Impression and plan of care have been directed as dictated by the signing physician. Sonya Palomo, nurse practitioner acting as scribe for signing physician. Patient Condition at Discharge: Stable Plan - Discharge Summary New Discharge Prescriptions: No Action Magnesium Oxide [Thao] 500 mg PO DAILY Zinc Sulfate [Orazinc] 220 mg PO DAILY #30 cap Acetaminophen Tab [Tylenol] 650 mg PO Q6HR PRN tab PRN Reason: Mild Pain Or Fever > 100.5 Ascorbic Acid [Vitamin C] 1,000 mg PO DAILY #60 tab Albuterol Inhaler [Ventolin Hfa Inhaler] 2 puff INHALATION RT-Q4H PRN #2 gm PRN Reason: Shortness Of Breath Budesonide-Formot 160-4.5 Mcg [Symbicort 160-4.5 Mcg Inhaler] 2 puff INHALATION RT-BID Omeprazole 40 mg PO DAILY tiZANidine [Zanaflex] 4 mg PO HS PRN PRN Reason: Muscle Pain dilTIAZem HCL [Cardizem CD] 120 mg PO DAILY Dapagliflozin Propanediol [Farxiga] 5 mg PO DAILY predniSONE 50 mg PO DAILY Azithromycin [Zithromax Z Pack] See Taper PO DIRECTED Rosuvastatin [Crestor] 10 mg PO HS Montelukast Sodium [Singulair] 10 mg PO HS Apixaban [Eliquis] 5 mg PO BID Spironolactone [Aldactone] 25 mg PO DAILY #30 tab Furosemide [Lasix] 40 mg PO DAILY Calcium Carbonate [Calcium] 1,200 mg PO DAILY Cholecalciferol [Vitamin D3 (125 Mcg = 5000 Iu)] 125 mcg PO MOWEFR Discharge Medication List Apixaban [Eliquis] 5 mg PO BID 06/08/22 [History] Magnesium Oxide [Thao] 500 mg PO DAILY 06/08/22 [History] Montelukast Sodium [Singulair] 10 mg PO HS 06/08/22 [History] Rosuvastatin [Crestor] 10 mg PO HS 06/08/22 [History] Acetaminophen Tab [Tylenol] 650 mg PO Q6HR PRN tab 07/04/22 [Rx] Albuterol Inhaler [Ventolin Hfa Inhaler] 2 puff INHALATION RT-Q4H PRN #2 gm 07/04/22 [Rx] Ascorbic Acid [Vitamin C] 1,000 mg PO DAILY #60 tab 07/04/22 [Rx] Zinc Sulfate [Orazinc] 220 mg PO DAILY #30 cap 07/04/22 [Rx] Spironolactone [Aldactone] 25 mg PO DAILY #30 tab 09/25/22 [Rx] Budesonide-Formot 160-4.5 Mcg [Symbicort 160-4.5 Mcg Inhaler] 2 puff INHALATION RT-BID 12/04/22 [History] Furosemide [Lasix] 40 mg PO DAILY 12/04/22 [History] Calcium Carbonate [Calcium] 1,200 mg PO DAILY 03/15/23 [History] Omeprazole 40 mg PO DAILY 03/15/23 [History] Azithromycin [Zithromax Z Pack] See Taper PO DIRECTED 11/08/23 [History] Cholecalciferol [Vitamin D3 (125 Mcg = 5000 Iu)] 125 mcg PO MOWEFR 11/08/23 [History] Dapagliflozin Propanediol [Farxiga] 5 mg PO DAILY 11/08/23 [History] dilTIAZem HCL [Cardizem CD] 120 mg PO DAILY 11/08/23 [History] predniSONE 50 mg PO DAILY 11/08/23 [History] tiZANidine [Zanaflex] 4 mg PO HS PRN 11/08/23 [History] Follow up Appointment(s)/Referral(s): Lc Krueger MD [Primary Care Provider] - 1-2 days
== END 2023-11-10 15:20 | disposition home or self-care (01) ==
LOC: EC 12:03 → INTOOBSV 13:46 → 4SSUR 13:46 → UNDODISIN 11-10 15:24
PROVIDERS: ADMIT Internal Medicine; ATTEND Internal Medicine
DX: J45.31 Mild persistent asthma with (acute) exacerbation (principal); I48.0 Paroxysmal atrial fibrillation; I11.9 Hypertensive heart disease without heart failure; G47.33 Obstructive sleep apnea (adult) (pediatric); E78.2 Mixed hyperlipidemia; M81.0 Age-related osteoporosis without current pathological fracture; E66.9 Obesity, unspecified; Z68.36 Body mass index [BMI] 36.0-36.9, adult; Z79.01 Long term (current) use of anticoagulants; Z79.51 Long term (current) use of inhaled steroids; Z79.52 Long term (current) use of systemic steroids; Z79.84 Long term (current) use of oral hypoglycemic drugs; Z79.899 Other long term (current) drug therapy; Z91.040 Latex allergy status; Z88.8 Allergy status to other drugs, medicaments and biological substances; Z91.018 Allergy to other foods; Z88.6 Allergy status to analgesic agent; Z87.891 Personal history of nicotine dependence; M19.90 Unspecified osteoarthritis, unspecified site; Z11.52 Encounter for screening for COVID-19; Z11.59 Encounter for screening for other viral diseases
CPT/HCPCS: 96376 ×3; 96374; 99285; 36415; 94640 ×6; 94760; 94667; 93005; 85379; 83880; 80053 ×2; 83605; 83735; 84484; 85025 ×2; 85610; 85730; 87636; 71046; G0378 ×3; J2919 ×3

== ENCOUNTER → 2023-12-09 | Outpatient (CLI) | payer MEDICARE ==
--- NOTE | 2023-12-09 09:15 | CT ---
EXAMINATION TYPE: CT sinus wo con DATE OF EXAM: 12/09/2023 COMPARISON: None HISTORY: sinusitis CT DLP: 648.7 mGycm CONTRAST: None The paranasal sinuses are examined in the axial plane at 2 mm thick sections. Reconstructed images i n the coronal plane were obtained. There is dental amalgam scatter artifact The maxillary sinuses are clear. Partial bony septations within the maxillary sinuses. Some minimal mucosal thickening in the inferior maxillary sinuses bilaterally. The ethmoid air cells are clear. The sphenoid sinuses are clear. Th e frontal sinuses are clear. The septum is evaluated. There is septal deviation to the left. Left septal spur is present posterio rly Bilateral tevin bullosa is present. The ostiomeatal units are patent. IMPRESSION: 1. Minimal mucosal thickening within the inferior maxillary sinuses
== END | disposition home or self-care (01) ==
LOC: RADCTMAIN 08:34
PROVIDERS: ATTEND Internal Medicine
DX: J32.9 Chronic sinusitis, unspecified (principal); J34.89 Other specified disorders of nose and nasal sinuses
CPT/HCPCS: 70486

== ENCOUNTER 2024-02-08 14:46 | Emergency (ER) | payer MEDICARE ==
[2024-02-08] MEDS ORDERED: DEXAMETHASONE SOD PHOSPHATE 10 MG/ML 1 ML VIAL ONE (18:31)
== END 2024-02-08 20:57 ==
LOC: EC 14:46
DX: R22.2 Localized swelling, mass and lump, trunk (principal)

== ENCOUNTER → 2024-02-08 | Outpatient (CLI) | payer MEDICARE ==
--- NOTE | 2024-03-03 15:57 | MR ---
Chelsea Layne L Ordering Physician: Unknown, Unknown ID: [id number] Phone, Pager: Phone: N/A Pager : N/A : [phone] Age/Gender: 68Y, F Primary Location: N/A Procedure: MRI LUMBAR WO CONTRAST Study Date: 02/08/2024 12:34:15 PM EXAMINATION TYPE: MR lumbar spine wo/w con DATE OF EXAM: 02/12/2024 COMPARISON: No pertinent recent exam. 01/15/2023 Plain films are reviewed. HISTORY: Spondylosis of lumbar spine with myelopathy, left sciatica x12 weeks, left lower extremity w eakness, unsteady gait CONTRAST: 8 mL intravenous Gadavist. TECHNIQUE: Multiplanar, multisequence images of the lumbar spine were acquired. FINDINGS: There is a large lesion posterior to the T11-T12 disc space. This is hypointense on T2-nicolas ghted and inversion recovery sequences. This is hypointense on T1-weighted sequences. Following contrast there is enhancement of the lesion greater along the peripheral margins which fredi ures 1.6 AP by 2.9 cm craniocaudal by 1.7 cm transverse. This has cord compression and displacement t o the right. This appears to be intradural extra medullary. No erosion or expansion of the spinal can al at the lesion level is evident. Consider schwannoma or ependymoma within the differential. Prelimi nary results were provided to the emergency room at the time of the procedure. Some "sugarcoating" of the distal spinal cord is not excluded although this is not appreciated on the axial images. No additional abnormal enhancement is evident. L5-S1: No significant disc bulge or disc herniation. No spinal canal stenosis. No foraminal stenosi s. Some facet hypertrophy is present. L4-L5: No significant disc bulge or disc herniation. No spinal canal stenosis. No foraminal stenosi s. Facet hypertrophy is present with some ligamentum flavum laxity. Mild posterior lateral thecal sac compression is present. L3-L4: No significant disc bulge or disc herniation. No spinal canal stenosis. No foraminal stenosi s. L2-L3: No significant disc bulge or disc herniation. No spinal canal stenosis. No foraminal stenosi s. L1-L2: No significant disc bulge or disc herniation. No spinal canal stenosis. No foraminal stenosi s. T12-L1: No significant disc bulge or disc herniation. No spinal canal stenosis. No foraminal stenos is. Vertebral body alignment is preserved. Disc heights appear preserved. Mild diffuse disc desiccation i s present. IMPRESSION: 1. 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 This has displacement of the cord to the right with cord compression. Prelimin jae results were provided at the time of imaging. 2. Mild facet hypertrophy L4-5 and L5-S1.
== END | disposition home or self-care (01) ==
LOC: RADMRIMAIN 13:20
PROVIDERS: ATTEND Internal Medicine
DX: M47.16 Other spondylosis with myelopathy, lumbar region (principal); M51.06 Intervertebral disc disorders with myelopathy, lumbar region; M54.32 Sciatica, left side
CPT/HCPCS: 72148

== ENCOUNTER → 2024-03-28 | Outpatient (CLI) | payer MEDICARE ==
--- NOTE | 2024-04-04 14:09 | MR ---
EXAMINATION TYPE: MR thoracic spine wo/w con DATE OF EXAM: 03/28/2024 COMPARISON: MRI lumbar spine 02/08/2024 HISTORY: Benign neoplasm of cerebral meninges, F/U post surgery. CONTRAST: Performed utilizing 7.5 mL intravenous Gadavist gadolinium contrast. TECHNIQUE: Multiplanar, multiecho imaging on a 3.0 Kelsea magnet is performed through the thoracic spi ne. Postsurgical changes are present posterior to the T11-12 level. Laminectomies have been performed. Th e previous mass within the spinal canal has been resected. A thin rim of mild dural thickening may be left lateral spinal canal. No intraluminal enhancing mass is identified. Cord compression is not siobhan ntified. In the sagittal T2 sequence there is some mild signal change within the spinal cord posterio r to the T12 superior endplate. Some myelomalacia could be considered. Vertebral body alignment is normal. Vertebral body heights are preserved. There is some mild heterogeneity of the vertebral bodies can be some marrow conversion. Mild disc space narrowing is present diffusely. Disc hydration levels are preserved. Some mild left paracentral T7-8 disc bulge may be present with mild anterior thecal sac compression. Minimal cord deformity may be present. No definite cord contact evident. Some mild left paracentral T5-6 disc bulge is present with mild anterior thecal sac compression. No c ord contact or spinal canal stenosis present. Some mild right endplate change T4-5 has mild anterior thecal sac compression without cord contact or spinal canal stenosis. No persistent spinal canal stenosis is evident. Neural foramen appear patent. IMPRESSION: 1. Postsurgical changes T11-12. No cord compression evident. There may be some mild myelomalacia. Sma ll residual thecal sac thickening along the left aspect may be present at this level without stenosis . [facility], Workstation: [facility], 04/04/2024 2:07 PM
== END | disposition home or self-care (01) ==
LOC: RADMRIMAIN 13:19
PROVIDERS: ATTEND Neurological Surgery
DX: D32.0 Benign neoplasm of cerebral meninges
CPT/HCPCS: 72157

== ENCOUNTER → 2024-07-08 | Outpatient (CLI) | payer MEDICARE ==
--- NOTE | 2024-07-08 13:41 | MM ---
Reason for Exam: Screening (asymptomatic). Last mammogram was performed 1 year(s) and 5 month(s) ago. Patient History: Menarche at age 13. First Full-Term at age 22. Postmenopausal. Risk Values: Brooklyn 5 year model risk: 1.5%. NCI Lifetime model risk: 5.2%. Prior Study Comparison: 04/26/2020 Bilateral Screening Mammogram, [facility]. 09/08/2021 Bilateral Screening Mammogram, [facility]. 02/20/2023 Bilateral MG 3D screening mammo w/cad, [facility]. Tissue Density: There are scattered areas of fibroglandular density. Findings: Analyzed By CAD. There is no suspicious group of microcalcifications or new suspicious mass in either breast. Overall Assessment: Negative, BI-RAD 1 Management: Screening Mammogram of both breasts in 1 year. . Patient should continue monthly self-breast exams. A clinical breast exam by your physician is recommended on an annual basis. This exam should not preclude additional follow-up of suspicious palpable abnormalities. Note on Brooklyn scores and lifetime risk: 1. A Brooklyn score greater than 3% is considered moderate risk. If this is the case, consider specialist referral to assess eligibility for a risk reducing agent. 2. If overall lifetime risk for the development of breast cancer is 20% or higher, the patient may qualify for future screening with alternating mammogram and breast MRI. [facility], , 07/08/2024 1:38 PM. Electronically signed and approved by: Antonio Nowak M.D.
== END | disposition home or self-care (01) ==
LOC: RADMAMWWP 12:05
PROVIDERS: ATTEND Internal Medicine
DX: Z12.31 Encounter for screening mammogram for malignant neoplasm of breast (principal); R92.323 Mammographic fibroglandular density, bilateral breasts; Z78.0 Asymptomatic menopausal state
CPT/HCPCS: 77067

== ENCOUNTER → 2024-07-15 | Day surgery (SDC) | payer MEDICARE ==
[2024-07-15 08:50] VITALS: BP 108/53; PULSE 61; RESP 16; TEMP 97.6
[2024-07-15] MEDS: GLUCAGON 1 MG/ML VIAL IM STA (09:25)
--- NOTE | 2024-07-15 10:42 | MR ---
EXAMINATION TYPE: MR Enterography DATE OF EXAM: 07/15/2024 10:06 AM COMPARISON: None. CLINICAL INDICATION: Female, 68 years old with history of D50.0 IRON DEFICIENCY ANEMIA SECONDARY TO B LOOD LO; PHH, Anemia, Low hemoglobin TECHNIQUE: Standard multiplanar, multisequence imaging of the abdomen is performed without and with I V contrast, patient is injected with 7 mL intravenous Gadobutrol gadolinium contrast. Oral Glucagon was given as per enterography protocol. Oral Contrast: 1500 FINDINGS: LOWER CHEST: No significant findings. ABDOMEN Bowel: The small bowel distention is inadequate proximally. No definite evidence to suggest abnormal bowel wall thickening involving a small bowel or large bowel. No evidence of bowel obstruction. No evidence for mucosal hyperenhancement, stricture or fistulous tract formation. Scattered colonic diverticula present. Appendix is normal. Peritoneum: No evidence of pneumoperitoneum, free fluid, or adenopathy. Liver: Unremarkable. Gallbladder and Bile ducts: Unremarkable. Pancreas: Unremarkable. Spleen: Unremarkable. Adrenal glands: Unremarkable. Kidneys: Unremarkable. Bladder: Unremarkable. Reproductive: Unremarkable. Lymph Nodes: Vasculature: Unremarkable. No aortic aneurysm. Musculoskeletal: The osseous structures appear intact. Abdominal wall: Unremarkable. IMPRESSION: 1. No evidence for active bowel disease. 2. No evidence for acute process. 3. Colonic diverticulosis. [facility], , 07/15/2024 10:39 AM
== END ==
LOC: RADMRIMAIN 08:03
PROVIDERS: ATTEND Internal Medicine
DX: K57.30 Diverticulosis of large intestine without perforation or abscess without bleeding (principal); D50.0 Iron deficiency anemia secondary to blood loss (chronic)
CPT/HCPCS: 96372; 72197; 74183; J1610; A9585

== ENCOUNTER 2024-08-18 09:34 | Day surgery (SDC) | payer MEDICARE ==
[2024-08-18 10:40] VITALS: TEMP 97.2
[2024-08-18] MEDS: LACTATED RINGERS 1,000 ML IV SCH (10:54)
[2024-08-18] MEDS: IV FLUID CONTINUATION 1,000 ML IV ONE (10:55)
[2024-08-18] MEDS ORDERED: LIDOCAINE 1% INJ 10MG/ML (20 ML MDV) ONE (11:34)
[2024-08-18] MEDS ORDERED: PROPOFOL 10 MG/ML 20 ML VIAL IV ONE (11:34)
--- NOTE | 2024-08-18 11:43 | P.PCN ---
Date of Procedure: 08/18/24 Procedure(s) Performed: BRIEF HISTORY: Patient is a 68-year-old, pleasant, white female scheduled for an upper endoscopy as a part evaluation of iron deficiency anemia. She has history of A-fib and is on Eliquis which is on hold for 3 days. Last colonoscopy in February 2023 revealed small colon polyps. She denies any abdominal pain, nausea vomiting or melena. PROCEDURE PERFORMED: Esophagogastroduodenoscopy with biopsy. PREOPERATIVE DIAGNOSIS: Iron deficiency anemia. IV sedation per anesthesia. PROCEDURE: After informed consent was obtained, the patient was brought into the endoscopy unit. IV sedation was administered by Anesthesia under continuous monitoring. Initially the Olympus GIF-140 video endoscope was inserted into the mouth. Esophagus intubated without any difficulty. It was gradually advanced into the stomach and duodenum and carefully examined. The bulb and the second part of the duodenum appeared normal. Biopsies were done from the duodenum rule out celiac disease. The scope at this time was withdrawn to the stomach, adequately insufflated with air, and upon careful examination, mucosa of the antrum had mild gastritis and biopsies were done from this area. Mucosa, body, cardia and the fundus appeared normal. The scope was then withdrawn into the esophagus. Small hiatal hernia noted. The GE junction was located at 39 cm from the incisors. The esophagus appeared normal. There were no erosions or ulcerations seen and the patient tolerated the procedure well. IMPRESSION: 1. Mild antral gastritis. 2. Small hiatal hernia. RECOMMENDATIONS: The findings of this examination were discussed with the patient as well as her family. She was advised to follow-up with the biopsy results. Continue with iron supplements and monitor CBC on a monthly basis. If she continues to have persistent iron deficiency anemia she will be a candidate for small bowel capsule endoscopy in the near future..
[2024-08-18 11:51] VITALS: RESP 16
[2024-08-18 12:09] VITALS: BP 95/51; PULSE 49
== END 2024-08-18 12:22 | disposition home or self-care (01) ==
LOC: ORWHC2ENDO 09:34
PROVIDERS: ATTEND Internal Medicine Gastroenterology
DX: D50.9 Iron deficiency anemia, unspecified (principal); K29.50 Unspecified chronic gastritis without bleeding; K21.9 Gastro-esophageal reflux disease without esophagitis; K44.9 Diaphragmatic hernia without obstruction or gangrene; I48.91 Unspecified atrial fibrillation; I10 Essential (primary) hypertension; G47.33 Obstructive sleep apnea (adult) (pediatric); Z79.01 Long term (current) use of anticoagulants; Z79.899 Other long term (current) drug therapy; Z86.0100 Personal history of colon polyps, unspecified; Z88.8 Allergy status to other drugs, medicaments and biological substances
CPT/HCPCS: 43239; J2003; J2704; 88305

== ENCOUNTER → 2024-09-11 | Outpatient (CLI) | payer MEDICARE ==
[2024-09-11 18:12] LABS: HCT 39.7 % (37.2-46.3); HGB 11.4 g/dL (12.0-15.0); MCH 23.8 pg (27.0-32.0); MCHC 28.7 g/dL (32.0-37.0); MCV 83.1 FL (80.0-97.0); Mean Platelet Volume 10.8 FL (9.5-12.2); NRBC Per 100 WBC 0 X 10*3/uL (0.00-0.01); Platelet Count 315 X 10*3/uL (140-440); RBC 4.78 X 10*6/uL (4.10-5.20); RDW 20.5 % (11.5-14.5)
[2024-09-11 18:22] LABS: Blood Urea Nitrogen 19.4 mg/dL (9.0-27.0); Carbon Dioxide 29.1 mmol/L (21.6-31.8); Chloride 100 mmol/L (96-109); Potassium 4.4 mmol/L (3.5-5.5); Sodium 140 mmol/L (135-145)
== END | disposition home or self-care (01) ==
LOC: LABWHC1 12:54
PROVIDERS: ATTEND Internal Medicine
DX: Z01.812 Encounter for preprocedural laboratory examination (principal); I48.11 Longstanding persistent atrial fibrillation; I50.22 Chronic systolic (congestive) heart failure; R06.02 Shortness of breath
CPT/HCPCS: 36415; 80051; 82565; 84520; 85027

== ENCOUNTER 2024-09-23 12:35 | Observation (INO) | payer MEDICARE ==
--- NOTE | 2024-09-23 12:50 | ED ---
Arrhythmia/Palpitations HPI - General Chief Complaint: Arrhythmia/Palpitations Stated Complaint: JENNIFER, AFIB Time Seen by Provider: 09/23/24 12:43 Source: patient, RN notes reviewed, old records reviewed Mode of arrival: ambulatory Limitations: no limitations - History of Present Illness Initial Comments: This is a 68-year-old female to the ER for evaluation of work. Patient coming from work for evaluation regards to elevated heart rate and return of atrial fibrillation history of atrial fibrillation. He is having chest pain she is having shortness of breath and recently taken off flecainide MD Complaint: rapid heart beat, palpitations, irregular heart beat, atrial fibrillation -: hour(s) Context: occurred during rest Arrhythmia History: atrial fibrillation Associated Symptoms: shortness of breath Treatments Prior to Arrival: other (0) - Related Data Home Medications Medication Instructions Recorded Confirmed Apixaban [Eliquis] 5 mg PO BID 06/08/22 09/23/24 Magnesium Oxide [Thao] 500 mg PO HS 06/08/22 09/23/24 Montelukast Sodium [Singulair] 10 mg PO HS 06/08/22 09/23/24 Rosuvastatin [Crestor] 10 mg PO HS 06/08/22 09/23/24 Budesonide-Formot 160-4.5 Mcg 2 puff INHALATION RT-BID 12/04/22 09/23/24 [Symbicort 160-4.5 Mcg Inhaler] Furosemide [Lasix] 40 mg PO DAILY 12/04/22 09/23/24 Calcium Carbonate [Calcium] 1,200 mg PO SUTUTHSA 03/15/23 09/23/24 Omeprazole 40 mg PO DAILY 03/15/23 09/23/24 tiZANidine [Zanaflex] 4 mg PO Q6H PRN 11/08/23 09/23/24 Dapagliflozin Propanediol [Farxiga] 10 mg PO DAILY 07/28/24 09/23/24 Ipratropium-Albuterol Nebulize 3 ml INHALATION RT-QID PRN 08/17/24 09/23/24 [Duoneb 0.5 mg-3 mg/3 ml Soln] Acetaminophen [Tylenol Arthritis] 1,300 mg PO Q8H PRN 09/23/24 09/23/24 Albuterol Inhaler [Ventolin Hfa 2 puff INHALATION RT-QID PRN 09/23/24 09/23/24 Inhaler] Ascorbic Acid [Vitamin C] 1,000 mg PO DAILY 09/23/24 09/23/24 Calcium 1200mg W/Vitamin D2 125mcg 1 tab PO MOWEFR 09/23/24 09/23/24 Ferrous Sulfate [Iron (65 MG 325 mg PO DAILY 09/23/24 09/23/24 Elemental)] Fexofenadine HCl [Allyssa Allergy] 180 mg PO DAILY 09/23/24 09/23/24 Zinc Sulfate [Orazinc] 220 mg PO HS 09/23/24 09/23/24 Previous Rx's Medication Instructions Recorded Amoxic-Pot Clav 500-125 mg 1 tab PO Q12HR 7 Days #14 tab 09/27/24 [Augmentin 500-125 mg] Amoxic-Pot Clav 500-125 mg 1 tab PO Q12HR 7 Days #14 tab 09/27/24 [Augmentin 500-125 mg] Spironolactone [Aldactone] 12.5 mg PO DAILY tab 09/27/24 atenoloL [Tenormin] 25 mg PO BID #0 tab 09/27/24 guaiFENesin [Mucinex] 600 mg PO Q12HR tab 09/27/24 predniSONE 0 mg PO DIRECTED #40 tab 09/27/24 predniSONE 10 mg PO DAILY #40 tab 09/27/24 Allergies Allergy/AdvReac Type Severity Reaction Status Date / Time banana Allergy Anaphylaxis Verified 09/23/24 13:43 budesonide Allergy Anaphylaxis Verified 09/23/24 13:43 [From Flowboard] (ok with Budesonide/Formoterol in Symbicort) cantaloupe Allergy Anaphylaxis Verified 09/23/24 13:43 formoterol Allergy Anaphylaxis, Verified 09/23/24 13:43 [From Flowboard] (ok with Budesonide/Formoterol in Symbicort) glycopyrrolate Allergy Anaphylaxis Verified 09/23/24 13:43 [From Flowboard] honeydew Allergy Anaphylaxis Verified 09/23/24 13:43 latex Allergy Rash/Hives Verified 09/23/24 13:43 melon Allergy Anaphylaxis Verified 09/23/24 13:43 perflutren [From Definity] Allergy Anaphylaxis Verified 09/23/24 13:43 diclofenac [From Voltaren] AdvReac Chest Pain Verified 09/23/24 13:43 metoprolol [From Lopressor] AdvReac Chest Pain Verified 09/23/24 13:43 naproxen [From Naprosyn] AdvReac Chest Pain Verified 09/23/24 13:43 NSAIDS (Non-Steroidal AdvReac Chest Pain Verified 09/23/24 13:43 Anti-Inflamma Review of Systems ROS Statement: Those systems with pertinent positive or pertinent negative responses have been documented in the HPI. ROS Other: All systems not noted in ROS Statement are negative. Past Medical History Past Medical History: Atrial Fibrillation, Asthma, Hypertension, Osteoarthritis (OA), Pneumonia, Renal Disease, Sleep Apnea/CPAP/BIPAP Additional Past Medical History / Comment(s): 2019 pneumonia and sepsis when living in [place], had pneumonia in Jun, decreased kidney function, uses CPAP, see Dr. Carey H & P History of Any Multi-Drug Resistant Organisms: MRSA Date of last positivie culture/infection: 04/02/24 MDRO Source:: wound Past Surgical History: Adenoidectomy, Cardiac Ablation, Section, Orthopedic Surgery, Tonsillectomy, Tubal Ligation Additional Past Surgical History / Comment(s): cardioversion x3, 2010 left ankle plate and screws, spinal cord surgery in 01/2024 non malignant Past Anesthesia/Blood Transfusion Reactions: No Reported Reaction Past Psychological History: No Psychological Hx Reported Smoking Status: Former smoker Past Alcohol Use History: None Reported Past Drug Use History: None Reported - Past Family History Mother History Unknown: Yes Family Medical History: AFIB, Hyperlipidemia, Hypertension, Thyroid Disorder Additional Family Medical History / Comment(s): stroe, afib, pacemaker, DM, OA, Brother(s) History Unknown: Yes Family Medical History: Cancer Additional Family Medical History / Comment(s): colon ca Father History Unknown: Yes Family Medical History: GI Bleed Additional Family Medical History / Comment(s): cirrhosis, emphysema General Exam General appearance: alert, in no apparent distress Head exam: Present: atraumatic, normocephalic, normal inspection Eye exam: Present: normal appearance, PERRL, EOMI. Absent: scleral icterus, conjunctival injection, periorbital swelling ENT exam: Present: normal exam, mucous membranes moist Neck exam: Present: normal inspection. Absent: tenderness, meningismus, lymphadenopathy Respiratory exam: Present: normal lung sounds bilaterally. Absent: respiratory distress, wheezes, rales, rhonchi, stridor Cardiovascular Exam: Present: tachycardia, irregular rhythm, normal heart sounds. Absent: systolic murmur, diastolic murmur, rubs, gallop, clicks GI/Abdominal exam: Present: soft, normal bowel sounds. Absent: distended, tenderness, guarding, rebound, rigid Extremities exam: Present: normal inspection, full ROM, normal capillary refill. Absent: tenderness, pedal edema, joint swelling, calf tenderness Back exam: Present: normal inspection Neurological exam: Present: alert, oriented X3, CN II-XII intact Psychiatric exam: Present: normal affect, normal mood Skin exam: Present: warm, dry, intact, normal color. Absent: rash Course Vital Signs 09/23/24 09/23/24 09/23/24 12:37 13:14 14:00 Temperature 98.3 F Pulse Rate 115 H 102 H 89 Respiratory 18 18 16 Rate Blood Pressure 134/77 94/57 93/79 O2 Sat by Pulse 98 96 98 Oximetry 09/23/24 09/23/24 09/23/24 14:08 14:30 20:00 Temperature Pulse Rate 101 H 82 70 Respiratory 18 16 16 Rate Blood Pressure 92/59 92/59 93/76 O2 Sat by Pulse 98 97 99 Oximetry 09/23/24 20:20 Temperature Pulse Rate Respiratory 18 Rate Blood Pressure O2 Sat by Pulse Oximetry - Reevaluation(s) Reevaluation #1: 09/23/24 13:17 Medical record is reviewed Reevaluation #2: 09/23/24 13:17 Patient is showing improvement in heart rate Reevaluation #3: 09/23/24 13:18 Patient informed of results and questions Reevaluation #4: Was pt. sent in by a medical professional or institution (, PA, SADDLE MECHANIC, urgent ca re, hospital, or long term...) When possible be specific @ -no Did you speak to anyone other than the patient for history (EMS, parent, family, police, friend...)? What history was obtained from this source @ -no Did you review nursing and triage notes (agree or disagree)? Why? @ -agree Are old charts reviewed (outside hosp., previous admission, EMS record, old EKG, old radiological studies, urgent care reports/EKG's, long term records)? Report findings @ -yes Differential Diagnosis (chest pain, altered mental status, abdominal pain women, abdominal pain men, vaginal bleeding, weakness, fever, dyspnea, syncope, headache, dizziness, GI bleed, back pain, seizure, CVA, palpatations, mental health, musculoskeletal)? @ -prior EKG interpreted by me (3pts min.). @ -yes X-rays interpreted by me (1pt min.). @ -yes negative for acute disease CT interpreted by me (1pt min.). @ -no U/S interpreted by me (1pt. min.). @ -no What testing was considered but not performed or refused? (CT, X-rays, U/S, labs)? Why? @ -none What meds were considered but not given or refused? Why? @ -none Did you discuss the management of the patient with other professionals (professionals i.e. , PA, SADDLE MECHANIC, lab, RT, psych nurse, social service agency director, staff radiologist, teacher, senior officer, outsole caser)? Give summary @ -no Was smoking cessation discussed for >3mins.? @ -no Was critical care preformed (if so, how long)? @ -yes31 Were there social determinants of health that impacted care today? How? (Ho melessness, low income, unemployed, alcoholism, drug addiction, transportation, low edu. Level, literacy, decrease access to med. care, [facility], rehab)? @ -none Was there de-escalation of care discussed even if they declined (Discuss DNR or withdrawal of care, Hospice)? DNR status @ -no What co-morbidities impacted this encounter? (DM, HTN, Smoking, COPD, CAD, Cancer, CVA, ARF, Chemo, Hep., AIDS, mental health diagnosis, sleep apnea, morbid obesity)? @ -none Was patient admitted / discharged? Hospital course, mention meds given and route, prescriptions, significant lab abnormalities, going to OR and other pertinent info. @ - 68 female to ER for atrial fibrillation with RVR. Patient has history of atrial fibrillation recently taken off flecainide going through cardiac evaluation currently for a cause of shortness of breath. Patient presents today new return of atrial fibrillation with RVR and will admit for rate control patient is already on anticoagulation with cardiac consultation Admitted A-fib with RVR with arrhythmia Undiagnosed new problem with uncertain prognosis? @ -no Drug Therapy requiring intensive monitoring for toxicity (Heparin, Nitro, Insulin, Cardizem)? @ -no Were any procedures done? @ -no Diagnosis/symptom? @ - Acute, or Chronic, or Acute on Chronic? @ -Acute Uncomplicated (without systemic symptoms) or Complicated (systemic symptoms)? @ -Complicated Side effects of treatment? @ -no Exacerbation, Progression, or Severe Exacerbation? @ -exacerbation Poses a threat to life or bodily function? How? (Chest pain, USA, LA, pneumonia, PE, COPD, DKA, ARF, appy, cholecystitis, CVA, Diverticulitis, Homicidal, Suicidal, threat to staff... and all critical care pts) @ -yes with RVR Reevaluation #5: Differential Palpitations Ventricular arrhythmias, atrial arrhythmias, myocardial infarction, anemia, thyrotoxicosis, electrolyte imbalance, hypokalemia, pulmonary embolism, pulmonary disease, drugs, alcohol, anxiety, stress.... This is not meant to be an all-inclusive list. - Consultations Consultation #1: Spoke with Dr. Krueger to admit this patient who agrees EKG Findings - EKG Comments: EKG Findings:: EKG is A-fib with RVR 102 QRS 94 QTc 391 - EKG Results: EKG: interpreted by MAGGIE Medical Decision Making - Medical Decision Making 68 female to ER for atrial fibrillation with RVR. Patient has history of atrial fibrillation recently taken off flecainide going through cardiac evaluation currently for a cause of shortness of breath. Patient presents today new return of atrial fibrillation with RVR and will admit for rate control patient is already on anticoagulation with cardiac consultation - Lab Data Result diagrams: 09/27/24 06:42 09/27/24 06:42 Lab Results 09/23/24 09/23/24 09/23/24 Range/Units 13:04 13:04 13:04 WBC 8.4 (3.8-10.6) k/uL RBC 4.87 (3.80-5.40) m/uL Hgb 12.2 (11.4-16.0) gm/dL Hct 39.3 (34.0-46.0) % MCV 80.8 (80.0-100.0) fL MCH 25.1 (25.0-35.0) pg MCHC 31.0 (31.0-37.0) g/dL RDW 19.5 H (11.5-15.5) % Plt Count 262 (150-450) k/uL MPV 8.7 Neutrophils % 71 % Lymphocytes % 19 % Monocytes % 7 % Eosinophils % 1 % Basophils % 0 % Neutrophils # 6.0 (1.3-7.7) k/uL Lymphocytes # 1.6 (1.0-4.8) k/uL Monocytes # 0.6 (0-1.0) k/uL Eosinophils # 0.1 (0-0.7) k/uL Basophils # 0.0 (0-0.2) k/uL Hypochromasia Marked Anisocytosis Slight Microcytosis Slight PT 11.0 (10.0-12.5) sec INR 1.0 (<1.2) APTT 26.0 (22.0-30.0) sec Sodium 136 L (137-145) mmol/L Potassium 4.4 (3.5-5.1) mmol/L Chloride 100 (98-107) mmol/L Carbon Dioxide 24 (22-30) mmol/L Anion Gap 12 mmol/L BUN 25 H (7-17) mg/dL Creatinine 1.38 H (0.52-1.04) mg/dL Est GFR (CKD-EPI)AfAm 46 (>60 ml/min/1.73 sqM) Est GFR (CKD-EPI)NonAf 40 (>60 ml/min/1.73 sqM) Glucose 101 H (74-99) mg/dL Plasma Lactic Acid Payam (0.7-2.0) mmol/L Calcium 9.7 (8.4-10.2) mg/dL Phosphorus 3.6 (2.5-4.5) mg/dL Magnesium 2.1 (1.6-2.3) mg/dL Total Bilirubin 0.5 (0.2-1.3) mg/dL AST 22 (14-36) U/L ALT 14 (4-34) U/L Alkaline Phosphatase 140 H (38-126) U/L Troponin I (0.000-0.034) ng/mL NT-Pro-B Natriuret Pep 1690 pg/mL Total Protein 7.0 (6.3-8.2) g/dL Albumin 4.1 (3.5-5.0) g/dL TSH 1.590 (0.465-4.680) mIU/L 09/23/24 09/23/24 Range/Units 13:04 13:04 WBC (3.8-10.6) k/uL RBC (3.80-5.40) m/uL Hgb (11.4-16.0) gm/dL Hct (34.0-46.0) % MCV (80.0-100.0) fL MCH (25.0-35.0) pg MCHC (31.0-37.0) g/dL RDW (11.5-15.5) % Plt Count (150-450) k/uL MPV Neutrophils % % Lymphocytes % % Monocytes % % Eosinophils % % Basophils % % Neutrophils # (1.3-7.7) k/uL Lymphocytes # (1.0-4.8) k/uL Monocytes # (0-1.0) k/uL Eosinophils # (0-0.7) k/uL Basophils # (0-0.2) k/uL Hypochromasia Anisocytosis Microcytosis PT (10.0-12.5) sec INR (<1.2) APTT (22.0-30.0) sec Sodium (137-145) mmol/L Potassium (3.5-5.1) mmol/L Chloride (98-107) mmol/L Carbon Dioxide (22-30) mmol/L Anion Gap mmol/L BUN (7-17) mg/dL Creatinine (0.52-1.04) mg/dL Est GFR (CKD-EPI)AfAm (>60 ml/min/1.73 sqM) Est GFR (CKD-EPI)NonAf (>60 ml/min/1.73 sqM) Glucose (74-99) mg/dL Plasma Lactic Acid Payam 1.7 (0.7-2.0) mmol/L Calcium (8.4-10.2) mg/dL Phosphorus (2.5-4.5) mg/dL Magnesium (1.6-2.3) mg/dL Total Bilirubin (0.2-1.3) mg/dL AST (14-36) U/L ALT (4-34) U/L Alkaline Phosphatase (38-126) U/L Troponin I <0.012 (0.000-0.034) ng/mL NT-Pro-B Natriuret Pep pg/mL Total Protein (6.3-8.2) g/dL Albumin (3.5-5.0) g/dL TSH (0.465-4.680) mIU/L - EKG Data -: EKG Interpreted by Me Critical Care Time Critical Care Time: Yes Total Critical Care Time: 31 Disposition Clinical Impression: Tachycardia, Atrial fibrillation with rapid ventricular response, Asthma with acute exacerbation, Palpitations Disposition: ADMITTED IP TO THIS HOSP Condition: Fair Is patient prescribed a controlled substance at d/c from ED?: No Time of Disposition: 14:00
[2024-09-23] MEDS: DILTIAZEM 125 MG in SODIUM CHLORIDE 0.9% 100 ML IV SCH (13:10)
[2024-09-23] MEDS ORDERED: ONDANSETRON 4 MG/2 ML VIAL IVP PRN (13:19)
[2024-09-23] MEDS ORDERED: NALOXONE 0.4 MG/ML 1 ML VIAL IV PRN (13:19)
[2024-09-23 13:29] LABS: Anisocytosis Slight; Basophils % (A) 0 %; Eosinophils # (A) 0.1 k/uL (0-0.7); Eosinophils % (A) 1 %; HCT 39.3 % (34.0-46.0); HGB 12.2 gm/dL (11.4-16.0); Hypochromasia Marked; Lymphocytes # (A) 1.6 k/uL (1.0-4.8); Lymphocytes % (A) 19 %; MCH 25.1 pg (25.0-35.0); MCV 80.8 fL (80.0-100.0); Mean Platelet Volume 8.7; Microcytosis Slight; Monocytes # (A) 0.6 k/uL (0-1.0); Monocytes % (A) 7 %; Neutrophils % (A) 71 %; Platelet Count 262 k/uL (150-450); RBC 4.87 m/uL (3.80-5.40); RDW 19.5 % (11.5-15.5); WBC 8.4 k/uL (3.8-10.6)
[2024-09-23 14:03] LABS: NT-Pro-B-Type Natriuretic Pept 1690 pg/mL
[2024-09-23] MEDS: DILTIAZEM DRIP BOLUS FROM BAG 1 MG SOLN IV ONE (14:11)
[2024-09-23 14:31] LABS: ALT 14 U/L (4-34); AST 22 U/L (14-36); African American GFR (CKD) 46 (>60 ml/min/1.73 sqM); Albumin 4.1 g/dL (3.5-5.0); Alkaline Phosphatase 140 U/L (38-126); Anion Gap 12 mmol/L; Blood Urea Nitrogen 25 mg/dL (7-17); Calcium 9.7 mg/dL (8.4-10.2); Carbon Dioxide 24 mmol/L (22-30); Chloride 100 mmol/L (98-107); Glucose 101 mg/dL (74-99); Magnesium 2.1 mg/dL (1.6-2.3); Non-African American GFR(CKD) 40 (>60 ml/min/1.73 sqM); Phosphorus 3.6 mg/dL (2.5-4.5); Potassium 4.4 mmol/L (3.5-5.1); Sodium 136 mmol/L (137-145); Total Bilirubin 0.5 mg/dL (0.2-1.3)
[2024-09-23] MEDS ORDERED: NON FORMULARY DRUG (Albuterol Inhaler 90 MCG Puff) INHALATION PRN (14:31)
[2024-09-23] MEDS: SYMBICORT 160-4.5 MCG INHALER INHALATION SCH (18:42)
[2024-09-23] MEDS: MONTELUKAST 10 MG TAB PO SCH (20:12)
[2024-09-23] MEDS: MAGNESIUM OXIDE 400 MG TAB PO SCH (20:12)
[2024-09-23] MEDS: APIXABAN 5 MG TAB PO SCH (20:12)
[2024-09-23] MEDS: ATORVASTATIN 20 MG TAB PO SCH (20:12)
[2024-09-24] MEDS: IPRATROPIUM-ALBUTEROL 3 ML NEB INHALATION PRN (08:08)
[2024-09-24 08:30] LABS: ALT 13 U/L (8-44); AST 16 U/L (13-35); Albumin 3.9 g/dL (3.8-4.9); Albumin/Globulin Ratio 1.62 Ratio (1.60-3.17); Alkaline Phosphatase 132 U/L (41-126); BUN/Creat Ratio 14.88 Ratio (12.00-20.00); Blood Urea Nitrogen 23.8 mg/dL (9.0-27.0); Calcium 9.8 mg/dL (8.7-10.3); Chloride 100 mmol/L (96-109); Globulin 2.4 g/dL (1.6-3.3); Glucose 105 mg/dL (70-110); Magnesium 2.3 mg/dL (1.5-2.4); Phosphorus 4.7 mg/dL (2.4-5.1); Potassium 4.4 mmol/L (3.5-5.5); Sodium 139 mmol/L (135-145); Total Bilirubin 0.4 mg/dL (0.3-1.2); Total Protein 6.3 g/dL (6.2-8.2)
[2024-09-24 08:54] LABS: Basophils # (A) 0.11 X 10*3/uL (0.00-0.10); Basophils % (A) 1.2 %; Eosinophils # (A) 0.25 X 10*3/uL (0.04-0.35); Eosinophils % (A) 2.7 %; HCT 40.1 % (37.2-46.3); HGB 11.8 g/dL (12.0-15.0); Lymphocytes # (A) 2.28 X 10*3/uL (0.90-5.00); Lymphocytes % (A) 24.2 %; MCH 24.3 pg (27.0-32.0); MCHC 29.4 g/dL (32.0-37.0); MCV 82.7 FL (80.0-97.0); Mean Platelet Volume 11.5 FL (9.5-12.2); Monocytes # (A) 1.15 X 10*3/uL (0.20-1.00); Monocytes % (A) 12.2 %; NRBC Per 100 WBC 0 X 10*3/uL (0.00-0.01); Neutrophils # (A) 5.58 X 10*3/uL (1.80-7.70); Neutrophils % (A) 59.2 %; Platelet Count 286 X 10*3/uL (140-440); RBC 4.85 X 10*6/uL (4.10-5.20); RDW 21.6 % (11.5-14.5); WBC 9.42 X 10*3/uL (4.50-10.00)
[2024-09-24] MEDS: SPIRONOLACTONE 25 MG TAB PO SCH (08:57)
[2024-09-24] MEDS: LORATADINE 10 MG TAB PO SCH (08:57)
[2024-09-24] MEDS: atenoloL 25 MG TAB PO SCH (08:57)
[2024-09-24] MEDS: FUROSEMIDE 40 MG TAB PO SCH (08:57)
[2024-09-24] MEDS: FERROUS SULFATE 325 MG TAB PO SCH (08:57)
[2024-09-24] MEDS: PANTOPRAZOLE 40 MG TABLET PO SCH (08:57)
[2024-09-24] MEDS: DAPAGLIFLOZIN PROPANEDIOL 10 MG TABLET PO SCH (08:57)
[2024-09-24] MEDS ORDERED: atenoloL 25 MG TAB PO SCH (09:00)
[2024-09-24] MEDS ORDERED: ALPRAZolam 0.5 MG TAB PO PRN (10:14)
[2024-09-24] MEDS ORDERED: ALPRAZolam 0.25 MG TAB PO PRN (10:14)
[2024-09-24] MEDS ORDERED: NITROGLYCERIN SL TABS 0.4 MG TAB SUBLINGUAL PRN (10:14)
--- NOTE | 2024-09-24 10:33 | P.CRDCN ---
History of Present Illness Consult date: 09/24/24 Reason for Consult (text): Afib with RVR History of present illness: This is a 68-year-old female patient of Dr. Gomez with past medical history of persistent atrial fibrillation status post ablation in 2022, hypertension, hyperlipidemia, asthma, obstructive sleep apnea, recent history of meningioma of the lumbar spine status post excision at [facility], remote history of tobacco use. We have been asked to evaluate the patient for A-fib with RVR. Patient states that she was at work yesterday and around 915 she could feel that her heart was racing and her heart was at 156 bpm. She called the cardiology office and was told to come into the emergency center for evaluation. Patient had a recent hospitalization in July at which time she was diagnosed with influenza A and also presented with A-fib with RVR. She was found to have mild cardiomyopathy at that time with EF of 45 to 50% thought to be related to influenza A and B and/or atrial fibrillation. Patient did convert to a sinus rhythm during that hospitalization. She subsequently had follow-up in the office with Dr. Gomez. She had undergone a 5-day event monitor in July that showed a 37% A-fib burden with average heart rate 74 bpm with maximum 190 and minimum 49. Patient in general was still having dyspnea on minimal exertion including just walking in her home from room to room but without chest pain or chest pressure. It was recommended at that time the patient undergo cardiac catheterization to evaluate her cardiomyopathy and symptoms of dyspnea on exertion, heart association class IV symptoms. Patient was also stopped flecainide. Blood pressure this morning was 81/58 with heart rate of 83 and Cardizem drip was discontinued. Repeat blood pressure 95/67. Pulse ox is 95% on room air and patient has been afebrile. At this time, recommended the patient's stop flecainide completely as she is already done and also stop Cardizem due to the mild cardiomyopathy. Patient is on atenolol which will be increased. -EKG: Atrial fibrillation 102 bpm -Laboratory studies: WBC 9.4, hemoglobin 9.8, electrolytes within normal limits. BUN 23 creatinine 1.6. Troponin negative x 3. proBNP 1690. TSH 1.59. -Home cardiac medications: Eliquis 5 mg twice daily, atenolol 25 mg daily, Farxiga 10 mg daily, Cardizem CD 120 mg daily, Lasix 40 mg daily, Crestor 10 mg daily at bedtime, spironolactone 25 mg daily. -Cardiolite stress test performed in the office on 05/16/2022: Normal study without inducible ischemia. Normal myocardial perfusion. Normal left ventricular EF of 60%, fair exercise tolerance. -Echocardiogram performed 07/29/2024 revealed mild LV dysfunction with EF of 45 to 50%.. Review Of Systems: At the time of my exam: CONSTITUTIONAL: Denies fever or chills. HEENT: Denies blurred vision, vision changes, or eye pain. Denies hemoptysis CARDIOVASCULAR: Denies chest pain. Denies orthopnea. Denies PND. Denies palpitations RESPIRATORY: Reports shortness of breath. Reports dyspnea with minimal exertion GASTROINTESTINAL: Denies abdominal pain. Denies nausea or vomiting. HEMATOLOGIC: Denies bleeding disorders. GENITOURINARY: Denies any blood in urine. SKIN: Denies puritis. Denies rash. Physical examination: Gen: This is a 68-year-old female in no acute distress VS: reviewed HEENT: Head is atraumatic, normocephalic. Pupils equal, round. Sclerae is anicteric. NECK: Supple. No JVD. LUNGS: Decreased breath sounds at the bases. No intercostal retractions. HEART: Irregular rate and rhythm. No murmur. ABDOMEN: Soft No tenderness. EXTREMITIES: No pedal edema. No calf tenderness. NEUROLOGICAL: Patient is awake, alert and oriented x3. Assessment: Paroxysmal atrial fibrillation with episode of RVR Dyspnea on minimal exertion Hypertension Hyperlipidemia Asthma History of obstructive sleep apnea but no longer requiring CPAP History of meningioma lumbar spine status post excision at [facility] Chronic kidney disease stage IIIb Remote history of tobacco use and dependence Plan: Continue patient's home cardiac medications with the following changes Discontinue Cardizem p.o. Discontinue Cardizem drip No need to repeat echocardiogram Patient will be scheduled for cardiac catheterization this afternoon with Dr. Gomez Continue telemetry monitoring Further recommendations to follow based upon clinical course Thank you kindly for this consultation. Nurse practitioner note has been reviewed, I agree with documented findings and plan of care. Patient was seen and examined. Past Medical History Past Medical History: Atrial Fibrillation, Asthma, Hypertension, Osteoarthritis (OA), Pneumonia, Renal Disease, Sleep Apnea/CPAP/BIPAP Additional Past Medical History / Comment(s): 2019 pneumonia and sepsis when living in [place], had pneumonia in Jun, decreased kidney function, uses CPAP, see Dr. Carey H & P History of Any Multi-Drug Resistant Organisms: MRSA Date of last positivie culture/infection: 04/02/24 MDRO Source:: wound Past Surgical History: Adenoidectomy, Cardiac Ablation, Section, Orthopedic Surgery, Tonsillectomy, Tubal Ligation Additional Past Surgical History / Comment(s): cardioversion x3, 2010 left ankle plate and screws, spinal cord surgery in 01/2024 non malignant Past Anesthesia/Blood Transfusion Reactions: No Reported Reaction Past Psychological History: No Psychological Hx Reported Smoking Status: Former smoker Past Alcohol Use History: None Reported Additional Past Alcohol Use History / Comment(s): quit smoking 2005, smoked a few years, not heavy Past Drug Use History: None Reported - Past Family History Mother History Unknown: Yes Family Medical History: AFIB, Hyperlipidemia, Hypertension, Thyroid Disorder Additional Family Medical History / Comment(s): stroe, afib, pacemaker, DM, OA, Brother(s) History Unknown: Yes Family Medical History: Cancer Additional Family Medical History / Comment(s): colon ca Father History Unknown: Yes Family Medical History: GI Bleed Additional Family Medical History / Comment(s): cirrhosis, emphysema Medications and Allergies Home Medications Medication Instructions Recorded Confirmed Type Apixaban [Eliquis] 5 mg PO BID 06/08/22 09/23/24 History Magnesium Oxide [Thao] 500 mg PO HS 06/08/22 09/23/24 History Montelukast Sodium [Singulair] 10 mg PO HS 06/08/22 09/23/24 History Rosuvastatin [Crestor] 10 mg PO HS 06/08/22 09/23/24 History Spironolactone [Aldactone] 25 mg PO DAILY #30 tab 09/25/22 09/23/24 Rx Budesonide-Formot 160-4.5 Mcg 2 puff INHALATION RT-BID 12/04/22 09/23/24 History [Symbicort 160-4.5 Mcg Inhaler] Furosemide [Lasix] 40 mg PO DAILY 12/04/22 09/23/24 History Calcium Carbonate [Calcium] 1,200 mg PO SUTUTHSA 03/15/23 09/23/24 History Omeprazole 40 mg PO DAILY 03/15/23 09/23/24 History dilTIAZem HCL [Cardizem CD] 120 mg PO DAILY 11/08/23 09/23/24 History tiZANidine [Zanaflex] 4 mg PO Q6H PRN 11/08/23 09/23/24 History Dapagliflozin Propanediol [Farxiga] 10 mg PO DAILY 07/28/24 09/23/24 History Ipratropium-Albuterol Nebulize 3 ml INHALATION RT-QID PRN 08/17/24 09/23/24 History [Duoneb 0.5 mg-3 mg/3 ml Soln] Acetaminophen [Tylenol Arthritis] 1,300 mg PO Q8H PRN 09/23/24 09/23/24 History Albuterol Inhaler [Ventolin Hfa 2 puff INHALATION RT-QID PRN 09/23/24 09/23/24 History Inhaler] Ascorbic Acid [Vitamin C] 1,000 mg PO DAILY 09/23/24 09/23/24 History Calcium 1200mg W/Vitamin D2 125mcg 1 tab PO MOWEFR 09/23/24 09/23/24 History Ferrous Sulfate [Feosol] 325 mg PO DAILY 09/23/24 09/23/24 History Fexofenadine HCl [Allyssa Allergy] 180 mg PO DAILY 09/23/24 09/23/24 History Zinc Sulfate [Orazinc] 220 mg PO HS 09/23/24 09/23/24 History atenoloL [Tenormin] 25 mg PO DAILY 09/23/24 09/23/24 History Allergies Allergy/AdvReac Type Severity Reaction Status Date / Time banana Allergy Anaphylaxis Verified 09/23/24 13:43 budesonide Allergy Anaphylaxis Verified 09/23/24 13:43 [From [employer]] (ok with Budesonide/Formoterol in Symbicort) cantaloupe Allergy Anaphylaxis Verified 09/23/24 13:43 formoterol Allergy Anaphylaxis, Verified 09/23/24 13:43 [From [employer]] (ok with Budesonide/Formoterol in Symbicort) glycopyrrolate Allergy Anaphylaxis Verified 09/23/24 13:43 [From [employer]] honeydew Allergy Anaphylaxis Verified 09/23/24 13:43 latex Allergy Rash/Hives Verified 09/23/24 13:43 melon Allergy Anaphylaxis Verified 09/23/24 13:43 perflutren [From Definity] Allergy Anaphylaxis Verified 09/23/24 13:43 diclofenac [From Voltaren] AdvReac Chest Pain Verified 09/23/24 13:43 metoprolol [From Lopressor] AdvReac Chest Pain Verified 09/23/24 13:43 naproxen [From Naprosyn] AdvReac Chest Pain Verified 09/23/24 13:43 NSAIDS (Non-Steroidal AdvReac Chest Pain Verified 09/23/24 13:43 Anti-Inflamma Physical Exam Vitals: Vital Signs Temp Pulse Pulse Resp BP BP Pulse Ox 09/24/24 08:19 86 09/24/24 08:08 90 09/24/24 01:58 97.7 F 68 18 113/75 96 09/24/24 01:28 73 18 09/23/24 21:07 98.3 F 73 18 106/74 93 L 09/23/24 21:02 73 18 09/23/24 20:20 18 09/23/24 20:00 70 16 93/76 99 09/23/24 14:30 82 16 92/59 97 09/23/24 14:08 101 H 18 92/59 98 09/23/24 14:00 89 16 93/79 98 09/23/24 13:14 102 H 18 94/57 96 09/23/24 12:37 98.3 F 115 H 18 134/77 98 Intake and Output 09/23/24 09/24/24 09/24/24 22:59 06:59 14:59 Other: Voiding Method Toilet Toilet # Voids 1 3 Weight 77.111 kg Results 09/24/24 05:51 09/24/24 05:51 Cardiac Enzymes 09/23/24 09/23/24 09/23/24 Range/Units 13:04 13:04 16:47 AST 22 (14-36) U/L Troponin I <0.012 <0.012 (0.000-0.034) ng/mL 09/23/24 Range/Units 20:20 AST (14-36) U/L Troponin I <0.012 (0.000-0.034) ng/mL Coagulation 09/23/24 Range/Units 13:04 PT 11.0 (10.0-12.5) sec APTT 26.0 (22.0-30.0) sec CBC 09/23/24 Range/Units 13:04 WBC 8.4 (3.8-10.6) k/uL RBC 4.87 (3.80-5.40) m/uL Hgb 12.2 (11.4-16.0) gm/dL Hct 39.3 (34.0-46.0) % Plt Count 262 (150-450) k/uL Comprehensive Metabolic Panel 09/23/24 Range/Units 13:04 Sodium 136 L (137-145) mmol/L Potassium 4.4 (3.5-5.1) mmol/L Chloride 100 (98-107) mmol/L Carbon Dioxide 24 (22-30) mmol/L BUN 25 H (7-17) mg/dL Creatinine 1.38 H (0.52-1.04) mg/dL Glucose 101 H (74-99) mg/dL Calcium 9.7 (8.4-10.2) mg/dL AST 22 (14-36) U/L ALT 14 (4-34) U/L Alkaline Phosphatase 140 H (38-126) U/L Total Protein 7.0 (6.3-8.2) g/dL Albumin 4.1 (3.5-5.0) g/dL Current Medications Generic Name Dose Route Start Last Admin Trade Name Freq PRN Reason Stop Dose Admin Acetaminophen 1,000 mg 09/23/24 14:31 Acetaminophen Tab 500 Mg Tab PO Q8H PRN Pain Albuterol/Ipratropium 3 ml 09/23/24 14:31 09/24/24 08:08 Ipratropium-Albuterol 3 Ml Neb INHALATION 3 ml RT-QID PRN Administration Shortness Of Breath Apixaban 5 mg 09/23/24 21:00 09/23/24 20:12 Apixaban 5 Mg Tab PO 5 mg BID PATTIE Administration Protocol Atenolol 25 mg 09/24/24 09:00 Atenolol 25 Mg Tab PO DAILY PATTIE Atorvastatin Calcium 20 mg 09/23/24 21:00 09/23/24 20:12 Atorvastatin 20 Mg Tab PO 20 mg HS PATTIE Administration Budesonide/Formoterol Fumarate 2 puff 09/23/24 20:00 09/24/24 08:08 Symbicort 160-4.5 Mcg Inhaler INHALATION 2 puff RT-BID PATTIE Administration Dapagliflozin 10 mg 09/24/24 09:00 Dapagliflozin Propanediol 10 Mg Tablet PO DAILY [facility] Ferrous Sulfate 325 mg 09/24/24 09:00 Ferrous Sulfate 325 Mg Tab PO DAILY [facility] Furosemide 40 mg 09/24/24 09:00 Furosemide 40 Mg Tab PO DAILY [facility] Loratadine 10 mg 09/24/24 09:00 Loratadine 10 Mg Tab PO DAILY [facility] Magnesium Oxide 400 mg 09/23/24 21:00 09/23/24 20:12 Magnesium Oxide 400 Mg Tab PO 400 mg HS [facility] Administration Montelukast Sodium 10 mg 09/23/24 21:00 09/23/24 20:12 Montelukast 10 Mg Tab PO 10 mg HS PATTIE Administration Naloxone HCl 0.2 mg 09/23/24 13:19 Naloxone 0.4 Mg/Ml 1 Ml Vial IV Q2M PRN Opioid Reversal Ondansetron HCl 4 mg 09/23/24 13:19 Ondansetron 4 Mg/2 Ml Vial IVP Q8HR PRN Nausea And Vomiting Pantoprazole Sodium 40 mg 09/24/24 09:00 Pantoprazole 40 Mg Tablet PO DAILY [facility] Spironolactone 25 mg 09/24/24 09:00 Spironolactone 25 Mg Tab PO DAILY [facility] Tizanidine HCl 4 mg 09/23/24 14:31 Tizanidine 4 Mg Tab PO Q6H PRN Muscle Pain Intake and Output 09/23/24 09/24/24 09/24/24 22:59 06:59 14:59 Other: Voiding Method Toilet Toilet # Voids 1 3 Weight 77.111 kg 09/23/24 13:04 09/23/24 13:04
[2024-09-24] MEDS: SODIUM CHLORIDE 0.9% 1,000 ML IV SCH (10:47)
[2024-09-24] MEDS: ASPIRIN 325 MG TAB PO STA (10:57)
[2024-09-24] MEDS: ATORVASTATIN 80 MG TAB PO STA (11:06)
[2024-09-24] MEDS: IV FLUID CONTINUATION 1,000 ML IV ONE (14:50)
[2024-09-24] MEDS: MIDAZOLAM 2 MG/2 ML VIAL IVP ONE (15:05)
[2024-09-24] MEDS: fentaNYL (PF) 50 MCG/1 ML VIAL IVP ONE (15:05)
[2024-09-24] MEDS: LIDOCAINE 1% INJ 10MG/ML (20 ML MDV) SQ ONE (15:06)
[2024-09-24] MEDS: VERAPAMIL SYRINGE (5 MG/10 ML) INTRAARTER ONE (15:10)
[2024-09-24] MEDS: HEPARIN SODIUM 1,000 UN/ML (10ML VL) IVP ONE (15:12)
[2024-09-24] MEDS: IOPAMIDOL-370 100ML BTL INJ ONE (15:21)
--- NOTE | 2024-09-24 15:23 | P.CARDCATH ---
Description of Procedure: PROCEDURES PERFORMED: Left heart catheterization, bilateral coronary angiography, ultrasound guided arterial access INDICATION: Increasing dyspnea on exertion, unstable angina symptoms CONSENT:I have discussed the risks, benefits and alternative therapies for the above-mentioned procedure and for both sedation/analgesia as well as necessary blood product administration, if indicated, as they pertain to this patient. The patient has indicated understanding and acceptance of the risks and procedures discussed. PROCEDURE: After the risks, benefits and alternatives of the above mentioned procedure explained in detail with the patient, informed consent was obtained. Patient was taken to the catheterization lab and prepped and draped in usual fashion. Ultrasound guidance was used to assess for arterial access. 1% lidocaine was used to anesthetize the right radial artery. A 6-Honduran sheath was placed in the right radial artery using modified Seldinger technique and ultrasound guidance. Left coronary angiography was performed with a 5-Honduran JL 3.5 catheter and right coronary angiography was performed with a 5-Honduran AR2 catheter in various views. A 5-Honduran AR2 catheter was inserted into the left ventricle and pressure measurements were obtained. The right radial sheath was removed and a TR band was placed with hemostasis achieved. The patient tolerated the procedure well. Patient was transported back to the post catheterization holding area in stable condition. Conscious Sedation: Patient was monitored under the direct supervision of myself for conscious sedation using Versed and fentanyl for a total duration of 11 minutes HEMODYNAMICS: Aorta: 109/72 LV: 108/5, LVEDP 14 SELECTIVE CORONARY ARTERIOGRAPHY: LEFT MAIN: The left main is a moderate to large caliber vessel which bifurcates into the LAD and circumflex. There is no significant stenosis. LEFT ANTERIOR DESCENDING CORONARY ARTERY: LAD is a moderate caliber vessel which wraps around to the apex. There is no significant stenosis. LEFT CIRCUMFLEX CORONARY ARTERY: Left circumflex is a small caliber vessel without significant stenosis. RIGHT CORONARY ARTERY: The right coronary artery is a moderate caliber vessel which gives off a PDA and PLV branch and is the dominant vessel. There is no significant stenosis. FINAL IMPRESSION: 1. Normal coronary arteries as described above. 2. Normal left sided filling pressures PLAN: 1. Aggressive risk factor modification per most recent ACC/AHA guidelines. 2. Follow-up in the office in 1-2 weeks.
--- NOTE | 2024-09-24 18:27 | P.HPIM ---
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 with a previous medical history significant for hypertension and hypertensive cardiovascular disease, hyperlipidemia, history of mild persistent asthma, obstructive sleep apnea, and osteoporosis, recent history of meningioma of the lumbar spine status post excision by neurosurgery at [facility], followed by inpatient rehabilitation at [facility], she has recovered completely from that, patient presented to the emergency department at [facility] after she noticed on her Apple Watch that her heart rate is running around 130 2040 bpm, alarming her to atrial fibrillation with fast ventricular response, patient contacted Dr. Gomez in the office, she did not get a call back, she waited for few hours, her heart rate got faster she ended up coming to the emergency department at [facility], she dropped her car off, she went into the ER, her heart rate at that time was around 150 bpm, she was started on Cardizem drip at that time, 5 mg/h, she did not receive any bolus, her blood pressure did drop a bit, she was admitted to the hospital for evaluation by cardiology, who recommended for the patient to be admitted and having left heart catheterization tomorrow morning. REVIEW OF SYSTEMS: Constitutional: No fever, no chills, no night sweats. No weight change. Positive for weakness, fatigue or lethargy. No daytime sleepiness. HEENT: No headache. No blurred vision or double vision, no loss of vision. No loss of Hearing, no ringing in the ears, no dizziness. No nasal drainage or congestion. No epistaxis. No sore throat. Lungs: positive for shortness of breath, no cough, no sputum production. No wheezing. Reports dyspnea with activity and at rest. Cardiovascular: No chest pain, no lower extremity edema. Reports palpitations. No paroxysmal nocturnal dyspnea. No orthopnea. No lightheadedness or dizziness. No syncopal episodes. Abdominal: Reports no abdominal pain. No nausea, vomiting. No diarrhea. No constipation. No bloody or tarry stools reports no loss of appetite. Genitourinary: No dysuria, increased frequency, urgency. No urinary retention. Musculoskeletal: No myalgias. No muscle weakness, no gait dysfunction, no frequent falls. No back pain. No neck pain. Integumentary: No wounds, no lesions. No rash or pruritus. No unusual bruising . No change in hair or nails. Neurologic: No aphasia. No facial droop. No change in mentation. No head injury. No headache. No paralysis. No paresthesia. Psychiatric: No depression. No anxiety. No mood swings. Endocrine: No abnormal blood sugars. No weight change. PAST MEDICAL HISTORY: Hypertension and hypertensive cardiovascular disease Hyperlipidemia Paroxysmal atrial Fibrillation. Mild persistent asthma. Obesity with obstructive sleep apnea. Osteoporosis. Meningioma in the lumbar spine status post posterior resection PAST SURGICAL HISTORY: Tonsillectomy and adenoidectomy. . Tubal ligation. Left ankle ORIF. Colonoscopy within 5 years Meningioma resection from the lumbar spine Tenzin Schleicher. 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 FAMILY HISTORY: Mother at age of 83 from diabetes competition and also had end-stage renal disease on hemodialysis. Father at age 69 from cirrhosis of the liver due to alcoholism and he also had history of COPD peptic ulcer disease ended up with perforated gastric stomach ulcer, patient had 4 brothers one is alive and doing well one at age of 36 from colon cancer one at the age of 26 because of a murder he was in the [place] and one at the age of 62 from diabetes complications patient has no sisters and she has 2 daughters one of them work at [employer]. PHYSICAL EXAMINATION: General: 68-year-old female sitting up in bed in no apparent distress. HEENT: Head is atraumatic, normocephalic, pupils were equal round reactive to light and recommendation, extraocular muscle movement were intact, sclera nonicteric, conjunctivae were pale, mucous membranes of the mouth are somewhat dry. Neck: Supple, no JVP, normal carotid upstroke bilaterally, no lymphadenopathy. Chest: Decreased breath sounds at the bases, few rhonchi, no expiratory wheezes, no chest wall tenderness, no intercostal retractions. Heart: First heart sound is normal, second heart sound is normal tachycardic irregularly irregular due to atrial fibrillation. Abdomen: Soft, nontender, nondistended, positive bowel sounds, there is no hepatosplenomegaly per Extremities: There is no edema no calf tenderness DP +2 bilaterally. Neurologic examination: Patient is awake alert and oriented X 3, cranial nerves II-12 appear grossly intact, muscle power were 5 out of 5 in upper extremities and 4 out of 5 in bilateral lower extremities, deep tendon reflexes normal bilaterally. ASSESSMENT AND PLAN: 1. Atrial fibrillation with rapid ventricular response. Patient was started on Cardizem drip, she has been on Eliquis 5 mg orally twice every day, she will be seen in consultation by cardiology tomorrow morning for possible left heart catheterization. 2. Paroxysmal atrial fibrillation status post ablation continue Cardizem drip at 5 mg/h continue Eliquis 5 mg twice daily. Patient will be seen in consultation by cardiology. 3. Hypertension and hypertensive cardiovascular disease. Continue atenolol 25 mg orally once every day, discontinue diltiazem. Monitor the patient blood pressure very closely. 4. Mixed hyperlipidemia. Continue patient on atorvastatin 40 mg orally once every day, monitor the patient lipid panel, keep LDL 55-70. 5. Obesity with obstructive sleep apnea. Continue CPAP. 6. ALLERGIC rhinitis. Continue patient on singular 10 mg at bedtime as well as Allyssa once every day. 7. Acute on chronic kidney disease stage IIIb. Avoid nephrotoxins, patient is to be maintained on Farxiga 10 mg orally once every day. Monitor the patient CMP in the next 24 hours 8. Iron deficiency anemia. status post EGD and colonoscopy and MR enterography that was negative. 9. DVT prophylaxis. Continue patient on Apixaban 5 mg po bid. 10. GI prophylaxis. Start patient on Protonix 40 mg once every day . 11. Observation. 12. Full code Past Medical History Past Medical History: Atrial Fibrillation, Asthma, Hypertension, Osteoarthritis (OA), Pneumonia, Renal Disease, Sleep Apnea/CPAP/BIPAP Additional Past Medical History / Comment(s): 2019 pneumonia and sepsis when living in [place], had pneumonia in Jun, decreased kidney function, uses CPAP, see Dr. Carey H & P History of Any Multi-Drug Resistant Organisms: MRSA Date of last positivie culture/infection: 04/02/24 MDRO Source:: wound Past Surgical History: Adenoidectomy, Cardiac Ablation, Section, Orthopedic Surgery, Tonsillectomy, Tubal Ligation Additional Past Surgical History / Comment(s): cardioversion x3, 2010 left ankle plate and screws, spinal cord surgery in 01/2024 non malignant Past Anesthesia/Blood Transfusion Reactions: No Reported Reaction Past Psychological History: No Psychological Hx Reported Smoking Status: Former smoker Past Alcohol Use History: None Reported Past Drug Use History: None Reported - Past Family History Mother History Unknown: Yes Family Medical History: AFIB, Hyperlipidemia, Hypertension, Thyroid Disorder Additional Family Medical History / Comment(s): stroe, afib, pacemaker, DM, OA, Brother(s) History Unknown: Yes Family Medical History: Cancer Additional Family Medical History / Comment(s): colon ca Father History Unknown: Yes Family Medical History: GI Bleed Additional Family Medical History / Comment(s): cirrhosis, emphysema Medications and Allergies Home Medications Medication Instructions Recorded Confirmed Type Apixaban [Eliquis] 5 mg PO BID 06/08/22 09/23/24 History Magnesium Oxide [Thao] 500 mg PO HS 06/08/22 09/23/24 History Montelukast Sodium [Singulair] 10 mg PO HS 06/08/22 09/23/24 History Rosuvastatin [Crestor] 10 mg PO HS 06/08/22 09/23/24 History Spironolactone [Aldactone] 25 mg PO DAILY #30 tab 09/25/22 09/23/24 Rx Budesonide-Formot 160-4.5 Mcg 2 puff INHALATION RT-BID 12/04/22 09/23/24 History [Symbicort 160-4.5 Mcg Inhaler] Furosemide [Lasix] 40 mg PO DAILY 12/04/22 09/23/24 History Calcium Carbonate [Calcium] 1,200 mg PO SUTUTHSA 03/15/23 09/23/24 History Omeprazole 40 mg PO DAILY 03/15/23 09/23/24 History dilTIAZem HCL [Cardizem CD] 120 mg PO DAILY 11/08/23 09/23/24 History tiZANidine [Zanaflex] 4 mg PO Q6H PRN 11/08/23 09/23/24 History Dapagliflozin Propanediol [Farxiga] 10 mg PO DAILY 07/28/24 09/23/24 History Ipratropium-Albuterol Nebulize 3 ml INHALATION RT-QID PRN 08/17/24 09/23/24 History [Duoneb 0.5 mg-3 mg/3 ml Soln] Acetaminophen [Tylenol Arthritis] 1,300 mg PO Q8H PRN 09/23/24 09/23/24 History Albuterol Inhaler [Ventolin Hfa 2 puff INHALATION RT-QID PRN 09/23/24 09/23/24 History Inhaler] Ascorbic Acid [Vitamin C] 1,000 mg PO DAILY 09/23/24 09/23/24 History Calcium 1200mg W/Vitamin D2 125mcg 1 tab PO MOWEFR 09/23/24 09/23/24 History Ferrous Sulfate [Feosol] 325 mg PO DAILY 09/23/24 09/23/24 History Fexofenadine HCl [Allyssa Allergy] 180 mg PO DAILY 09/23/24 09/23/24 History Zinc Sulfate [Orazinc] 220 mg PO HS 09/23/24 09/23/24 History atenoloL [Tenormin] 25 mg PO DAILY 09/23/24 09/23/24 History Allergies Allergy/AdvReac Type Severity Reaction Status Date / Time banana Allergy Anaphylaxis Verified 09/23/24 13:43 budesonide Allergy Anaphylaxis Verified 09/23/24 13:43 [From Wibki] (ok with Budesonide/Formoterol in Symbicort) cantaloupe Allergy Anaphylaxis Verified 09/23/24 13:43 formoterol Allergy Anaphylaxis, Verified 09/23/24 13:43 [From Wibki] (ok with Budesonide/Formoterol in Symbicort) glycopyrrolate Allergy Anaphylaxis Verified 09/23/24 13:43 [From Wibki] honeydew Allergy Anaphylaxis Verified 09/23/24 13:43 latex Allergy Rash/Hives Verified 09/23/24 13:43 melon Allergy Anaphylaxis Verified 09/23/24 13:43 perflutren [From Definity] Allergy Anaphylaxis Verified 09/23/24 13:43 diclofenac [From Voltaren] AdvReac Chest Pain Verified 09/23/24 13:43 metoprolol [From Lopressor] AdvReac Chest Pain Verified 09/23/24 13:43 naproxen [From Naprosyn] AdvReac Chest Pain Verified 09/23/24 13:43 NSAIDS (Non-Steroidal AdvReac Chest Pain Verified 09/23/24 13:43 Anti-Inflamma Physical Exam Vitals: Vital Signs Temp Pulse Resp BP Pulse Ox 09/23/24 14:30 82 16 92/59 97 09/23/24 14:08 101 H 18 92/59 98 09/23/24 14:00 89 16 93/79 98 09/23/24 13:14 102 H 18 94/57 96 09/23/24 12:37 98.3 F 115 H 18 134/77 98 Intake and Output 09/23/24 09/23/24 09/23/24 06:59 14:59 22:59 Other: Weight 77.111 kg Results CBC & Chem 7: 09/24/24 05:51 09/24/24 05:51 Labs: Abnormal Lab Results - Last 24 Hours (Table) 09/23/24 09/23/24 Range/Units 13:04 13:04 RDW 19.5 H (11.5-15.5) % Sodium 136 L (137-145) mmol/L BUN 25 H (7-17) mg/dL Creatinine 1.38 H (0.52-1.04) mg/dL Glucose 101 H (74-99) mg/dL Alkaline Phosphatase 140 H (38-126) U/L
--- NOTE | 2024-09-24 18:32 | P.PN ---
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 with a previous medical history significant for hypertension and hypertensive cardiovascular disease, hyperlipidemia, history of mild persistent asthma, obstructive sleep apnea, and osteoporosis, recent history of meningioma of the lumbar spine status post excision by neurosurgery at [facility], followed by inpatient rehabilitation at [facility], she has recovered completely from that, patient presented to the emergency department at [facility] after she noticed on her Apple Watch that her heart rate is running around 130 2040 bpm, alarming her to atrial fibrillation with fast ventricular response, patient contacted Dr. Gomez in the office, she did not get a call back, she waited for few hours, her heart rate got faster she ended up coming to the emergency department at [facility], she dropped her car off, she went into the ER, her heart rate at that time was around 150 bpm, she was started on Cardizem drip at that time, 5 mg/h, she did not receive any bolus, her blood pressure did drop a bit, she was admitted to the hospital for evaluation by cardiology, who recommended for the patient to be admitted and having left heart catheterization tomorrow morning. 09/24: Patient is sitting up in bed in no apparent distress, she just got back from the left heart catheterization, through her right radial artery, she has some numbness in the right index finger, there is just reduce the pressure of the band, she has no chest pain at this time, she does not appear to be somewhat short of breath, she continues to have dyspnea on exertion, her blood pressure is up appears to be soft, she was started on atenolol and it was increased to 25 mg orally twice every day, cardiology recommended to discontinue flecainide as well as diltiazem altogether, and follow-up with the patient as an outpatient in the next week or so the recommended for the patient to stay in the hospital overnight, continue IV fluid resuscitation in the form of normal saline at 100 cc an hour, repeat the patient CBC and CMP in the next 24 hours, if her kidney function is normal patient can be discharged home tomorrow morning and follow-up with me as an outpatient. REVIEW OF SYSTEMS: Constitutional: No fever, no chills, no night sweats. No weight change. Pos itive for weakness, fatigue or lethargy. No daytime sleepiness. HEENT: No headache. No blurred vision or double vision, no loss of vision. No loss of Hearing, no ringing in the ears, no dizziness. No nasal drainage or congestion. No epistaxis. No sore throat. Lungs: positive for shortness of breath, no cough, no sputum production. No wheezing. Reports dyspnea with activity and at rest. Cardiovascular: No chest pain, no lower extremity edema. Reports palpitations. No paroxysmal nocturnal dyspnea. No orthopnea. No lightheadedness or dizziness. No syncopal episodes. Abdominal: Reports no abdominal pain. No nausea, vomiting. No diarrhea. No constipation. No bloody or tarry stools reports no loss of appetite. Genitourinary: No dysuria, increased frequency, urgency. No urinary retention. Musculoskeletal: No myalgias. No muscle weakness, no gait dysfunction, no frequent falls. No back pain. No neck pain. Integumentary: No wounds, no lesions. No rash or pruritus. No unusual bruising. No change in hair or nails. Neurologic: No aphasia. No facial droop. No change in mentation. No head injury. No headache. No paralysis. No paresthesia. Psychiatric: No depression. No anxiety. No mood swings. Endocrine: No abnormal blood sugars. No weight change. PHYSICAL EXAMINATION: General: 68-year-old female sitting up in bed in no apparent distress. HEENT: Head is atraumatic, normocephalic, pupils were equal round reactive to light and recommendation, extraocular muscle movement were intact, sclera nonicteric, conjunctivae were pale, mucous membranes of the mouth are somewhat dry. Neck: Supple, no JVP, normal carotid upstroke bilaterally, no lymphadenopathy. Chest: Decreased breath sounds at the bases, few rhonchi, no expiratory wheezes, no chest wall tenderness, no intercostal retractions. Heart: First heart sound is normal, second heart sound is normal tachycardic irregularly irregular due to atrial fibrillation. Abdomen: Soft, nontender, nondistended, positive bowel sounds, there is no hepatosplenomegaly per Extremities: There is no edema no calf tenderness DP +2 bilaterally. Neurologic examination: Patient is awake alert and oriented X 3, cranial nerves II-12 appear grossly intact, muscle power were 5 out of 5 in upper extremities and 4 out of 5 in bilateral lower extremities, deep tendon reflexes normal bilaterally. ASSESSMENT AND PLAN: 1. Atrial fibrillation with rapid ventricular response. Patient is being treated with Eliquis 5 mg orally twice every day and atenolol 25 mg orally twice every day, monitor the patient blood pressure very closely. 2. Dyspnea on exertion status post left heart catheterization that showed n ormal coronaries continue atenolol 25 mg orally twice every day, continue IV fluid resuscitation in the form of normal saline at 100 cc an hour, repeat CMP tomorrow morning, and CBC as well, if her kidney function stable can be discharged home tomorrow morning and follow-up with us as an outpatient. 3. Hypertension and hypertensive cardiovascular disease. Continue atenolol 25 mg orally twice every day monitor the patient blood pressure very closely. 4. Mixed hyperlipidemia. Continue patient on atorvastatin 20 mg orally once every day, monitor the patient lipid panel, keep LDL 55-70. 5. Obesity with obstructive sleep apnea. Continue CPAP. 6. ALLERGIC rhinitis. Continue patient on singular 10 mg at bedtime as well as Allyssa once every day. 7. Acute on chronic kidney disease stage IIIb. Avoid nephrotoxins, patient is to be maintained on Farxiga 10 mg orally once every day. Monitor the patient CMP in the next 24 hours 8. Iron deficiency anemia. status post EGD and colonoscopy and MR enterography that was negative. Continue iron supplement to 25 mg once every day 9. DVT prophylaxis. Continue patient on Apixaban 5 mg po bid. 10. GI prophylaxis. Start patient on Protonix 40 mg once every day . 11. Mild persistent asthma. Continue patient on Symbicort 160/4.5 mcg 2 puffs elation twice every day, continue albuterol as needed. 12. likely home tomorrow morning if labs are stable. Objective - Vital Signs Vital signs: Vital Signs Temp 98.0 F 09/24/24 14:57 Pulse 69 09/24/24 15:38 Resp 17 09/24/24 14:57 BP 91/70 09/24/24 15:38 Pulse Ox 94 L 09/24/24 15:38 FiO2 Intake & Output 09/23/24 09/24/24 09/24/24 18:59 06:59 18:59 Intake Total 318 Balance 318 Weight 77.111 kg 77.111 kg Intake: IV 200 Oral 118 Other: Voiding Method Toilet Toilet # Voids 3 1 - Labs CBC & Chem 7: 09/24/24 05:51 09/24/24 05:51 Labs: Abnormal Lab Results - Last 24 Hours (Table) 09/24/24 09/24/24 Range/Units 05:51 05:51 Hgb 11.8 L (12.0-15.0) g/dL MCH 24.3 L (27.0-32.0) pg MCHC 29.4 L (32.0-37.0) g/dL RDW 21.6 H (11.5-14.5) % Immature Gran # 0.05 H (0.00-0.04) X 10*3/uL Monocytes # 1.15 H (0.20-1.00) X 10*3/uL Basophils # 0.11 H (0.00-0.10) X 10*3/uL Creatinine 1.6 H (0.6-1.5) mg/dL Est GFR (CKD-EPI) 35 L (>=60) Alkaline Phosphatase 132 H (41-126) U/L
[2024-09-25] MEDS: ACETAMINOPHEN TAB 500 MG TAB PO PRN (02:52)
[2024-09-25] MEDS ORDERED: HEPARIN SODIUM,PORCINE 10,000 UNIT in SODIUM CHLORIDE 0.9% 1,000 ML IRRIGATION PRN (07:00)
[2024-09-25 08:32] LABS: ALT 12 U/L (8-44); AST 15 U/L (13-35); Albumin 3.6 g/dL (3.8-4.9); Albumin/Globulin Ratio 1.71 Ratio (1.60-3.17); Alkaline Phosphatase 115 U/L (41-126); BUN/Creat Ratio 15.06 Ratio (12.00-20.00); Blood Urea Nitrogen 24.1 mg/dL (9.0-27.0); Calcium 8.7 mg/dL (8.7-10.3); Carbon Dioxide 23.6 mmol/L (21.6-31.8); Chloride 106 mmol/L (96-109); Globulin 2.1 g/dL (1.6-3.3); Glucose 117 mg/dL (70-110); Potassium 4.4 mmol/L (3.5-5.5); Sodium 140 mmol/L (135-145); Total Bilirubin 0.2 mg/dL (0.3-1.2); Total Protein 5.7 g/dL (6.2-8.2)
[2024-09-25 08:42] LABS: Basophils # (A) 0.07 X 10*3/uL (0.00-0.10); Basophils % (A) 0.8 %; Eosinophils # (A) 0.19 X 10*3/uL (0.04-0.35); Eosinophils % (A) 2.2 %; HCT 36.1 % (37.2-46.3); HGB 10.7 g/dL (12.0-15.0); Lymphocytes # (A) 2.11 X 10*3/uL (0.90-5.00); MCH 24.8 pg (27.0-32.0); MCHC 29.6 g/dL (32.0-37.0); MCV 83.6 FL (80.0-97.0); Mean Platelet Volume 11.4 FL (9.5-12.2); Monocytes % (A) 10.7 %; NRBC Per 100 WBC 0 X 10*3/uL (0.00-0.01); Neutrophils # (A) 5.12 X 10*3/uL (1.80-7.70); Neutrophils % (A) 60.6 %; Platelet Count 262 X 10*3/uL (140-440); RBC 4.32 X 10*6/uL (4.10-5.20); RDW 21.8 % (11.5-14.5); WBC 8.45 X 10*3/uL (4.50-10.00)
[2024-09-25] MEDS: IV FLUID CONTINUATION 300 ML IV ONE (13:17)
--- NOTE | 2024-09-25 13:29 | P.PN ---
Subjective Progress Note Date: 09/25/24 Reason for Consult (text): Afib with RVR History of present illness: This is a 68-year-old female patient of Dr. Gomez with past medical history of persistent atrial fibrillation status post ablation in 2022, hypertension, hyperlipidemia, asthma, obstructive sleep apnea, recent history of meningioma of the lumbar spine status post excision at [facility], remote history of tobacco use. We have been asked to evaluate the patient for A-fib with RVR. Patient states that she was at work yesterday and around 915 she could feel that her heart was racing and her heart was at 156 bpm. She called the cardiology office and was told to come into the emergency center for evaluation. Patient had a recent hospitalization in July at which time she was diagnosed with influenza A and also presented with A-fib with RVR. She was found to have mild cardiomyopathy at that time with EF of 45 to 50% thought to be related to influenza A and B and/or atrial fibrillation. Patient did convert to a sinus rhythm during that hospitalization. She subsequently had follow-up in the office with Dr. Gomez. She had undergone a 5-day event monitor in July that showed a 37% A-fib burden with average heart rate 74 bpm with maximum 190 and minimum 49. Patient in general was still having dyspnea on minimal exertion including just walking in her home from room to room but without chest pain or chest pressure. It was recommended at that time the patient undergo cardiac catheterization to evaluate her cardiomyopathy and symptoms of dyspnea on exertion, heart association class IV symptoms. Patient was also stopped flecainide. Blood pressure this morning was 81/58 with heart rate of 83 and Cardizem drip was discontinued. Repeat blood pressure 95/67. Pulse ox is 95% on room air and patient has been afebrile. At this time, recommended the patient's stop flecainide completely as she is already done and also stop Cardizem due to the mild cardiomyopathy. Patient is on atenolol which will be increased. -EKG: Atrial fibrillation 102 bpm -Laboratory studies: WBC 9.4, hemoglobin 9.8, electrolytes within normal limits. BUN 23 creatinine 1.6. Troponin negative x 3. proBNP 1690. TSH 1.59. -Home cardiac medications: Eliquis 5 mg twice daily, atenolol 25 mg daily, Farxiga 10 mg daily, Cardizem CD 120 mg daily, Lasix 40 mg daily, Crestor 10 mg daily at bedtime, spironolactone 25 mg daily. -Cardiolite stress test performed in the office on 05/16/2022: Normal study without inducible ischemia. Normal myocardial perfusion. Normal left ventricular EF of 60%, fair exercise tolerance. -Echocardiogram performed 07/29/2024 revealed mild LV dysfunction with EF of 45 to 50%.. 09/25 Patient seen and examined. Yesterday, patient underwent cardiac catheterization that revealed normal coronary arteries. On telemetry, patient had a documented 14.6-second postconversion pause. Patient states that she was sleeping at the time and it woke her up. She is clear that she woke up prior to the nursing coming into the room. She states she felt a weird feeling in her head. Patient noted to have converted from atrial fibrillation to sinus rhythm despite being off flecainide and Cardizem. Plan is for permanent pacemaker today with Dr. Kathrin mccollum. Her last dose of Eliquis was last p.m. Blood pressure 95/62, heart rate 69, pulse ox 98% on room air. Hemoglobin 10.7, BUN 24 creatinine 1.6. Physical examination: Gen: This is a 68-year-old female in no acute distress VS: reviewed HEENT: Head is atraumatic, normocephalic. Pupils equal, round. Sclerae is anicteric. NECK: Supple. No JVD. LUNGS: Decreased breath sounds at the bases. No intercostal retractions. HEART: Regular rate and rhythm. No murmur. ABDOMEN: Soft No tenderness. EXTREMITIES: No pedal edema. No calf tenderness. NEUROLOGICAL: Patient is awake, alert and oriented x3. Assessment: Paroxysmal atrial fibrillation with episode of RVR, converted to sinus rhythm Dyspnea on minimal exertion with normal coronary arteries on cardiac catheterization 14.6-second postconversion pause, symptomatic Hypertension Hyperlipidemia Asthma History of obstructive sleep apnea but no longer requiring CPAP History of meningioma lumbar spine status post excision at [facility] Chronic kidney disease stage IIIb Remote history of tobacco use and dependence Plan: Continue patient's home cardiac medications: Eliquis, atorvastatin, Farxiga, Lasix, Aldactone Continue to hold Cardizem No need to repeat echocardiogram Patient will be scheduled for permanent pacemaker implantation this afternoon with Dr. Gomez Continue telemetry monitoring Further recommendations to follow based upon clinical course. Nurse practitioner note has been reviewed, I agree with documented findings and plan of care. Patient was seen and examined. Objective - Vital Signs Vital signs: Vital Signs Temp 97.9 F 09/25/24 00:51 Pulse 94 09/25/24 05:48 Resp 19 09/25/24 02:45 BP 110/71 09/25/24 00:51 Pulse Ox 97 09/25/24 00:51 FiO2 Intake & Output 09/24/24 09/25/24 09/25/24 18:59 06:59 18:59 Intake Total 318 Balance 318 Intake: IV 200 Oral 118 Other: Voiding Method Toilet Toilet # Voids 1 2 - Labs CBC & Chem 7: 09/25/24 05:20 09/25/24 05:20 Labs: Abnormal Lab Results - Last 24 Hours (Table) 09/24/24 09/24/24 Range/Units 05:51 05:51 Hgb 11.8 L (12.0-15.0) g/dL MCH 24.3 L (27.0-32.0) pg MCHC 29.4 L (32.0-37.0) g/dL RDW 21.6 H (11.5-14.5) % Immature Gran # 0.05 H (0.00-0.04) X 10*3/uL Monocytes # 1.15 H (0.20-1.00) X 10*3/uL Basophils # 0.11 H (0.00-0.10) X 10*3/uL Creatinine 1.6 H (0.6-1.5) mg/dL Est GFR (CKD-EPI) 35 L (>=60) Alkaline Phosphatase 132 H (41-126) U/L
[2024-09-25] MEDS: MIDAZOLAM 2 MG/2 ML VIAL IVP ONE ×3 (13:46→15:44)
[2024-09-25] MEDS: fentaNYL (PF) 50 MCG/ML 2 ML AMP IVP ONE ×2 (13:47→14:45)
[2024-09-25] MEDS: LIDOCAINE 1% INJ 10MG/ML (20 ML MDV) SQ ONE ×2 (13:56→14:45)
[2024-09-25] MEDS: IOPAMIDOL-370 100ML BTL INJ ONE (14:11)
[2024-09-25] MEDS: HEPARIN SODIUM,PORCINE (1 ML) 2,500 UNIT in SODIUM CHLORIDE 0.9% 250 ML IRRIGATION PRN (15:01)
--- NOTE | 2024-09-25 15:22 | P.PN ---
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 with a previous medical history significant for hypertension and hypertensive cardiovascular disease, hyperlipidemia, history of mild persistent asthma, obstructive sleep apnea, and osteoporosis, recent history of meningioma of the lumbar spine status post excision by neurosurgery at [facility], followed by inpatient rehabilitation at [facility], she has recovered completely from that, patient presented to the emergency department at [facility] after she noticed on her Apple Watch that her heart rate is running around 130 2040 bpm, alarming her to atrial fibrillation with fast ventricular response, patient contacted Dr. Gomez in the office, she did not get a call back, she waited for few hours, her heart rate got faster she ended up coming to the emergency department at [facility], she dropped her car off, she went into the ER, her heart rate at that time was around 150 bpm, she was started on Cardizem drip at that time, 5 mg/h, she did not receive any bolus, her blood pressure did drop a bit, she was admitted to the hospital for evaluation by cardiology, who recommended for the patient to be admitted and having left heart catheterization tomorrow morning. 4/3: Patient is sitting up in bed in no apparent distress, she just got back from the left heart catheterization, through her right radial artery, she has some numbness in the right index finger, there is just reduce the pressure of the band, she has no chest pain at this time, she does not appear to be somewhat short of breath, she continues to have dyspnea on exertion, her blood pressure is up appears to be soft, she was started on atenolol and it was increased to 25 mg orally twice every day, cardiology recommended to discontinue flecainide as well as diltiazem altogether, and follow-up with the patient as an outpatient in the next week or so the recommended for the patient to stay in the hospital overnight, continue IV fluid resuscitation in the form of normal saline at 100 cc an hour, repeat the patient CBC and CMP in the next 24 hours, if her kidney function is normal patient can be discharged home tomorrow morning and follow-up with me as an outpatient. 4/4: Patient is sitting up in bed in no apparent distress, yesterday she had an episode of 14.6-second pause after she converted to sinus rhythm, patient is scheduled to go for a permanent pacemaker placement later on this afternoon, patient denies any chest pain at this time, she has no shortness of breath, she has no abdominal pain, nausea vomiting or diarrhea, she will have her pacemaker placed today, and hopefully she will be discharged home tomorrow morning. REVIEW OF SYSTEMS: Constitutional: No fever, no chills, no night sweats. No weight change. Positive for weakness, fatigue or lethargy. No daytime sleepiness. HEENT: No headache. No blurred vision or double vision, no loss of vision. No loss of Hearing, no ringing in the ears, no dizziness. No nasal drainage or congestion. No epistaxis. No sore throat. Lungs: positive for shortness of breath, no cough, no sputum production. No wheezing. Reports dyspnea with activity and at rest. Cardiovascular: No chest pain, no lower extremity edema. Reports palpitations. No paroxysmal nocturnal dyspnea. No orthopnea. No lightheadedness or dizziness. No syncopal episodes. Abdominal: Reports no abdominal pain. No nausea, vomiting. No diarrhea. No constipation. No bloody or tarry stools reports no loss of appetite. Genitourinary: No dysuria, increased frequency, urgency. No urinary retention. Musculoskeletal: No myalgias. No muscle weakness, no gait dysfunction, no frequent falls. No back pain. No neck pain. Integumentary: No wounds, no lesions. No rash or pruritus. No unusual bruising. No change in hair or nails. Neurologic: No aphasia. No facial droop. No change in mentation. No head injury. No headache. No paralysis. No paresthesia. Psychiatric: No depression. No anxiety. No mood swings. Endocrine: No abnormal blood sugars. No weight change. PHYSICAL EXAMINATION: General: 68-year-old female sitting up in bed in no apparent distress. HEENT: Head is atraumatic, normocephalic, pupils were equal round reactive to light and recommendation, extraocular muscle movement were intact, sclera nonicteric, conjunctivae were pale, mucous membranes of the mouth are somewhat dry. Neck: Supple, no JVP, normal carotid upstroke bilaterally, no lymphadenopathy. Chest: Decreased breath sounds at the bases, few rhonchi, no expiratory wheezes, no chest wall tenderness, no intercostal retractions. Heart: First heart sound is normal, second heart sound is normal tachycardic irregularly irregular due to atrial fibrillation. Abdomen: Soft, nontender, nondistended, positive bowel sounds, there is no hepatosplenomegaly per Extremities: There is no edema no calf tenderness DP +2 bilaterally. Neurologic examination: Patient is awake alert and oriented X 3, cranial nerves II-12 appear grossly intact, muscle power were 5 out of 5 in upper extremities and 4 out of 5 in bilateral lower extremities, deep tendon reflexes normal bilaterally. ASSESSMENT AND PLAN: 1. Atrial fibrillation with rapid ventricular response. Patient is being treated with Eliquis 5 mg orally twice every day and atenolol 25 mg orally twice every day, monitor the patient blood pressure very closely. 2. Dyspnea on exertion status post left heart catheterization that showed normal coronaries continue atenolol 25 mg orally twice every day, continue IV fluid resuscitation in the form of normal saline at 100 cc an hour, repeat CMP tomorrow morning, and CBC as well, if her kidney function stable can be dis charged home tomorrow morning and follow-up with us as an outpatient. 3. 14.6-second pause post cardioversion to sinus rhythm. Patient is scheduled to go for permanent pacemaker later on this evening. 4. Hypertension and hypertensive cardiovascular disease. Continue atenolol 25 mg orally twice every day monitor the patient blood pressure very closely. 5. Mixed hyperlipidemia. Continue patient on atorvastatin 20 mg orally once every day, monitor the patient lipid panel, keep LDL 55-70. 6. Obesity with obstructive sleep apnea. Continue CPAP. 7. ALLERGIC rhinitis. Continue patient on singular 10 mg at bedtime as well as Allyssa once every day. 8. Acute on chronic kidney disease stage IIIb. Avoid nephrotoxins, patient is to be maintained on Farxiga 10 mg orally once every day. Monitor the patient CMP in the next 24 hours 9. Iron deficiency anemia. status post EGD and colonoscopy and MR enterography that was negative. Continue iron supplement to 25 mg once every day 10. DVT prophylaxis. Continue patient on Apixaban 5 mg po bid. 11. GI prophylaxis. Start patient on Protonix 40 mg once every day . 12. Mild persistent asthma. Continue patient on Symbicort 160/4.5 mcg 2 puffs elation twice every day, continue albuterol as needed. 13. likely home tomorrow morning if labs are stable after permanent pacemaker placement. Objective - Vital Signs Vital signs: Vital Signs Temp 97.5 F L 09/25/24 07:00 Pulse 69 09/25/24 07:00 Resp 18 09/25/24 07:00 BP 95/62 09/25/24 07:00 Pulse Ox 98 09/25/24 07:00 FiO2 Intake & Output 09/24/24 09/25/24 09/25/24 18:59 06:59 18:59 Intake Total 318 50 Balance 318 50 Intake: IV 200 50 Oral 118 Other: Voiding Method Toilet Toilet # Voids 1 2 - Labs CBC & Chem 7: 09/25/24 05:20 09/25/24 05:20 Labs: Abnormal Lab Results - Last 24 Hours (Table) 09/25/24 09/25/24 Range/Units 05:20 05:20 Hgb 10.7 L (12.0-15.0) g/dL Hct 36.1 L (37.2-46.3) % MCH 24.8 L (27.0-32.0) pg MCHC 29.6 L (32.0-37.0) g/dL RDW 21.8 H (11.5-14.5) % Immature Gran # 0.06 H (0.00-0.04) X 10*3/uL Creatinine 1.6 H (0.6-1.5) mg/dL Est GFR (CKD-EPI) 35 L (>=60) Glucose 117 H (70-110) mg/dL Total Bilirubin 0.2 L (0.3-1.2) mg/dL Total Protein 5.7 L (6.2-8.2) g/dL Albumin 3.6 L (3.8-4.9) g/dL
[2024-09-25] MEDS: fentaNYL (PF) 50 MCG/1 ML VIAL IVP ONE (15:44)
--- NOTE | 2024-09-25 16:10 | P.PCN ---
Description of Procedure: CARDIOLOGY PROCEDURE NOTE Stick Roller: Dr. Juve Gomze Procedure performed: Insertion dual chamber permanent pacemaker Site: Right subclavian Indications: Sick Sinus Syndrome, sinus arrest, tachybrady syndrome Complications: None Blood Loss: Minimal Description of Procedure: After the risks, benefits, and alternatives of the above-mentioned procedure was explained in detail with the patient, informed consent was obtained. The patient was taken to the cardiac catheterization suite where the left subclavian area was sterily prepped and draped in the usual fashion. One percent lidocaine was used to anesthetize the left subclavian area. A 1.5 inch incision was made utilizing a #15 blade in the left subclavian site. Hemostasis was made complete. Electrocautery along with digital blunt dissection was utilized to dissect to the level of the pectoralis muscle fascia and create a pocket large enough to accommodate the generator. A thin walled micro puncuture needle was used to cannulate the left subclavian vein. A guide-wire was inserted through the needle into the vascular lumen under fluoroscopic guidance, however wire noted to be going in an inferior direction and therefore angiogram was performed through the left subclavian which verified persistent left SVC. Therefore left subclavian site was abandonded and closed. The subcutaneous tissue was approximated utilizing #2.0 and 3.0 vicryl in an interrupted stitch fashion. The dermal layer was approximated utilizing #4.0 vicryl. The area was cleansed with sterile saline and dried. A sterile 4x4 dressing was applied. The patient was prepped and draped again on the right subclavian site. One percent lidocaine was used to anesthetize the right subclavian area. A 1.5 inch incision was made utilizing a #15 blade in the right subclavian site. Hemostasis was made complete. Electrocautery along with digital blunt dissection was utilized to dissect to the level of the pectoralis muscle fascia and create a pocket large enough to accommodate the generator. A thin walled micro puncuture needle was used to cannulate the left subclavian vein. A guide-wire was inserted through the needle into the vascular lumen under fluoroscopic guidance. The needle was removed. Another thin walled micr puncture needle was used to again cannulate the left subclavian vein. A guide-wire was inserted through the needle into the vascular lumen under fluoroscopic guidance. The needle was removed and both guide-wires were attached to the field. A venous sheath and dilator were advanced over the guidewire into the vascular lumen under fluoroscopic guidance. The dilator and guidewire were then removed. A right ventricular bipolar lead was inserted into the sheath and advanced under fluoroscopic guidance into the right ventricle under fluoroscopic guidance. Adequate sensing and pacing thresholds were achieved and the lead was screwed into place in the RV apex. The sheath was then torn away. The lead collar was advanced and anchored into place utilizing #0 silk suture. Next, another venous sheath and dilator were advanced under fluoroscopic guidance into the vascular lumen over the guidewire. After removal of the dilator and guidewire, a right atrial bipolar lead was inserted into this sheath and advanced under fluoroscopic guidance into the right atrium. The lead was positioned into the right atrial appendage. Adequate sensing and pacing thresholds were then achieved and the lead was screwed into place. The sheath was then torn away. The lead collar was advanced and anchored into place utilizing #0 silk suture. The leads were then inserted into the appropriate position into the generator. They were then secured with the setscrew provided. The leads and generator were inserted into the pocket with the leads posterior. While closing the pocket, sensing thresholds were noted to decrease and the wire was noted under fluoro to be out. Therefore the 1st layer of suture were opened again and the right atrial lead was repositioned with patient's RA appearing to be significantly rotated and the RA was repositioned. The subcutaneous tissue was approximated utilizing #2.0 and 3.0 vicryl in an interrupted stitch fashion. The dermal layer was approximated utilizing #4.0 vicryl. The area was cleansed with sterile saline and dried. A sterile 4x4 dressing was applied and the patient was transferred to the post catheterization holding area in stable and satisfactory condition. The patient tolerated the procedure well. Generator Data Polymerization Supervisor: [employer] Brand: [id number] [place] XT DR MRI Model #: [id number] Serial#: [id number] Right Atrial Bipolar Lead Data: Type: Active fixation lead Polymerization Supervisor: [employer] Model#: 5076-45 Serial Number: [id number] Right Ventricular Bipolar Lead Data: Type: Active fixation lead Polymerization Supervisor: [employer] Model #: 5076-52 Serial #: [id number] Stimulation Thresholds: Right atrial bipolar lead pacing and sensing thresholds Voltage: 1.5 Impedance: 570 ohms P-wave sensin.1 mV Right Ventricular bipolar lead pacing and sensing thresholds Pulse Width: 0.4ms Voltage: 0.5 volts Impedance: 1083 ohms R-wave sensin mV Parameter Setting: Pacing mode is AAIR<=>DDDR Lower rate 60 bpm Upper rate 130 bpm Impressions: 1. Successful implantation of a dual chamber permanent pacemaker in the right pectoral site. 2. Persistent left SVC Plan: 1. Routine post procedure care will be instituted as well as outpatient follow- up surveillance.
[2024-09-25] MEDS: ceFAZolin 1,000 MG in SODIUM CHLORIDE 0.9% IRRIG BTL 250 ML IRRIGATION ONE (16:28)
[2024-09-25] MEDS: SODIUM CHLORIDE 0.9% 1,000 ML IV SCH ×2 (16:29→16:30)
[2024-09-25] MEDS: ACETAMINOPHEN TAB 325 MG TAB PO PRN (16:45)
--- NOTE | 2024-09-25 17:11 | XR ---
EXAMINATION TYPE: XR chest 1V portable DATE OF EXAM: 09/25/2024 4:50 PM COMPARISON: 07/28/2024 CLINICAL INDICATION: Female, 68 years old with history of Lead placement check, TECHNIQUE: XR chest 1V portable view(s) obtained. FINDINGS: The heart size is normal. The pulmonary vasculature is normal. There are some scattered infiltrates within the right midlung and left upper lung field. Correlate fo r atelectasis or developing pneumonia. There is placement of a right-sided pacemaker with 2 leads present. These have a typical orientation. IMPRESSION: 1. Right mid and left upper lung infiltrates. Correlate for atelectasis. 2. Placement of a right-sided pacemaker. No pneumothorax is evident. [facility], , 09/25/2024 5:09 PM
[2024-09-25] MEDS: tiZANidine 4 MG TAB PO PRN (17:22)
[2024-09-25] MEDS ORDERED: ALBUTEROL NEBULIZED (CONC) 2.5 MG, SODIUM CHLORIDE 0.9% NEBULIZ 3 ML INHALATION PRN (20:02)
[2024-09-25] MEDS: methylPREDNISolone SOD SUCCI 40 MG/ML 1 ML VIAL IV SCH (20:36)
[2024-09-25] MEDS: PIPERACILLIN-TAZOBACTAM 3.375 GM in SODIUM CHLORIDE 0.9% 100 ML IVPB SCH (20:36)
[2024-09-26] MEDS: methylPREDNISolone SOD SUCCI 40 MG/ML 1 ML VIAL IV SCH (05:24)
--- NOTE | 2024-09-26 07:31 | XR ---
EXAMINATION TYPE: XR chest 2V DATE OF EXAM: 09/26/2024 6:32 AM COMPARISON: 09/25/2024 CLINICAL INDICATION: Female, 68 years old with history of JENNIFER, cough, recent pacemaker placement. TECHNIQUE: XR chest 2V view(s) obtained. FINDINGS: The heart size is normal. The pulmonary vasculature is normal. There appears to be some infiltrate above the diaphragm of the lateral projection. Some minimal thick ening along the minor fissure right knee be present. Fluid and atelectasis could be considered. This is improving. Pacemaker is over the right chest. Leads remain within the atypical orientation. No pneumothorax evid ent IMPRESSION: 1. Posterior Lower lobe infiltrate. Continued follow-up recommended [facility], , 09/26/2024 7:29 AM
[2024-09-26 09:27] LABS: Basophils # (A) 0.02 X 10*3/uL (0.00-0.10); Basophils % (A) 0.2 %; Eosinophils # (A) 0.03 X 10*3/uL (0.04-0.35); Eosinophils % (A) 0.2 %; HCT 34.8 % (37.2-46.3); HGB 10.5 g/dL (12.0-15.0); Lymphocytes # (A) 0.45 X 10*3/uL (0.90-5.00); Lymphocytes % (A) 3.7 %; MCH 25.2 pg (27.0-32.0); MCHC 30.2 g/dL (32.0-37.0); MCV 83.7 FL (80.0-97.0); Mean Platelet Volume 11.3 FL (9.5-12.2); Monocytes # (A) 0.17 X 10*3/uL (0.20-1.00); Monocytes % (A) 1.4 %; NRBC Per 100 WBC 0 X 10*3/uL (0.00-0.01); Neutrophils # (A) 11.54 X 10*3/uL (1.80-7.70); Neutrophils % (A) 94.1 %; Platelet Count 230 X 10*3/uL (140-440); RBC 4.16 X 10*6/uL (4.10-5.20); RDW 21.5 % (11.5-14.5); WBC 12.26 X 10*3/uL (4.50-10.00)
[2024-09-26 09:48] LABS: Magnesium 2.2 mg/dL (1.5-2.4)
[2024-09-26 10:25] LABS: ALT 10 U/L (8-44); AST 20 U/L (13-35); Albumin 3.9 g/dL (3.8-4.9); Alkaline Phosphatase 121 U/L (41-126); BUN/Creat Ratio 14.53 Ratio (12.00-20.00); Blood Urea Nitrogen 24.7 mg/dL (9.0-27.0); Calcium 9.2 mg/dL (8.7-10.3); Carbon Dioxide 20.5 mmol/L (21.6-31.8); Chloride 101 mmol/L (96-109); Globulin 2.3 g/dL (1.6-3.3); Glucose 196 mg/dL (70-110); Potassium 4.2 mmol/L (3.5-5.5); Sodium 136 mmol/L (135-145); Total Bilirubin 0.4 mg/dL (0.3-1.2); Total Protein 6.2 g/dL (6.2-8.2)
--- NOTE | 2024-09-26 13:32 | P.PN ---
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 with a previous medical history significant for hypertension and hypertensive cardiovascular disease, hyperlipidemia, history of mild persistent asthma, obstructive sleep apnea, and osteoporosis, recent history of meningioma of the lumbar spine status post excision by neurosurgery at [facility], followed by inpatient rehabilitation at [facility], she has recovered completely from that, patient presented to the emergency department at [facility] after she noticed on her Apple Watch that her heart rate is running around 130 2040 bpm, alarming her to atrial fibrillation with fast ventricular response, patient contacted Dr. Gomez in the office, she did not get a call back, she waited for few hours, her heart rate got faster she ended up coming to the emergency department at [facility], she dropped her car off, she went into the ER, her heart rate at that time was around 150 bpm, she was started on Cardizem drip at that time, 5 mg/h, she did not receive any bolus, her blood pressure did drop a bit, she was admitted to the hospital for evaluation by cardiology, who recommended for the patient to be admitted and having left heart catheterization tomorrow morning. 4/3: Patient is sitting up in bed in no apparent distress, she just got back from the left heart catheterization, through her right radial artery, she has some numbness in the right index finger, there is just reduce the pressure of the band, she has no chest pain at this time, she does not appear to be somewhat short of breath, she continues to have dyspnea on exertion, her blood pressure is up appears to be soft, she was started on atenolol and it was increased to 25 mg orally twice every day, cardiology recommended to discontinue flecainide as well as diltiazem altogether, and follow-up with the patient as an outpatient in the next week or so the recommended for the patient to stay in the hospital overnight, continue IV fluid resuscitation in the form of normal saline at 100 cc an hour, repeat the patient CBC and CMP in the next 24 hours, if her kidney function is normal patient can be discharged home tomorrow morning and follow-up with me as an outpatient. 4/4: Patient is sitting up in bed in no apparent distress, yesterday she had an episode of 14.6-second pause after she converted to sinus rhythm, patient is scheduled to go for a permanent pacemaker placement later on this afternoon, patient denies any chest pain at this time, she has no shortness of breath, she has no abdominal pain, nausea vomiting or diarrhea, she will have her pacemaker placed today, and hopefully she will be discharged home tomorrow morning. 09/26: Patient underwent permanent pacemaker placement yesterday, last night I received a call from nursing staff stating that the patient is having severe pain in the right upper chest as well as the left lower chest as well associated with increased shortness of breath, increased coughing, chest x-ray was done showed evidence of developing infiltrate in the left lower lobe, patient was started on IV antibiotic in the form of Zosyn 3.375 g piggyback every 8 hours, she was also started on Solu-Medrol 40 mg IV push every 8 hours, oxygen support, 3 to nasal cannula, recommended pulmonary consultation, repeated chest x-ray in the next 24 hours, repeated chest x-ray showed infiltrate in the left lower lobe suggestive of developing pneumonia, procalcitonin level was ordered still pending exam and dictation. Pulmonary consultation was obtained patient was started on DuoNeb 3 mL nebulization 4 times every day, she will be placed on Mucinex 600 mg orally twice every day as well REVIEW OF SYSTEMS: Constitutional: No fever, no chills, no night sweats. No weight change. Positive for weakness, fatigue or lethargy. No daytime sleepiness. HEENT: No headache. No blurred vision or double vision, no loss of vision. No loss of Hearing, no ringing in the ears, no dizziness. No nasal drainage or congestion. No epistaxis. No sore throat. Lungs: positive for shortness of breath, positive for cough, no sputum product ion. Occasional wheezing. Reports dyspnea with activity and at rest. Cardiovascular: No chest pain, no lower extremity edema. Reports palpitations. No paroxysmal nocturnal dyspnea. No orthopnea. No lightheadedness or dizziness. No syncopal episodes. Abdominal: Reports no abdominal pain. No nausea, vomiting. No diarrhea. No constipation. No bloody or tarry stools reports no loss of appetite. Genitourinary: No dysuria, increased frequency, urgency. No urinary retention. Musculoskeletal: No myalgias. No muscle weakness, no gait dysfunction, no frequent falls. No back pain. No neck pain. Integumentary: No wounds, no lesions. No rash or pruritus. No unusual bruising. No change in hair or nails. Neurologic: No aphasia. No facial droop. No change in mentation. No head injury. No headache. No paralysis. No paresthesia. Psychiatric: No depression. No anxiety. No mood swings. Endocrine: No abnormal blood sugars. No weight change. PHYSICAL EXAMINATION: General: 68-year-old female sitting up in bed in no apparent distress. HEENT: Head is atraumatic, normocephalic, pupils were equal round reactive to light and recommendation, extraocular muscle movement were intact, sclera nonicteric, conjunctivae were pale, mucous membranes of the mouth are somewhat dry. Neck: Supple, no JVP, normal carotid upstroke bilaterally, no lymphadenopathy. Chest: Decreased breath sounds at the bases, few rhonchi, no expiratory wheezes, no chest wall tenderness, no intercostal retractions. Heart: First heart sound is normal, second heart sound is normal tachycardic irregularly irregular due to atrial fibrillation. Abdomen: Soft, nontender, nondistended, positive bowel sounds, there is no hepatosplenomegaly per Extremities: There is no edema no calf tenderness DP +2 bilaterally. Neurologic examination: Patient is awake alert and oriented X 3, cranial nerves II-12 appear grossly intact, muscle power were 5 out of 5 in upper extremities and 4 out of 5 in bilateral lower extremities, deep tendon reflexes normal bilaterally. ASSESSMENT AND PLAN: 1. Atrial fibrillation with rapid ventricular response. Patient is being treated with Eliquis 5 mg orally twice every day and atenolol 25 mg orally twice every day, monitor the patient blood pressure very closely. 2. Left lower lobe pneumonia likely gram-negative pneumonia. Will check procalcitonin level. Continue patient on Zosyn 3.375 g pubic every 8 hours, continue Mucinex 600 mg orally twice every day, Solu-Medrol 40 mg IV push every 8 hours, pulmonary consultation will be obtained. 3. 14.6-second pause post cardioversion to sinus rhythm. status post permanent pacemaker placement. 4. Hypertension and hypertensive cardiovascular disease. Continue atenolol 25 mg orally twice every day monitor the patient blood pressure very closely. 5. Mixed hyperlipidemia. Continue patient on atorvastatin 20 mg orally once every day, monitor the patient lipid panel, keep LDL 55-70. 6. Obesity with obstructive sleep apnea. Continue CPAP. 7. ALLERGIC rhinitis. Continue patient on singular 10 mg at bedtime as well as Allyssa once every day. 8. Acute on chronic kidney disease stage IIIb. Avoid nephrotoxins, patient is to be maintained on Farxiga 10 mg orally once every day. Monitor the patient CMP in the next 24 hours 9. Iron deficiency anemia. status post EGD and colonoscopy and MR enterography that was negative. Continue iron supplement to 25 mg once every day 10. DVT prophylaxis. Continue patient on Apixaban 5 mg po bid. 11. GI prophylaxis. Continue patient on Protonix 40 mg once every day . 12. Mild persistent asthma. Continue patient on Symbicort 160/4.5 mcg 2 puffs elation twice every day, continue albuterol as needed. Added DuoNeb 3 mL nebulization 4 times every day as well as Solu-Medrol 40 mg IV push every 8 hours. 13. We will continue to follow-up with the patient. Objective - Vital Signs Vital signs: Vital Signs Temp 98.8 F 09/26/24 07:00 Pulse 76 09/26/24 07:00 Resp 15 09/26/24 07:00 BP 103/67 09/26/24 07:00 Pulse Ox 97 09/26/24 07:00 FiO2 Intake & Output 09/25/24 09/26/24 09/26/24 18:59 06:59 18:59 Intake Total 275 Balance 275 Intake: IV 275 Other: Voiding Method Toilet # Voids 2 - Labs CBC & Chem 7: 09/26/24 04:32 09/26/24 04:32 Labs: Abnormal Lab Results - Last 24 Hours (Table) 09/25/24 09/25/24 Range/Units 05:20 05:20 Hgb 10.7 L (12.0-15.0) g/dL Hct 36.1 L (37.2-46.3) % MCH 24.8 L (27.0-32.0) pg MCHC 29.6 L (32.0-37.0) g/dL RDW 21.8 H (11.5-14.5) % Immature Gran # 0.06 H (0.00-0.04) X 10*3/uL Creatinine 1.6 H (0.6-1.5) mg/dL Est GFR (CKD-EPI) 35 L (>=60) Glucose 117 H (70-110) mg/dL Total Bilirubin 0.2 L (0.3-1.2) mg/dL Total Protein 5.7 L (6.2-8.2) g/dL Albumin 3.6 L (3.8-4.9) g/dL
--- NOTE | 2024-09-26 16:24 | P.PN ---
Subjective Progress Note Date: 09/26/24 This is a 68-year-old female patient of Dr. Gomez with past medical history of persistent atrial fibrillation status post ablation in 2022, hypertension, hyperlipidemia, asthma, obstructive sleep apnea, recent history of meningioma of the lumbar spine status post excision at [facility], remote history of tobacco use. We have been asked to evaluate the patient for A-fib with RVR. Patient states that she was at work yesterday and around 915 she could feel that her heart was racing and her heart was at 156 bpm. She called the cardiology office and was told to come into the emergency center for evaluation. Patient had a recent hospitalization in July at which time she was diagnosed with influenza A and also presented with A-fib with RVR. She was found to have mild cardiomyopathy at that time with EF of 45 to 50% thought to be related to influenza A and B and/or atrial fibrillation. Patient did convert to a sinus rhythm during that hospitalization. She subsequently had follow-up in the office with Dr. Gomez. She had undergone a 5-day event monitor in July that showed a 37% A-fib burden with average heart rate 74 bpm with maximum 190 and minimum 49. Patient in general was still having dyspnea on minimal exertion including just walking in her home from room to room but without chest pain or chest pressure. It was recommended at that time the patient undergo cardiac catheterization to evaluate her cardiomyopathy and symptoms of dyspnea on exertion, heart association class IV symptoms. Patient was also stopped flecainide. Blood pressure this morning was 81/58 with heart rate of 83 and Cardizem drip was discontinued. Repeat blood pressure 95/67. Pulse ox is 95% on room air and patient has been afebrile. At this time, recommended the patient's stop flecainide completely as she is already done and also stop Cardizem due to the mild cardiomyopathy. Patient is on atenolol which will be increased. -EKG: Atrial fibrillation 102 bpm -Laboratory studies: WBC 9.4, hemoglobin 9.8, electrolytes within normal limits. BUN 23 creatinine 1.6. Troponin negative x 3. proBNP 1690. TSH 1.59. -Home cardiac medications: Eliquis 5 mg twice daily, atenolol 25 mg daily, Farxiga 10 mg daily, Cardizem CD 120 mg daily, Lasix 40 mg daily, Crestor 10 mg daily at bedtime, spironolactone 25 mg daily. -Cardiolite stress test performed in the office on 05/16/2022: Normal study without inducible ischemia. Normal myocardial perfusion. Normal left ventricular EF of 60%, fair exercise tolerance. -Echocardiogram performed 07/29/2024 revealed mild LV dysfunction with EF of 45 to 50%.. 09/25 Patient seen and examined. Yesterday, patient underwent cardiac catheterization that revealed normal coronary arteries. On telemetry, patient had a documented 14.6-second postconversion pause. Patient states that she was sleeping at the time and it woke her up. She is clear that she woke up prior to the nursing coming into the room. She states she felt a weird feeling in her head. Patient noted to have converted from atrial fibrillation to sinus rhythm despite being off flecainide and Cardizem. Plan is for permanent pacemaker today with Dr. Gomez. Her last dose of Eliquis was last p.m. Blood pressure 95/62, heart rate 69, pulse ox 98% on room air. Hemoglobin 10.7, BUN 24 creatinine 1.6. 09/26/2024 No new cardiovascular events, hemodynamically stable BP 114/70, heart rate 80 bpm, pacemaker is working appropriately Pacemaker pocket appears intact Concerns of possible pneumonia which could be contributing to her shortness of breath getting IV antibiotics. Physical examination: Gen: This is a 68-year-old female in no acute distress VS: reviewed HEENT: Head is atraumatic, normocephalic. Pupils equal, round. Sclerae is anicteric. NECK: Supple. No JVD. LUNGS: Decreased breath sounds at the bases. No intercostal retractions. PPM site appears intact. No signs of significant swelling or hematoma. HEART: Regular rate and rhythm. No murmur. ABDOMEN: Soft No tenderness. EXTREMITIES: No pedal edema. No calf tenderness. NEUROLOGICAL: Patient is awake, alert and oriented x3. Assessment: 14.6-second postconversion pause, symptomatic, status post dual-chamber PPM Paroxysmal atrial fibrillation with RVR on admission. Pneumonia Hypertension Hyperlipidemia Asthma History of obstructive sleep apnea but no longer requiring CPAP History of meningioma lumbar spine status post excision at [facility] Chronic kidney disease stage IIIb Remote history of tobacco use and dependence Plan: Continue patient's home cardiac medications: Eliquis, atorvastatin, Farxiga, Lasix, Aldactone, atenolol PPM is working appropriately Getting IV antibiotics for possible pneumonia Patient is cleared from cardiovascular standpoint otherwise. Recommend outpatient follow-up within 1 week in the device clinic for stitches removal and pacemaker site care instructions. Recommend outpatient follow-up with Dr. Gomez Objective - Vital Signs Vital signs: Vital Signs Temp 97.9 F 09/26/24 15:00 Pulse 80 09/26/24 15:00 Resp 16 09/26/24 15:00 BP 114/70 09/26/24 15:00 Pulse Ox 94 L 09/26/24 15:00 FiO2 Intake & Output 09/25/24 09/26/24 09/26/24 18:59 06:59 18:59 Intake Total 275 Balance 275 Intake: IV 275 Other: Voiding Method Toilet Toilet # Voids 2 3 - Labs CBC & Chem 7: 09/26/24 04:32 09/26/24 04:32 Labs: Abnormal Lab Results - Last 24 Hours (Table) 09/26/24 09/26/24 Range/Units 04:32 04:32 WBC 12.26 H (4.50-10.00) X 10*3/uL Hgb 10.5 L (12.0-15.0) g/dL Hct 34.8 L (37.2-46.3) % MCH 25.2 L (27.0-32.0) pg MCHC 30.2 L (32.0-37.0) g/dL RDW 21.5 H (11.5-14.5) % Immature Gran # 0.05 H (0.00-0.04) X 10*3/uL Neutrophils # 11.54 H (1.80-7.70) X 10*3/uL Lymphocytes # 0.45 L (0.90-5.00) X 10*3/uL Monocytes # 0.17 L (0.20-1.00) X 10*3/uL Eosinophils # 0.03 L (0.04-0.35) X 10*3/uL Carbon Dioxide 20.5 L (21.6-31.8) mmol/L Anion Gap 14.50 H (4.00-12.00) mmol/L Creatinine 1.7 H (0.6-1.5) mg/dL Est GFR (CKD-EPI) 33 L (>=60) Glucose 196 H (70-110) mg/dL
--- NOTE | 2024-09-26 16:28 | P.CNPUL ---
History of Present Illness Consult date: 09/26/24 Reason for consult: dyspnea, pneumonia History of present illness: This is a 68-year-old female patient who is being seen for ongoing shortness of breath and cough. The patient was hospitalized initially on 09/23/2024 as the patient presented with tachycardia and she was in A-fib RVR. She was initially started on a Cardizem drip for rate control. Seen by cardiology. Treated accordingly. Cardiac cath was also done on 09/24/2024 and the cath came back essentially negative for any coronary artery disease. Previous echocardiogram from 07/29/2024 showed mild LV dysfunction with an ejection fraction of 45 to 50%. During the course of the same hospitalization, the patient encountered bradycardia. She did have an episode of prolonged asystole. Based on that, she was given the diagnosis of sick sinus syndrome, possible tachybradycardia syn drome and the patient was given a pacemaker that was inserted on 09/25/2024. At the same time, the patient is known to have asthma. Her chest x-rays done on 09/25/2024 and 09/26/2024 showed limited infiltration along the right midlung. Atelectasis versus pneumonia. The patient accordingly was given antibiotics and she remains on IV Zosyn. She is on Symbicort regarding her bronchial asthma and DuoNeb nebulizer treatments [id number]. Oxygenation is stable and the patient is currently on room air oxygen with a pulse ox of 94%. She does have a history of severe obstructive sleep apnea. Nevertheless, the most recent home sleep study that was done back in 2023 showed no evidence of any sleep breathing disorder and as such the patient is currently off treatment. Nevertheless, there is still concern of underlying residual obstructive sleep apnea and this needs to be reevaluated at a later stage. Other comorbidities include hypertension, hyperlipidemia, obesity, chronic stage IIIb kidney disease and history of iron deficiency anemia. Review of Systems Constitutional: Reports chills, Reports fatigue, Reports fever, Reports poor appetite, Denies weight gain, Denies weight loss Ears, nose, mouth and throat: Reports headache, Reports nasal congestion, Reports nasal discharge, Reports post-nasal drip, Reports sinus pressure, Reports sore throat, Denies sinus pain Cardiovascular: Reports shortness of breath, Denies chest pain, Denies leg edema, Denies lightheadedness, Denies orthopnea, Denies palpitations, Denies paroxysmal nocturnal dyspnea Respiratory: Reports as per HPI Gastrointestinal: Denies abdominal pain, Denies diarrhea, Denies nausea, Denies vomiting Genitourinary: Denies dysuria, Denies flank pain, Denies hematuria Musculoskeletal: Denies limitation of motion Integumentary: Denies rash Neurological: Denies seizures, Denies syncope Psychiatric: Denies anxiety, Denies depression Past Medical History Past Medical History: Atrial Fibrillation, Asthma, Hypertension, Osteoarthritis (OA), Pneumonia, Renal Disease, Sleep Apnea/CPAP/BIPAP Additional Past Medical History / Comment(s): 2019 pneumonia and sepsis when living in [place], had pneumonia in Jun, decreased kidney function, uses CPAP, see Dr. Carey [facility] & P History of Any Multi-Drug Resistant Organisms: MRSA Date of last positivie culture/infection: 04/02/24 MDRO Source:: wound Past Surgical History: Adenoidectomy, Cardiac Ablation, Section, Orthopedic Surgery, Tonsillectomy, Tubal Ligation Additional Past Surgical History / Comment(s): cardioversion x3, 2010 left ankle plate and screws, spinal cord surgery in 01/2024 non malignant Past Anesthesia/Blood Transfusion Reactions: No Reported Reaction Past Psychological History: No Psychological Hx Reported Smoking Status: Former smoker Past Alcohol Use History: None Reported Past Drug Use History: None Reported - Past Family History Mother History Unknown: Yes Family Medical History: AFIB, Hyperlipidemia, Hypertension, Thyroid Disorder Additional Family Medical History / Comment(s): stroe, afib, pacemaker, DM, OA, Brother(s) History Unknown: Yes Family Medical History: Cancer Additional Family Medical History / Comment(s): colon ca Father History Unknown: Yes Family Medical History: GI Bleed Additional Family Medical History / Comment(s): cirrhosis, emphysema Medications and Allergies Home Medications Medication Instructions Recorded Confirmed Type Apixaban [Eliquis] 5 mg PO BID 06/08/22 09/23/24 History Magnesium Oxide [Thao] 500 mg PO HS 06/08/22 09/23/24 History Montelukast Sodium [Singulair] 10 mg PO HS 06/08/22 09/23/24 History Rosuvastatin [Crestor] 10 mg PO HS 06/08/22 09/23/24 History Spironolactone [Aldactone] 25 mg PO DAILY #30 tab 09/25/22 09/23/24 Rx Budesonide-Formot 160-4.5 Mcg 2 puff INHALATION RT-BID 12/04/22 09/23/24 History [Symbicort 160-4.5 Mcg Inhaler] Furosemide [Lasix] 40 mg PO DAILY 12/04/22 09/23/24 History Calcium Carbonate [Calcium] 1,200 mg PO SUTUTHSA 03/15/23 09/23/24 History Omeprazole 40 mg PO DAILY 03/15/23 09/23/24 History dilTIAZem HCL [Cardizem CD] 120 mg PO DAILY 11/08/23 09/23/24 History tiZANidine [Zanaflex] 4 mg PO Q6H PRN 11/08/23 09/23/24 History Dapagliflozin Propanediol [Farxiga] 10 mg PO DAILY 07/28/24 09/23/24 History Ipratropium-Albuterol Nebulize 3 ml INHALATION RT-QID PRN 08/17/24 09/23/24 History [Duoneb 0.5 mg-3 mg/3 ml Soln] Acetaminophen [Tylenol Arthritis] 1,300 mg PO Q8H PRN 09/23/24 09/23/24 History Albuterol Inhaler [Ventolin Hfa 2 puff INHALATION RT-QID PRN 09/23/24 09/23/24 History Inhaler] Ascorbic Acid [Vitamin C] 1,000 mg PO DAILY 09/23/24 09/23/24 History Calcium 1200mg W/Vitamin D2 125mcg 1 tab PO MOWEFR 09/23/24 09/23/24 History Ferrous Sulfate [Feosol] 325 mg PO DAILY 09/23/24 09/23/24 History Fexofenadine HCl [Allyssa Allergy] 180 mg PO DAILY 09/23/24 09/23/24 History Zinc Sulfate [Orazinc] 220 mg PO HS 09/23/24 09/23/24 History atenoloL [Tenormin] 25 mg PO DAILY 09/23/24 09/23/24 History Allergies Allergy/AdvReac Type Severity Reaction Status Date / Time banana Allergy Anaphylaxis Verified 09/23/24 13:43 budesonide Allergy Anaphylaxis Verified 09/23/24 13:43 [[facility] (ok with Budesonide/Formoterol in Symbicort) cantaloupe Allergy Anaphylaxis Verified 09/23/24 13:43 formoterol Allergy Anaphylaxis, Verified 09/23/24 13:43 [From Prixel] (ok with Budesonide/Formoterol in Symbicort) glycopyrrolate Allergy Anaphylaxis Verified 09/23/24 13:43 [From [employer]] honeydew Allergy Anaphylaxis Verified 09/23/24 13:43 latex Allergy Rash/Hives Verified 09/23/24 13:43 melon Allergy Anaphylaxis Verified 09/23/24 13:43 perflutren [From Definity] Allergy Anaphylaxis Verified 09/23/24 13:43 diclofenac [From Voltaren] AdvReac Chest Pain Verified 09/23/24 13:43 metoprolol [From Lopressor] AdvReac Chest Pain Verified 09/23/24 13:43 naproxen [From Naprosyn] AdvReac Chest Pain Verified 09/23/24 13:43 NSAIDS (Non-Steroidal AdvReac Chest Pain Verified 09/23/24 13:43 Anti-Inflamma Physical Exam Vitals: Vital Signs Temp Pulse Pulse Pulse Resp BP Pulse Ox 09/26/24 15:00 97.9 F 80 16 114/70 94 L 09/26/24 12:05 65 09/26/24 11:56 63 09/26/24 08:40 75 09/26/24 08:28 97 09/26/24 08:26 77 09/26/24 07:00 98.8 F 76 15 103/67 97 09/26/24 01:25 70 09/26/24 01:15 67 09/26/24 00:53 98 F 71 20 100/66 96 09/25/24 21:30 98.1 F 66 20 98/67 99 09/25/24 20:28 68 89/62 99 09/25/24 19:29 70 116/71 100 09/25/24 18:37 60 09/25/24 18:30 66 92/61 99 09/25/24 18:29 68 09/25/24 18:28 66 80/39 98 09/25/24 17:27 67 90/57 97 09/25/24 17:13 65 91/62 99 09/25/24 16:58 64 108/66 98 09/25/24 16:45 63 109/68 98 09/25/24 16:28 98.0 F 110/76 98 09/25/24 15:47 70 Intake and Output 09/26/24 09/26/24 09/26/24 06:59 14:59 22:59 Other: Voiding Method Toilet # Voids 2 3 GENERAL EXAM: Alert, 68-year-old obese female, sitting at the edge of the bed, comfortable in no apparent distress. The patient is currently on room air oxygen HEAD: Normocephalic and atraumatic EYES: Normal reaction of pupils, equal size. NOSE: Clear with pink turbinates. THROAT: No erythema or exudates. NECK: No masses, no JVD. CHEST: No chest wall deformity. The patient has a pacemaker pocket over the right anterior chest area LUNGS: Equal air entry with scattered rhonchi and expiratory wheezing bila terally. on room air. no conversational dyspnea or accessory muscle use.. The patient using incentive spirometer and she is pulling approximately 1500 mL CVS: S1 and S2 normal with no audible murmur, regular rhythm. No extra heart sounds ABDOMEN: No hepatosplenomegaly, active bowel sounds, no guarding or rigidity. SPINE: No scoliosis or deformity SKIN: No rashes. Thoracic level spinal incision appears approximated and pink CENTRAL NERVOUS SYSTEM: No focal deficits, tone is normal in all 4 extremities. EXTREMITIES: There is no peripheral edema, clubbing, or cyanosis. Peripheral pulses are intact. Results - Laboratory Findings CBC and BMP: 09/26/24 04:32 09/26/24 04:32 PT/INR, D-dimer PT 11.0 sec (10.0-12.5) 09/23/24 13:04 INR 1.0 (<1.2) 09/23/24 13:04 Abnormal lab findings: Abnormal Labs 09/23/24 09/23/24 09/24/24 13:04 13:04 05:51 WBC Hgb 11.8 L Hct MCH 24.3 L MCHC 29.4 L RDW 19.5 H 21.6 H Immature Gran # 0.05 H Neutrophils # Lymphocytes # Monocytes # 1.15 H Eosinophils # Basophils # 0.11 H Sodium 136 L Carbon Dioxide Anion Gap BUN 25 H Creatinine 1.38 H Est GFR (CKD-EPI) Glucose 101 H Total Bilirubin Alkaline Phosphatase 140 H Total Protein Albumin 04/03/25 04/04/25 04/04/25 05:51 05:20 05:20 WBC Hgb 10.7 L Hct 36.1 L MCH 24.8 L MCHC 29.6 L RDW 21.8 H Immature Gran # 0.06 H Neutrophils # Lymphocytes # Monocytes # Eosinophils # Basophils # Sodium Carbon Dioxide Anion Gap BUN Creatinine 1.6 H 1.6 H Est GFR (CKD-EPI) 35 L 35 L Glucose 117 H Total Bilirubin 0.2 L Alkaline Phosphatase 132 H Total Protein 5.7 L Albumin 3.6 L 09/26/24 09/26/24 04:32 04:32 WBC 12.26 H Hgb 10.5 L Hct 34.8 L MCH 25.2 L MCHC 30.2 L RDW 21.5 H Immature Gran # 0.05 H Neutrophils # 11.54 H Lymphocytes # 0.45 L Monocytes # 0.17 L Eosinophils # 0.03 L Basophils # Sodium Carbon Dioxide 20.5 L Anion Gap 14.50 H BUN Creatinine 1.7 H Est GFR (CKD-EPI) 33 L Glucose 196 H Total Bilirubin Alkaline Phosphatase Total Protein Albumin - Diagnostic Findings Chest x-ray: image reviewed Assessment and Plan Plan: Acute on chronic shortness of breath, suspicious findings of pneumonia versus atelectasis, covered with IV antibiotics with Zosyn. Mild intermittent bronchial asthma maintained on Symbicort on outpatient basis A-fib with RVR with subsequent diagnosis of sick sinus syndrome/tachybradycardia syndrome and the patient has a pacemaker in place. Cardiac catheterization was done and coronaries was clear. Mild chronic systolic heart failure with an ejection fraction of 40 to 45% Cardiac pause, post pacemaker insertion Obesity Previous history of obstructive sleep apnea that needs to be reevaluated. Most recent sleep study done in 2023 showed no evidence of any sleep breathing disorder and the patient is currently off treatment History of iron deficiency anemia Chronic stage IIIb kidney disease Hypertension Hyperlipidemia Osteoporosis History of meningioma of the lumbar spine post neurosurgical excision Plan Agree on the current treatment Using incentive spirometer Augmentin at time of discharge Symbicort at time of discharge along with albuterol rescue inhaler Prednisone burst taper at time of discharge Reevaluate with another sleep study postdischarge to rule out underlying residual sleep apnea specially in light of recent cardiac arrhythmias and cardiac pauses Pacemaker in place Hemoglobin stable Renal function stable
[2024-09-26] MEDS: APIXABAN 5 MG TAB PO SCH (21:37)
[2024-09-26] MEDS: guaiFENesin 600 MG TABLET.ER PO SCH (21:38)
[2024-09-26] MEDS: Acetaminophen-Codeine 300-30mg TAB PO PRN (21:47)
[2024-09-27 07:48] VITALS: BP 122/78; RESP 15; TEMP 98.8
[2024-09-27 08:06] LABS: Anisocytosis Slight; Basophils % (A) 0 %; Eosinophils % (A) 0 %; HCT 37.7 % (34.0-46.0); Hypochromasia Marked; Lymphocytes # (A) 0.8 k/uL (1.0-4.8); Lymphocytes % (A) 4 %; MCH 25.1 pg (25.0-35.0); MCHC 29.1 g/dL (31.0-37.0); Mean Platelet Volume 8.6; Monocytes # (A) 0.8 k/uL (0-1.0); Monocytes % (A) 4 %; Neutrophils # (A) 18.7 k/uL (1.3-7.7); Neutrophils % (A) 91 %; Platelet Count 248 k/uL (150-450); RBC 4.36 m/uL (3.80-5.40); RDW 19.9 % (11.5-15.5); WBC 20.5 k/uL (3.8-10.6)
[2024-09-27 08:09] LABS: ALT 12 U/L (4-34); AST 21 U/L (14-36); African American GFR (CKD) 45 (>60 ml/min/1.73 sqM); Albumin/Globulin Ratio 1.5; Alkaline Phosphatase 102 U/L (38-126); Anion Gap 14 mmol/L; Blood Urea Nitrogen 31 mg/dL (7-17); Calcium 9.4 mg/dL (8.4-10.2); Carbon Dioxide 19 mmol/L (22-30); Chloride 104 mmol/L (98-107); Globulin 2.7 g/dL; Glucose 128 mg/dL (74-99); Non-African American GFR(CKD) 39 (>60 ml/min/1.73 sqM); Potassium 4.2 mmol/L (3.5-5.1); Sodium 137 mmol/L (137-145); Total Bilirubin 0.5 mg/dL (0.2-1.3); Total Protein 6.7 g/dL (6.3-8.2)
[2024-09-27 08:33] LABS: MCV 86.3 fL (80.0-100.0)
[2024-09-27] MEDS: SPIRONOLACTONE 25 MG TAB PO SCH (09:00)
[2024-09-27 10:33] VITALS: PULSE 81
--- NOTE | 2024-09-27 12:04 | P.PN ---
Subjective Progress Note Date: 09/27/24 This is a 68-year-old female patient who is being seen for ongoing shortness of breath and cough. The patient was hospitalized initially on 09/23/2024 as the patient presented with tachycardia and she was in A-fib RVR. She was initially started on a Cardizem drip for rate control. Seen by cardiology. Treated accordingly. Cardiac cath was also done on 09/24/2024 and the cath came back essentially negative for any coronary artery disease. Previous echocardiogram from 07/29/2024 showed mild LV dysfunction with an ejection fraction of 45 to 50%. During the course of the same hospitalization, the patient encountered bradycardia. She did have an episode of prolonged asystole. Based on that, she was given the diagnosis of sick sinus syndrome, possible tachybradycardia syndrome and the patient was given a pacemaker that was inserted on 09/25/2024. At the same time, the patient is known to have asthma. Her chest x-rays done on 09/25/2024 and 09/26/2024 showed limited infiltration along the right midlung. Atelectasis versus pneumonia. The patient accordingly was given antibiotics and she remains on IV Zosyn. She is on Symbicort regarding her bronchial asthma and DuoNeb nebulizer treatments [id number]. Oxygenation is stable and the patient is currently on room air oxygen with a pulse ox of 94%. She does have a history of severe obstructive sleep apnea. Nevertheless, the most recent home sleep study that was done back in 2023 showed no evidence of any sleep breathing disorder and as such the patient is currently off treatment. Nevertheless, there is still concern of underlying residual obstructive sleep apnea and this needs to be reevaluated at a later stage. Other comorbidities include hypertension, hyperlipidemia, obesity, chronic stage IIIb kidney disease and history of iron deficiency anemia. On 09/27/2024, the patient is stable. She is currently on room air oxygen. She denies having any specific complaints. She is having some soreness across the chest at the site of the pacemaker insertion. Her current cardiac rhythm is sinus. She was noted to have episodes of atrial fibrillation on a alarm security or surveillance monitor. The white cell count of 20 with a hemoglobin of 11 and a platelet count of 248. BUN 31 with a creatinine 1.3 and electrolytes are stable with a serum bicarb of 19. No other significant events overnight. She is resting comfortably in bed. She is on Symbicort, DuoNeb updrafts and IV Solu-Medrol. Most recent chest x-ray was noted and is consistent with some atelectatic changes along the right midlung. Objective - Vital Signs Vital signs: Vital Signs Temp 98.8 F 09/27/24 07:00 Pulse 74 09/27/24 09:27 Resp 15 09/27/24 07:00 BP 122/78 09/27/24 07:00 Pulse Ox 97 09/27/24 09:15 FiO2 Intake & Output 09/26/24 09/27/24 09/27/24 18:59 06:59 18:59 Other: Voiding Method Toilet # Voids 3 2 - Exam GENERAL EXAM: Alert, 68-year-old obese female, sitting at the edge of the bed, comfortable in no apparent distress. The patient is currently on room air oxygen HEAD: Normocephalic and atraumatic EYES: Normal reaction of pupils, equal size. NOSE: Clear with pink turbinates. THROAT: No erythema or exudates. NECK: No masses, no JVD. CHEST: No chest wall deformity. The patient has a pacemaker pocket over the right anterior chest area LUNGS: Equal air entry with scattered rhonchi and expiratory wheezing bilaterally. on room air. no conversational dyspnea or accessory muscle use.. The patient using incentive spirometer and she is pulling approximately 1500 mL CVS: S1 and S2 normal with no audible murmur, regular rhythm. No extra heart sounds ABDOMEN: No hepatosplenomegaly, active bowel sounds, no guarding or rigidity. SPINE: No scoliosis or deformity SKIN: No rashes. Thoracic level spinal incision appears approximated and pink CENTRAL NERVOUS SYSTEM: No focal deficits, tone is normal in all 4 extremities. EXTREMITIES: There is no peripheral edema, clubbing, or cyanosis. Peripheral pulses are intact. - Labs CBC & Chem 7: 09/27/24 06:42 09/27/24 06:42 Labs: Abnormal Lab Results - Last 24 Hours (Table) 09/26/24 09/27/24 09/27/24 Range/Units 04:32 06:42 06:42 WBC 20.5 H (3.8-10.6) k/uL Hgb 11.0 L (11.4-16.0) gm/dL MCHC 29.1 L (31.0-37.0) g/dL RDW 19.9 H (11.5-15.5) % Neutrophils # 18.7 H (1.3-7.7) k/uL Lymphocytes # 0.8 L (1.0-4.8) k/uL Carbon Dioxide 20.5 L 19 L (21.6-31.8) mmol/L Anion Gap 14.50 H (4.00-12.00) mmol/L BUN 31 H (7-17) mg/dL Creatinine 1.7 H 1.39 H (0.6-1.5) mg/dL Est GFR (CKD-EPI) 33 L (>=60) Glucose 196 H 128 H (70-110) mg/dL Assessment and Plan Plan: Acute on chronic shortness of breath, suspicious findings of pneumonia versus atelectasis, covered with IV antibiotics with Zosyn. Currently on room air oxygen. No significant respiratory difficulties. There is some underlying leukocytosis, could be steroid-induced. Mild intermittent bronchial asthma maintained on Symbicort on outpatient basis A-fib with RVR with subsequent diagnosis of sick sinus syndrome/tachybradycardia syndrome and the patient has a pacemaker in place. Cardiac catheterization was done and coronaries was clear. Mild chronic systolic heart failure with an ejection fraction of 40 to 45% Cardiac pause, post pacemaker insertion Obesity Previous history of obstructive sleep apnea that needs to be reevaluated. Most recent sleep study done in 2023 showed no evidence of any sleep breathing disorder and the patient is currently off treatment History of iron deficiency anemia Chronic stage IIIb kidney disease Hypertension Hyperlipidemia Osteoporosis History of meningioma of the lumbar spine post neurosurgical excision Plan Currently on room air oxygen. Continue to use incentive spirometer Augmentin at time of discharge Symbicort at time of discharge along with albuterol rescue inhaler Prednisone burst taper at time of discharge Reevaluate with another sleep study postdischarge to rule out underlying residual sleep apnea specially in light of recent cardiac arrhythmias and cardiac pauses Pacemaker in place Hemoglobin stable Renal function stable Outpatient sleep study
--- NOTE | 2024-09-27 12:18 | P.PN ---
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 with a previous medical history significant for hypertension and hypertensive cardiovascular disease, hyperlipidemia, history of mild persistent asthma, obstructive sleep apnea, and osteoporosis, recent history of meningioma of the lumbar spine status post excision by neurosurgery at [facility], followed by inpatient rehabilitation at [facility], she has recovered completely from that, patient presented to the emergency department at [facility] after she noticed on her Apple Watch that her heart rate is running around 130 2040 bpm, alarming her to atrial fibrillation with fast ventricular response, patient contacted Dr. Gomez in the office, she did not get a call back, she waited for few hours, her heart rate got faster she ended up coming to the emergency department at [facility], she dropped her car off, she went into the ER, her heart rate at that time was around 150 bpm, she was started on Cardizem drip at that time, 5 mg/h, she did not receive any bolus, her blood pressure did drop a bit, she was admitted to the hospital for evaluation by cardiology, who recommended for the patient to be admitted and having left heart catheterization tomorrow morning. 4/3: Patient is sitting up in bed in no apparent distress, she just got back from the left heart catheterization, through her right radial artery, she has some numbness in the right index finger, there is just reduce the pressure of the band, she has no chest pain at this time, she does not appear to be somewhat short of breath, she continues to have dyspnea on exertion, her blood pressure is up appears to be soft, she was started on atenolol and it was increased to 25 mg orally twice every day, cardiology recommended to discontinue flecainide as well as diltiazem altogether, and follow-up with the patient as an outpatient in the next week or so the recommended for the patient to stay in the hospital overnight, continue IV fluid resuscitation in the form of normal saline at 100 cc an hour, repeat the patient CBC and CMP in the next 24 hours, if her kidney function is normal patient can be discharged home tomorrow morning and follow-up with me as an outpatient. 4/4: Patient is sitting up in bed in no apparent distress, yesterday she had an episode of 14.6-second pause after she converted to sinus rhythm, patient is scheduled to go for a permanent pacemaker placement later on this afternoon, patient denies any chest pain at this time, she has no shortness of breath, she has no abdominal pain, nausea vomiting or diarrhea, she will have her pacemaker placed today, and hopefully she will be discharged home tomorrow morning. 09/26: Patient underwent permanent pacemaker placement yesterday, last night I received a call from nursing staff stating that the patient is having severe pain in the right upper chest as well as the left lower chest as well associated with increased shortness of breath, increased coughing, chest x-ray was done showed evidence of developing infiltrate in the left lower lobe, patient was started on IV antibiotic in the form of Zosyn 3.375 g piggyback every 8 hours, she was also started on Solu-Medrol 40 mg IV push every 8 hours, oxygen support, 3 to nasal cannula, recommended pulmonary consultation, repeated chest x-ray in the next 24 hours, repeated chest x-ray showed infiltrate in the left lower lobe suggestive of developing pneumonia, procalcitonin level was ordered still pending exam and dictation. Pulmonary consultation was obtained patient was started on DuoNeb 3 mL nebulization 4 times every day, she will be placed on Mucinex 600 mg orally twice every day as well 09/27: Patient is feeling better today, she denies any chest pain, shortness of breath, she is 97% room air, will switch the patient to oral allie xicillin/clavulanate 500/125 mg orally twice every day for the next 7 days, continue Mucinex 600 mg orally twice every day for 7 days,patient can be discharged home today and follow-up with me as an outpatient in the next 1 week, she is to follow-up with cardiology per their recommendation, she is to follow- up with the pacemaker clinic as well. REVIEW OF SYSTEMS: Constitutional: No fever, no chills, no night sweats. No weight change. Positive for weakness, fatigue or lethargy. No daytime sleepiness. HEENT: No headache. No blurred vision or double vision, no loss of vision No loss of Hearing, no ringing in the ears, no dizziness. No nasal drainage or congestion. No epistaxis. No sore throat. Lungs: positive for shortness of breath, positive for cough, no sputum production. Occasional wheezing. Reports dyspnea with activity and at rest. Cardiovascular: No chest pain, no lower extremity edema. Reports palpitations. No paroxysmal nocturnal dyspnea. No orthopnea. No lightheadedness or dizziness. No syncopal episodes. Abdominal: Reports no abdominal pain. No nausea, vomiting. No diarrhea. No constipation. No bloody or tarry stools reports no loss of appetite. Genitourinary: No dysuria, increased frequency, urgency. No urinary retention. Musculoskeletal: No myalgias. No muscle weakness, no gait dysfunction, no frequent falls. No back pain. No neck pain. Integumentary: No wounds, no lesions. No rash or pruritus. No unusual bruising. No change in hair or nails. Neurologic: No aphasia. No facial droop. No change in mentation. No head injury. No headache. No paralysis. No paresthesia. Psychiatric: No depression. No anxiety. No mood swings. Endocrine: No abnormal blood sugars. No weight change. PHYSICAL EXAMINATION: General: 68-year-old female sitting up in bed in no apparent distress. HEENT: Head is atraumatic, normocephalic, pupils were equal round reactive to light and recommendation, extraocular muscle movement were intact, sclera nonicteric, conjunctivae were pale, mucous membranes of the mouth are somewhat dry. Neck: Supple, no JVP, normal carotid upstroke bilaterally, no lymphadenopathy. Chest: Decreased breath sounds at the bases, few rhonchi, no expiratory wheezes, no chest wall tenderness, no intercostal retractions. Heart: First heart sound is normal, second heart sound is normal tachycardic irregularly irregular due to atrial fibrillation. Abdomen: Soft, nontender, nondistended, positive bowel sounds, there is no hepatosplenomegaly per Extremities: There is no edema no calf tenderness DP +2 bilaterally. Neurologic examination: Patient is awake alert and oriented X 3, cranial nerves II-12 appear grossly intact, muscle power were 5 out of 5 in upper extremities and 4 out of 5 in bilateral lower extremities, deep tendon reflexes normal bilaterally. ASSESSMENT AND PLAN: 1. Atrial fibrillation with rapid ventricular response. Patient is being treated with Eliquis 5 mg orally twice every day and atenolol 25 mg orally twice every day, monitor the patient blood pressure very closely. 2. Left lower lobe pneumonia likely gram-negative pneumonia. Switch the patient to amoxicillin/clavulanate potassium 500/125 milligram orally twice every day for 7 days, continue Mucinex 600 mg orally twice every day, discontinue Solu-Medrol, start the patient on prednisone burst and taper 3. 14.6-second pause post cardioversion to sinus rhythm. status post permanent pacemaker placement. 4. Hypertension and hypertensive cardiovascular disease. Continue atenolol 25 mg orally twice every day monitor the patient blood pressure very closely. 5. Mixed hyperlipidemia. Continue patient on atorvastatin 20 mg orally once every day, monitor the patient lipid panel, keep LDL 55-70. 6. Obesity with obstructive sleep apnea. Continue CPAP. 7. ALLERGIC rhinitis. Continue patient on singular 10 mg at bedtime as well as Allyssa once every day. 8. Acute on chronic kidney disease stage IIIb. Avoid nephrotoxins, patient is to be maintained on Farxiga 10 mg orally once every day. Monitor the patient CMP in the next 24 hours 9. Iron deficiency anemia. status post EGD and colonoscopy and MR enterography that was negative. Continue iron supplement to 25 mg once every day 10. DVT prophylaxis. Continue patient on Apixaban 5 mg po bid. 11. GI prophylaxis. Continue patient on Protonix 40 mg once every day . 12. Mild persistent asthma. Continue patient on Symbicort 160/4.5 mcg 2 puffs elation twice every day, continue albuterol as needed. Added DuoNeb 3 mL nebulization 4 times every day as well as Solu-Medrol 40 mg IV push every 8 hours. 13. discharge the patient home today and follow-up with me as an outpatient next week Objective - Vital Signs Vital signs: Vital Signs Temp 98.8 F 09/27/24 07:00 Pulse 74 09/27/24 09:27 Resp 15 09/27/24 07:00 BP 122/78 09/27/24 07:00 Pulse Ox 97 09/27/24 09:15 FiO2 Intake & Output 09/26/24 09/27/24 09/27/24 18:59 06:59 18:59 Other: Voiding Method Toilet # Voids 3 2 - Labs CBC & Chem 7: 09/27/24 06:42 09/27/24 06:42 Labs: Abnormal Lab Results - Last 24 Hours (Table) 04/06/25 04/06/25 Range/Units 06:42 06:42 WBC 20.5 H (3.8-10.6) k/uL Hgb 11.0 L (11.4-16.0) gm/dL MCHC 29.1 L (31.0-37.0) g/dL RDW 19.9 H (11.5-15.5) % Neutrophils # 18.7 H (1.3-7.7) k/uL Lymphocytes # 0.8 L (1.0-4.8) k/uL Carbon Dioxide 19 L (22-30) mmol/L BUN 31 H (7-17) mg/dL Creatinine 1.39 H (0.52-1.04) mg/dL Glucose 128 H (74-99) mg/dL
--- NOTE | 2024-09-27 12:19 | P.DS ---
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, she has recovered completely from that, patient presented to the emergency department at [facility] after she noticed on her Apple Watch that her heart rate is running around 130 2040 bpm, alarming her to atrial fibrillation with fast ventricular response, patient contacted Dr. Gomez in the office, she did not get a call back, she waited for few hours, her heart rate got faster she ended up coming to the emergency department at [facility], she dropped her car off, she went into the ER, her heart rate at that time was around 150 bpm, she was started on Cardizem drip at that time, 5 mg/h, she did not receive any bolus, her blood pressure did drop a bit, she was admitted to the hospital for evaluation by cardiology, who recommended for the patient to be admitted and having left heart catheterization tomorrow morning. 09/24: Patient is sitting up in bed in no apparent distress, she just got back from the left heart catheterization, through her right radial artery, she has some numbness in the right index finger, there is just reduce the pressure of the band, she has no chest pain at this time, she does not appear to be somewhat short of breath, she continues to have dyspnea on exertion, her blood pressure is up appears to be soft, she was started on atenolol and it was increased to 25 mg orally twice every day, cardiology recommended to discontinue flecainide as well as diltiazem altogether, and follow-up with the patient as an outpatient in the next week or so the recommended for the patient to stay in the hospital overnight, continue IV fluid resuscitation in the form of normal saline at 100 cc an hour, repeat the patient CBC and CMP in the next 24 hours, if her kidney function is normal patient can be discharged home tomorrow morning and follow-up with me as an outpatient. 09/25: Patient is sitting up in bed in no apparent distress, yesterday she had an episode of 14.6-second pause after she converted to sinus rhythm, patient is scheduled to go for a permanent pacemaker placement later on this afternoon, patient denies any chest pain at this time, she has no shortness of breath, she has no abdominal pain, nausea vomiting or diarrhea, she will have her pacemaker placed today, and hopefully she will be discharged home tomorrow morning. 09/26: Patient underwent permanent pacemaker placement yesterday, last night I received a call from nursing staff stating that the patient is having severe pain in the right upper chest as well as the left lower chest as well associated with increased shortness of breath, increased coughing, chest x-ray was done showed evidence of developing infiltrate in the left lower lobe, patient was started on IV antibiotic in the form of Zosyn 3.375 g piggyback every 8 hours, she was also started on Solu-Medrol 40 mg IV push every 8 hours, oxygen support, 3 to nasal cannula, recommended pulmonary consultation, repeated chest x-ray in the next 24 hours, repeated chest x-ray showed infiltrate in the left lower lobe suggestive of developing pneumonia, procalcitonin level was ordered still pending exam and dictation. Pulmonary consultation was obtained patient was started on DuoNeb 3 mL nebulization 4 times every day, she will be placed on Mucinex 600 mg orally twice every day as well 09/27: Patient is feeling better today, she denies any chest pain, shortness of breath, she is 97% room air, will switch the patient to oral amoxicillin/clavulanate 500/125 mg orally twice every day for the next 7 days, continue Mucinex 600 mg orally twice every day for 7 days,patient can be dischar ge home today and follow-up with me as an outpatient in the next 1 week, she is to follow-up with cardiology per their recommendation, she is to follow-up with the pacemaker clinic as well. Discharge diagnoses: 1. Atrial fibrillation with rapid ventricular response. 2. Left lower lobe pneumonia likely gram-negative pneumonia. 3. 14.6-second pause post cardioversion to sinus rhythm. status post permanent pacemaker placement. 4. Hypertension and hypertensive cardiovascular disease. 5. Mixed hyperlipidemia. 6. Obesity with obstructive sleep apnea. Going for another sleep study as an outpatient 7. ALLERGIC rhinitis. 8. Acute on chronic kidney disease stage IIIb. 9. Iron deficiency anemia. 10. Mild persistent asthma. Patient Condition at Discharge: Fair Plan - Discharge Summary Discharge Rx Participant: No New Discharge Prescriptions: No Action Magnesium Oxide [Thao] 500 mg PO HS Budesonide-Formot 160-4.5 Mcg [Symbicort 160-4.5 Mcg Inhaler] 2 puff INHALATION RT-BID Omeprazole 40 mg PO DAILY tiZANidine [Zanaflex] 4 mg PO Q6H PRN PRN Reason: Muscle Pain dilTIAZem HCL [Cardizem CD] 120 mg PO DAILY Ipratropium-Albuterol Nebulize [Duoneb 0.5 mg-3 mg/3 ml Soln] 3 ml INHALATION RT-QID PRN PRN Reason: Shortness Of Breath Ferrous Sulfate [Feosol] 325 mg PO DAILY Fexofenadine HCl [Allyssa Allergy] 180 mg PO DAILY atenoloL [Tenormin] 25 mg PO DAILY Rosuvastatin [Crestor] 10 mg PO HS Montelukast Sodium [Singulair] 10 mg PO HS Apixaban [Eliquis] 5 mg PO BID Spironolactone [Aldactone] 25 mg PO DAILY #30 tab Furosemide [Lasix] 40 mg PO DAILY Calcium Carbonate [Calcium] 1,200 mg PO SUTUTHSA Dapagliflozin Propanediol [Farxiga] 10 mg PO DAILY Ascorbic Acid [Vitamin C] 1,000 mg PO DAILY Acetaminophen [Tylenol Arthritis] 1,300 mg PO Q8H PRN PRN Reason: Pain Zinc Sulfate [Orazinc] 220 mg PO HS Calcium 1200mg W/Vitamin D2 125mcg 1 tab PO MOWEFR Albuterol Inhaler [Ventolin Hfa Inhaler] 2 puff INHALATION RT-QID PRN PRN Reason: Shortness Of Breath Discharge Medication List Apixaban [Eliquis] 5 mg PO BID 06/08/22 [History] Magnesium Oxide [Thao] 500 mg PO HS 06/08/22 [History] Montelukast Sodium [Singulair] 10 mg PO HS 06/08/22 [History] Rosuvastatin [Crestor] 10 mg PO HS 06/08/22 [History] Spironolactone [Aldactone] 25 mg PO DAILY #30 tab 09/25/22 [Rx] Budesonide-Formot 160-4.5 Mcg [Symbicort 160-4.5 Mcg Inhaler] 2 puff INHALATION RT-BID 12/04/22 [History] Furosemide [Lasix] 40 mg PO DAILY 12/04/22 [History] Calcium Carbonate [Calcium] 1,200 mg PO SUTUTHSA 03/15/23 [History] Omeprazole 40 mg PO DAILY 03/15/23 [History] dilTIAZem HCL [Cardizem CD] 120 mg PO DAILY 11/08/23 [History] tiZANidine [Zanaflex] 4 mg PO Q6H PRN 11/08/23 [History] Dapagliflozin Propanediol [Farxiga] 10 mg PO DAILY 07/28/24 [History] Ipratropium-Albuterol Nebulize [Duoneb 0.5 mg-3 mg/3 ml Soln] 3 ml INHALATION RT-QID PRN 08/17/24 [History] Acetaminophen [Tylenol Arthritis] 1,300 mg PO Q8H PRN 09/23/24 [History] Albuterol Inhaler [Ventolin Hfa Inhaler] 2 puff INHALATION RT-QID PRN 09/23/24 [History] Ascorbic Acid [Vitamin C] 1,000 mg PO DAILY 09/23/24 [History] Calcium 1200mg W/Vitamin D2 125mcg 1 tab PO MOWEFR 09/23/24 [History] Ferrous Sulfate [Feosol] 325 mg PO DAILY 09/23/24 [History] Fexofenadine HCl [Allyssa Allergy] 180 mg PO DAILY 09/23/24 [History] Zinc Sulfate [Orazinc] 220 mg PO HS 09/23/24 [History] atenoloL [Tenormin] 25 mg PO DAILY 09/23/24 [History] Follow up Appointment(s)/Referral(s): Lc Krueger MD [Primary Care Provider] - 1-2 days Juve Gomez DO [STAFF PHYSICIAN] - 1 Week Plan of Treatment: Follow-up in device clinic within 1 week for pacemaker care instructions and suture removal
[2024-09-27] MEDS ORDERED: methylPREDNISolone SOD SUCCI 40 MG/ML 1 ML VIAL IV SCH (21:00)
== END 2024-09-27 13:50 | disposition home health service (06) ==
LOC: EC 12:35 → 6NMEDSUR 13:20
PROVIDERS: ADMIT Internal Medicine; ATTEND Internal Medicine
DX: I48.19 Other persistent atrial fibrillation (principal); J45.31 Mild persistent asthma with (acute) exacerbation; J18.9 Pneumonia, unspecified organism; I45.5 Other specified heart block; I49.5 Sick sinus syndrome; G47.33 Obstructive sleep apnea (adult) (pediatric); E78.2 Mixed hyperlipidemia; N17.9 Acute kidney failure, unspecified; I13.0 Hypertensive heart and chronic kidney disease with heart failure and stage 1 through stage 4 chronic kidney disease, or unspecified chronic kidney disease; I50.22 Chronic systolic (congestive) heart failure; N18.32 Chronic kidney disease, stage 3b; D50.9 Iron deficiency anemia, unspecified; M81.0 Age-related osteoporosis without current pathological fracture; E66.9 Obesity, unspecified; Z68.34 Body mass index [BMI] 34.0-34.9, adult; Z86.018 Personal history of other benign neoplasm; Z87.891 Personal history of nicotine dependence; Z79.01 Long term (current) use of anticoagulants; Z79.899 Other long term (current) drug therapy; Z79.51 Long term (current) use of inhaled steroids; Z79.84 Long term (current) use of oral hypoglycemic drugs; Z79.52 Long term (current) use of systemic steroids; Z88.6 Allergy status to analgesic agent; Z91.040 Latex allergy status
CPT/HCPCS: 96376 ×2; 96366 ×6; 96367; 96375; 96365; 99291; 36415; 94640 ×9; 94760 ×2; 93005; 93458; 33208; 83880; 80053 ×5; 83605; 83735 ×3; 84100 ×2; 84443; 84484; 85025 ×5; 85610; 85730; 84145; 71045; 71046; G0378 ×5; C1894; C1892; C1898; C1769; C1785; J2543 ×3; J2250 ×2; J1644 ×2; J0690; J2003 ×2; J3010 ×3; Q9967 ×2; J2919 ×3